=== PATIENT | male | born 1990 | race Caucasian/White ===

== ENCOUNTER 2016-12-18 20:55 | Emergency (ER) | payer OTHER ==
[~2016-12-18] VITALS: Ht 157.5 cm; Wt 60.5 kg
[~2016-12-18 20:55] MED LIST: ALBU1NEB10 INH; ALBUAER19 INH; AMIT50TA3 PO; CLR10 PO; OMEP20CA9 PO
[2016-12-18 20:57] VITALS: TEMP 37.2; Ht 157.5 cm; Wt 60.5 kg
[2016-12-18] MEDS ORDERED: LIDOCAINE HCL 2% VISC SOLN 20 ML UDC PO STA (21:29)
[2016-12-18] MEDS ORDERED: ALUMINUM/MAGNESIUM SUSP 30 ML UDC PO STA (21:29)
[2016-12-18] MEDS ORDERED: RANITIDINE HCL 50 MG/100 ML D5W IV STA (21:29)
[2016-12-18] MEDS ORDERED: ONDANSETRON INJ 2 MG/ML 2 ML VIAL IV STA (21:29)
[2016-12-18] MEDS ORDERED: SODIUM CHLORIDE 0.9% 1000ML 1,000 ML IV STA ×2 (21:29)
[2016-12-18 21:52] VITALS: O2SAT 98
[2016-12-18 22:04] LABS: BASO ABS # 0.08 K/uL (0-0.2); COMPLETE YES; EOS % 5.5 %; HEMATOCRIT 42.6 % (42-52); IG% 0.6 %; LYMPH % 27.5 %; LYMPH ABS # 2.23 K/uL (1.2-3.4); MEAN CELL VOLUME 93.8 fL (80-100); MEAN CORPUSCULAR HGB CONC 35.2 g/dl (32-36); MEAN PLATELET VOLUME 9.9 fL (7.4-10.4); MONO % 11.1 %; NEUT % 54.3 %; PLATELET COUNT 320 K/uL (130-400); RED BLOOD COUNT 4.54 M/uL (4.7-6.1); WHITE BLOOD COUNT 8.11 K/uL (4.8-10.8)
[2016-12-18 22:05] LABS: URINE APPEARANCE CLEAR (CLEAR); URINE BILIRUBIN NEG (NEG); URINE COLOR YELLOW; URINE NITRITE NEG (NEG); URINE PH 6.5 (4.5-7.5); URINE SPECIFIC GRAVITY 1.007 (1.000-1.030); UROBILINOGEN NEG (NEG)
[2016-12-18 22:11] LABS: MANUAL MICROSCOPIC REQUIRED? NO; REVIEW REQ? NO
[2016-12-18 22:21] LABS: CREATININE 0.78 mg/dl (0.60-1.40); POTASSIUM 3.7 mmol/L (3.5-5.1)
[2016-12-18 22:27] LABS: CALCIUM 9.1 mg/dl (8.5-10.1)
[2016-12-18] MEDS ORDERED: MoRPHine SULFATE 4 MG/ML 1 ML CARP\\VIAL IV STA (22:27)
[2016-12-19] MEDS ORDERED: MoRPHine SULFATE 4 MG/ML 1 ML CARP\\VIAL IV STA (00:05)
[2016-12-19 02:09] VITALS: BP 127/73; PULSE 63; O2SAT 98
[2016-12-19] MEDS ORDERED: TRAMADOL HCL 50 MG HOME PACK PO ONE (02:15)
--- NOTE | 2016-12-19 05:15 | EMERGENCY ROOM VISIT NOTE ---
History First contact with patient: 21:25 Chief Complaint: BACK PAIN Stated Complaint: BACK PAIN,ABD PAIN History of Present Illness The patient is a 26 year old male who presents to the Emergency Room with complaints of upper abdominal and back pain for the past day with nausea described as aching, ranging in severity 7 out of 10. Nothing makes it better or worse. Patient states the pain starts in his back and radiates around to his abdomen. He's had back pain before. This feels somewhat different. Patient denies chest pain, dyspnea, fever, chills, diarrhea, urinary symptoms, flank pain. He is tolerating by mouth fluids and food. Patient denies IV drug abuse. Review of Systems See HPI for pertinent positives & negatives. A total of 10 systems reviewed and were otherwise negative. Past Medical/Surgical History Medical Problems: (1) Acute exacerbation of chronic low back pain (2) Lumb/Lumbosac Disc Degen Family History Cancer Diabetes mellitus Heart disease Hypertension Lung disease Social History Smoking Status: Current Every Day Smoker Alcohol Use: occasionally Drug Use: none Marital Status: in relationship Housing Status: lives with family Occupation Status: employed Current/Historical Medications Scheduled Amitriptyline Hcl (Amitriptyline Hcl), 50 MG PO HS Loratadine (Claritin), 10 MG PO DAILY Omeprazole (Prilosec), Unknown Dose PO DAILY Scheduled PRN Albuterol Inhaler (Ventolin Inhaler), 2 PUFFS INH Q4H PRN for SOB/Wheezing Albuterol Sulf (Albuterol Sulfate 0.083% For Inh), 3 ML INH Q4H PRN for SOB/ Wheezing Allergies Coded Allergies: Cefaclor (Unverified Allergy, Mild, 12/18/16) Diclofenac (Unverified Allergy, Unknown, RASH, 12/18/16) Physical Exam Vital Signs Date Time Temp Pulse Resp B/P Pulse Ox O2 Delivery O2 Flow Rate FiO2 12/19/16 02:09 63 20 127/73 98 Room Air 12/19/16 00:56 86 20 115/83 98 Room Air 12/18/16 23:41 85 20 119/73 96 Room Air 12/18/16 21:53 86 20 110/86 98 12/18/16 21:52 98 Room Air 12/18/16 20:57 37.2 91 18 130/82 97 Room Air Physical Exam VITALS: Vitals are noted on the nurse's note and reviewed by myself. Vital signs stable. GENERAL: Pleasant male, in no acute distress, nondiaphoretic, well-developed well-nourished. SKIN: The skin was without rashes, erythema, edema, or bruising. There is no tenting of the skin. Capillary reflex less than 2 seconds. HEAD: Normocephalic atraumatic. EARS: External auditory canals clear, tympanic membranes pearly rivers without erythema or effusion bilaterally. EYES: Pupils equal round and reactive to light and accommodation. Conjunctivae without injection, sclerae without icterus. Extraocular movements intact. NOSE: Patent, turbinates without inflammation or discharge. MOUTH: Mucous membranes moist. Pharynx without erythema or exudate. Uvula midline. Airway patent. Tongue does not deviate. NECK: Supple without nuchal rigidity. No lymphadenopathy. No thyromegaly. Cervical spine is nontender. No JVD. HEART: Regular rate and rhythm without murmurs gallops or rubs. LUNGS: Clear to auscultation bilaterally without wheezes, rales or rhonchi. No dullness to percussion. No retractions or accessory muscle use. ABDOMEN: Positive bowel sounds x 4. Normal tympanic percussion. Soft, tender to palpation epigastric region, no CVA tenderness, without masses or organomegaly. Ghosh sign negative. No guarding or rebound tenderness. MUSCULOSKELETAL: No muscle atrophy, erythema, or edema noted. Midthoracic tenderness on exam without lumbar tenderness. Patient can walk on toes and heels. 5 out of 5 strength throughout. NEURO: Patient was alert and oriented to person place and time. Normal sensation to light and sharp touch. No focal neurological deficits. Medical Decision & Procedures Laboratory Results 12/18/16 21:47 Red Blood Count 4.54, Mean Corpuscular Volume 93.8, Mean Corpuscular Hemoglobin 33.0, Mean Corpuscular Hemoglobin Concent 35.2, Mean Platelet Volume 9.9, Neutrophils (%) (Auto) 54.3, Lymphocytes (%) (Auto) 27.5, Monocytes (%) (Auto) 11.1, Eosinophils (%) (Auto) 5.5, Basophils (%) (Auto) 1.0, Neutrophils # (Auto ) 4.40, Lymphocytes # (Auto) 2.23, Monocytes # (Auto) 0.90, Eosinophils # (Auto ) 0.45, Basophils # (Auto) 0.08 12/18/16 21:47 Test 12/18/16 21:47 White Blood Count 8.11 K/uL (4.8-10.8) Red Blood Count 4.54 M/uL (4.7-6.1) Hemoglobin 15.0 g/dL (14.0-18.0) Hematocrit 42.6 % (42-52) Mean Corpuscular Volume 93.8 fL (80-100) Mean Corpuscular Hemoglobin 33.0 pg (25-34) Mean Corpuscular Hemoglobin Concent 35.2 g/dl (32-36) Platelet Count 320 K/uL (130-400) Mean Platelet Volume 9.9 fL (7.4-10.4) Neutrophils (%) (Auto) 54.3 % Lymphocytes (%) (Auto) 27.5 % Monocytes (%) (Auto) 11.1 % Eosinophils (%) (Auto) 5.5 % Basophils (%) (Auto) 1.0 % Neutrophils # (Auto) 4.40 K/uL (1.4-6.5) Lymphocytes # (Auto) 2.23 K/uL (1.2-3.4) Monocytes # (Auto) 0.90 K/uL (0.11-0.59) Eosinophils # (Auto) 0.45 K/uL (0-0.5) Basophils # (Auto) 0.08 K/uL (0-0.2) RDW Standard Deviation 41.6 fL (36.4-46.3) RDW Coefficient of Variation 12.1 % (11.5-14.5) Immature Granulocyte % (Auto) 0.6 % Immature Granulocyte # (Auto) 0.05 K/uL (0.00-0.02) Urine Color YELLOW Urine Appearance CLEAR (CLEAR) Urine pH 6.5 (4.5-7.5) Urine Specific [place] 1.007 (1.000-1.030) Urine Protein NEG (NEG) Urine Glucose (UA) NEG (NEG) Urine Ketones NEG (NEG) Urine Occult Blood NEG (NEG) Urine Nitrite NEG (NEG) Urine Bilirubin NEG (NEG) Urine Urobilinogen NEG (NEG) Urine Leukocyte Esterase NEG (NEG) Anion Gap 5.0 mmol/L (3-11) Est Creatinine Clear Calc Drug Dose 112.8 ml/min Estimated GFR () 146.4 Estimated GFR (Non- 126.3 BUN/Creatinine Ratio 14.0 (10-20) Calcium Level 9.1 mg/dl (8.5-10.1) Total Bilirubin 0.9 mg/dl (0.2-1) Direct Bilirubin 0.1 mg/dl (0-0.2) Aspartate Amino Transf (AST/SGOT) 27 U/L (15-37) Alanine Aminotransferase (ALT/SGPT) 71 U/L (12-78) Alkaline Phosphatase 81 U/L (45-117) Total Protein 7.8 gm/dl (6.4-8.2) Albumin 4.3 gm/dl (3.4-5.0) Lipase 103 U/L (73-393) Medications Administered Medications (Trade) Dose Ordered Sig/Neri Route Start Time Stop Time Status Last Admin Dose Admin Lidocaine HCl (Viscous Lidocaine 2% Soln) 10 ml NOW STAT PO 12/18/16 21:29 12/18/16 21:30 DC 12/18/16 21:45 10 ML Al Hydroxide/Mg Hydroxide 30 ml 30 ml NOW STAT PO 12/18/16 21:29 12/18/16 21:30 DC 12/18/16 21:46 30 ML Sodium Chloride 1,000 ml @ 999 mls/hr Q1H1M STAT IV 12/18/16 21:29 12/18/16 22:29 DC 12/18/16 21:29 999 MLS/HR Sodium Chloride (Nss 1000ml) 1,000 ml @ 125 mls/hr Q8H STAT IV 12/18/16 21:29 12/19/16 03:29 DC 12/18/16 21:29 125 MLS/HR Ondansetron HCl (Zofran Inj) 4 mg NOW STAT IV 12/18/16 21:29 12/18/16 21:31 DC 12/18/16 21:46 4 MG Ranitidine HCl (zANTac IV) 50 mg NOW STAT IV 12/18/16 21:29 12/18/16 21:31 DC 12/18/16 21:46 50 MG Morphine Sulfate (MoRPHine SULFATE INJ) 4 mg NOW STAT IV 12/18/16 22:27 12/18/16 22:28 DC 12/18/16 22:27 4 MG Morphine Sulfate (MoRPHine SULFATE INJ) 4 mg NOW STAT IV 12/19/16 00:05 12/19/16 00:06 DC 12/19/16 00:05 4 MG Tramadol HCl (Ultram Home Pack) 1 homepack UD ONCE PO 12/19/16 02:15 12/19/16 02:16 DC 12/19/16 02:15 1 HOMEPACK ED Course Prior records/ancillary studies reviewed. Triage Nursing notes reviewed. Additional history obtained from family The patient's history was concerning for back and abdominal pain. Differential diagnosis: Etiologies such as hepatitis, pancreatitis, cholecystitis, cholelithiasis, appendicitis, kidney stone, pyelonephritis, UTI, gastritis, gastroenteritis, mesenteric adenitis, obstruction, constipation, hernia, abdominal abscess, perforation, diverticulitis, IBD, ischemic colitis, abdominal aortic aneurysm, testicular torsion, muscle skeletal, disc herniation, fracture, aortic disease , metastatic disease, cord compression, discitis, infection, renal colic, gastrointestinal, acute exacerbation of chronic back pain, sciatica, cauda equina, as well as others were entertained. Physical findings: As above. No focal neurologic findings noted. ER treatment provided: GI cocktail, morphine, IV fluids On reassessment the patient felt better. Diagnostics interpreted by me: The labs revealed no worrisome leukocytosis or electrolyte abnormality Imaging studies: Ultrasound negative for cholecystitis per radiology CT of the spine was reviewed with no acute findings per radiology This appears to be consistent with thoracic strain. Patient was neurovascularly and neurologically intact. He was well-appearing. He is advised to follow-up with orthopedic spine or family care in a few days or here in the ER sooner for abdominal pain, back pain, inability walk, worsening signs or symptoms or as needed. Patient was afebrile well-appearing. No history of IV drug abuse.. The patient's physical examination and detailed history did not reveal any red flags for back pain such as those listed in the differential diagnosis. Therefore advanced diagnostics and consultations were felt to be unwarranted. Patient ambulated out of the ER without difficulties. By the evaluation outlined above emergent etiologies such as fracture, aortic disease, metastatic disease, infection, renal colic, gastrointestinal, cord compression, cauda equina, as well as others were deemed relatively unlikely. The pt informed about the findings as listed above. All questions were answered and pleased with the treatment. Return instructions were outlined and the patient was discharged in stable condition. Referral: The patient was referred back to orthopedic spine and/or primary care physician for follow-up in 2 to 3 days for a recheck of the current condition. Case reviewed with my attending Medical Decision As above Impression Primary Impression: Mid back pain Additional Impression: Epigastric discomfort Departure Information Referrals No Doctor, Assigned (PCP) Patient Instructions [facility] Problem Qualifiers
--- NOTE | 2016-12-19 06:31 | DIAGNOSTIC IMAGING REPORT ---
ABDOMINAL ULTRASOUND, RIGHT UPPER QUADRANT HISTORY: Epigastric pain.. COMPARISON: CT of the abdomen and pelvis June 11, 2014. FINDINGS: Liver is sonographically normal. There is no biliary ductal dilatation. No gallstones are identified. The pancreatic body is normal. The head and tail are obscured. There is no right hydronephrosis. IMPRESSION: No significant abnormality identified within the right upper quadrant. Electronically signed by: Ankit Chavez M.D. 12/19/2016 6:30 AM Dictated Date/Time: 12/19/2016 6:29 AM
--- NOTE | 2016-12-19 09:05 | DIAGNOSTIC IMAGING REPORT ---
CT THORACIC SPINE WITHOUT CT DOSE: 527.03 mGy.cm CLINICAL HISTORY: Mid back pain radiating to abdomen. TECHNIQUE: Images of the thoracic spine were obtained without IV contrast. Sagittal and coronal reconstructions were viewed. COMPARISON STUDY: Chest radiograph December 22, 2010. FINDINGS: There is mild rightward curvature of the thoracic spine. No acute thoracic spine fracture is identified. There is no suspicious osseous lesion. Multiple Schmorl's nodes are noted. Central canal is suboptimally assessed by CT but appears patent. Paravertebral soft tissues are unremarkable. Visual portions of the lungs are clear. There may be a punctate calculus within the upper pole of the right kidney. IMPRESSION: No acute thoracic spine fracture or subluxation. Electronically signed by: Ankit Chavez M.D. 12/19/2016 9:04 AM Dictated Date/Time: 12/19/2016 9:00 AM
== END 2016-12-19 02:29 | disposition home or self-care (01) ==
LOC: C.EDB 20:56
DX: M54.9 Dorsalgia, unspecified (principal); R10.13 Epigastric pain; F17.210 Nicotine dependence, cigarettes, uncomplicated; Z80.9 Family history of malignant neoplasm, unspecified; Z83.3 Family history of diabetes mellitus; Z82.49 Family history of ischemic heart disease and other diseases of the circulatory system; Z79.899 Other long term (current) drug therapy

== ENCOUNTER 2017-03-29 18:17 | Emergency (ER) | payer OTHER ==
[~2017-03-29] VITALS: Ht 157.5 cm; Wt 62.6 kg
[2017-03-29 18:33] VITALS: TEMP 36.7; Ht 157.5 cm; Wt 62.6 kg
[2017-03-29] MEDS ORDERED: FLUT1INH PO (19:45)
[2017-03-29] MEDS ORDERED: CLC/300 PO (19:45)
[2017-03-29] MEDS ORDERED: DIVA250T4 PO (19:45)
--- NOTE | 2017-03-29 19:49 | EMERGENCY ROOM VISIT NOTE ---
History Report prepared by William: Geovanny Bella Under the Supervision of: Dr. Suleiman Berry M.D. First contact with patient: 19:36 Chief Complaint: ABDOMINAL PAIN Stated Complaint: UPPER ABD PAIN Nursing Triage Summary: Pt reports RUQ ain that began this past week, but "had been bothering me for awhile. I had it checked when I was in nursing home and they said it was an ulcer. I get pain in my chest and it hurts to breathe sometimes. It is worse after I eat." History of Present Illness The patient is a 27 year old male who presents to the Emergency Room with complaints of worsening right upper quadrant abdominal pain beginning a week ago. The patient states that he had similar symptoms around a year ago, but that discomfort went away. He reports that every time he eats, he vomits. The patient notes that his pain radiates to his chest and makes it hard to breath. The patient states that he takes Prilosec and Claritin everyday. He denies a history of hepatitis and stomach ulcers. The patient also denies falling, fevers , consuming alcohol, and any injuries to his abdomen. He reports that he has had his symptoms evaluated before and was told that he did not have anything wrong with him, yet he claims he never had an ultrasound of his gallbladder. The patient notes that his father has a history of stomach ulcers. Source of History: patient Onset: week ago Position: abdomen (RUQ) Timing: worsening Associated Symptoms: + chest pain, + SOB, No fevers Review of Systems See HPI for pertinent positives & negatives. A total of 10 systems reviewed and were otherwise negative. Past Medical & Surgical Medical Problems: (1) Acute exacerbation of chronic low back pain (2) Lumb/Lumbosac Disc Degen Family History Cancer Diabetes mellitus Heart disease Hypertension Lung disease Social History Smoking Status: Current Every Day Smoker Alcohol Use: occasionally Drug Use: none Marital Status: in relationship Housing Status: lives with family Occupation Status: employed Current/Historical Medications Scheduled Clindamycin HCl (Clindamycin HCl), 300 MG PO QID Divalproex Sodium (Depakote Delay Rel), 250 MG PO HS Loratadine (Claritin), 10 MG PO DAILY Omeprazole (Prilosec), Unknown Dose PO DAILY Scheduled PRN Albuterol Inhaler (Ventolin Inhaler), 2 PUFFS INH Q4H PRN for SOB/Wheezing Albuterol Sulf (Albuterol Sulfate 0.083% For Inh), 3 ML INH Q4H PRN for SOB/ Wheezing Fluticasone Furoate-Vilanterol (Breo Ellipta), 1 PUFF PO DAILY PRN for Shortness of Breath Allergies Coded Allergies: Cefaclor (Unverified Allergy, Mild, 03/29/17) Diclofenac (Unverified Allergy, Unknown, RASH, 03/29/17) Physical Exam Vital Signs Date Time Temp Pulse Resp B/P (MAP) Pulse Ox O2 Delivery O2 Flow Rate FiO2 03/29/17 21:10 83 18 129/78 98 Room Air 03/29/17 18:33 36.7 62 18 128/77 96 Room Air Physical Exam GENERAL: Patient is uncomfortable appearing and in mild distress. HEENT: No acute trauma, normocephalic atraumatic, mucous membranes moist, no nasal congestion, no scleral icterus. NECK: No stridor, no adenopathy, no meningismus, trachea is midline. LUNGS: No dyspnea. Clear to auscultation and equal bilaterally. No wheeze, no rhonchi. HEART: Regular rate and rhythm. No murmurs, rubs, gallops appreciated. ABDOMEN: Soft, mild epigastric tenderness upon palpation, bowel sounds positive , no masses appreciated, no peritonitis. BACK: No midline tenderness, no CVA tenderness EXTREMITIES: Normal motion all extremities, no cyanosis, no edema. NEUROLOGIC: Alert and oriented, no acute motor or sensory deficits, no focal weakness, cranial nerves grossly intact. SKIN: No rash, no jaundice, no diaphoresis. Medical Decision & Procedures ER Provider Diagnostic Interpretation: Radiology results and stated below per my review and radiologist interpretation: GALLBLADDER-ABD LIMITED CLINICAL HISTORY: epigastric/RUQ abdominal pain, vomiting with eating pain TECHNIQUE: Ultrasound COMPARISON STUDY: 12/18/2016 FINDINGS: Normal study. Normal gallbladder. Common bile duct 4 mm. Right kidney is negative for hydronephrosis. IMPRESSION: Normal study. No change from the prior exam. The above report was generated using voice recognition software. It may contain grammatical, syntax or spelling errors. Electronically signed by: Say Suazo M.D. 03/29/2017 8:55 PM Dictated Date/Time: 03/29/2017 8:54 PM CHEST ONE VIEW PORTABLE CLINICAL HISTORY: Chest Pain dyspnea COMPARISON STUDY: 12/22/2010 FINDINGS: The bones soft tissues and hemidiaphragms are normal. The cardiomediastinal silhouette is normal. The lungs are clear. The pulmonary vasculature is normal. IMPRESSION: Negative chest. The above report was generated using voice recognition software. It may contain grammatical, syntax or spelling errors. Electronically signed by: Say Suazo M.D. 03/29/2017 8:39 PM Dictated Date/Time: 03/29/2017 8:39 PM Laboratory Results 03/29/17 19:59 Red Blood Count 4.66, Mean Corpuscular Volume 93.1, Mean Corpuscular Hemoglobin 30.9, Mean Corpuscular Hemoglobin Concent 33.2, Mean Platelet Volume 9.9, Neutrophils (%) (Auto) 50.5, Lymphocytes (%) (Auto) 26.3, Monocytes (%) (Auto) 9.5, Eosinophils (%) (Auto) 12.4, Basophils (%) (Auto) 1.0, Neutrophils # (Auto ) 4.61, Lymphocytes # (Auto) 2.40, Monocytes # (Auto) 0.87, Eosinophils # (Auto ) 1.13, Basophils # (Auto) 0.09 03/29/17 19:59 Test 03/29/17 19:59 White Blood Count 9.13 K/uL (4.8-10.8) Red Blood Count 4.66 M/uL (4.7-6.1) Hemoglobin 14.4 g/dL (14.0-18.0) Hematocrit 43.4 % (42-52) Mean Corpuscular Volume 93.1 fL (80-100) Mean Corpuscular Hemoglobin 30.9 pg (25-34) Mean Corpuscular Hemoglobin Concent 33.2 g/dl (32-36) Platelet Count 331 K/uL (130-400) Mean Platelet Volume 9.9 fL (7.4-10.4) Neutrophils (%) (Auto) 50.5 % Lymphocytes (%) (Auto) 26.3 % Monocytes (%) (Auto) 9.5 % Eosinophils (%) (Auto) 12.4 % Basophils (%) (Auto) 1.0 % Neutrophils # (Auto) 4.61 K/uL (1.4-6.5) Lymphocytes # (Auto) 2.40 K/uL (1.2-3.4) Monocytes # (Auto) 0.87 K/uL (0.11-0.59) Eosinophils # (Auto) 1.13 K/uL (0-0.5) Basophils # (Auto) 0.09 K/uL (0-0.2) RDW Standard Deviation 41.0 fL (36.4-46.3) RDW Coefficient of Variation 12.2 % (11.5-14.5) Immature Granulocyte % (Auto) 0.3 % Immature Granulocyte # (Auto) 0.03 K/uL (0.00-0.02) Anion Gap 4.0 mmol/L (3-11) Est Creatinine Clear Calc Drug Dose 124.6 ml/min Estimated GFR () > 150.0 Estimated GFR (Non- 131.2 BUN/Creatinine Ratio 9.9 (10-20) Calcium Level 9.4 mg/dl (8.5-10.1) Total Bilirubin 0.5 mg/dl (0.2-1) Direct Bilirubin 0.1 mg/dl (0-0.2) Aspartate Amino Transf (AST/SGOT) 20 U/L (15-37) Alanine Aminotransferase (ALT/SGPT) 38 U/L (12-78) Alkaline Phosphatase 78 U/L (45-117) Troponin I < 0.015 ng/ml (0-0.045) Total Protein 8.0 gm/dl (6.4-8.2) Albumin 4.3 gm/dl (3.4-5.0) Lipase 106 U/L (73-393) Laboratory results as reviewed by me. Medications Administered Medications (Trade) Dose Ordered Sig/Neri Route Start Time Stop Time Status Last Admin Dose Admin Ibuprofen (Motrin Tab) 600 mg NOW STAT PO 03/29/17 21:00 03/29/17 21:01 DC 03/29/17 21:10 600 MG Ranitidine HCl (zANTac TAB) 150 mg NOW ONCE PO 03/29/17 21:00 03/29/17 21:01 DC 03/29/17 21:10 150 MG ECG Indication: abdominal pain Rate (beats per minute): 80 Findings: no acute ischemic change, no ectopy ED Course 1935: The patient was evaluated in room C04. A complete history and physical exam was performed. 2100: Ordered Ranitidine HCl 150mg PO, Motrin Tab 600mg PO 2146: Reevaluated the patient. Discussed results and discharge instructions: he verbalized understanding and agreement. The patient is ready for discharge. Medical Decision Differential: Cholecystitis, Gallbladder disfunction, Hepatic Disfunction, Gastritis/PUD, Pancreatitis, ACS, Aortic Pathology, amongst other pathologies entertained. 27 yr old male with long history of epigastric pain which worsened this week. He admits history of PUD though is concerned this is different. On Omeprazole daily for it. Admits increased use of NSAIDs due to knee pain and tooth pain s/ p extraction. Labs unremarkable, EKG normal, Trop negative, GB US unchanged and normal. I do not feel that CT imaging indicated. This is half-way issue. I suspect worsening of his gastritis after NSAID use (which he neglected to tell me until post Motrin use). I did give him pepcid here. I have advised BID Prilosec x 1 week and avoiding nsaids. Follow up with PCP stressed. Impression Primary Impression: Epigastric discomfort Scribe Attestation The scribe's documentation has been prepared under my direction and personally reviewed by me in its entirety. I confirm that the note above accurately reflects all work, treatment, procedures, and medical decision making performed by me. Departure Information Dispostion Home / Self-Care Referrals No Doctor, Assigned (PCP) Forms HOME CARE DOCUMENTATION FORM, IMPORTANT VISIT INFORMATION Patient Instructions ED Epigastric Pain Oriana ZAVALA [facility] Additional Instructions Avoid NSAID (ibuprofen) use as much as possible. Increase your Prilosec to twice daily for next week.
[2017-03-29 20:16] LABS: BASO ABS # 0.09 K/uL (0-0.2); COMPLETE YES; EOS % 12.4 %; HEMATOCRIT 43.4 % (42-52); IG% 0.3 %; LYMPH % 26.3 %; MEAN CELL VOLUME 93.1 fL (80-100); MEAN CORPUSCULAR HEMOGLOBIN 30.9 pg (25-34); MEAN CORPUSCULAR HGB CONC 33.2 g/dl (32-36); MEAN PLATELET VOLUME 9.9 fL (7.4-10.4); MONO % 9.5 %; NEUT % 50.5 %; PLATELET COUNT 331 K/uL (130-400); RED BLOOD COUNT 4.66 M/uL (4.7-6.1); WHITE BLOOD COUNT 9.13 K/uL (4.8-10.8)
[2017-03-29 20:31] LABS: ALT/SGPT 38 U/L (12-78); BLOOD UREA NITROGEN 7 mg/dl (7-18); BUN/CREATININE RATIO 9.9 (10-20); CALCIUM 9.4 mg/dl (8.5-10.1); CARBON DIOXIDE 28 mmol/L (21-32); CHLORIDE 106 mmol/L (98-107); GLUCOSE 89 mg/dl (70-99); POTASSIUM 3.8 mmol/L (3.5-5.1); SODIUM 138 mmol/L (136-145)
[2017-03-29 20:36] LABS: ALKALINE PHOSPHATASE 78 U/L (45-117); AST/SGOT 20 U/L (15-37)
--- NOTE | 2017-03-29 20:40 | DIAGNOSTIC IMAGING REPORT ---
CHEST ONE VIEW PORTABLE CLINICAL HISTORY: Chest Pain dyspnea COMPARISON STUDY: 12/22/2010 FINDINGS: The bones soft tissues and hemidiaphragms are normal. The cardiomediastinal silhouette is normal. The lungs are clear. The pulmonary vasculature is normal. IMPRESSION: Negative chest. The above report was generated using voice recognition software. It may contain grammatical, syntax or spelling errors. Electronically signed by: Say Suazo M.D. 03/29/2017 8:39 PM Dictated Date/Time: 03/29/2017 8:39 PM
--- NOTE | 2017-03-29 20:57 | DIAGNOSTIC IMAGING REPORT ---
GALLBLADDER-ABD LIMITED CLINICAL HISTORY: epigastric/RUQ abdominal pain, vomiting with eating pain TECHNIQUE: Ultrasound COMPARISON STUDY: 12/18/2016 FINDINGS: Normal study. Normal gallbladder. Common bile duct 4 mm. Right kidney is negative for hydronephrosis. IMPRESSION: Normal study. No change from the prior exam. The above report was generated using voice recognition software. It may contain grammatical, syntax or spelling errors. Electronically signed by: Say Suazo M.D. 03/29/2017 8:55 PM Dictated Date/Time: 03/29/2017 8:54 PM
[2017-03-29] MEDS ORDERED: RANITIDINE HCL 150 MG TAB PO ONE (21:00)
[2017-03-29] MEDS ORDERED: IBUPROFEN 600 MG TAB PO STA (21:00)
[2017-03-29 21:10] VITALS: BP 129/78; PULSE 83; O2SAT 98
== END 2017-03-29 21:59 | disposition home or self-care (01) ==
LOC: C.EDB 18:17 → C.EDC 21:59
DX: R10.13 Epigastric pain (principal); M51.36 Other intervertebral disc degeneration, lumbar region; Z80.9 Family history of malignant neoplasm, unspecified; Z83.3 Family history of diabetes mellitus; Z82.49 Family history of ischemic heart disease and other diseases of the circulatory system; Z83.6 Family history of other diseases of the respiratory system; F17.210 Nicotine dependence, cigarettes, uncomplicated; Z79.899 Other long term (current) drug therapy

== ENCOUNTER → 2017-05-09 | Outpatient (CLI) | payer OTHER ==
[~2017-05-09] MED LIST changes: -AMIT50TA3 PO; +CLC/300 PO; +DIVA250T4 PO; +FLUT1INH PO
[2017-05-09 11:55] LABS: BASO % 0.4 %; BASO ABS # 0.02 K/uL (0-0.2); COMPLETE YES; EOS % 7.9 %; HEMATOCRIT 41.4 % (42-52); IG% 0.8 %; MEAN CELL VOLUME 91.4 fL (80-100); MEAN CORPUSCULAR HEMOGLOBIN 33.3 pg (25-34); MEAN CORPUSCULAR HGB CONC 36.5 g/dl (32-36); MEAN PLATELET VOLUME 10.6 fL (7.4-10.4); MONO % 11.9 %; PLATELET COUNT 235 K/uL (130-400); RED BLOOD COUNT 4.53 M/uL (4.7-6.1); WHITE BLOOD COUNT 4.81 K/uL (4.8-10.8)
[2017-05-09 12:34] LABS: ALT/SGPT 51 U/L (12-78); AST/SGOT 22 U/L (15-37); BLOOD UREA NITROGEN 12 mg/dl (7-18); CALCIUM 8.8 mg/dl (8.5-10.1); CARBON DIOXIDE 25 mmol/L (21-32); CHLORIDE 107 mmol/L (98-107); CHOLESTEROL 209 mg/dl (0-200); CREATININE 0.58 mg/dl (0.60-1.40); GLUCOSE 75 mg/dl (70-99); SODIUM 140 mmol/L (136-145)
[2017-05-09 12:45] LABS: ALB/GLOB RATIO 1.1 (0.9-2); ALKALINE PHOSPHATASE 80 U/L (45-117); CHOLESTEROL/HDL RATIO 4.5; HDL CHOLESTEROL 46 mg/dl; LDL CHOLESTEROL CALCULATED 140 mg/dl; THYROID STIMULATING HORMONE 0.757 uIu/ml (0.300-4.500); TRIGLYCERIDES 115 mg/dl (0-150); VERY LOW DENSITY LIPOPROT CALC 23 mg/dl
== END | disposition home or self-care (01) ==
LOC: C.LAB 10:22
PROVIDERS: ATTEND Physician Assistant
DX: Z51.81 Encounter for therapeutic drug level monitoring (principal); Z79.899 Other long term (current) drug therapy

== ENCOUNTER 2017-08-01 09:53 | Emergency (ER) | payer OTHER ==
[~2017-08-01] VITALS: Ht 157.5 cm; Wt 63.3 kg
[2017-08-01 10:08] VITALS: Ht 157.5 cm; Wt 63.3 kg
[2017-08-01] MEDS ORDERED: DiphenhydrAMINE HCL 50 MG/ML VIAL IV STA (11:07)
[2017-08-01] MEDS ORDERED: KETOROLAC TROMETHAMINE 30 MG/ML VIAL IV STA (11:07)
[2017-08-01 11:17] LABS: BASO % 0.6 %; BASO ABS # 0.03 K/uL (0-0.2); EOS % 3.3 %; EOS ABS # 0.17 K/uL (0-0.5); HEMATOCRIT 40.9 % (42-52); HEMOGLOBIN 14.6 g/dL (14.0-18.0); IG# 0.03 K/uL (0.00-0.02); LYMPH % 27.8 %; LYMPH ABS # 1.43 K/uL (1.2-3.4); MEAN CELL VOLUME 93.2 fL (80-100); MEAN CORPUSCULAR HEMOGLOBIN 33.3 pg (25-34); MEAN CORPUSCULAR HGB CONC 35.7 g/dl (32-36); MEAN PLATELET VOLUME 9.9 fL (7.4-10.4); MONO % 13.4 %; MONO ABS # 0.69 K/uL (0.11-0.59); NEUT % 54.3 %; PLATELET COUNT 289 K/uL (130-400); RED CELL DISTRIBUTION WIDTH CV 12.7 % (11.5-14.5); RED CELL DISTRIBUTION WIDTH SD 42.8 fL (36.4-46.3); WHITE BLOOD COUNT 5.15 K/uL (4.8-10.8)
[2017-08-01] MEDS ORDERED: MONT1TAB3 PO (11:27)
[2017-08-01] MEDS ORDERED: VNTHFA/IN INH (11:27)
[2017-08-01] MEDS ORDERED: ALBINS/ INH (11:27)
[2017-08-01 11:36] LABS: BLOOD UREA NITROGEN 9 mg/dl (7-18); CALCIUM 8.9 mg/dl (8.5-10.1); CARBON DIOXIDE 26 mmol/L (21-32); GLUCOSE 85 mg/dl (70-99); SODIUM 141 mmol/L (136-145)
--- NOTE | 2017-08-01 12:02 | DIAGNOSTIC IMAGING REPORT ---
CT HEAD WITHOUT CONTRAST (CT) CLINICAL HISTORY: Severe headache COMPARISON STUDY: 05/16/2016 TECHNIQUE: Axial CT of the brain is performed from the vertex to the skull base. IV contrast was not administered for this examination. A dose lowering technique was utilized adhering to the principles of ALARA. CT DOSE: 638.56 mGycm FINDINGS: No intra or extra-axial mass lesions are visualized. There is no CT evidence of acute cortical infarction. There is no evidence of midline shift. There is no acute hemorrhage. No calvarial fractures are visualized. There is no evidence of pathologic ventricular dilatation. There is no evidence of acute sinusitis IMPRESSION: Normal noncontrast head CT. Electronically signed by: Jaime Stephenson M.D. 08/01/2017 12:01 PM Dictated Date/Time: 08/01/2017 12:00 PM
[2017-08-01 12:38] VITALS: BP 122/73; PULSE 75; TEMP 36.8; O2SAT 98
--- NOTE | 2017-08-01 16:21 | EMERGENCY ROOM VISIT NOTE ---
History Report prepared by William: Octavio Escalante Under the Supervision of: Dr. Rupert Castellon D.O. First contact with patient: 10:48 Chief Complaint: HEADACHE Stated Complaint: SHARP PAIN IN RIGHT SIDE OF HEAD History of Present Illness The patient is a 27 year old male who presents to the Emergency Room with complaints of a waxing and waning sharp pain on the right side of his head starting last night. The patient states that this pain is not better or worse with anything including palpation and light. He is additionally complaining of dizziness. The patient denies any recent trauma or falls, and he reports that he has a history of asthma. Pt denies weakness, numbness, change in vision, fevers, chest pain, shortness of breath, nausea, vomiting, diarrhea, pain with urination, and melena. Source of History: patient Onset: last night Position: head Quality: sharp Timing: waxes/wanes Associated Symptoms: No weakness, No numbness Note: Associated symptoms: Dizziness Review of Systems See HPI for pertinent positives & negatives. A total of 10 systems reviewed and were otherwise negative. Past Medical & Surgical Medical Problems: (1) Acute exacerbation of chronic low back pain (2) Lumb/Lumbosac Disc Degen Family History Cancer Diabetes mellitus Heart disease Hypertension Lung disease Social History Smoking Status: Current Every Day Smoker Alcohol Use: occasionally Drug Use: none Marital Status: in relationship Housing Status: lives with family Occupation Status: employed Current/Historical Medications Scheduled Albuterol Hfa (Ventolin Hfa), 2 PUFFS INH Q4H Divalproex Sodium (Depakote Delay Rel), 250 MG PO BID Loratadine (Claritin), 10 MG PO DAILY Montelukast Sodium (Singulair), 10 MG PO HS Omeprazole (Prilosec), 20 MG PO DAILY Scheduled PRN Albuterol Sulf (Proventil 0.083% 2.5MG/3ML), 2.5 MG INH Q4H PRN for SOB/Wheezing Fluticasone Furoate-Vilanterol (Breo Ellipta), 1 PUFF PO DAILY PRN for Shortness of Breath Allergies Coded Allergies: Cefaclor (Unverified Allergy, Mild, 08/01/17) Diclofenac (Unverified Allergy, Unknown, RASH, 08/01/17) Physical Exam Vital Signs Date Time Temp Pulse Resp B/P (MAP) Pulse Ox O2 Delivery O2 Flow Rate FiO2 08/01/17 12:38 36.8 75 19 122/73 98 08/01/17 11:30 73 20 121/71 98 Room Air 08/01/17 10:08 36.8 96 20 121/77 96 Room Air Physical Exam GENERAL: Sitting up in bed, alert, well appearing, well nourished, no distress, non-toxic EYE EXAM: normal conjunctiva. PERRL and EOM's intact. OROPHARYNX: no exudate, no erythema, lips, buccal mucosa, and tongue normal and mucous membranes are moist NECK: supple, no nuchal rigidity, no adenopathy, non-tender LUNGS: Clear to auscultation. Normal chest wall mechanics HEART: no murmurs, S1 normal and S2 normal ABDOMEN: abdomen soft, non-tender, normo-active bowel sounds, no masses, no rebound or guarding. BACK: Back is symmetrical on inspection and there is no deformity, no midline tenderness, no CVA tenderness. SKIN: no rashes and no bruising UPPER EXTREMITIES: upper extremities are grossly normal. LOWER EXTREMITIES: No pitting edema. NEURO EXAM: Normal sensorium, cranial nerves II-XII intact, normal speech, no weakness of arms, no weakness of legs. No drift. Finger to nose intact. Sensation intact. Medical Decision & Procedures ER Provider Diagnostic Interpretation: Radiology results as stated below per my review and the radiologist's interpretation: CT HEAD WITHOUT CONTRAST (CT) CLINICAL HISTORY: Severe headache COMPARISON STUDY: 05/16/2016 TECHNIQUE: Axial CT of the brain is performed from the vertex to the skull base. IV contrast was not administered for this examination. A dose lowering technique was utilized adhering to the principles of ALARA. CT DOSE: 638.56 mGycm FINDINGS: No intra or extra-axial mass lesions are visualized. There is no CT evidence of acute cortical infarction. There is no evidence of midline shift. There is no acute hemorrhage. No calvarial fractures are visualized. There is no evidence of pathologic ventricular dilatation. There is no evidence of acute sinusitis IMPRESSION: Normal noncontrast head CT. Electronically signed by: Jaime Stephenson M.D. 08/01/2017 12:01 PM Dictated Date/Time: 08/01/2017 12:00 PM Laboratory Results 08/01/17 11:05 Red Blood Count 4.39, Mean Corpuscular Volume 93.2, Mean Corpuscular Hemoglobin 33.3, Mean Corpuscular Hemoglobin Concent 35.7, Mean Platelet Volume 9.9, Neutrophils (%) (Auto) 54.3, Lymphocytes (%) (Auto) 27.8, Monocytes (%) (Auto) 13.4, Eosinophils (%) (Auto) 3.3, Basophils (%) (Auto) 0.6, Neutrophils # (Auto ) 2.80, Lymphocytes # (Auto) 1.43, Monocytes # (Auto) 0.69, Eosinophils # (Auto ) 0.17, Basophils # (Auto) 0.03 08/01/17 11:05 Test 08/01/17 11:05 White Blood Count 5.15 K/uL (4.8-10.8) Red Blood Count 4.39 M/uL (4.7-6.1) Hemoglobin 14.6 g/dL (14.0-18.0) Hematocrit 40.9 % (42-52) Mean Corpuscular Volume 93.2 fL (80-100) Mean Corpuscular Hemoglobin 33.3 pg (25-34) Mean Corpuscular Hemoglobin Concent 35.7 g/dl (32-36) Platelet Count 289 K/uL (130-400) Mean Platelet Volume 9.9 fL (7.4-10.4) Neutrophils (%) (Auto) 54.3 % Lymphocytes (%) (Auto) 27.8 % Monocytes (%) (Auto) 13.4 % Eosinophils (%) (Auto) 3.3 % Basophils (%) (Auto) 0.6 % Neutrophils # (Auto) 2.80 K/uL (1.4-6.5) Lymphocytes # (Auto) 1.43 K/uL (1.2-3.4) Monocytes # (Auto) 0.69 K/uL (0.11-0.59) Eosinophils # (Auto) 0.17 K/uL (0-0.5) Basophils # (Auto) 0.03 K/uL (0-0.2) RDW Standard Deviation 42.8 fL (36.4-46.3) RDW Coefficient of Variation 12.7 % (11.5-14.5) Immature Granulocyte % (Auto) 0.6 % Immature Granulocyte # (Auto) 0.03 K/uL (0.00-0.02) Anion Gap 8.0 mmol/L (3-11) Est Creatinine Clear Calc Drug Dose 145.4 ml/min Estimated GFR () > 150.0 Estimated GFR (Non- 139.7 BUN/Creatinine Ratio 15.1 (10-20) Calcium Level 8.9 mg/dl (8.5-10.1) Laboratory results per my review. Medications Administered Medications (Trade) Dose Ordered Sig/Neri Route Start Time Stop Time Status Last Admin Dose Admin Diphenhydramine HCl (Benadryl Inj) 50 mg NOW STAT IV 08/01/17 11:07 08/01/17 11:08 DC 08/01/17 11:29 50 MG Ketorolac Tromethamine (Toradol Inj) 30 mg NOW STAT IV 08/01/17 11:07 08/01/17 11:08 DC 08/01/17 11:29 30 MG ED Course ED COURSE: Vital signs were reviewed and showed normal vitals The patients medical record was reviewed The above diagnostic studies were performed and reviewed. ED treatments and interventions as stated above. 1048: The patient was evaluated in room C4. A complete history and physical examination was performed. 1107: Toradol 30mg IV, and Benadryl 50mg IV 1222: Upon reevaluation, the patient is doing well. He declined an LP, and I discussed the risks and benefits with him. I discussed my findings with the patient and he understands and agrees with the treatment plan. Based on the patients age, coexisting illnesses, exam and lab findings the decision to treat as an outpatient was made. The patient remained stable while under my care. The patient appeared well at the time of discharge. Medical Decision Differential Diagnosis includes but is not limited to headache, tension headache , cluster headache, migraine, subarachnoid hemorrhage, meningitis, mass, central venous thrombus, concussion, trauma and epidural/subdural hemorrhage. Patient is a 27-year-old male who presents to ER for sharp stabbing right-sided head pain. He denies any headache. He simply neurologically intact. CT head was negative. CBC all BMP was unremarkable. On reevaluation patient was feeling slightly better following the above treatments which included IV Toradol and Benadryl. He did say he still had the pain. This is not the worst pain of his life. Did offer LP but he declined as he notes he has had these before and he does not think he has any Infection or bleed. Based on this patient was discharged follow-up with PCP as an outpatient. Discussed with Pt concerning signs and symptoms to watch out for. Pt was instructed to follow up with their PCP and discussed with the patient their option to return to the ED at anytime for persistent or worsening symptoms. The appropriate anticipatory guidance and out-patient management, including indications for return to the emergency department, were explained at length to the patient and understood. [place] Drug Monitoring Program Search Results: patient reviewed within database, see additional documentation Drug Monitoring Findings: The patient had 9 prescriptions filled by 4 different providers Medication Reconcilliation Current Medication List: was personally reviewed by me Blood Pressure Screening Patient's blood pressure: Normal blood pressure Impression Primary Impression: Cephalgia Scribe Attestation The scribe's documentation has been prepared under my direction and personally reviewed by me in its entirety. I confirm that the note above accurately reflects all work, treatment, procedures, and medical decision making performed by me. Departure Information Dispostion Home / Self-Care Referrals El Reyna M.D.(LOUISA) (PCP) Forms HOME CARE DOCUMENTATION FORM, IMPORTANT VISIT INFORMATION Patient Instructions Headache Pain, My [facility] Negron Torres [employer] Additional Instructions Please follow up with your primary care doctor with in the next 24 hours. Any worsening of your symptoms, please return to the ED immediately. This includes any fevers greater than 100.4, worsening pain, chest pain, shortness breath, persistent nausea, vomiting, unable to eat or drink, or any other concerning signs or symptoms from your standpoint. You were given medications during this visit that will inhibit your ability to drive, operate machinery and work. Please do NOT drive, operate machinery, drink alcohol or work for the next 12hrs. Problem Qualifiers Primary Impression: Cephalgia Headache type: unspecified Headache chronicity pattern: acute headache Intractability: not intractable Qualified Codes: R51 - Headache
== END 2017-08-01 12:39 | disposition home or self-care (01) ==
LOC: C.EDB 09:53 → C.EDC 12:39
DX: G44.009 Cluster headache syndrome, unspecified, not intractable (principal); J45.909 Unspecified asthma, uncomplicated; M51.37 Other intervertebral disc degeneration, lumbosacral region; F17.200 Nicotine dependence, unspecified, uncomplicated; Z80.9 Family history of malignant neoplasm, unspecified; Z83.3 Family history of diabetes mellitus; Z82.49 Family history of ischemic heart disease and other diseases of the circulatory system

== ENCOUNTER 2017-09-19 16:16 | Emergency (ER) | payer OTHER ==
[~2017-09-19] VITALS: Ht 157.5 cm; Wt 66.9 kg
[~2017-09-19 16:16] MED LIST changes: +ALBINS/ NEB; -ALBU1NEB10 INH; -ALBUAER19 INH; -CLC/300 PO; +MONT1TAB3 PO; -OMEP20CA9 PO; +OXYC-643 PO; +PRT/20 PO; +VNTHFA/IN INH
[2017-09-19 16:34] VITALS: BP 138/80; PULSE 96; TEMP 36.8; O2SAT 96; Ht 157.5 cm; Wt 66.9 kg
== END 2017-09-19 16:50 | disposition left against medical advice (07) ==
LOC: C.EDB 16:17
DX: R10.9 Unspecified abdominal pain (principal); Z53.21 Procedure and treatment not carried out due to patient leaving prior to being seen by health care provider

== ENCOUNTER 2018-03-12 17:22 | Emergency (ER) | payer OTHER ==
[~2018-03-12] VITALS: Ht 157.5 cm; Wt 61.5 kg
[~2018-03-12 17:22] MED LIST changes: -DIVA250T4 PO; +DIVA250T93 PO
[2018-03-12 17:24] VITALS: TEMP 37; Ht 157.5 cm; Wt 61.5 kg
[2018-03-12] MEDS ORDERED: LIDOCAINE 1% BUFFERED INJ 20 ML VIAL INFIL STA (17:46)
[2018-03-12] MEDS ORDERED: DIPHTHERIA/TETANUS/PERTUSSIS 0.5 ML SYR/VIAL IM. ONE (18:00)
--- NOTE | 2018-03-12 18:15 | DIAGNOSTIC IMAGING REPORT ---
R HAND MIN 3 VIEWS ROUTINE CLINICAL HISTORY: Laceration, 1st metacarpal pain. COMPARISON: Right hand radiographs December 22, 2010. FINDINGS: There is subtle cortical irregularity of the lateral head of the right first metacarpal. This favors a fracture with overlying laceration. Several adjacent tiny radiodensities are noted. No additional fractures are identified on this exam. Carpal bones are intact. IMPRESSION: Subtle cortical irregularity of the lateral head of the right first metacarpal with overlying laceration. This suggests a fracture. Tiny adjacent radiodensities could reflect small bone fragments or radiopaque foreign bodies. Electronically signed by: Ankit Chavez M.D. 03/12/2018 6:14 PM Dictated Date/Time: 03/12/2018 6:11 PM
--- NOTE | 2018-03-12 19:08 | EMERGENCY ROOM VISIT NOTE ---
ED Visit Note First contact with patient: 17:36 CHIEF COMPLAINT: Hand laceration HISTORY OF PRESENT ILLNESS: This [id number] 28-year-old male patient presents to the emergency department, ambulatory, approximately 30 minutes after cutting the right hand under the metal while changing oil in a car. The patient does report pain in the first metacarpal radiating toward the wrist. The bleeding has not stopped. Denies weakness or numbness of the hand or fingers. The patient rates the pain as sharp and 8/10. The patient denies any other injuries. The patient's Tetanus shot is not up to date. REVIEW OF SYSTEMS: A 6 system review of systems was completed with positives and pertinent negatives listed in the HPI. ALLERGIES: Cephalosporins, diclofenac MEDICATIONS: Albuterol, Claritin, Singulair PMH: Asthma SOCIAL HISTORY: The patient lives locally with family. He denies drug, alcohol use. He admits to regular tobacco use. PHYSICAL EXAM: Vital Signs: Reviewed Nurse's notes, vital signs stable. GENERAL : This is a 28-year-old white male, in no acute distress, well-developed, well- nourished. SKIN: There is a 1.5 cm long laceration on the dorsal aspect of the right hand, overlying the first metacarpal bone, just distal to the MCP joint. The edges gape apart with traction. There is oil and metallic foreign bodies in the wound. There is minimal active bleeding. No deep structures such as tendons, bones, or significant blood vessels are seen in the base of the wound. Normal strength and movement of the fingers and wrist. Capillary refill less than 2 seconds. Normal sensation to light and sharp touch. RADIOLOGY: R HAND MIN 3 VIEWS ROUTINE CLINICAL HISTORY: Laceration, 1st metacarpal pain. COMPARISON: Right hand radiographs December 22, 2010. FINDINGS: There is subtle cortical irregularity of the lateral head of the right first metacarpal. This favors a fracture with overlying laceration. Several adjacent tiny radiodensities are noted. No additional fractures are identified on this exam. Carpal bones are intact. IMPRESSION: Subtle cortical irregularity of the lateral head of the right first metacarpal with overlying laceration. This suggests a fracture. Tiny adjacent radiodensities could reflect small bone fragments or radiopaque foreign bodies. Electronically signed by: Ankit Chavez M.D. 03/12/2018 6:14 PM Dictated Date/Time: 03/12/2018 6:11 PM EMERGENCY DEPARTMENT COURSE: I examined the patient. Verbal consent was obtained to perform the procedure. Using sterile technique the wound was cleansed with Betadine. 1 cc of 1% buffered lidocaine was used to initially anesthetize the laceration on the hand due to the patient's complaints of pain. X-rays performed reviewed by myself and radiologist as above. The area was sterilely draped. Another 1 ml of 1% buffered lidocaine was used to re- anesthetize the laceration on the hand. Once the patient was anesthetized, the wound was copiously irrigated under pressure with 1500mL sterile saline and debrided with forceps. The wound was explored and was as described above. The laceration was repaired using 7 simple interrupted 5-0 nylon sutures with the wound edges being well approximated. The patient tolerated the procedure well. Hemostasis was achieved. I did consult at this time with Dr. Murguia, orthopedic surgeon, who did review the films. There is question of whether or not this is a true open fracture or if the abnormality on x-ray is related to foreign bodies, as I did debride several metallic foreign bodies from the wound. He did recommend starting the patient on Augmentin, but we did not feel that the patient requires any splinting at this time. He took the phone number and advised me that the patient would receive a phone call from the office to schedule follow-up. The area was cleaned with sterile saline and dressed with Xeroform and bulky bandage. The patient was given his first dose of Augmentin here in the ED with a dose for tomorrow morning. The patient was given Tdap immunization. The patient was discharged home in good condition. I attest that I have personally reviewed the patient's current medication list. Patient was found to have normal blood pressure on screening and does not require follow-up. Differential diagnosis includes laceration, contusion, fracture, sprain/strain, tendon or ligament injury, neurovascular compromise, foreign body, assault, and others DIAGNOSIS: Right hand laceration with foreign body The chart was completed utilizing [employer] voice recognition software. Grammatical errors, random word insertions, pronoun errors, and incomplete sentences are an occasional consequence of this system due to software limitations, ambient noise, and hardware issues. Any formal questions or concerns about the content, text, or information contained within the body of this dictation should be directly addressed to the provider for clarification. Problem List Medical Problems: (1) Acute exacerbation of chronic low back pain Status: Chronic (2) Lumb/Lumbosac Disc Degen Status: Chronic Current/Historical Medications Scheduled Amoxicillin & Pot Clavulanate (Augmentin 875-125 mg), 1 TAB PO BID Loratadine (Claritin), 10 MG PO DAILY Montelukast Sodium (Singulair), 10 MG PO HS Scheduled PRN Albuterol Hfa (Ventolin Hfa), 2 PUFFS INH Q4H PRN for SOB/Wheezing Albuterol Sulf (Proventil 0.083% 2.5MG/3ML), 2.5 MG NEB Q4H PRN for SOB/Wheezing Fluticasone Furoate-Vilanterol (Breo Ellipta), 1 PUFF PO DAILY PRN for Shortness of Breath Pantoprazole (Protonix), 20 MG PO DAILY PRN for GI Upset Allergies Coded Allergies: Cefaclor (Unverified Allergy, Mild, 03/12/18) Diclofenac (Unverified Allergy, Unknown, RASH, 03/12/18) Vital Signs Date Time Temp Pulse Resp B/P (MAP) Pulse Ox O2 Delivery O2 Flow Rate FiO2 03/12/18 19:32 78 18 136/88 98 03/12/18 17:24 37.0 92 20 137/97 97 Room Air Medications Administered Medications (Trade) Dose Ordered Sig/Neri Route Start Time Stop Time Status Last Admin Dose Admin Diphtheria/ Pertussis/Tetanus Vacc (Adacel Inj) 0.5 ml ONCE ONCE IM. 03/12/18 18:00 03/12/18 18:01 DC 03/12/18 17:56 0.5 ML Amoxicillin/ Clavulanate Potassium (Augmentin 875MG Home Pack) 1 homepack UD STAT PO 03/12/18 19:12 03/12/18 19:13 DC 03/12/18 19:26 1 HOMEPACK Departure Information Impression Primary Impression: Laceration of right hand Dispostion Home / Self-Care Condition GOOD Prescriptions Amoxicillin & Pot Clavulanate (Augmentin 875-125 mg) 1 Tab Tab 1 TAB PO BID for 10 Days, #20 TAB Prov: Leonor Stoll, PAMatt 03/12/18 Referrals No Doctor, Assigned (PCP) Rodriguez Murguia MD Patient Instructions ED Fx Hand Open, ED Laceration Hand, My [facility] Additional Instructions You have received 7 sutures on your right hand. These sutures are NOT dissolvable and WILL need to be removed by a health care provider in 12-14 days. You can return to the Emergency Department or contact your Primary Care Provider to have the sutures removed. As discussed, there was concern for possible open fracture, I suspect this may have been from foreign body noted at the base of the wound. You will need to follow-up with orthopedics and take all antibiotics as prescribed to avoid infection. Amoxicillin Clavulanate (Augmentin) 875mg: Take one pill twice daily for 10 days for your infection. All antibiotics can cause diarrhea. If this occurs and you feel worse or it does not resolve in 1-2 days follow up with your doctor or return to the Emergency Department as this could be signs of serious underlying problems. Any medication can cause an allergic reaction, stop the pills immediately and return to the ER for rash, hives, breathing difficulties, or swelling. Keep the bandage applied here in the emergency department in place until you are seen and evaluated by orthopedics. After orthopedics remove the initial bandage, follow the following instructions for wound care. Proper wound care is essential for adequate wound healing and infection prevention. You can shower and clean the wound with soap and water. Do not scour over the wound, pat dry with a towel. Do not submerse the wound ( i.e. bathe or dish wash) until the sutures have been removed. You can use an antibiotic ointment with a dressing over the wound for the next 3-4 days. After this time you may leave the wound dry and open to the air. If crust develops over the wound you can use a Q-tip to apply a 1:1 peroxide:water solution to clean the wound. Look for signs of infection of the wound including: increased pain, swelling, foul discharge, streaking, or increased temperature. If any of these are noticed you should return to the Emergency Department for further assessment and treatment. As with any laceration you may have received nerve damage to the surrounding tissues. This damage may or may not be permanent. For pain control, you can use the following [id number] medicines (if >12 yo): Ibuprofen(Motrin, Advil) may be used for fever or pain. Use 600mg every six hours as needed. Take with food. Avoid using more than 2400mg in a 24 hour period. Do not use 2400mg per day for more than three consecutive days without physician direction. Prolonged inappropriate use can lead to stomach upset or ulcers. (AND/OR) Acetaminophen(Tylenol) may be used for fever or pain. Use 1000mg every six hours as needed. Avoid using more than 3000mg in a 24 hour period. You should receive a phone call from orthopedics tomorrow regarding follow-up. If you do not, contact their office or the Emergency Department for assistance with scheduling this follow-up. Return to the emergency department if your symptoms worsen despite treatment course outlined above. Problem Qualifiers Primary Impression: Laceration of right hand Encounter type: initial encounter Foreign body presence: with foreign body Qualified Codes: S61.421A - Laceration with foreign body of right hand, initial encounter
[2018-03-12] MEDS ORDERED: AMOXICILLIN/CLAVULANATE TAB 875 MG TAB PO STA (19:09)
[2018-03-12] MEDS ORDERED: AMOXICIL/CLAVU 875MG HOME PACK PO STA (19:12)
[2018-03-12] MEDS ORDERED: AMOX875T PO (19:13)
[2018-03-12 19:32] VITALS: BP 136/88; PULSE 78; O2SAT 98
== END 2018-03-12 19:34 | disposition home or self-care (01) ==
LOC: C.EDB 17:23 → C.EDD 19:34
DX: S61.421A Laceration with foreign body of right hand, initial encounter (principal); W26.8XXA Contact with other sharp object(s), not elsewhere classified, initial encounter; Y93.89 Activity, other specified; M51.36 Other intervertebral disc degeneration, lumbar region; J45.909 Unspecified asthma, uncomplicated; Z79.899 Other long term (current) drug therapy; Z72.0 Tobacco use; Z88.1 Allergy status to other antibiotic agents; Z88.8 Allergy status to other drugs, medicaments and biological substances; Z23 Encounter for immunization

== ENCOUNTER 2023-05-31 09:44 | Inpatient (IN) ==
--- NOTE | 2023-05-31 09:55 | ED Triage Note ---
Date of Service May 31, 2023 History of Present Illness This patient was briefly evaluated while in triage. An abbreviated physical exam was performed. This patient is a 33-year-old Male who presents to the ED for evaluation of "I need help." Pt. having suicidal thoughts. Denies homicidal ideation. Symptoms ongoing for >1 year. Does have suicide plan. Physical Exam VITALS: Vitals are noted on the nurse's note and reviewed by myself. GENERAL: This is a 33 year old male, in no acute distress, nondiaphoretic, well- developed well-nourished. SKIN: No obvious rashes, edema, erythema HEAD: Normocephalic atraumatic. EYES: Conjunctivae without injection, sclerae without icterus. NECK: No JVD. LUNGS: No retractions or accessory muscle use. MUSCULOSKELETAL: Normal gait. NEURO: Patient was alert and oriented to person place and time. No focal ne urological deficits. Initial orders for labs and / or imaging were placed and patient was placed in the waiting area until a bed is available. Please see further documentation for the full ED course.
[2023-05-31] MEDS ORDERED: buPROPion HCl 100 MG TABLET PO ONE (10:38)
--- NOTE | 2023-05-31 10:42 | Emergency Department Note ---
Impression & Plan Depression with suicidal ideation, Acute anxiety, Acute hyperactive alcohol withdrawal delirium ED Provider Note NAME: ROBERT PITTMAN AGE: 33 SEX: M : 1990 ARRIVES VIA: Walk-In INFORMANT: Patient, ED PROVIDER(S): Orion Patiño DO CHIEF COMPLAINT: Suicidal ideation HPI: The patient is a 33-year-old male who presented to the emergency department for an evaluation of suicidal ideation. The patient has been having problems with thoughts of suicide over the course the last few months. His father 2 years ago and he states he never really got over this. The patient states he wants to shoot himself with a gun and . He does not have a therapist but he does take Wellbutrin prescribed by his Suboxone physician. He denies having any chest pain or difficulty breathing. He does not feel safe. He was admitted to the [facility] over a decade ago for similar symptoms. ROS: See above HPI for pertinent positives & negatives. A total of 10 systems reviewed and were otherwise negative. PAST MEDICAL HISTORY: See Below PAST SURGICAL HISTORY: See Below FAMILY HISTORY: See Below SOCIAL HISTORY: See Below HOME MEDICATIONS: See Below ALLERGIES: See Below VITALS: See Below PHYSICAL EXAMINATION: GENERAL: The patient is awake and alert. He seems somewhat anxious. EYES: The conjunctivae are clear. The pupils are round and reactive. EARS, NOSE, MOUTH AND THROAT: The nose is without any evidence of any deformity. NECK: The neck is nontender and supple. RESPIRATORY: Normal respiratory effort is noted there is no evidence of wheezing rhonchi or rales CARDIOVASCULAR: Regular rate and rhythm noted there no murmurs rubs or gallops normal S1 normal S2. GASTROINTESTINAL: The abdomen is soft. Abdomen is nontender. MUSCULOSKELETAL/EXTREMITIES: There is no evidence of gross deformity full range of motion is noted in the hips and shoulders. SKIN: There is no obvious evidence of any rash. There are no petechiae, pallor or cyanosis noted. NEUROLOGIC: Patient is awake alert and oriented x3 PSYCH: The patient makes poor eye contact mostly evaluation. His affect is very flat. The patient is currently admitting to suicidal ideation with a plan to shoot himself. He seems very guarded. MEDICAL DECISION MAKING: The patient is a 33-year-old male who presented to the emergency department for mental health evaluation. The patient has multiple stressors. He was having depression symptoms as well as thoughts of hurting himself. The patient was medically cleared in the emergency department. He was evaluated by the mental health patient case coordinator. At this time he does appear to be a good candidate for inpatient management and he is agreeable to this plan. Bed search is currently underway. While the patient had a bed search underway he started having signs of alcohol withdrawal. On further questioning he did admit to significant amount of alcohol use every evening. He last drank last evening. He has never had alcohol withdrawal before. He was treated with multiple doses of Ativan prior to his symptoms starting to worsen. At this point I do feel the patient would make a better candidate for inpatient management for alcohol withdrawal treatment and then evaluation as an inpatient by mental health. Triage Nursing notes reviewed. Prior medical records reviewed Vital Signs: reviewed and remarkable for no significant abnormalities Differential diagnosis: Mood disorder, infection, hypoglycemia, electrolyte abnormalities, cardiac sources, intracerebral event, toxicologic, trauma, neurologic, as well as other pathologies. ER treatment provided: See below Diagnostics interpreted by me: ECG: none Cardiac Monitoring: An order was placed for continuous cardiac monitoring. The monitor shows a rate of 104 bpm with sinus tachycardia. Laboratory studies: As stated above and show below. Imaging studies: See below. Consultation(s): Discussed this case with the emergency department off patient case coordinator. I discussed this case with Nida who is on-call for the [facility]. Past Med/Surg History Medical History At high risk for elopement Left against medical advice Surgical History No pertinent past surgical history Social History Smoking Status: Current every day smoker Tobacco Type: Cigarettes Preferred Language: Lao Feels Safe at Home: Yes Gender Identity: Male Allergies Allergies Allergy/AdvReac Type Severity Reaction Status Date / Time cefaclor Allergy Mild Rash Verified 05/31/23 13:37 capsaicin Allergy Unknown Rash Verified 05/31/23 13:37 diclofenac Allergy Unknown Rash Verified 05/31/23 13:37 Diclopak Allergy Unknown RASH Verified 03/12/18 19:46 Home Meds Home Medications Medication Instructions Recorded Confirmed albuterol sulfate 90 mcg/actuation 2 puff inhalation Q4H PRN 01/21/19 05/31/23 aerosol inhaler (Ventolin HFA) Shortness Of Breath Or Wheezing buprenorphine 8 mg-naloxone 2 mg 1 tab sublingual BID 04/20/20 05/31/23 sublingual tablet bupropion HCl 100 mg tablet,12 hr 100 mg PO QAM 05/31/23 05/31/23 sustained-release Results & Data (ED) Vital Signs Vital Signs - 24 hr 05/31/23 09:44 05/31/23 12:15 Temperature 36.6 C Temperature Source Temporal Artery Scan Pulse Rate 124 H Pulse Rate [Finger] 104 H Respiratory Rate 16 18 Respiratory Effort / Characteristics Non-Labored Spontaneous Respiratory Depth Normal Respiratory Pattern Regular Blood Pressure 135/91 Blood Pressure [Right Arm] 140/89 Blood Pressure Mean 105 Blood Pressure Mean [Right Arm] 106 Blood Pressure Position [Right Arm] Semi-fowlers Pulse Oximetry 99 98 Oxygen Delivery Method Room Air Sepsis Recent Fever Within 48 Hours No Sepsis New/Unexplained Change in Mental Status N/A Sepsis Action Taken by Nursing No Action Required Home Medications Current Medication List: was personally reviewed by me Laboratory Data Attestation: I reviewed the patient's lab results. 05/31/23 10:57 05/31/23 10:57 Lab Results 05/31/23 05/31/23 Range/Units 10:49 10:57 WBC 6.41 (4.8-10.8) K/ul RBC 4.66 L (4.70-6.10) M/uL Hgb 15.2 (14.0-18.0) g/dl Hct 44.2 (42.0-52.0) % MCV 94.8 (80.0-100.0) fL MCH 32.6 (25.0-34.0) pg MCHC 34.4 (32.0-36.0) g/dL RDW Std Deviation 41.1 (36.4-46.3) fL RDW Coeff of [place] 11.8 (11.5-14.5) % Plt Count 349 (130-400) K/uL MPV 9.2 L (9.4-12.4) fL Immature Gran % (Auto) 0.3 % Neut % (Auto) 68.9 % Lymph % (Auto) 17.9 % [place] % (Auto) 8.1 % Eos % (Auto) 3.7 % Baso % (Auto) 1.1 % Neut # (Auto) 4.41 (1.40-6.50) K/uL Lymph # (Auto) 1.15 L (1.20-3.40) K/uL [place] # (Auto) 0.52 (0.11-0.59) K/uL Eos # (Auto) 0.24 (0.00-0.50) K/uL Baso # (Auto) 0.07 (0.00-0.20) K/uL Immature Gran # (Auto) 0.02 (0.01-0.20) K/uL Sodium 136 (136-145) mmol/L Potassium 4.2 (3.5-5.1) mmol/L Chloride 102 (98-107) mmol/L Carbon Dioxide 30 (21-32) mmol/L Anion Gap 4 (3-11) BUN 8 (6-23) mg/dl Creatinine 0.77 (0.6-1.4) mg/dl Est Cr Clr Drug Dosing 106.4 ml/min Est GFR ( Amer) 140.1 ml/min Est GFR (Non-Af Amer) 120.9 ml/min BUN/Creatinine Ratio 10.4 (10-20) Glucose 101 H (70-99(Fasting)) mg/dl Calcium 9.9 (8.6-10.3) mg/dl Total Bilirubin 0.8 (0.2-1.0) mg/dl AST 24 (13-39) U/L ALT 26 (7-52) U/L Alkaline Phosphatase 94 (34-104) U/L Total Protein 8.2 (6.0-8.3) gm/dl Albumin 5.0 (3.4-5.0) gm/dl Globulin 3.2 (2.5-4.0) gm/dl Albumin/Globulin Ratio 1.6 (0.9-2) TSH 1.192 (0.300-4.500) uIu/ml Urine Color Yellow Urine Appearance Clear (Clear) Urine pH 7.5 (4.5-7.5) Ur Specific [place] 1.018 (1.000-1.030) Urine Protein Negative (Negative) Urine Glucose (UA) Negative (Negative) Urine Ketones Negative (Negative) Urine Blood Negative (Negative) Urine Nitrite Negative (Negative) Urine Bilirubin Negative (Negative) Urine Urobilinogen Negative (Negative) Ur Leukocyte Esterase Negative (Negative) Salicylates < 3.0 L (3.0-30) mg/dl Urine Opiates Screen Neg (Neg) Ur Methadone, Qual Neg (Neg) Acetaminophen < 3 L (10-30) ug/ml Urine Barbiturates Neg (Neg) Ur Phencyclidine (PCP) Neg (Neg) U Amphetamin/Meth Scrn Pos H (Neg) MDMA (Ecstasy) Screen Pos H (Neg) U Benzodiazepines Scrn Neg (Neg) Ur Cocaine Metabolite Neg (Neg) U Marijuana (THC) Screen Pos H (Neg) Ethyl Alcohol mg/dL < 10.0 (<10.0) mg/dl Administered Medications Nicotine (Nicotine 14 Mg/24 Hr Patch) 14 mg TD QAM IESHA Stop: 06/30/23 12:29 Last Admin: 05/31/23 12:24 Dose: 14 mg Documented By: LEENA Discontinued Medications Bupropion HCl (Bupropion Hcl 100 Mg Tablet) 100 mg PO ONE ONE Stop: 05/31/23 10:39 Last Admin: 05/31/23 10:51 Dose: 100 mg Documented By: LENEA Lorazepam (Lorazepam 1 Mg Tab) 1 mg PO NOW STA Stop: 05/31/23 11:18 Last Admin: 05/31/23 11:31 Dose: 1 mg Documented By: LEENA Lorazepam (Lorazepam 1 Mg Tab) 1 mg PO NOW STA Stop: 05/31/23 16:47 Last Admin: 05/31/23 16:53 Dose: 1 mg Documented By: CECI Discharge Plan Visit Data Chief Complaint: Mental Health Evaluation Stated Complaint: [facility] ED Provider: Orion Patiño Discharge Problem: Depression with suicidal ideation, Acute anxiety, Acute hyperactive alcohol withdrawal delirium Patient Disposition: Being Evaluated by Hospitalist Forms Stand Alone Forms: [facility], Suicide Prevention Resources Prescriptions Prescriptions: No Action albuterol sulfate [Ventolin HFA] 90 mcg/actuation Hfa Aerosol Inhaler 2 puff INHALATION Q4H PRN (Reason: Shortness Of Breath Or Wheezing) buprenorphine-naloxone 8-2 mg tablet, sublingual 1 tab SUBLINGUAL BID bupropion HCl 100 mg tablet sustained-release 12 hr 100 mg PO QAM Referrals Referrals: Mariann Vizcarra MD [Primary Care Provider] -
[2023-05-31 11:16] LABS: Basophils # (auto) 0.07 K/uL (0.00-0.20); Basophils % (auto) 1.1 %; Eosinophils # (auto) 0.24 K/uL (0.00-0.50); Eosinophils % (auto) 3.7 %; Hematocrit (blood only) 44.2 % (42.0-52.0); Hemoglobin 15.2 g/dl (14.0-18.0); Immature Granulocytes # (auto) 0.02 K/uL (0.01-0.20); Immature Granulocytes % (auto) 0.3 %; Lymphocytes # (auto) 1.15 K/uL (1.20-3.40); Lymphocytes % (auto) 17.9 %; Mean Corpuscular Hemoglobin 32.6 pg (25.0-34.0); Mean Corpuscular Hgb Conc 34.4 g/dL (32.0-36.0); Mean Corpuscular Volume 94.8 fL (80.0-100.0); Mean Platelet Volume 9.2 fL (9.4-12.4); Monocytes # (auto) 0.52 K/uL (0.11-0.59); Monocytes % (auto) 8.1 %; Neutrophils # (auto) 4.41 K/uL (1.40-6.50); Neutrophils % (auto) 68.9 %; Platelet Count 349 K/uL (130-400); RDW Coefficient of Variation 11.8 % (11.5-14.5); RDW Standard Deviation 41.1 fL (36.4-46.3); Red Blood Count 4.66 M/uL (4.70-6.10); White Blood Count 6.41 K/ul (4.8-10.8)
[2023-05-31] MEDS ORDERED: LORazepam 1 MG TAB PO STA ×2 (11:17→16:46)
[2023-05-31 11:23] LABS: Appearance Urine Clear (Clear); Bilirubin Urine Negative (Negative); Blood Urine Negative (Negative); Color Urine Yellow; Glucose Urine UA Negative (Negative); Ketones Urine Negative (Negative); Leukocyte Esterase Urine Negative (Negative); Nitrite Urine Negative (Negative); Protein Urine Negative (Negative); Specific Gravity Urine 1.018 (1.000-1.030); Urobilinogen Urine Negative (Negative); pH Urine 7.5 (4.5-7.5)
[2023-05-31 11:33] LABS: Acetaminophen < 3 ug/ml (10-30); Salicylate < 3.0 mg/dl (3.0-30)
[2023-05-31 11:36] LABS: Albumin Globulin Ratio 1.6 (0.9-2); BUN Creatinine Ratio 10.4 (10-20); Bilirubin,Total 0.8 mg/dl (0.2-1.0); Calcium 9.9 mg/dl (8.6-10.3); Creatinine Clr Calc Pharmacy 106.4 ml/min; Est GFR (African American) 140.1 ml/min; Est GFR (Non-African American) 120.9 ml/min; Globulin 3.2 gm/dl (2.5-4.0); Potassium 4.2 mmol/L (3.5-5.1); Total Protein 8.2 gm/dl (6.0-8.3)
[2023-05-31 11:44] LABS: Amphetamines+Metham, Urine Pos (Neg); Barbiturates, Urine Neg (Neg); Benzodiazepine, Urine Neg (Neg); Cocaine, Urine Neg (Neg); MDMA (Ecstacy), Urine Pos (Neg); Methadone, Urine Neg (Neg); Opiate, Urine Neg (Neg); Phencyclidine, Urine Neg (Neg)
[2023-05-31 11:50] LABS: Thyroid Stimulating Hormone 1.192 uIu/ml (0.300-4.500)
[2023-05-31] MEDS ORDERED: NICOTINE 14 MG/24 HR PATCH TD SCH ×2 (12:30→18:30)
[2023-05-31] MEDS ORDERED: ACETAMINOPHEN 500 MG TAB PO STA (17:21)
[2023-05-31] MEDS ORDERED: MULTI-VITAMIN INFUSION 10 ML, THIAMINE HCL 100 MG, FOLIC ACID 1 MG in SODIUM CHLORIDE 0... IV ONE ×2 (17:35→20:17)
[2023-05-31] MEDS ORDERED: LORazepam 2 MG/1 ML VIAL IV PRN ×4 (17:35→21:28)
[2023-05-31] MEDS ORDERED: BUPRENORPHINE/NALOXONE 8/2 MG TAB SL ONE (17:40)
[2023-05-31] MEDS ORDERED: NICOTINE POLACRILEX 2 MG GUM MT PRN (18:20)
[2023-05-31] MEDS ORDERED: LORazepam 0.5 MG TAB PO PRN (18:24)
--- NOTE | 2023-05-31 18:38 | History & Physical Report ---
Date of Service May 31, 2023 Assessment & Plan (1) Depression with suicidal ideation: Plan Depression with Suicidal ideation: Patient came in with complaint of suicidal ideation with plan of "shooting in his brains out". No HI. Suicidal precaution. One-to-one observation. Psychiatry consult. c/w home Wellbutrin. Pt reports he has started to feel down since his father's in late 2020. Drug dependence: Patient has been snorting speed daily since last 2 years. Last time he used was today morning. Patient slightly tachycardic, blood pressure normal. Continue telemetry monitoring. Patient denies chest pain. CM consult. Alcohol abuse/Impending alc withdrawal: Patient has been drinking 4-15 beers daily, high risks of withdrawal, AWSS protocol. folic acid, thiamine History of opiate dependence on Suboxone: Continue Suboxone Tobacco abuse: Nicotine patch DVT prophylaxis: Lovenox Full code History of Present Illness Chief Complaint: Suicidal ideation Primary Care Provider: Mariann Vizcarra MD 33-year-old male with PMH of opioid dependence on Suboxone, ongoing tobacco abuse, ongoing alcohol abuse, ongoing marijuana and speed use presented to the ED with complaint of suicidal ideation. Patient had admission for suicidal ideation about 10 years ago as well. This time he reports he has been contemplating about "shooting his brains out and kill himself for some time". Upon further questioning, he reports he does not have a gun at his home, upon further asking how he would execute his plan he stated "might have to first steal money to buy gun". He claims that he has BB gun at home. He denies any homicidal ideation. He reports feeling shaky and palpitation, also reports he h as been using meth daily since last 2 years. Last time he used methamphetamine was today morning. He also reports drinking 4-15 beers daily for many years now, last drink last evening. He denies febrile illness/flulike symptoms/acute changes in his bowel or bladder habit. Reports poor appetite because he would rather drink instead. At this time, he would want to recover and go to rehab. Smoking1 packs a day, alcohol4-15 beers a day, drugsmarijuana, speed (snorts). Full code Medications discussed with the patient at bedside Plan of care discussed with the patient at bedside, he voiced understanding and was agreeable to plan of care. Pt wants rehab, he wants nicotine patch. Allergies Allergy/AdvReac Type Severity Reaction Status Date / Time cefaclor Allergy Mild Rash Verified 05/31/23 13:37 capsaicin Allergy Unknown Rash Verified 05/31/23 13:37 diclofenac Allergy Unknown Rash Verified 05/31/23 13:37 Diclopak Allergy Unknown RASH Verified 03/12/18 19:46 Home Medications Medication Instructions Recorded Confirmed Type buprenorphine 8 mg-naloxone 2 mg 1 tab sublingual BID 04/20/20 05/31/23 History sublingual tablet bupropion HCl 100 mg tablet,12 hr 100 mg PO QAM 05/31/23 05/31/23 History sustained-release Past Med/Surg History Medical History At high risk for elopement Left against medical advice Surgical History No pertinent past surgical history Social History Smoking Status: Current every day smoker Tobacco Type: Cigarettes Preferred Language: Serbian Feels Safe at Home: Yes Gender Identity: Male Review of Systems Review of Systems: Negative otherwise mentioned in HPI. Physical Exam Physical Exam: GENERAL: Alert and oriented x3. NAD, on RA. Appears older than stated age. Lean and thin. HEENT: No pallor, no icterus. Pupils equal, round and reactive to light. Oral mucosa moist. NECK: No JVD, no neck masses. HEART: S1 and S2 heard. Regular rate and rhythm. No murmur, no gallop. RESPIRATORY SYSTEM: Normal AP diameter. No accessory muscle use. No wheezing, no crackles. ABDOMEN: Soft, bowel sounds present, nontender, no distention. CENTRAL NERVOUS SYSTEM: No facial droop. Speech is clear. Obeys simple commands. Moves extremities. EXTREMITIES: No edema, no erythema seen. Results & Data Results & Data Vital Signs (Past 12 Hours) Vital Signs Temp Pulse Pulse Resp BP BP Pulse Ox 05/31/23 12:15 104 H 18 140/89 98 05/31/23 09:44 36.6 C 124 H 16 135/91 99 O2 Del Method 05/31/23 12:15 Room Air 05/31/23 09:44 Code Status & VTE Plan VTE Prophylaxis Plan VTE Prophylaxis will be ordered: Yes
[2023-05-31] MEDS ORDERED: ACETAMINOPHEN 325 MG TAB PO PRN (20:17)
[2023-05-31] MEDS ORDERED: GABAPENTIN 1200MG ALCOHOL WITHDRAWAL LOAD PO STA (21:28)
[2023-05-31] MEDS ORDERED: Ativan IV Alcohol Withdrawal--Active Protocol IV PRN (21:28)
[2023-05-31] MEDS ORDERED: GABAPENTIN 600 MG TAB PO ONE (21:28)
[2023-05-31] MEDS ORDERED: cloNIDine HCL 0.1 MG TAB PO ONE (21:30)
[2023-05-31] MEDS ORDERED: SODIUM CHLORIDE 0.9% 1,000 ML IV ONE (22:14)
[2023-05-31 22:20] LABS: Magnesium 2.1 mg/dl (1.7-2.4)
[2023-05-31] MEDS: NICOTINE 21 MG/24 HR TDSY TD SCH (22:45)
--- NOTE | 2023-06-01 00:05 | Communication Note ---
Date of Service: June 01, 2023 Patient had to be given 3 mg IV Ativan as per SUDEEP S protocol. Change level of care to PCU from med telemetry.
[2023-06-01] MEDS: GABAPENTIN 600 MG TAB PO SCH ×3 (04:39→18:12)
[2023-06-01 05:58] LABS: Hemoglobin 13.4 g/dl (14.0-18.0); Mean Corpuscular Hemoglobin 32.4 pg (25.0-34.0); Mean Corpuscular Hgb Conc 35.3 g/dL (32.0-36.0); Mean Corpuscular Volume 91.8 fL (80.0-100.0); Platelet Count 264 K/uL (130-400); RDW Coefficient of Variation 11.6 % (11.5-14.5); RDW Standard Deviation 39.4 fL (36.4-46.3); Red Blood Count 4.14 M/uL (4.70-6.10); White Blood Count 6.33 K/ul (4.8-10.8)
[2023-06-01 06:38] LABS: Calcium 8.5 mg/dl (8.6-10.3); Magnesium 2.1 mg/dl (1.7-2.4); Potassium 3.5 mmol/L (3.5-5.1)
[2023-06-01 06:45] LABS: Albumin Globulin Ratio 1.7 (0.9-2); BUN Creatinine Ratio 10.4 (10-20); Creatinine Clr Calc Pharmacy 122.2 ml/min; Est GFR (African American) 148.4 ml/min; Globulin 2.3 gm/dl (2.5-4.0); Total Protein 6.3 gm/dl (6.0-8.3)
[2023-06-01] MEDS: MULTIVITAMIN TAB PO SCH (09:14)
[2023-06-01] MEDS: buPROPion SR 100 MG TABCR PO SCH (09:14)
[2023-06-01] MEDS: BUPRENORPHINE/NALOXONE 8/2 MG TAB SL SCH (09:14)
[2023-06-01] MEDS: FOLIC ACID 1 MG TAB PO SCH (09:14)
[2023-06-01] MEDS: THIAMINE HCL 100 MG TAB PO SCH (09:14)
--- NOTE | 2023-06-01 14:00 | Hospitalist Progress Note ---
Date of Service June 01, 2023 Assessment & Plan (1) Depression with suicidal ideation: Plan Depression with Suicidal ideation --Head CTA: No acute intracranial abnormality. Unremarkable CTA of the head. --Tox Screen: + Amphetamines, marijuana --Suicidal precaution --One-to-one observation Psychiatry consulted Continue Wellbutrin Drug dependence: Patient has been snorting speed daily since last 2 years. Counseled to quit drug use Alcohol abuse Patient has been drinking 4-15 beers daily Monitor for alcohol withdrawal Continue folic acid, thiamine Ativan per protocol H/O Opiate dependence on Suboxone: Continue Suboxone Tobacco abuse: Nicotine patch DVT Px: Lovenox SQ Code Status Full code Admission and Anticipated Discharge Date Admission Date: May 31, 2023 Subjective Patient is seen and examined at bedside States feeling tired today Currently denies any suicidal thoughts Denies any chest pain, dyspnea, dizziness, nausea, abd pain Review of Systems Review of Systems: All systems reviewed & are unremarkable except as noted in Subjective Physical Exam Physical Exam: Physical Exam: Vitals signs as noted above General Appearance:Thin, no apparent distress Head: normocephalic, Atraumatic Eyes: normal inspection, EOMI Neck: supple, Trachea midline Respiratory/Chest: Normal breath sounds, CTA, No accessory muscle use Cardiovascular: S1, S2, No murmur Abdomen/GI:Soft, Non tender, Bowel sounds present Extremities/Musculoskeletal:normal inspection, no edema Neurologic/Psych:AAOX3, grossly no focal neurological deficits Skin: normal color, warm Results & Data Results & Data Vital Signs (Past 12 Hours) Vital Signs Temp Pulse Resp BP Pulse Ox Pulse Ox O2 Del Method 06/01/23 09:35 96 06/01/23 08:35 36.5 C 89 16 116/84 97 Room Air 06/01/23 04:39 96 H 16 128/87 99 Room Air 06/01/23 02:30 92 H 18 132/82 97 Room Air 06/01/23 02:00 91 H 18 128/81 97 Room Air O2 Del Method 06/01/23 09:35 Room Air 06/01/23 08:35 06/01/23 04:39 06/01/23 02:30 06/01/23 02:00 Laboratory Results Short CBC 06/01/23 Range/Units 05:39 WBC 6.33 (4.8-10.8) K/ul Hgb 13.4 L (14.0-18.0) g/dl Hct 38.0 L (42.0-52.0) % Plt Count 264 (130-400) K/uL BMP 06/01/23 05:39 Sodium 138 Potassium 3.5 Chloride 107 Carbon Dioxide 27 BUN 7 Creatinine 0.67 Glucose 87 Calcium 8.5 L Liver Function 06/01/23 Range/Units 05:39 Total Bilirubin 1.0 (0.2-1.0) mg/dl AST 17 (13-39) U/L ALT 18 (7-52) U/L Alkaline Phosphatase 67 (34-104) U/L Albumin 4.0 (3.4-5.0) gm/dl
[2023-06-01] MEDS ORDERED: LORazepam 2 MG in SYRINGE 1 ML IV PRN (15:00)
[2023-06-01] MEDS ORDERED: LORazepam 1 MG in SYRINGE 0.5 ML IV PRN (15:00)
[2023-06-01] MEDS ORDERED: BENZTROPINE MESYLATE 1 MG/ML 2 ML AMP IM PRN (15:35)
[2023-06-01] MEDS ORDERED: HALOPERIDOL LACTATE 5 MG/ML 1 ML VIAL IM PRN (15:35)
--- NOTE | 2023-06-01 15:44 | Psychiatric Consultation ---
Date of Consultation June 01, 2023 Impression / Recommendations Impression 33 yo male with a history of depression, opiod dependence on suboxone, and recent heavy use of meth and alcohol presented with SI, intermittent agitation, and unpredictable behavior in the ED. Although he states he would agree to dual dx treatment, will only do so if can leave his room in the ED pod immediately which is not possible and he escalates and can't engage in meaningful discussion around his safety or care plan. 302 examining portion completed. (1) Depression with suicidal ideation: (2) Polysubstance abuse: Plan continue 1 on 1 while medically hospitalized for management of withdrawal. will offer additional PO Ativan and Zyprexa prn for agitation, Haldol 5 mg IM if needed as Zyprexa IM should not be coadministered with Ativan IV for the AWSS protocol. he does not appear actively manic or I would hold Wellbutrin, low dose and denies hx of withdrawal seizure so probably minimal impact to seizure threshold. CPT Code Overall, I spent a total of 78 minutes with this case, including review of chart, direct evaluation of the patient, counseling the patient, ordering medication, coordination with nursing,coordination of care with hospitalist service, coordination of care with outpatient provider, risk assessment in completion of 302, and documentation. Psych History Identifying Data 33 yo male from [place] boarding in ED pending telemetry bed. Consult is by hospitalist service for SI, substance abuse, and agitation. Chief Complaint "I need out of this room NOW" yelling History of Present Illness Patient presented to the ED seeking voluntary inpatient psychiatric hospitalization for SI with a plan to shoot self. Admitted to daily use of "speed" meaning amphetamines and meth as well as anywhere from 4-15 beers/day. A bed search was initiated but patient became less cooperative, spouse reportedly brought contraband to ED (meth was found in a wallet) and his BP/P escalated so admitted for medical management of withdrawal. Patient has been scoring on the AWSS and having some benefit from prn Ativan as VS improved. He has been intermittently irritable and threatening to leave over limits on his personal items and confinement to a single room in the ED. A 302 warrant was obtained given his statements about self harm or trying to engage with the police. He has no history of bipolar dx and denies psychotic symptoms so unclear how much of current presentation is mood disorder vs. recent substance abuse. He denies subjective EToh withdrawal at the time of this assessment and was fully oriented, talking on his phone, etc. He has a history of 2 prior voluntary admissions to [facility] in 2010 for depression wtih SI. He did not elablorate on attempts or family history. Appears that medications are per Olivia, unclear how long been on Wellbutrin in [facility]. Was not yet cooperative with [facility]. On suboxone for hx of opiate dependence. Past Psychiatric History Current Psychiatric Diagnosis: Depression/Anxiety History of Previous Suicide Attempt: No Allergies Allergy/AdvReac Type Severity Reaction Status Date / Time cefaclor Allergy Mild Rash Verified 05/31/23 13:37 capsaicin Allergy Unknown Rash Verified 05/31/23 13:37 Home Medications Medication Instructions Recorded Confirmed Type buprenorphine 8 mg-naloxone 2 mg 1 tab sublingual BID 04/20/20 05/31/23 History sublingual tablet bupropion HCl 100 mg tablet,12 hr 100 mg PO QAM 05/31/23 05/31/23 History sustained-release Patient History Medical History At high risk for elopement Left against medical advice Surgical History No pertinent past surgical history Social History Smoking Status: Current every day smoker Tobacco Type: Cigarettes Preferred Language: Spanish Communication Ability: Effective Feels Safe at Home: Yes Gender Identity: Male Assistive Devices: None Physical Exam Psychiatric: Orientation: alert Apperance: appropriately groomed Eye Contact: + fair eye contact Motor Behavior: + tremor (more restless) Speech: + loud speech Affect: + irritable affect Mood: + depressed mood and + irritable mood Thought Process: + concrete thought process Thought Content: + preoccupation; no delusions Suicidal Thoughts: + reports suicidal thoughts (intermittent, unable to engage in meaningful conversation) Homicidal Thoughts: denies homicidal thoughts Hallucinations: no auditory hallucinations and no visual hallucinations Cognition: language grossly intact; + attention not intact Insight: + poor insight Judgment: + poor judgement Vital Signs (Past 24 Hours): Last Vital Signs Temp 36.5 C 06/01/23 08:35 Pulse 89 06/01/23 08:35 Resp 16 06/01/23 08:35 BP 116/84 06/01/23 08:35 Pulse Ox 96 06/01/23 09:35 O2 Del Method Room Air 06/01/23 09:35 Review of Systems Unobtainable due to mental health condition Results & Data (PSY) Laboratory Results Labs 05/31/23 05/31/23 06/01/23 10:49 10:57 05:39 WBC 6.41 6.33 RBC 4.66 L 4.14 L Hgb 15.2 13.4 L Hct 44.2 38.0 L MCV 94.8 91.8 MCH 32.6 32.4 MCHC 34.4 35.3 RDW Std Deviation 41.1 39.4 RDW Coeff of Mckinley 11.8 11.6 Plt Count 349 264 MPV 9.2 L 9.0 L Immature Gran % (Auto) 0.3 Neut % (Auto) 68.9 Lymph % (Auto) 17.9 Bryan % (Auto) 8.1 Eos % (Auto) 3.7 Baso % (Auto) 1.1 Neut # (Auto) 4.41 Lymph # (Auto) 1.15 L Bryan # (Auto) 0.52 Eos # (Auto) 0.24 Baso # (Auto) 0.07 Immature Gran # (Auto) 0.02 Sodium 136 138 Potassium 4.2 3.5 Chloride 102 107 Carbon Dioxide 30 27 Anion Gap 4 4 BUN 8 7 Creatinine 0.77 0.67 Est Cr Clr Drug Dosing 106.4 122.2 Est GFR ( Amer) 140.1 148.4 Est GFR (Non-Af Amer) 120.9 128.0 BUN/Creatinine Ratio 10.4 10.4 Glucose 101 H 87 Calcium 9.9 8.5 L Magnesium 2.1 2.1 Total Bilirubin 0.8 1.0 AST 24 17 ALT 26 18 Alkaline Phosphatase 94 67 Total Protein 8.2 6.3 D Albumin 5.0 4.0 Globulin 3.2 2.3 L Albumin/Globulin Ratio 1.6 1.7 TSH 1.192 Urine Color Yellow Urine Appearance Clear Urine pH 7.5 Ur Specific Wagoner 1.018 Urine Protein Negative Urine Glucose (UA) Negative Urine Ketones Negative Urine Blood Negative Urine Nitrite Negative Urine Bilirubin Negative Urine Urobilinogen Negative Ur Leukocyte Esterase Negative Salicylates < 3.0 L Urine Opiates Screen Neg Ur Methadone, Qual Neg Acetaminophen < 3 L Urine Barbiturates Neg Ur Phencyclidine (PCP) Neg U Amphetamin/Meth Scrn Pos H MDMA (Ecstasy) Screen Pos H U Benzodiazepines Scrn Neg Ur Cocaine Metabolite Neg U Marijuana (THC) Screen Pos H Ethyl Alcohol mg/dL < 10.0 Medications Administered Buprenorphine/Naloxone (Buprenorphine/Naloxone 8/2 Mg Tab) 1 tab SL BID [facility] Stop: 07/01/23 08:59 Last Admin: 06/01/23 09:14 Dose: 1 tab Documented By: JASON Bupropion HCl (Bupropion Sr 100 Mg Tabcr) [facility] [place] Stop: 07/01/23 08:59 Last Admin: 06/01/23 09:14 Dose: 100 mg Documented By: JASON Folic Acid (Folic Acid 1 Mg Tab) 1 mg PO QAM [facility] Stop: 07/01/23 08:59 Last Admin: 06/01/23 09:14 Dose: 1 mg Documented By: JASON Sodium Chloride (Nss) 1,000 mls @ 50 mls/hr IV .Q20H ONE Stop: 06/01/23 18:13 Last Admin: 05/31/23 23:30 Dose: 50 mls/hr Documented By: LUPILLO Miscellaneous (Remove Nicoderm Patch) 1 each N/A DAILY@2058 [facility] Stop: 06/30/23 23:44 Last Admin: 06/01/23 01:17 Dose: Not Given Documented By: LUPILLO Multivitamins (Multivitamin Tab) 1 tab PO QAM [facility] Stop: 07/01/23 08:59 Last Admin: 06/01/23 09:14 Dose: 1 tab Documented By: JASON Nicotine (Nicotine 21 Mg/24 Hr Tdsy) 21 mg TD HS [facility] Stop: 06/30/23 22:04 Last Admin: 05/31/23 22:45 Dose: 21 mg Documented By: LINSEY Nicotine Polacrilex (Nicotine Polacrilex 2 Mg Gum) 1 piece MT PRN PRN PRN Reason: Agitation Stop: 06/30/23 18:19 Last Admin: 05/31/23 19:55 Dose: 1 piece Documented By: LINSEY Thiamine HCl (Thiamine Hcl 100 Mg Tab) 100 mg PO QAM [facility] Stop: 07/01/23 08:59 Last Admin: 06/01/23 09:14 Dose: 100 mg Documented By: JASON Coding Level of Care Code 48848 U Intl Hosp Care Lvl 2 Diagnoses Depression with suicidal ideation F32.A; R45.851 Polysubstance abuse F19.10
[2023-06-01] MEDS: LORazepam 1 MG TAB PO PRN (16:48)
[2023-06-01] MEDS: OLANZapine 5 MG TABLET PO PRN (17:13)
[2023-06-01] MEDS: IBUPROFEN 200 MG TAB PO PRN (17:15)
[2023-06-01] MEDS: ONDANSETRON INJ 2 MG/ML 2 ML VIAL IV PRN (18:11)
[2023-06-02] MEDS: NICOTINE 21 MG/24 HR TDSY TD SCH ×2 (05:50→16:06)
[2023-06-02] MEDS: GABAPENTIN 600 MG TAB PO SCH ×3 (05:55→21:28)
[2023-06-02] MEDS: BUPRENORPHINE/NALOXONE 8/2 MG TAB SL SCH ×3 (05:55→20:14)
[2023-06-02] MEDS: LORazepam 1 MG TAB PO PRN ×4 (06:32→21:30)
[2023-06-02 07:41] LABS: Hematocrit (blood only) 40.9 % (42.0-52.0); Hemoglobin 14.2 g/dl (14.0-18.0); Mean Corpuscular Hemoglobin 32.3 pg (25.0-34.0); Mean Corpuscular Hgb Conc 34.7 g/dL (32.0-36.0); Mean Platelet Volume 9.2 fL (9.4-12.4); Platelet Count 295 K/uL (130-400); RDW Coefficient of Variation 11.7 % (11.5-14.5); RDW Standard Deviation 39.8 fL (36.4-46.3); White Blood Count 9.42 K/ul (4.8-10.8)
[2023-06-02 08:01] LABS: BUN Creatinine Ratio 12.9 (10-20); Calcium 9.5 mg/dl (8.6-10.3); Est GFR (African American) 145.7 ml/min; Est GFR (Non-African American) 125.8 ml/min; Potassium 3.9 mmol/L (3.5-5.1)
[2023-06-02] MEDS: THIAMINE HCL 100 MG TAB PO SCH (08:24)
[2023-06-02] MEDS: FOLIC ACID 1 MG TAB PO SCH (08:24)
[2023-06-02] MEDS: buPROPion SR 100 MG TABCR PO SCH (08:24)
[2023-06-02] MEDS: MULTIVITAMIN TAB PO SCH (08:25)
[2023-06-02] MEDS: OLANZapine 5 MG TABLET PO PRN (13:15)
--- NOTE | 2023-06-02 15:10 | Hospitalist Progress Note ---
Date of Service June 02, 2023 Assessment & Plan (1) Depression with suicidal ideation: Plan Depression with Suicidal ideation --Head CTA: No acute intracranial abnormality. Unremarkable CTA of the head. --Tox Screen: + Amphetamines, marijuana --Suicidal precaution --One-to-one observation Psychiatry consulted Continue Wellbutrin Ativan as needed for anxiety Zyprexa as needed for agitation Psychiatry following [address] Drug dependence: Patient has been snorting speed daily since last 2 years. Counseled to quit drug use Alcohol abuse Patient has been drinking 4-15 beers daily Monitor for alcohol withdrawal Continue folic acid, thiamine Ativan per protocol Continue gabapentin protocol Currently no signs of alcohol withdrawal H/O Opiate dependence on Suboxone: Continue Suboxone Tobacco abuse: Nicotine patch DVT Px: Lovenox SQ Code Status Full code Admission and Anticipated Discharge Date Admission Date: May 31, 2023 Subjective Patient is seen and examined at bedside States having headache today Was upset as he is still in ED--room with no windows Denies any chest pain, dyspnea, dizziness, nausea, abd pain Refuses to wear monitor Review of Systems Review of Systems: All systems reviewed & are unremarkable except as noted in Subjective Physical Exam Physical Exam: Physical Exam: Vitals signs as noted above General Appearance:Thin, no apparent distress Head: normocephalic, Atraumatic Eyes: normal inspection, EOMI Neck: supple, Trachea midline Respiratory/Chest: Normal breath sounds, CTA, No accessory muscle use Cardiovascular: S1, S2, No murmur Abdomen/GI:Soft, Non tender, Bowel sounds present Extremities/Musculoskeletal:normal inspection, no edema Neurologic/Psych:AAOX3, grossly no focal neurological deficits Skin: normal color, warm Results & Data Results & Data Vital Signs (Past 12 Hours) Vital Signs Temp Pulse Resp BP Pulse Ox Pulse Ox O2 Del Method 06/02/23 10:56 36.7 C 98 H 16 126/88 100 Room Air 06/02/23 09:00 94 H 16 115/73 99 Room Air 06/02/23 08:44 98 06/02/23 08:00 86 14 123/73 98 Room Air 06/02/23 06:15 100 O2 Del Method 06/02/23 10:56 06/02/23 09:00 06/02/23 08:44 Room Air 06/02/23 08:00 06/02/23 06:15 Room Air Laboratory Results Short CBC 06/02/23 Range/Units 07:21 WBC 9.42 (4.8-10.8) K/ul Hgb 14.2 (14.0-18.0) g/dl Hct 40.9 L (42.0-52.0) % Plt Count 295 (130-400) K/uL BMP 06/02/23 07:21 Sodium 139 Potassium 3.9 Chloride 104 Carbon Dioxide 32 BUN 9 Creatinine 0.70 Glucose 73 Calcium 9.5
--- NOTE | 2023-06-02 16:11 | Psychiatric Progress Note ---
Date of Service June 02, 2023 Impression / Recommendations Impression 33 yo male with a history of depression, opiod dependence on suboxone, and recent heavy use of meth and alcohol presented with SI, intermittent agitation, and unpredictable behavior in the ED. Although his behaviors remaind provocative, he has not required IM medication and he was easier to redirect than yesterday. Overall, I spent a total of 38 minutes with this case, including review of chart, direct evaluation of the patient, coordination with nursing, and documentation. (1) Depression with suicidal ideation: (2) Polysubstance abuse: Plan continue 1 on 1 while medically hospitalized for management of withdrawal as active 302 continue Ativan and Zyprexa prns and home Wellbutrin anticipate dual dx bed search when medically cleared. Protective Factors Assessment Employed: Yes ([employer]) Interval History Identifying Information 33 yo male from [place] boarding in ED pending telemetry bed. Initial consult completed on 06/01/23 for SI, substance abuse, and agitation. Completed 302 expires 06/05 late pm. Chief Complaint "I'm still pissed to be here." Review of Systems Notes uncooperative Subjective Subjective Patient was seen & assessed and interval progress reviewed. He was seen earlier around 1 hour after his Ativan. He remains irritable with ED staff and resistant to care solely out of protest for his ongoing boarding in the behavioral health pod. He had yelled and thrown ice on the floor. Accepted Zyprexa 5 mg after brief discussion with me. Remains focussed on dual dx treatment but otherwise doesn't want to engage in discussion. Irritable but not suicidal in ED. Physical Exam Psychiatric Orientation: alert Apperance: appropriately groomed Eye Contact: + fair eye contact Motor Behavior: no abnormal motor movements Speech: normal rate/rhythm/volume of speech Affect: + irritable affect Mood: + irritable mood Thought Process: + concrete thought process Thought Content: no delusions Suicidal Thoughts: denies suicidal thoughts Homicidal Thoughts: denies homicidal thoughts Hallucinations: no auditory hallucinations and no visual hallucinations Cognition: language grossly intact Insight: + poor insight Judgment: + poor judgement Vital Signs (Past 24 Hours) Last Vital Signs Temp 36.7 C 06/02/23 10:56 Pulse 98 H 06/02/23 10:56 Resp 16 06/02/23 10:56 BP 126/88 06/02/23 10:56 Pulse Ox 100 06/02/23 10:56 O2 Del Method Room Air 06/02/23 10:56 Results & Data ([facility]) Laboratory Results Laboratory Results - last 24 hr 06/02/23 07:21 WBC 9.42 RBC 4.40 L Hgb 14.2 Hct 40.9 L MCV 93.0 MCH 32.3 MCHC 34.7 RDW Std Deviation 39.8 RDW Coeff of Mckinley 11.7 Plt Count 295 MPV 9.2 L Sodium 139 Potassium 3.9 Chloride 104 Carbon Dioxide 32 Anion Gap 3 BUN 9 Creatinine 0.70 Est Cr Clr Drug Dosing 117.0 Est GFR ( Amer) 145.7 Est GFR (Non-Af Amer) 125.8 BUN/Creatinine Ratio 12.9 Glucose 73 Calcium 9.5 Magnesium 2.0 Current Inpatient Medications Current Inpatient Medications: Current Inpatient Medications Acetaminophen (Acetaminophen 325 Mg Tab) 650 mg PO Q4H PRN PRN Reason: Moderate Pain (Scale 4, 5, 6) Stop: 06/30/23 20:16 Benztropine Mesylate (Benztropine Mesylate 1 Mg/Ml 2 Ml Amp) 1 mg IM Q6 PRN PRN Reason: EPS--coadmin with Haldol Stop: 07/01/23 15:34 Buprenorphine/Naloxone (Buprenorphine/Naloxone 8/2 Mg Tab) 1 tab SL BID [facility] Stop: 07/01/23 08:59 Last Admin: 06/02/23 08:24 Dose: 1 tab Bupropion HCl (Bupropion Sr 100 Mg Tabcr) 100 mg PO QAM [facility] Stop: 07/01/23 08:59 Last Admin: 06/02/23 08:24 Dose: 100 mg Folic Acid (Folic Acid 1 Mg Tab) 1 mg PO QAM [facility] Stop: 07/01/23 08:59 Last Admin: 06/02/23 08:24 Dose: 1 mg Gabapentin (Gabapentin 600 Mg Tab) 600 mg PO Q24H [facility] Stop: 06/04/23 10:01 Gabapentin (Gabapentin 600 Mg Tab) 600 mg PO Q12H [facility] Stop: 06/03/23 10:01 Haloperidol Lactate (Haloperidol Lactate 5 Mg/Ml 1 Ml Vial) 5 mg IM Q6 PRN PRN Reason: Agitation Stop: 07/01/23 15:34 Lorazepam 1 mg/ Syringe 1 mls @ 2 mls/min IV UD PRN; Protocol PRN Reason: ETOH Withdrawal AWSS Score 6,7 Stop: 06/30/23 21:27 Lorazepam 2 mg/ Syringe 2 mls @ 2 mls/min IV UD PRN; Protocol PRN Reason: ETOH Withdrawal AWSS score 8,9 Stop: 06/30/23 21:27 Ibuprofen (Ibuprofen 200 Mg Tab) 200 mg PO Q6H PRN PRN Reason: pain not relieved by tylenol Stop: 06/30/23 22:51 Last Admin: 06/01/23 17:15 Dose: 200 mg Lorazepam (Lorazepam 1 Mg Tab) 1 mg PO Q4 PRN PRN Reason: Anxiety/Agitation Stop: 07/01/23 15:34 Last Admin: 06/02/23 10:26 Dose: 1 mg Miscellaneous (Remove Nicoderm Patch) 1 each N/A DAILY@2058 [facility] Stop: 06/30/23 23:44 Last Admin: 06/02/23 05:55 Dose: 1 each Multivitamins (Multivitamin Tab) 1 tab PO QAM [facility] Stop: 07/01/23 08:59 Last Admin: 06/02/23 08:25 Dose: 1 tab Nicotine (Nicotine 21 Mg/24 Hr Tdsy) 21 mg TD HS [facility] Stop: 06/30/23 22:04 Last Admin: 06/02/23 16:06 Dose: 21 mg Nicotine Polacrilex (Nicotine Polacrilex 2 Mg Gum) 1 piece MT PRN PRN PRN Reason: Agitation Stop: 06/30/23 18:19 Last Admin: 05/31/23 19:55 Dose: 1 piece Olanzapine (Olanzapine 5 Mg Tablet) 5 mg PO Q6 PRN PRN Reason: Agitation Stop: 07/01/23 17:59 Last Admin: 06/02/23 13:15 Dose: 5 mg Ondansetron HCl (Ondansetron Inj 2 Mg/Ml 2 Ml Vial) 4 mg IV Q4H PRN PRN Reason: Nausea And Vomiting Stop: 06/30/23 20:16 Last Admin: 06/01/23 18:11 Dose: 4 mg Thiamine HCl (Thiamine Hcl 100 Mg Tab) 100 mg PO QAM [facility] Stop: 07/01/23 08:59 Last Admin: 06/02/23 08:24 Dose: 100 mg
[2023-06-03 05:07] LABS: Hematocrit (blood only) 43.8 % (42.0-52.0); Hemoglobin 14.9 g/dl (14.0-18.0); Mean Corpuscular Hemoglobin 32.8 pg (25.0-34.0); Mean Corpuscular Volume 96.5 fL (80.0-100.0); Mean Platelet Volume 9.3 fL (9.4-12.4); Platelet Count 312 K/uL (130-400); RDW Coefficient of Variation 11.9 % (11.5-14.5); RDW Standard Deviation 42.3 fL (36.4-46.3); Red Blood Count 4.54 M/uL (4.70-6.10); White Blood Count 6.21 K/ul (4.8-10.8)
[2023-06-03 05:20] LABS: BUN Creatinine Ratio 12.9 (10-20); Calcium 9.5 mg/dl (8.6-10.3); Creatinine Clr Calc Pharmacy 96.4 ml/min; Est GFR (African American) 134.6 ml/min; Est GFR (Non-African American) 116.1 ml/min; Potassium 4.6 mmol/L (3.5-5.1)
[2023-06-03] MEDS: MULTIVITAMIN TAB PO SCH (07:32)
[2023-06-03] MEDS: FOLIC ACID 1 MG TAB PO SCH (07:33)
[2023-06-03] MEDS: THIAMINE HCL 100 MG TAB PO SCH (07:33)
[2023-06-03] MEDS: buPROPion SR 100 MG TABCR PO SCH (07:33)
[2023-06-03] MEDS: BUPRENORPHINE/NALOXONE 8/2 MG TAB SL SCH ×2 (07:37→21:08)
--- NOTE | 2023-06-03 09:42 | Hospitalist Progress Note ---
Date of Service June 03, 2023 Assessment & Plan (1) Depression with suicidal ideation: Plan Depression with Suicidal ideation --Head CTA: No acute intracranial abnormality. Unremarkable CTA of the head. --Tox Screen: + Amphetamines, marijuana --Suicidal precaution --One-to-one observation Psychiatry consulted Continue Wellbutrin Ativan as needed for anxiety Zyprexa as needed for agitation Psychiatry following [address] Currently pt is cooperative w/ interview and w/ phys. exam Discussed w/ psychiatry - currently no medical issues and no signs of etoh withdrawal - pt is medically clear for further psychiatric treatment. Drug dependence: Patient has been snorting speed daily since last 2 years. Counseled to quit drug use psychiatry following, as above Alcohol abuse Patient has been drinking 4-15 beers daily Monitor for alcohol withdrawal Continue folic acid, thiamine Ativan per protocol Continue gabapentin protocol Currently no signs of alcohol withdrawal H/O Opiate dependence on Suboxone: Continue Suboxone Tobacco abuse: Nicotine patch DVT Px: Lovenox SQ Code Status Full code Admission and Anticipated Discharge Date Admission Date: May 31, 2023 Subjective Patient is seen and examined at bedside Laying in bed in NAD, cooperative Per RN at the bedside - no signs of alcohol withdrawal Pt denies any tremore, chest pain, or shortness of breath upset as he is still in ED--room with no windows Denies any dizziness, lightheadedness, has good appetite, no abd. pain Refuses to wear monitor Discussed w/ psychiatry - currently no medical issues and no signs of etoh withdrawal - pt is medically clear for further psychiatric treatment. Review of Systems Review of Systems: All systems reviewed & are unremarkable except as noted in Subjective Physical Exam Physical Exam: General Appearance:Thin young M, in no apparent distress Head: normocephalic, Atraumatic Eyes: normal inspection, EOMI Neck: supple, Trachea midline Respiratory/Chest: Normal breath sounds, CTA, No accessory muscle use Cardiovascular: S1, S2, No murmur Abdomen/GI:Soft, Non tender, Bowel sounds present Extremities/Musculoskeletal:normal inspection, no edema , moves extremities Neurologic/Psych:AAOX3, answers appropriately, and cooperative w/ interview and physical exam, moves extremities, speech fluent, no facial asymmetry Skin: normal color, warm Results & Data Results & Data Vital Signs (Past 12 Hours) Vital Signs Pulse Resp BP Pulse Ox Pulse Ox O2 Del Method O2 Del Method 06/03/23 07:40 106 H 18 103/85 98 Room Air 06/03/23 05:01 88 14 119/81 100 Room Air 06/03/23 05:00 100 Room Air 06/03/23 04:52 88 13 129/77 98 Room Air Laboratory Results 06/03/23 Range/Units 04:49 WBC 6.21 (4.8-10.8) K/ul RBC 4.54 L (4.70-6.10) M/uL Hgb 14.9 (14.0-18.0) g/dl Hct 43.8 (42.0-52.0) % MCV 96.5 (80.0-100.0) fL MCH 32.8 (25.0-34.0) pg MCHC 34.0 (32.0-36.0) g/dL RDW Std Deviation 42.3 (36.4-46.3) fL RDW Coeff of Mckinley 11.9 (11.5-14.5) % Plt Count 312 (130-400) K/uL MPV 9.3 L (9.4-12.4) fL Sodium 139 (136-145) mmol/L Potassium 4.6 (3.5-5.1) mmol/L Chloride 103 (98-107) mmol/L Carbon Dioxide 34 H (21-32) mmol/L Anion Gap 2 L (3-11) BUN 11 (6-23) mg/dl Creatinine 0.85 (0.6-1.4) mg/dl Est Cr Clr Drug Dosing 96.4 ml/min Est GFR ( Amer) 134.6 ml/min Est GFR (Non-Af Amer) 116.1 ml/min BUN/Creatinine Ratio 12.9 (10-20) Glucose 87 (70-99(Fasting)) mg/dl Calcium 9.5 (8.6-10.3) mg/dl Medications Administered Current Inpatient Medications Acetaminophen (Acetaminophen 325 Mg Tab) 650 mg PO Q4H PRN PRN Reason: Moderate Pain (Scale 4, 5, 6) Stop: 06/30/23 20:16 Benztropine Mesylate (Benztropine Mesylate 1 Mg/Ml 2 Ml Amp) 1 mg IM Q6 PRN PRN Reason: EPS--coadmin with Haldol Stop: 07/01/23 15:34 Buprenorphine/Naloxone (Buprenorphine/Naloxone 8/2 Mg Tab) 1 tab SL BID [facility] Stop: 07/01/23 08:59 Last Admin: 06/03/23 07:37 Dose: 1 tab Bupropion HCl (Bupropion Sr 100 Mg Tabcr) 100 mg PO QAM [facility] Stop: 07/01/23 08:59 Last Admin: 06/03/23 07:33 Dose: 100 mg Folic Acid (Folic Acid 1 Mg Tab) 1 mg PO QAM [facility] Stop: 07/01/23 08:59 Last Admin: 06/03/23 07:33 Dose: 1 mg Gabapentin (Gabapentin 600 Mg Tab) 600 mg PO Q24H [facility] Stop: 06/04/23 10:01 Gabapentin (Gabapentin 600 Mg Tab) 600 mg PO Q12H [facility] Stop: 06/03/23 10:01 Last Admin: 06/02/23 21:28 Dose: 600 mg Haloperidol Lactate (Haloperidol Lactate 5 Mg/Ml 1 Ml Vial) 5 mg IM Q6 PRN PRN Reason: Agitation Stop: 07/01/23 15:34 Lorazepam 1 mg/ Syringe 1 mls @ 2 mls/min IV UD PRN; Protocol PRN Reason: ETOH Withdrawal AWSS Score 6,7 Stop: 06/30/23 21:27 Lorazepam 2 mg/ Syringe 2 mls @ 2 mls/min IV UD PRN; Protocol PRN Reason: ETOH Withdrawal AWSS score 8,9 Stop: 06/30/23 21:27 Ibuprofen (Ibuprofen 200 Mg Tab) 200 mg PO Q6H PRN PRN Reason: pain not relieved by tylenol Stop: 06/30/23 22:51 Last Admin: 06/01/23 17:15 Dose: 200 mg Lorazepam (Lorazepam 1 Mg Tab) 1 mg PO Q4 PRN PRN Reason: Anxiety/Agitation Stop: 07/01/23 15:34 Last Admin: 06/02/23 21:30 Dose: 1 mg Miscellaneous (Remove Nicoderm Patch) 1 each N/A DAILY@2058 [facility] Stop: 06/30/23 23:44 Last Admin: 06/02/23 05:55 Dose: 1 each Multivitamins (Multivitamin Tab) 1 tab PO QAM [facility] Stop: 07/01/23 08:59 Last Admin: 06/03/23 07:32 Dose: 1 tab Nicotine (Nicotine 21 Mg/24 Hr Tdsy) 21 mg TD HS [facility] Stop: 06/30/23 22:04 Last Admin: 06/02/23 16:06 Dose: 21 mg Nicotine Polacrilex (Nicotine Polacrilex 2 Mg Gum) 1 piece MT PRN PRN PRN Reason: Agitation Stop: 06/30/23 18:19 Last Admin: 05/31/23 19:55 Dose: 1 piece Olanzapine (Olanzapine 5 Mg Tablet) 5 mg PO Q6 PRN PRN Reason: Agitation Stop: 07/01/23 17:59 Last Admin: 06/02/23 13:15 Dose: 5 mg Ondansetron HCl (Ondansetron Inj 2 Mg/Ml 2 Ml Vial) 4 mg IV Q4H PRN PRN Reason: Nausea And Vomiting Stop: 06/30/23 20:16 Last Admin: 06/01/23 18:11 Dose: 4 mg Thiamine HCl (Thiamine Hcl 100 Mg Tab) [facility] [place] Stop: 07/01/23 08:59 Last Admin: 06/03/23 07:33 Dose: 100 mg
[2023-06-03] MEDS: GABAPENTIN 600 MG TAB PO SCH (10:08)
[2023-06-03] MEDS: LORazepam 1 MG TAB PO PRN ×3 (11:49→23:07)
[2023-06-03] MEDS: NICOTINE 21 MG/24 HR TDSY TD SCH (14:36)
--- NOTE | 2023-06-03 15:04 | Communication Note ---
Date of Service: June 03, 2023 interim progress reviewed. Patient is medically cleared and is agreeable to dual dx bed search.
[2023-06-03] MEDS: IBUPROFEN 200 MG TAB PO PRN (17:09)
[2023-06-03] MEDS: ONDANSETRON INJ 2 MG/ML 2 ML VIAL IV PRN (19:15)
[2023-06-04] MEDS ORDERED: LOPERAMIDE HCL 2 MG CAP PO STA (02:56)
[2023-06-04] MEDS: LORazepam 1 MG TAB PO PRN ×2 (03:44→10:20)
[2023-06-04 08:00] LABS: BUN Creatinine Ratio 14.5 (10-20); Calcium 9.5 mg/dl (8.6-10.3); Creatinine Clr Calc Pharmacy 118.7 ml/min; Est GFR (African American) 146.6 ml/min; Est GFR (Non-African American) 126.5 ml/min; Magnesium 1.8 mg/dl (1.7-2.4); Phosphorus 3.9 mg/dl (2.5-4.9); Potassium 4.3 mmol/L (3.5-5.1)
[2023-06-04] MEDS: buPROPion SR 100 MG TABCR PO SCH (08:02)
[2023-06-04] MEDS: THIAMINE HCL 100 MG TAB PO SCH (08:02)
[2023-06-04] MEDS: FOLIC ACID 1 MG TAB PO SCH (08:02)
[2023-06-04] MEDS: MULTIVITAMIN TAB PO SCH (08:02)
[2023-06-04] MEDS: BUPRENORPHINE/NALOXONE 8/2 MG TAB SL SCH (08:02)
[2023-06-04] MEDS ORDERED: GABAPENTIN 600 MG TAB PO SCH (10:00)
--- NOTE | 2023-06-04 10:23 | Discharge Summary ---
Date of Service June 04, 2023 Admission HPI Per Admitting Provider 33-year-old male with PMH of opioid dependence on Suboxone, ongoing tobacco abuse, ongoing alcohol abuse, ongoing marijuana and speed use presented to the ED with complaint of suicidal ideation. Patient had admission for suicidal ideation about 10 years ago as well. This time he reports he has been contemplating about "shooting his brains out and kill himself for some time". Upon further questioning, he reports he does not have a gun at his home, upon further asking how he would execute his plan he stated "might have to first steal money to buy gun". He claims that he has BB gun at home. He denies any h omicidal ideation. He reports feeling shaky and palpitation, also reports he has been using meth daily since last 2 years. Last time he used methamphetamine was today morning. He also reports drinking 4-15 beers daily for many years now, last drink last evening. He denies febrile illness/flulike symptoms/acute changes in his bowel or bladder habit. Reports poor appetite because he would rather drink instead. At this time, he would want to recover and go to rehab. Smoking1 packs a day, alcohol4-15 beers a day, drugsmarijuana, speed (snorts). Full code Medications discussed with the patient at bedside Plan of care discussed with the patient at bedside, he voiced understanding and was agreeable to plan of care. Pt wants rehab, he wants nicotine patch. Admission Exam Per Admitting Provider GENERAL: Alert and oriented x3. NAD, on RA. Appears older than stated age. Lean and thin. HEENT: No pallor, no icterus. Pupils equal, round and reactive to light. Oral mucosa moist. NECK: No JVD, no neck masses. HEART: S1 and S2 heard. Regular rate and rhythm. No murmur, no gallop. RESPIRATORY SYSTEM: Normal AP diameter. No accessory muscle use. No wheezing, no crackles. ABDOMEN: Soft, bowel sounds present, nontender, no distention. CENTRAL NERVOUS SYSTEM: No facial droop. Speech is clear. Obeys simple commands. Moves extremities. EXTREMITIES: No edema, no erythema seen. Principal Diagnosis Suicidal ideation Alcohol use Methamphetamine use Opioid dependence on suboxone Discharge Exam General Appearance:Thin young M, in no apparent distress Head: normocephalic, Atraumatic Eyes: normal inspection, EOMI Neck: supple, Trachea midline Respiratory/Chest: Normal breath sounds, CTA, No accessory muscle use Cardiovascular: S1, S2, No murmur Abdomen/GI:Soft, Non tender, Bowel sounds present Extremities/Musculoskeletal:normal inspection, no edema , moves extremities Neurologic/Psych:AAOX3, answers appropriately, and cooperative w/ interview and physical exam, moves extremities, speech fluent, no facial asymmetry Skin: normal color, warm Discharge Data Allergies Allergy/AdvReac Type Severity Reaction Status Date / Time cefaclor Allergy Mild Rash Verified 05/31/23 13:37 capsaicin Allergy Unknown Rash Verified 05/31/23 13:37 Consultations 05/31/23 17:40 ED Decision to Admit Stat 05/31/23 20:17 Consult Psychiatry Routine Hospital Course (1) Depression with suicidal ideation: Plan Depression with Suicidal ideation --Head CTA: No acute intracranial abnormality. Unremarkable CTA of the head. --Tox Screen: + Amphetamines, marijuana --Suicidal precaution --One-to-one observation Psychiatry consulted Continue Wellbutrin Ativan as needed for anxiety Zyprexa as needed for agitation Psychiatry following [address] Currently pt is cooperative w/ interview and w/ phys. exam Discussed w/ psychiatry - currently no medical issues and no signs of etoh withdrawal - pt is medically clear for further psychiatric treatment. Plan to discharge to [facility]. Drug dependence: Patient has been snorting speed daily since last 2 years. Counseled to quit drug use psychiatry following, as above, plan to discharge to [facility] Alcohol abuse Patient has been drinking 4-15 beers daily Monitor for alcohol withdrawal Continue folic acid, thiamine Ativan per protocol Continue gabapentin protocol Currently no signs of alcohol withdrawal H/O Opiate dependence on Suboxone: Continue Suboxone Tobacco abuse: Nicotine patch Total Time Total Time Spent Total Time Spent (In Minutes): 40 Discharge Plan Discharge Items Patient Disposition: Transfer Behavioral Health Fac Reason For Visit: ALCOHOL WITHDRAWAL, SUICIDAL IDEATION Discharge Diagnosis: Suicidal ideation Alcohol use Methamphetamine use Opiod dependence on suboxone Activity: Per Instructions section Non-emergency contact: Primary Care Provider and Specialist Call non-emergency contact if: you have any medication questions and your symptoms worsen Follow-up/Referrals: Mariann Vizcarra MD [Primary Care Provider] - (Date & Time 06/09/2023 11:00 AM Provider Mariann Vizcarra MD Department Family Practice [facility] ) Diet: Regular Diet Comment: steve aries Linda Attending Provider Instructions: Patient presented with suicidal ideation, has history of opioid use on suboxone, alcohol and methamphetamine use. He is interested in treatment / rehab. He was seen by psychiatry service while inpatient. Plan to discharge to [facility]. Also, follow up with your primary care doctor. Pending Studies at Discharge: No Stand-Alone Forms: [facility] Skilled Items DNR: No Lines: None Urinary Catheter: No Medications and DC Order Prescriptions: New thiamine HCl (vitamin B1) 100 mg Tablet 100 mg PO QAM Qty: 30 0RF multivitamin with folic acid [Daily-Tiera (with folic acid)] 400 mcg Tablet 1 tab PO QAM Qty: 30 0RF folic acid 1 mg Tablet 1 mg PO QAM Qty: 30 0RF nicotine [Nicoderm CQ] 21 mg/24 hr Patch 24 Hour 21 mg transdermal HS Qty: 7 0RF Continued buprenorphine-naloxone 8-2 mg tablet, sublingual 1 tab SUBLINGUAL BID bupropion HCl 100 mg tablet sustained-release 12 hr 100 mg PO QAM Discharge Orders: Discharge Order (Routine); Ordered 06/04/23 Ordered By: Vipin Dotson Admission Data Admit Date/Time: 05/31/23 17:51 Attending Provider: Vipin Dotson Admit Provider: Bren Mills Primary Care Provider: Mariann Vizcarra Other Providers: Alessandro Faulkner; Bren Mills; Ronda Almaguer
--- OUTSIDE RECORDS SUMMARY | 2023-06-04 20:16 | External Medical Summary | Summary of Care ---
Author Name Unknown Organization [facility] Address [address] [facility] [place] [address] Phone [phone] Care Team Providers Care Clinic Mgr Name Role Phone Mariann Vizcarra MD Primary Care Provider Reason for Visit * Reason Onset Date Comments Medication Refill 01/03/2023 Encounter Details Date Type Department Care Team Description 01/03/2023 Refill [facility] [address] [place] [address] Mariann Vizcarra MD [address] [place] [address] Moderate persistent asthma without complication* Allergies Active Allergy Reactions Severity Noted Date Comments Cefaclor Hives 03/29/2016 Cephalosporins 01/06/2001 Diclofenac Itching 12/24/2016 documented as of this encounter (statuses as of 01/06/2023) Medications Medication Sig Dispensed Refills Start Date End Date Status buprenorphine-nalox one 8-2 mg per tab (SUBOXONE) 8-[address] tablet [address] under the tongue daily. 0 Active albuterol-ipratropi um (DUONEB) 2.5-0.5 MG/3ML nebulizer solutionIndications :Moderate persistent asthma with exacerbation USE 1 AMPULE IN NEBULIZER 4 TIMES DAILY 360 mL 2 08/29/2019 Active Excedrin Migraine 250-250-65 MG Oral Tablet (Aspirin-Acetaminop hen-Caffeine) Take 1 Tab by mouth every 6 hours as needed. 0 Active Montelukast Sodium 10 MG Oral Tablet (Singulair) Take 10 mg by mouth at bedtime. 0 Active Omeprazole 40 MG Oral Capsule Delayed Release (PriLOSEC)Indicatio ns:Chronic gastritis without bleeding, unspecified gastritis type Take 1 Capsule by mouth daily. 1 hour before the first meal of the day 90 Capsule 3 08/10/2021 Active Fluticasone Propionate 50 MCG/ACT Nasal SuspensionIndicatio ns:Non-seasonal allergic rhinitis due to pollen Administer into each nostril 2 Sprays in the morning. 1 Each 10/19/2021 Active Pseudoephedrine HCl 30 MG Oral Tablet (Sudafed)Indication s:Non-seasonal allergic rhinitis due to pollen Take by mouth 1 Tablet every 6 hours as needed for Congestion. 30 Tablet 5 10/19/2021 Active Cetirizine HCl 10 MG Oral Tablet (ZyrTEC Allergy)Indications :Non-seasonal allergic rhinitis due to pollen Take by mouth 1 Tablet in the morning. 30 Tablet 11 10/19/2021 Active hydrOXYzine HCl 50 MG Oral TabletIndications:I nsomnia, unspecified type Take by mouth 1 Tablet as needed before bedtime for Other (sleep). 90 Tablet 1 11/30/2021 Active Ciprofloxacin HCl 0.3 % Ophthalmic Solution (Ciloxan)Indication s:Acute bacterial conjunctivitis of right eye 1 drop every 2 hours while awake 1st 2 days then every 6 hours for 5 days. To the R eye 10 mL 0 11/30/2021 Active Albuterol Sulfate HFA 108 (90 Base) MCG/ACT Inhalation Aerosol SolutionIndications :Moderate persistent asthma with acute exacerbation Inhale by mouth 2 Puffs in the morning AND 2 Puffs at noon AND 2 Puffs in the evening AND 2 Puffs before bedtime. 18 g 0 02/05/2022 Active Ibuprofen 600 MG Oral Tablet (Motrin) TAKE 1 TABLET BY MOUTH EVERY 8 HOURS NEEDED WITH FOOD FOR PAIN 90 Tablet 0 09/15/2022 Active Albuterol Sulfate (2.5 MG/3ML) 0.083% Inhalation Nebulization Solution (Proventil)Indicati ons:Moderate persistent asthma without complication Inhale 1 Vial via nebulizer every 6 hours as needed for Wheezing. 360 mL 1 01/03/2023 Active Albuterol Sulfate (2.5 MG/3ML) 0.083% Inhalation Nebulization Solution (Proventil)Indicati ons:Moderate persistent asthma without complication Inhale via nebulizer 1 Vial every 6 hours as needed for Wheezing. 360 mL 11 02/10/2022 3 Discontinue d(Refill) documented as of this encounter (statuses as of 01/06/2023) Active Problems Problem Noted Date Lumbar degenerative disc disease 021 Overview: MRI from 2011 showed mild disease Gastroesophageal reflux disease without esophagitis 11/19/2020 Opioid abuse, in remission 11/19/2020 Overview: On suboxone Moderate persistent asthma without compl ication 01/15/2010 Overview: Per Asthma Taxonomy ICD-10 update of inactive term documented as of this encounter (statuses as of 01/06/2023) Resolved Problems Problem Noted Date Resolved Date Left lumbar radiculopathy 02/20/20212020 Low back pain 12/24/2016 07/28/2018 Overview: Avoid narcotics Chronic pain of left knee 10/04/20162020 Routine child health exam 01/22/20032016 Asthma, allergic 01/22/2003 01/15/2010 documented as of this encounter (statuses as of 01/06/2023) Immunizations Name Administration Dates Next Due Seasonal Influenza, Quadriva lent, No Preserve, 6 Mons & Above, IM 05/30/2018 Seasonal Influenza, Recombinant, RIV4, No Preser ve 05/10/2020 TDAP (age 10 and older)(Boostrix) 01/23/2013 documented as of this encounter Social History Tobacco Use Types Packs/Day Years Used Date Smoking Tobacco: Every Day Cigarettes 0.3 10 Smokeless Tobacco: Current Chew Comments:Only Occasionally Alcohol Use Standard Drinks/Week Comments No 0 (1 standard drink = 0.6 oz pur e alcohol) Food Insecurity Answer Date Recorded Within the past 12 months, y ou worried that your food would run out before you got money to buy more. Never true 12/01/2020 Within the past 12 months, t he food you bought just didn't last and you didn't have money to get more. Never true 07/02/2019 Sex Assigned at Date Recorded Not on file Job Start Date Occupation Industry Not on file Not on file Not on file documented as of this encounter Miscellaneous Notes * Telephone Encounter - GEO Ramsey - 01/04/2023 3:05 PM EDT Received message from [facility] regarding patient needing appointment. Placed call to patient to advise. Left message on voicemail to call back and schedule appointment. Thank you, Merissa Russ [facility] Pharmacist Manager II [facility] ([facility]) (formerly Telepharmacy) 01/04/2023,3:05 PM * Telephone Encounter - GEO Coronado - 01/04/2023 9:43 AM EDT Pt calling to check on status of neb machine. Caller can be reached at [phone]. Thanks, Martita Hoffmann Upsetting Machine Operator [facility] ([facility]) 01/04/2023,9:43 AM * Telephone Encounter - BEBE Sifuentes - 01/03/2023 5:49 PM EDT Patient also requesting nebulizer be sent to [facility]. * Telephone Encounter - Lakshmi Fox [facility] - 01/03/2023 4:35 PM EDTSigned Prescriptions: Disp Refills Albuterol Sulfate (2.5 MG/3ML) 0.083% Inha*360 mL 1 Sig: Inhale 1 Vial via nebulizer every 6 hours as needed for Wheezing. Authorizing Provider: MARIANN VIZCARRA Ordering User: LAKSHMI FOX * Telephone Encounter - Lakshmi Fox [facility] - 01/03/2023 4:34 PM EDT Please contact patient so that an appointment can be scheduled with his PRIMARY CARE provider. Refill authorized to hold patient over in the mean time. Last Visit: 10/19/2021 (in office), 06/22/2021 (telemedicine) Next Visit: Visit date not found Lakshmi Dumont Clinical Pharmacist [facility] ([facility]) (Formerly Telepharmacy) [phone] 01/03/2023, 4:34 PM * Telephone Encounter - GEO Bhatia Tech - 01/03/2023 4:25 PM EDT Pt requesting HIGH PRIORITY due to abigail treatments work well for pt Did you pend patient's preferred pharmacy and medication before forwarding?yes Pharmacy: [id number] [address] [facility] Pending Prescriptions: Disp Refills Albuterol Sulfate (2.5 MG/3ML) 0.083% Inh*360 mL 11 Sig: Inhale 1 Vial via nebulizer every 6 hours as needed for Wheezing. Last Visit: 10/19/2021 (in office), 06/22/2021 (telemedicine) Next Visit: Visit date not found If no future appointments scheduled, and last appointment is greater than a year ago, please schedule patient for a follow-up appointment Last date the medication was ordered: 02/10/2022 Is this request for a controlled substance?No Urine Drug Screen:No results found for this or any previous visit. Patient Phone Numbers Labs: Lab Results Component Value Date/Time CREAT 0.7 08/20/2021 03:33 PM CREAT 0.91 09/16/2017 12:00 AM CREAT 0.5 (L) 11/01/2003 01:42 PM POTASSIUM 4.1 08/20/2021 03:33 PM POTASSIUM 3.7 09/16/2017 12:00 AM POTASSIUM 4.6 11/01/2003 01:42 PM TSH 1.02 05/03/2016 12:00 AM LDLCALC 140 05/09/2017 12:00 AM ALT 51 (H) 05/19/2021 07:31 AM ALT 51 05/09/2017 12:00 AM ALT 35 11/01/2003 01:42 PM HGBA1C 4.6 05/19/2021 07:31 AM documented in this encounter Plan of Treatment Health Maintenance Due Date Last Done Comments DISCUSS TOBACCO CESSATION (REFER TO SMARTSET #3291) 1992 COVID-19 Vaccine (#1) 1992 Pneumococcal Vaccine: Pediatrics (0 to 5 Years) and At-Risk Patients (6 to 64 Years) (1 - PCV) 1998 HIV Screening 2007 Hepatitis C Screening 2010 *SPIROMETRY ONCE FOR ASTHMA-ADULT 10/06/2016 Depression Screening, Annual for Pts 12 and Over 12/01/2021 12/01/2020 DTaP,Tdap,and Td Vaccines (7 - Td or Tdap) 01/23/2023 01/23/2013, 08/23/2003, 10/15/1996, Additional history exists Influenza Vaccine (FLU shot) (Season Ended) 2023 05/10/2020, 05/30/2018, 04/29/2004 Hepatitis B Completed 1992, 03/26, 1992 GARDASIL-HPV IMMUNIZATION SERIES Aged Out No longer eligible based on patient's age to complete this topic MENINGOCOCCAL (MENACTRA/MENVEO) Aged Out No longer eligible based on patient's age to complete this topic documented as of this encounter Medical Devices Not on filedocumented as of this encounter Visit Diagnoses Diagnosis Moderate persistent asthma without complication- Primary Unspecified asthma documented in this encounter Care Teams Clinic Mgr Relationship Specialty Start Date End Date Mariann Vizcarra MD [address] [place] [address] PCP - General Internal Medicine 06/22/21 documented as of this encounter
--- OUTSIDE RECORDS SUMMARY | 2023-06-04 20:16 | External Medical Summary | Summary of Care ---
Author Name Unknown Organization [facility] Address [address] [facility] [place] [address] Phone [phone] Care Team Providers Care Pack Master Name Role Phone Mariann Vizcarra MD Primary Care Provider Reason for Visit * Reason Onset Date Comments Med Request 01/03/2023 Encounter Details Date Type Department Care Team Description 01/03/2023 Telephone Family Practice [facility] [address] [place] [address] Mariann Vizcarra MD [address] [place] [address] Med Request Allergies Active Allergy Reactions Severity Noted Date [...] 2 Sprays in the morning. 1 Each 11 10/19/2021 Active Pseudoephedrine HCl 30 MG Oral [...] degenerative disc disease 021 Overview: MRI from 2012 showed mild disease Gastroesophageal reflux disease without [...] 01/06/2023) Immunizations Name Administration Dates Next Due DTP Vaccine 10/15/1996, 4,1992,1992,1992 Haemophilus B (HIB) 02/02/1994, 3,1992,1991 Hepatitis B Vaccine 1992,1992,1991 MMR - Measles/Mumps/Rubella Vaccine 10/15/1997,0 02/02/1994 OPV - Polio Virus Vaccine (Oral) 997,02/02/1994,1992,1991 Seasonal Influenza, Quadriva lent, No Preserve, 6 Mons & Above, IM 05/30/2018 Seasonal Influenza, Recombin ant, RIV4, No Preserve 05/10/2020 Seasonal Influenza, Split, I IV3, With Preserve, Inj 04/29/2004 TB Sherri Test 10/15/1996,03/22/1995,04/07/1993 TD - Tetanus/Diptheria (ADULT) 08/23/2003 TDAP (age 10 and older)(Boostrix) 01/23/2013 Varicella Vaccine (Chicken Pox) 03/22/1995 documented as of this encounter Social History [...] encounter Miscellaneous Notes * Telephone Encounter - Mariann Vizcarra MD - 01/06/2023 10:34 AM EDT Yes, okay to fax nebulizer order * Telephone Encounter - BEBE Sifuentes - 01/06/2023 9:45 AM EDT Ok to fax nebulizer order? * Telephone Encounter - Malu Bright CPhT - 01/06/2023 8:36 AM EDT Pt calling in to check status of nebulizer machine. Pt said the solution was sent to the pharmacy, but he needs the actual nebulizer machine sent to [facility]. Pot would like a call when done: [phone] Please advise. Thank you, Malu Bright [facility] ([facility]) (formerly Telepharmacy) Tooling Inspector 01/06/2023, 8:37 AM * Telephone Encounter - BEBE Sifuentes - 01/03/2023 5:48 PM EDT Please see refill encounter. * Telephone Encounter - GEO Bhatia - 01/03/2023 4:17 PM EDT Pt requesting HIGH PRIORITY due to nebulizer treatments work much better for him Pt called and stated that he went to urgent care today and got prednisone and a rescue inhaler. Pt is requesting a nebulizer to be called into [facility] at [phone]. documented in this encounter Plan of Treatment Health Maintenance Due Date Last Done Comments DISCUSS TOBACCO CESSATION (REFER TO SMARTSET #9209) 1992 COVID-19 Vaccine (#1) 1992 Pneumococcal Vaccine: [...] Not on filedocumented as of this encounter Care Teams Pack Master Relationship Specialty Start Date End Date Mariann Vizcarra MD [address] [place] [id number] PCP - General Internal Medicine 06/22/21 documented as of this encounter
--- OUTSIDE RECORDS SUMMARY | 2023-06-04 20:16 | External Medical Summary | Summary of Care ---
Author Name Unknown Organization [facility] Address [address] [facility] [place] [address] Phone [phone] Care Team Providers Care Well Service Floor Worker Name Role Phone Mariann Vizcarra MD Primary Care Provider Reason for Visit * Reason Onset Date Comments Med Request 01/03/2023 Encounter Details Date Type Department Care Team Description 01/03/2023 Telephone Family Practice [facility] [address] [place] [address] Mariann Vizcarra MD [address] [place] [address] Med Request Allergies Active Allergy Reactions Severity Noted Date Comments Cefaclor Hives 03/29/2016 Cephalosporins 01/06/2001 Diclofenac Itching 12/24/2016 documented as of this encounter (statuses as of 01/03/2023) Medications Medication Sig Dispensed Refills Start Date [...] as of this encounter (statuses as of 01/03/2023) Active Problems Problem Noted Date Lumbar degenerative disc disease 021 Overview: MRI from 2012 showed mild disease Gastroesophageal reflux disease without esophagitis 11/19/2020 Opioid abuse, in remission 11/19/2020 Overview: On suboxone Moderate persistent asthma without compl ication 01/15/2010 Overview: Per Asthma Taxonomy ICD-10 update of inactive term documented as of this encounter (statuses as of 01/03/2023) Resolved Problems Problem Noted Date Resolved Date Left lumbar radiculopathy 02/20/20212020 Low back pain 12/24/2016 07/28/2018 Overview: Avoid narcotics Chronic pain of left knee 10/04/20162020 Routine child health exam 01/22/20032016 Asthma, allergic 01/22/2003 01/15/2010 documented as of this encounter (statuses as of 01/03/2023) Immunizations Name Administration Dates Next Due DTP [...] encounter Miscellaneous Notes * Telephone Encounter - BEBE Sifuentes ASSIST - 01/03/2023 5:48 PM EDT Please see refill encounter. * Telephone Encounter - GEO Bhatia Tech - 01/03/2023 4:17 PM EDT Pt requesting HIGH PRIORITY due to nebulizer treatments work much better for him Pt called and stated that he went to urgent care today and got prednisone and a rescue inhaler. Pt is requesting a nebulizer to be called into [facility] home care at [phone]. documented in this encounter Plan of Treatment [...] filedocumented as of this encounter Care Teams Well Service Floor Worker Relationship Specialty Start Date End Date Mariann Vizcarra MD [address] [facility] [place] [address] PCP - General Internal Medicine 06/22/21 documented as of this encounter
--- OUTSIDE RECORDS SUMMARY | 2023-06-04 20:16 | External Medical Summary | Summary of Care ---
Author Name Unknown Organization [facility] Address [address] [facility] [place] [address] Phone [phone] Care Team Providers Care Agency Service Representative Name Role Phone Mariann Vizcarra MD Primary Care Provider Reason for Visit * Reason Onset Date Comments Med Request 01/03/2023 Encounter Details Date Type Department Care Team Description 01/03/2023 Telephone Family Practice [facility] [address] [place] [address] Mariann Vizcarra MD [address] [place] [address] Med Request Allergies Active Allergy Reactions Severity [...] encounter Miscellaneous Notes * Telephone Encounter - BEEB Sifuentes - 01/06/2023 12:37 PM EDT Faxed to [employer]. Pt informed. * Telephone Encounter - Mariann Vizcarra MD [...] needs the actual nebulizer machine sent to [facility]. Pot would like a call when done: [phone] Please advise. Thank you, Malu Bright [facility] ([facility] (formerly Telepharm[facility]) New Vehicle Sales Consultant 01/06/2023, 8:37 AM * Telephone Encounter - BEBE Sifuentes ASSIST [...] requesting a nebulizer to be called into [facility] care at [phone]. documented in this encounter Plan of Treatment Health Maintenance Due Date Last Done Comments DISCUSS TOBACCO CESSATION (REFER TO SMARTSET #3292) 1992 COVID-19 Vaccine (#1) 1992 Pneumococcal Vaccine: [...] filedocumented as of this encounter Care Teams Agency Service Representative Relationship Specialty Start Date End Date Mariann Vizcarra MD [address] [facility] [place] [address] PCP - General Internal Medicine 06/22/21 documented as of this encounter
--- OUTSIDE RECORDS SUMMARY | 2023-06-04 20:16 | External Medical Summary | Summary of Care ---
Author Name Unknown Organization [facility] Address [address] [facility] [place] [address] Phone [phone] Care Team Providers Care Program Planner Name Role Phone Mariann Vizcarra MD Primary Care Provider Reason for Visit * Reason Onset Date Comments Med Request 01/03/2023 Encounter Details Date Type Department Care Team Description 01/03/[address] [facility] [address] [place] [id number] Mariann Vizcarra MD [address] [place] [id number] Med Request Allergies Active Allergy Reactions Severity [...] Notes * Telephone Encounter - BEBE Sifuentes - 01/06/2023 9:45 AM EDT Ok to fax nebulizer order? * Telephone Encounter - Malu Bright CPhT - 01/06/2023 8:36 AM EDT Pt calling in to check status of nebulizer machine. Pt said the solution was sent to the pharmacy, but he needs the actual nebulizer machine sent to [facility]. Pot would like a call when done: [phone] Please advise. Thank you, Malu Bright [facility] ([facility]) Quality Coordinator 01/06/2023, 8:37 AM * Telephone Encounter - BEBE Sifuentes - 01/03/2023 5:48 PM EDT Please see refill encounter. * Telephone Encounter - Pebbles Gaytan president [place] - 01/03/2023 4:17 PM EDT Pt requesting HIGH PRIORITY due to nebulizer treatments work much better for him Pt called and stated that he went to urgent care today and got prednisone and a rescue inhaler. Pt is requesting a nebulizer to be called into [facility] home care at [phone]. documented in this encounter Plan of Treatment Health Maintenance Due Date Last Done Comments DISCUSS TOBACCO CESSATION (REFER TO SMARTSET #329) 1990 COVID-19 Vaccine (#1) 1990 Pneumococcal Vaccine: [...] filedocumented as of this encounter Care Teams Program Planner Relationship Specialty Start Date End Date Mariann Vizcarra MD [address] [place] [id number] PCP - General Internal Medicine 06/22/21 documented as of this encounter
--- OUTSIDE RECORDS SUMMARY | 2023-06-04 20:16 | External Medical Summary | Summary of Care ---
Author Name Unknown Organization [facility] Address [address] [facility] [place] [address] Phone [phone] Care Team Providers Care Director Of District Office Name Role Phone Mariann Vizcarra MD Primary Care Provider Reason for Visit * Reason Onset Date Comments Med Request 01/03/2023 Encounter Details Date Type Department Care Team Description 01/03/2023 Telephone Family Practice [facility] [address] [place] [id number] Mariann Vizcarra MD [address] [place] [address] Med Request Allergies Active Allergy Reactions Severity [...] 01/03/2023) Immunizations Name Administration Dates Next Due Seasonal [...] Miscellaneous Notes * Telephone Encounter - GEO Bhatia Tech - 01/03/2023 4:17 PM EDT Pt requesting HIGH PRIORITY due to nebulizer treatments work much better for him Pt called and stated that he went to urgent care today and got prednisone and a rescue inhaler. Pt is requesting a nebulizer to be called into [facility] home care at [phone]. documented in this encounter Plan of Treatment Health Maintenance Due Date Last Done Comments DISCUSS TOBACCO CESSATION (REFER TO SMARTSET #3299) 1992 COVID-19 Vaccine (#1) 1992 Pneumococcal Vaccine: [...] filedocumented as of this encounter Care Teams Director Of District Office Relationship Specialty Start Date End Date Mariann Vizcarra MD [address] [place] [address] PCP - General Internal Medicine 06/22/21 documented as of this encounter
--- OUTSIDE RECORDS SUMMARY | 2023-06-04 20:16 | External Medical Summary | Summary of Care ---
Author Name Unknown Organization [facility] Address [address] [facility] [place] [address] Phone [phone] Care Team Providers Care Databases Software Consultant Name Role Phone Mariann Vizcarra MD Primary Care Provider Reason for Visit * Reason Onset Date Comments Med Request 01/03/2023 Encounter Details Date Type Department Care Team Description 01/03/2023 Telephone Family Practice [facility] [address] [place] [address] Mariann Vizcarra MD [address] [place] [address] Med Request Allergies Active Allergy Reactions Severity [...] encounter Miscellaneous Notes * Telephone Encounter - Malu Bright CPhT - 01/06/2023 8:36 AM EDT Pt calling in to check status of nebulizer machine. Pt said the solution was sent to the pharmacy, but he needs the actual nebulizer machine sent to [facility]. Pot would like a call when done: [phone] Please advise. Thank you, Malu Bright [facility] ([facility]) Jig Borer 01/06/2023, 8:37 AM * Telephone Encounter - [...] requesting a nebulizer to be called into [facility] at [phone]. documented in this encounter Plan of Treatment Health Maintenance Due Date Last Done Comments DISCUSS TOBACCO CESSATION (REFER TO SMARTSET #3574) 1992 COVID-19 Vaccine (#1) 1992 Pneumococcal Vaccine: [...] filedocumented as of this encounter Care Teams Databases Software Consultant Relationship Specialty Start Date End Date Mariann Vizcarra MD [address] [place] [address] PCP - General Internal Medicine 06/22/21 documented as of this encounter
[2023-06-06 10:22] LABS: Amphetamine Urine, Confirm 6708 ng/mL (<250); MDA negative; MDEA negative; MDMA (Ecstasy) Urine, Confirm negative; Marijuana Quant, GCMS Urine 121 ng/mL (<5); Methamphetamine, Ur Confirm >15000 ng/mL (<250)
== END 2023-06-04 11:55 | DRG 897 ==
LOC: ED 09:44 → SUATTDRO 17:51 → EDINP 17:51 → 3N 06-03 20:15

== ENCOUNTER 2023-12-06 14:09 | Inpatient (IN) ==
--- NOTE | 2023-12-06 14:39 | Emergency Department Note ---
Impression & Plan Pericarditis, Polysubstance abuse, Leukocytosis ED Provider Note NAME: ROBERT PITTMAN AGE: 33 SEX: M : 1990 ARRIVES VIA: Ambulance INFORMANT: Patient ED PROVIDER(S): Rupert Castellon DO CHIEF COMPLAINT: chest pain HPI: Patient is a 33-year-old male who presents to the ER for chest pain. He notes this has been present for past several weeks to months. Pain notes it sharp and on the left side. It improves when he sits up and leans forward. It is worse when he leans back. Denies any headache or change in vision. No fevers. No belly pain, nausea, vomiting or diarrhea. No dysuria, urgency or frequency. No other exacerbating or remitting factors. He took his colchicine intermittently but notes that he is now taking it. ADDITIONAL HISTORY OBTAINED: Per HPI Chronic Medical/Social Conditions Affecting Care: Per HPI PAST MEDICAL HISTORY:See Below PAST SURGICAL HISTORY:See Below FAMILY HISTORY:See Below SOCIAL HISTORY:See Below HOME MEDICATIONS:See Below ALLERGIES:See Below VITALS:See Below PHYSICAL EXAMINATION: GENERAL: Sitting up in bed, alert, well appearing, well nourished, no distress, non-toxic EYE EXAM: normal conjunctiva. PERRL and EOM's grossly intact. OROPHARYNX: no exudate, no erythema, lips, buccal mucosa, and tongue normal and mucous membranes are moist NECK: supple, no nuchal rigidity, no adenopathy, non-tender LUNGS: Clear to auscultation. Normal chest wall mechanics HEART: Tachycardic, S1 normal and S2 normal ABDOMEN: abdomen soft, non-tender, normo-active bowel sounds, no masses, no rebound or guarding. BACK: Back is symmetrical on inspection and there is no deformity, no midline tenderness, no CVA tenderness. SKIN: no rashes and no bruising UPPER EXTREMITIES: upper extremities are grossly normal. LOWER EXTREMITIES: No pitting edema. NEURO EXAM: Normal sensorium, cranial nerves II-XII grossly intact, normal speech, no gross weakness of arms, no gross weakness of legs. MEDICAL DECISION MAKING: Patient is a 33-year-old male who presents ER for the above-stated complaint. IV was established blood work was obtained. I spoke with EMS as they took medical command call on this patient. He was complaining of chest pain. I gave them order for 15 mg of Toradol IV x 1. Upon presentation he is found to be tachycardic with a heart rate in the 130s. He was given 2 L of IV fluids. Labs show leukocytosis of 19,000. No significant anemia. ESR and sed were elevated. BMP with a hyponatremia at 130. LFTs and bilirubin and troponin were negative. Lipase was normal. EKG does suggest inferior lateral wall GA although based on the patient's age and previous presentations is consistent with pericarditis. I did discuss with Dr. Trejo who evaluate the patient at bedside and performed an echo which showed pericardial effusion. Previous CTA was reviewed. Cardiology recommended admission and discussed case with the hospitalist for further evaluation management treatment. Consults/Care Managements Discussions: Per [facility] Triage Nursing notes reviewed. Limited review of prior medical records performed Vital Signs: reviewed and remarkable for tachy Differential diagnosis: Cardiac ischemia, aortic dissection, pulmonary embolism, pneumothorax, pneumonia, pericarditis, myocarditis, esophageal rupture, GERD, cholecystitis, pancreatitis, musculoskeletal, as well as other pathologies. ER treatment provided: See below Diagnostics interpreted by me include EKG and cardiac monitoring as listed below: -Cardiac Monitoring: An order was placed for continuous cardiac monitoring. The monitor shows a rate of sinus tachycardia rate of 133 with a sinus rhythm -ECG:Normal axis No PVCs ST elevations in the inferior leads, high lateral as well as lateral leads -Laboratory studies:Interpreted by me as stated above in MDM and shown below. Imaging studies: Xrays: As interpreted by me: Portable AP upright 1 view of the chest shows no focal infiltrate CTs show: none Procedures:none Critical Care: None Past Med/Surg History Problem List (Updated 12/06/23 @ 18:38 by Rupert Castellon DO) Leukocytosis (Acute) Pericarditis (Acute) Polysubstance abuse (Acute) Depression with suicidal ideation (Acute) Medical History Polysubstance abuse on Suboxone Surgical History No pertinent past surgical history Social History Smoking Status: Current every day smoker Tobacco Type: Cigarettes Hx Alcohol Use: Yes Alcohol type: beer Hx Substance Use: Yes Last Used Substance Other:: last month Preferred Language: Prydeinig Communication Ability: Effective Global Director Air And Climate Change Required: No Beliefs That Will Affect Care: None Current Living Situation: Spouse Feels Safe at Home: Yes Safety Concerns: Feels Safe At This Time Gender Identity: Male Assistive Devices: None Allergies Allergies Allergy/AdvReac Type Severity Reaction Status Date / Time capsaicin Allergy Intermediate Rash Verified 12/06/23 15:13 cefaclor Allergy Intermediate Rash Verified 12/06/23 15:13 Home Meds Home Medications Medication Instructions Recorded Confirmed buprenorphine 8 mg-naloxone 2 mg 1 tab sublingual BID 10/23/23 12/06/23 sublingual tablet Results & Data (ED) Vital Signs Vital Signs - 24 hr 12/06/23 14:16 12/06/23 14:18 12/06/23 14:30 Temperature 36.7 C Temperature Source Skin Pulse Rate 132 H 134 H 130 H Pulse Rate from SpO2 Sensor 132 H 130 H Respiratory Rate 30 H 22 28 H Blood Pressure 140/102 H Blood Pressure Mean 114 Pulse Oximetry 99 98 97 Oxygen Delivery Method Room Air Sepsis Recent Fever Within 48 Hours No Sepsis New/Unexplained Change in Mental Status No Sepsis Action Taken by Nursing Physician Notified 12/06/23 14:30 12/06/23 14:47 12/06/23 15:00 Temperature Temperature Source Pulse Rate 134 H Pulse Rate from SpO2 Sensor Respiratory Rate Blood Pressure 142/110 H 138/91 Blood Pressure Mean 111 95 Pulse Oximetry Oxygen Delivery Method Sepsis Recent Fever Within 48 Hours Sepsis New/Unexplained Change in Mental Status Sepsis Action Taken by Nursing 12/06/23 15:00 12/06/23 15:11 Temperature Temperature Source Pulse Rate 127 H Pulse Rate from SpO2 Sensor 127 H Respiratory Rate 30 H Blood Pressure Blood Pressure Mean Pulse Oximetry 98 98 Oxygen Delivery Method Sepsis Recent Fever Within 48 Hours Sepsis New/Unexplained Change in Mental Status Sepsis Action Taken by Nursing Laboratory Data 12/06/23 14:26 12/06/23 14:26 Lab Results 12/06/23 Range/Units 14:26 WBC 19.10 H (4.8-10.8) K/ul RBC 4.29 L (4.70-6.10) M/uL Hgb 13.7 L (14.0-18.0) g/dl Hct 39.1 L (42.0-52.0) % MCV 91.1 (80.0-100.0) fL MCH 31.9 (25.0-34.0) pg MCHC 35.0 (32.0-36.0) g/dL RDW Std Deviation 40.2 (36.4-46.3) fL RDW Coeff of Mckinley 12.0 (11.5-14.5) % Plt Count 368 (130-400) K/uL MPV 9.2 L (9.4-12.4) fL Immature Gran % (Auto) 0.6 % Neut % (Auto) 83.4 % Lymph % (Auto) 5.3 % Garvin % (Auto) 10.4 % Eos % (Auto) 0.1 % Baso % (Auto) 0.2 % Neut # (Auto) 15.91 H (1.40-6.50) K/uL Lymph # (Auto) 1.02 L (1.20-3.40) K/uL Garvin # (Auto) 1.99 H (0.11-0.59) K/uL Eos # (Auto) 0.02 (0.00-0.50) K/uL Baso # (Auto) 0.04 (0.00-0.20) K/uL Immature Gran # (Auto) 0.12 (0.01-0.20) K/uL ESR 87 H (0-15) mm/hr Sodium 130 L (136-145) mmol/L Potassium 4.5 (3.5-5.1) mmol/L Chloride 95 L (98-107) mmol/L Carbon Dioxide 26 (21-32) mmol/L Anion Gap 9 (3-11) BUN 6 (6-23) mg/dl Creatinine 0.53 L (0.6-1.4) mg/dl Est Cr Clr Drug Dosing 156.0 ml/min Est GFR ( Amer) > 150.0 ml/min Est GFR (Non-Af Amer) 141.0 ml/min BUN/Creatinine Ratio 11.3 (10-20) Glucose 158 H (70-99(Fasting)) mg/dl Calcium 9.6 (8.6-10.3) mg/dl Total Bilirubin 1.1 H (0.2-1.0) mg/dl AST 21 (13-39) U/L ALT 23 (7-52) U/L Alkaline Phosphatase 104 (34-104) U/L Troponin I High Sens 2.6 (0-20) pg/ml C-Reactive Protein 24.81 H (0-0.5) mg/dl Total Protein 7.8 (6.0-8.3) gm/dl Albumin 4.2 (3.4-5.0) gm/dl Globulin 3.6 (2.5-4.0) gm/dl Albumin/Globulin Ratio 1.2 (0.9-2) Lipase < 3 L (11-82) U/L Anaplasma Smear See Comment Babesia Smear See Comment Lyme Disease Screen Negative (Negative) Administered Medications Discontinued Medications Sodium Chloride (Nss) 1,000 mls @ 999 mls/hr IV .Q1H1M IESHA Stop: 12/06/23 16:45 Last Infusion: 12/06/23 17:43 Dose: Infused Documented By: Admin: 12/06/23 15:55 Dose: 999 mls/hr Documented By: Infusion: 12/06/23 15:52 Dose: Infused Documented By: Admin: 12/06/23 14:51 Dose: 999 mls/hr Documented By: ASAEL Ibuprofen (Ibuprofen 800 Mg Tab) 800 mg PO ONE STA Stop: 12/06/23 15:48 Last Admin: 12/06/23 15:55 Dose: 800 mg Documented By: Methylprednisolone (Methylprednisolone 125 Mg/2 Ml Vial) 120 mg IV ONCE STA Stop: 12/06/23 15:43 Last Admin: 12/06/23 15:55 Dose: 120 mg Documented By: Pantoprazole Sodium (Pantoprazole 40 Mg Tab) 40 mg PO NOW STA Stop: 12/06/23 15:40 Last Admin: 12/06/23 15:54 Dose: 40 mg Documented By: MR Imaging Data Radiologist's Impression: Chest X-Ray 12/06/23 14:12 XR chest 1V portable HISTORY: 33 years-old Male Chest pain, nonspecific COMPARISON: 12/04/2023 TECHNIQUE: AP view of the chest FINDINGS: Cardiac silhouette is upper limits of normal in size. There is no pneumothorax, pleural effusion, airspace consolidation or pulmonary edema. Mild pulmonary emphysema. Bones appear grossly intact. IMPRESSION: No acute process. ACT 112: Negative or not required by law. The above report was generated using voice recognition software. It may contain grammatical, syntax or spelling errors. Electronically signed by: Pilo De Jesus M.D. 12/06/2023 2:56 PM Discharge Plan Visit Data Chief Complaint: Chest Pain ED Provider: Rupert Castellon Discharge Problem: Pericarditis, Polysubstance abuse, Leukocytosis Discharge Instructions Interventions: ED Discharge Assessment Last Done: 12/06/23 17:43 Discharge Problem: Pericarditis Qualifiers: Pericarditis type: unspecified type Chronicity: unspecified Qualified Code(s): I31.9 - Disease of pericardium, unspecified Leukocytosis Qualifiers: Leukocytosis type: unspecified Qualified Code(s): D72.829 - Elevated white blood cell count, unspecified
[2023-12-06] MEDS: SODIUM CHLORIDE 0.9% 1,000 ML IV SCH (14:51)
[2023-12-06 14:53] LABS: Basophils # (auto) 0.04 K/uL (0.00-0.20); Basophils % (auto) 0.2 %; Eosinophils # (auto) 0.02 K/uL (0.00-0.50); Eosinophils % (auto) 0.1 %; Hematocrit (blood only) 39.1 % (42.0-52.0); Hemoglobin 13.7 g/dl (14.0-18.0); Immature Granulocytes # (auto) 0.12 K/uL (0.01-0.20); Immature Granulocytes % (auto) 0.6 %; Lymphocytes # (auto) 1.02 K/uL (1.20-3.40); Lymphocytes % (auto) 5.3 %; Mean Corpuscular Hemoglobin 31.9 pg (25.0-34.0); Mean Corpuscular Volume 91.1 fL (80.0-100.0); Mean Platelet Volume 9.2 fL (9.4-12.4); Monocytes # (auto) 1.99 K/uL (0.11-0.59); Monocytes % (auto) 10.4 %; Neutrophils # (auto) 15.91 K/uL (1.40-6.50); Neutrophils % (auto) 83.4 %; Platelet Count 368 K/uL (130-400); RDW Standard Deviation 40.2 fL (36.4-46.3); Red Blood Count 4.29 M/uL (4.70-6.10)
--- NOTE | 2023-12-06 14:57 | XRay Report ---
XR chest 1V portable HISTORY: 33 years-old Male Chest pain, nonspecific COMPARISON: 12/04/2023 TECHNIQUE: AP view of the chest FINDINGS: Cardiac silhouette is upper limits of normal in size. There is no pneumothorax, pleural effusion, air space consolidation or pulmonary edema. Mild pulmonary emphysema. Bones appear grossly intact. IMPRESSION: No acute process. ACT 112: Negative or not required by law. The above report was generated using voice recognition software. It may contain grammatical, syntax o r spelling errors. Electronically signed by: Pilo De Jesus M.D. 12/06/2023 2:56 PM
--- NOTE | 2023-12-06 15:05 | Cardiology Consultation ---
Date of Consultation December 06, 2023 Assessment & Plan (1) Pericarditis: (2) Chest pain: (3) Abnormal EKG: Plan IMPRESSION 33 year old male with recurrent constant chest pain EKG concerning for diffuse ST segment elevation, ? pericarditis. Prior bedside echo last ED visit showed a trace pericardial effusion, repeat full echo pending. HS troponin negative. Tick borne illness panel pending PLAN: Pericarditis: -Findings concerning for pericarditis. -Echo completed at bedside, results pending; assess for pericardial effusion. Start Colchicine 0.6 mg twice daily x3 months plus Ibuprofen 800 mg TID x1 week. GI prophylaxis with pantoprazole. Pain control- patient was treated with Toradol last visit with improvement in symptoms- for now will give x1 dose of IV Solu-Medrol Of note, patient carries a history of opioid abuse on Suboxone as an outpatient. Case discussed with Dr. Parmar. Further recommendations pending assessment. I spent a total of 40 minutes on the date of service in preparation, delivery, and documentation of the care provided to the patient excluding any time spent in the performance of separately billed services. AMY Guallpa Department of Cardiology, [facility] This chart was completed in part utilizing Speech Voice Recognition Software. Grammatical errors, random word insertions, pronoun errors, and incomplete sentences are an occasional consequence of this system due to software limitations, ambient noise, and hardware issues. Any formal questions or concerns about the content, text, or information contained within the body of this dictation should be directly addressed to the provider for clarification. Supervising Physician Co-Signing Physician Notes Attending attestation: Case reviewed with the advanced practitioner. I have personally performed a history and physical examination on the patient. I have reviewed the advanced practitioner's documentation on the date of service referenced in note, and I agree with, and take responsibility for the plan of care. Subjective: Patient notes that he had been seen in the emergency department end of September for chest discomfort symptoms suggestive of pericarditis. He believes he took colchicine for about a week and stopped it on his own and did not follow-up as an outpatient. He was doing well up until 2 days ago when he had recurrent symptoms. He was seen in the emergency department. EKG at that time revealed sinus tachycardia 118 bpm with very subtle J-point elevation in the inferior and lateral leads. Actually looked improved compared to the previous tracing on 10/23/[address] segment elevation consistent with pericarditis at that time. CT angiogram was negative for pulmonary embolism on 12/04/2023. Images reviewed independently with no findings of pericardial effusion at that time. Patient notes worsening symptoms. With sensation of shortness of breath and severe chest pressure especially if he tries to lie flat. Patient feels improved sitting completely upright. Sinus tachycardia in the 120s to 130s noted. Blood pressure stable, most recent measurement 152/100. Pulse oximetry 97% on room air. Exam: General: Thin, no acute distress Pulmonary: Clear to auscultation bilaterally Cardiovascular: Tachycardic, no murmurs, no edema, no rub Data: EKG performed 12/06/2023 reveals sinus tachycardia in the 120s with diffuse ST segment elevation, most notable in the inferior lateral leads consistent with pericarditis versus myocardial injury Echocardiogram performed at the bedside 12/06/2023 and interpreted independently: Sinus tachycardia with rate ranging from 100 2230 bpm present during echocardiogram study which was done in the bedside in the emergency department, room B3, with patient sitting upright at a 90 degree angle due to complants of chest pain when lying supine. No regional wall motion abnormalities noted. Left ventricular systolic function is normal. Left Ventricular Ejection Fraction = 60-65%. The right ventricle is normal in size and function. There is mild tricuspid regurgitation. There is a moderate-sized circumferential pericardial effusion with no significant amount of fluid collection adjacent to the anterolateral wall is visualized in the apical four-chamber view. Although there is no evidence of definite tamponade, the inferior vena cava is mildly dilated, 1.8 cm, without significant inspiratory collapse consistent with elevated right atrial pressure, and is thus likely indicative of elevated pericardial pressure and therefore ongong close clinical and echocardiographic surveillance is recommended. Laboratory studies: WBC count 19.1 up from 17.52 days ago Erythrocyte segmentation rate elevated at 87 mL/h, C-reactive protein 24.81 mg/dL, no ESR or CRP levels had previously been obtained Impression/ Plan: Acute pericarditis Moderate-sized circumferential pericardial effusion without definite tamponade, however the findings of the mild inferior vena cava dilatation with lack of inspiratory collapse suggests elevated pericardial pressure -Ongoing clinical and echocardiographic surveillance recommended and therefore admission to the telemetry unit recommended -Proceed with anti-inflammatory therapy including ibuprofen, IV Solu-Medrol x 1 dose. Patient has received the Solu-Medrol and states he has slight subjective improvement in symptoms at present. -PPI for GI prophylaxis given plan for high-dose nonsteroidal anti-inflammatory therapy. I spent a total of 25 minutes coordinating, documenting, and providing care for this patient excluding time spent in the performance of separately billed services or time spent by another provider. Lyndon Parmar, DO History of Present Illness Reason for Consultation: Chest pain ? Pericarditis Requesting Physician: Sana hatch History of Present Illness 33-year-old male who presents to [facility] emergency department due to constant chest pain. Initially evaluated on 10/23/2023 due to constant chest pain described as a central pressure in his chest. Non radiating. Took Ibuprofen without relief in symptoms. Patient's blood work shows a white count of 14 with normal H&H and platelet count. Kidney function was unremarkable with normal electrolytes. Troponin is undetectable. EKG show some diffuse elevation and possible CT depression-in light of the patient's white count chest pain patient there was concerns for pericarditis. Patient was prescribed a 3 month course of colchicine with plans to follow up as an outpatient with a repeat echo, patient failed to do so. Represented to the [facility] ED on 12/04/2023 due to recurrent chest pain. Notes previous noncompliance with the Colchicine and did not finish course. Bedside limited echo/US showed trace pericardial fluid. CT of the chest without effusion or PE. Patient refused IV fluids and left AMA. States that he was inpatient. This admission: Patient now presents with constant chest pain described as a dull heavy pressure in the center of his chest. Having difficulty taking in deep breaths. Notes that he tried to walk around [facility] today to get groceries and was unable to do so. Has not slept for 2 to 3 days due to the pain. Pain and shortness of breath worse when lying down--feels as though he is suffocating if he lies flat. Needs to sit up in a recliner and stay still to be comfortable. He becomes tearful during the exam and states that "he cannot live like this". Agreeable to admission this stay. He is an every day smoker, 1/2 pack/day. Continues to drink alcohol, 6 pack/day--notes that this is a reduction from a 15 beers/day in the last year. Smokes marijuana--last use was yesterday. No other drug use per the patient. He is . 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 EKG showing diffuse ST segment elevation WBC elevated at 19 HS trop negative CRP pending Tick borne illness panel pending Past medical history: H/o alcohol and polysubstance abuse On Chronic suboxone Continues to drink 6 pk/day Tobacco use, 1/2 ppd Anxiety/depression Allergies Allergy/AdvReac Type Severity Reaction Status Date / Time capsaicin Allergy Intermediate Rash Verified 12/06/23 15:13 cefaclor Allergy Intermediate Rash Verified 12/06/23 15:13 Home Medications Medication Instructions Recorded Confirmed Type buprenorphine 8 mg-naloxone 2 mg 1 tab sublingual BID 10/23/23 12/06/23 History sublingual tablet Patient History Medical History Polysubstance abuse on Suboxone Surgical History No pertinent past surgical history Social History Smoking Status: Current every day smoker Tobacco Type: Cigarettes Hx Alcohol Use: Yes Alcohol type: beer Hx Substance Use: Yes Last Used Substance: Unknown Preferred Language: Moldovan Communication Ability: Effective Guest Associate Required: No Beliefs That Will Affect Care: None Current Living Situation: Spouse Feels Safe at Home: Yes Gender Identity: Male Assistive Devices: None Review of Systems Review of Systems: All systems reviewed & are unremarkable except as noted in HPI & below Physical Exam Constitutional: + ill appearing Neck: normal visual inspection and trachea midline Respiratory: normal respiratory effort; no respiratory distress and no cough Auscultation: + diminished lung sounds Cardiovascular: Rate/Rhythm: regular rhythm and + tachycardic Heart Sounds: normal S1 and normal S2 Vessels: no JVD Extremities: no edema Gastrointestinal (Abdomen): normal bowel sounds, soft, nontender, no hepatosplenomegaly Skin: no rashes, warm and dry Neurologic: PERRL, EOMI, accommodation nl, no face palsy, no dysarthria Psychiatric: A+Ox3, euthymic affect Results & Data Vital Signs (Past 12 Hours) Vital Signs Temp Pulse Resp BP Pulse Ox O2 Del Method 12/06/23 14:47 134 H 12/06/23 14:18 36.7 C 134 H 22 140/102 H 98 Room Air (1) Pericarditis Chronicity: acute Pericarditis type: unspecified type Qualified Code(s): I30.9 - Acute pericarditis, unspecified (2) Chest pain Chest pain type: unspecified Qualified Code(s): R07.9 - Chest pain, unspecified
[2023-12-06 15:42] LABS: Anion Gap 9 (3-11); BUN Creatinine Ratio 11.3 (10-20); Blood Urea Nitrogen 6 mg/dl (6-23); Calcium 9.6 mg/dl (8.6-10.3); Carbon Dioxide 26 mmol/L (21-32); Chloride 95 mmol/L (98-107); Est GFR (African American) > 150.0 ml/min; Glucose 158 mg/dl (70-99(Fasting)); Potassium 4.5 mmol/L (3.5-5.1); Sodium 130 mmol/L (136-145)
[2023-12-06 15:47] LABS: Troponin I High Sensitivity 2.6 pg/ml (0-20)
[2023-12-06 15:53] LABS: Alanine Aminotransferase 23 U/L (7-52); Albumin Globulin Ratio 1.2 (0.9-2); Albumin Level 4.2 gm/dl (3.4-5.0); Alkaline Phosphatase 104 U/L (34-104); Aspartate Aminotransferase 21 U/L (13-39); Bilirubin,Total 1.1 mg/dl (0.2-1.0); Globulin 3.6 gm/dl (2.5-4.0); Lipase < 3 U/L (11-82); Total Protein 7.8 gm/dl (6.0-8.3)
[2023-12-06] MEDS: PANTOprazole 40 MG TAB PO STA (15:54)
[2023-12-06] MEDS: methylPREDNISolone 125 MG/2 ML VIAL IV STA (15:55)
[2023-12-06] MEDS: IBUPROFEN 800 MG TAB PO STA (15:55)
[2023-12-06 15:56] LABS: C Reactive Protein 24.81 mg/dl (0-0.5)
--- NOTE | 2023-12-06 16:03 | History & Physical Report ---
Date of Service December 06, 2023 Assessment & Plan (1) Pericarditis: Plan: Admit to telemetry Patient presenting from home with reports of severe chest pain. Seen in ED on 10/22 and diagnosed with pericarditis. Patient discharged with a prescription for colchicine and recommendations for outpatient echocardiogram. Patient was lost to follow-up. In the ED, EKG shows diffuse ST elevations consistent with consistent with pericarditis. Patient is tachycardic with stable BP. WBC 19 K, CRP 24 Etiology of pericarditis is unclear at this time, no recent illnesses or sick contacts Tickborne panel ordered by cardiology Formal echocardiogram pending Per cardiology-colchicine 0.6 mg twice daily, ibuprofen 800 mg 3 times daily, pantoprazole for GI prophylaxis. Patient also received IV Solu-Medrol 125 mg x 1 (2) Polysubstance abuse: Plan: History of methamphetamine use (snorting and smoking - last used about one month ago) and opiate pain pills On Suboxone DVT PROPHYLAXIS SCDs Patient seen in collaboration with Dr. Velazquez. I spent a total of 75 minutes coordinating, documenting, and providing care for this patient excluding time spent in the performance of separately billed services. This included personally reviewing all current laboratories and imaging studies, medication reconciliation, outpatient chart review, and discussion with specialists. History of Present Illness Chief Complaint: Chest pain Primary Care Provider: Mariann Vizcarra MD 33-year-old male with PMH polysubstance abuse on Suboxone and other problems listed below who presents to the ED for evaluation of chest pain. History is obtained from the patient, review of outpatient PCP records, and review of recent ED records. Patient was seen in the ED on 10/22 and diagnosed with pericarditis. Patient was discharged on colchicine. Reports that he was pain- free by the following day therefore did not take any colchicine. Patient reports that about 6 days ago, his chest pain returned. Reports it has been progressively getting worse. Was seen in the ED on 12/03 however eloped from that ED visit. Patient reports he started taking colchicine 3 days ago at home from a prior prescription. He reports chest pain is worse with lying flat. He denies shortness of breath and palpitations. Denies any recent illnesses, fevers, chills. No known tick bites. Denies recent travel or sick contacts. No abdominal pain, nausea, vomiting, diarrhea. Denies urinary symptoms. Patient called EMS today for severe chest pain and was brought to the ED for further evaluation.In the ED, EKG shows diffuse ST elevations consistent with pericarditis. Patient is tachycardic with stable BP. Labs show WBC 19 K, Hgb 13.7, Na+ 138, CRP 24. Echocardiogram was obtained in the ED, formal report is pending. Cardiology has evaluated the patient in the ED as well. Allergies Allergy/AdvReac Type Severity Reaction Status Date / Time capsaicin Allergy Intermediate Rash Verified 12/06/23 15:13 cefaclor Allergy Intermediate Rash Verified 12/06/23 15:13 Home Medications Medication Instructions Recorded Confirmed Type buprenorphine 8 mg-naloxone 2 mg 1 tab sublingual BID 10/23/23 12/06/23 History sublingual tablet Past Med/Surg History Problem List Pericarditis Polysubstance abuse Depression with suicidal ideation (Acute) Medical History Polysubstance abuse on Suboxone Surgical History No pertinent past surgical history Social History Smoking Status: Current every day smoker Tobacco Type: Cigarettes Hx Alcohol Use: Yes Alcohol type: beer Hx Substance Use: Yes Last Used Substance: Unknown Preferred Language: Mozambican Communication Ability: Effective Director Of Annual Giving Required: No Beliefs That Will Affect Care: None Current Living Situation: Spouse Feels Safe at Home: Yes Gender Identity: Male Assistive Devices: None Physical Exam Constitutional: WD/WN, vitals as above + thin; no acute distress Eyes: PERRL, conjunctivae normal, anicteric sclerae ENMT: external ear and nose normal, oropharynx normal Respiratory: normal respiratory effort, lungs clear to auscultation Cardiovascular: Rate/Rhythm: regular rhythm and + tachycardic Vessels: normal peripheral pulses Extremities: no edema Gastrointestinal (Abdomen): normal bowel sounds, soft, nontender, no hepatosplenomegaly Musculoskeletal: no cyanosis or clubbing, extremities motor strength 5/5 Skin: no rashes, warm and dry Neurologic: PERRL, EOMI, accommodation nl, no face palsy, no dysarthria Psychiatric: A+Ox3, euthymic affect Results & Data Results & Data Vital Signs (Past 12 Hours) Vital Signs Temp Pulse Resp BP Pulse Ox O2 Del Method 12/06/23 15:30 152/100 H 12/06/23 15:30 122 H 24 97 12/06/23 15:11 98 12/06/23 15:00 127 H 30 H 98 12/06/23 15:00 138/91 12/06/23 14:47 134 H 12/06/23 14:30 142/110 H 12/06/23 14:30 130 H 28 H 97 12/06/23 14:18 36.7 C 134 H 22 140/102 H 98 Room Air 12/06/23 14:16 132 H 30 H 99 Laboratory Results Short CBC 12/06/23 Range/Units 14:26 WBC 19.10 H (4.8-10.8) K/ul Hgb 13.7 L (14.0-18.0) g/dl Hct 39.1 L (42.0-52.0) % Plt Count 368 (130-400) K/uL BMP 12/06/23 14:26 Sodium 130 L Potassium 4.5 Chloride 95 L Carbon Dioxide 26 BUN 6 Creatinine 0.53 L Glucose 158 H Calcium 9.6 Liver Function 12/06/23 Range/Units 14:26 Total Bilirubin 1.1 H (0.2-1.0) mg/dl AST 21 (13-39) U/L ALT 23 (7-52) U/L Alkaline Phosphatase 104 (34-104) U/L Albumin 4.2 (3.4-5.0) gm/dl Diagnostic Findings Chest X-Ray 12/06/23 14:12 XR chest 1V portable HISTORY: 33 years-old Male Chest pain, nonspecific COMPARISON: 12/04/2023 TECHNIQUE: AP view of the chest FINDINGS: Cardiac silhouette is upper limits of normal in size. There is no pneumothorax, pleural effusion, airspace consolidation or pulmonary edema. Mild pulmonary emphysema. Bones appear grossly intact. IMPRESSION: No acute process. ACT 112: Negative or not required by law. The above report was generated using voice recognition software. It may contain grammatical, syntax or spelling errors. Electronically signed by: Pilo De Jesus M.D. 12/06/2023 2:56 PM Code Status & VTE Plan VTE Prophylaxis Plan VTE Prophylaxis will be ordered: Yes Supervising Physician Co-Signing Physician Notes I have seen and discussed the case with the collaborating advanced practitioner. I agree with the above H&P. I have reviewed and confirmed the patients medical history, the findings on physical examination, and the patients diagnosis and treatment plan with RINA and agree with the information documented. In short, Mr. Cabrera is a 33 year old gentleman with history of polysubstance use who is admitted for management of acute pericarditis. He states he has presented to the ED multiple times for similar symptoms, but historically did not take colchicine as prescribed, and also absconded due to being "impatient." Patient with improvement from IV ketorlac. Cards consulted. GENERAL APPEARANCE: AxOx4, generally well-appearing M/F, no acute distress. HEENT: NC, AT. MMM. EOMI, clear conjunctiva, oropharynx clear. NECK: Supple without lymphadenopathy. No stiffness or restricted ROM. HEART: Normal rate and regular rhythm, normal S1/S1, no m/r/g LUNGS: CTAB, moving air well. No crackles or wheezes are heard. ABDOMEN: Soft, nontender, nondistended with good bowel sounds heard. BACK: No CVAT, no obvious deformity. EXTREMITIES: Without cyanosis, clubbing or edema. NEUROLOGICAL: Grossly nonfocal. Alert and oriented, moving all 4 extremities. CN not formally tested but appear grossly intact. Observed to ambulate with normal gait. Skin: Warm and dry without any rash. #Acute pericarditis denies recent viral prodrome, last covid vaccine 2019 Findings concerning for pericarditis. ECHO: stable ef 60-65%, moderate circumferential effusion Start Colchicine 0.6 mg twice daily x3 months plus Ibuprofen 800 mg TID x1 week. GI prophylaxis with pantoprazole. s/p IV solumedrol lyme serology ordered rest of plan as above I spent a total of 25 minutes coordinating, documenting, and providing care for this patient excluding time spent in the performance of separately billed services. All of the aforementioned completed outside of collaborating with the assigned advanced practitioner for a full treatment plan. I have reviewed the advanced practitioner's documentation, and I agree with, and take responsibility for the plan of care
--- NOTE | 2023-12-06 17:47 | Electrocardiogram Report ---
Test Reason : Blood Pressure : / mmHG Vent. Rate : 133 BPM Atrial Rate : 133 BPM P-R Int : 128 ms QRS Dur : 078 ms QT Int : 298 ms P-R-T Axes : 059 022 035 degrees QTc Int : 443 ms Sinus tachycardia Possible Acute pericarditis Abnormal ECG When compared with ECG of 04-DEC-2023 15:40, ST more elevated in Lateral leads Confirmed by Carlos Simeon ([id number]) on 12/06/2023 5:47:11 PM Referred By: Confirmed By:Henri Simeon
[2023-12-06] MEDS: ACETAMINOPHEN 325 MG TAB PO PRN (20:02)
[2023-12-06] MEDS: BUPRENORPHINE/NALOXONE 8/2 MG TAB SL SCH (20:03)
[2023-12-06] MEDS: COLCHICINE 0.6 MG TAB PO SCH (20:03)
[2023-12-06] MEDS: MELATONIN 3 MG TAB PO PRN (23:11)
[2023-12-07 06:45] LABS: Hematocrit (blood only) 34.8 % (42.0-52.0); Mean Corpuscular Hemoglobin 31.7 pg (25.0-34.0); Mean Corpuscular Hgb Conc 34.5 g/dL (32.0-36.0); Mean Corpuscular Volume 91.8 fL (80.0-100.0); Mean Platelet Volume 9.5 fL (9.4-12.4); Platelet Count 337 K/uL (130-400); RDW Standard Deviation 40.6 fL (36.4-46.3); Red Blood Count 3.79 M/uL (4.70-6.10); White Blood Count 19.43 K/ul (4.8-10.8)
[2023-12-07 07:12] LABS: Anion Gap 7 (3-11); BUN Creatinine Ratio 18.9 (10-20); Blood Urea Nitrogen 10 mg/dl (6-23); Calcium 9.5 mg/dl (8.6-10.3); Carbon Dioxide 27 mmol/L (21-32); Chloride 102 mmol/L (98-107); Creatinine Clr Calc Pharmacy 152.5 ml/min; Est GFR (African American) > 150.0 ml/min; Glucose 161 mg/dl (70-99(Fasting)); Potassium 4.7 mmol/L (3.5-5.1); Sodium 136 mmol/L (136-145)
--- NOTE | 2023-12-07 07:19 | Cardiology Progress Note ---
Date of Service December 07, 2023 Assessment & Plan (1) Acute pericarditis: Plan IMPRESSION 33 year old male with acute pericarditis EKG concerning for diffuse ST segment elevation specifically in the inferior lateral leads Moderate-sized pericardial effusion without evidence of definite hemodynamic compromise. HS troponin negative. Tick borne illness panel pending PLAN: Acute Pericarditis: Significant improvement in pain/discomfort as well as breathing overnight. Continue colchicine 0.6 mg twice daily; will plan to reduce to daily at discharge. Will continue this medication x3 months at discharge Continue Ibuprofen 800 mg TID x1 week. GI prophylaxis with pantoprazole. Pain control- patient was treated with Toradol last visit with improvement in symptoms- was given x1 dose of IV Solu-Medrol 12/06/2023 Of note, patient carries a history of opioid abuse on Suboxone as an outpatient. Repeat echo tomorrow to reassess pericardial effusion Recommend smoking cessation. Chronic alcohol abuse: Drinks at minimum of 6 pack/day Recommend monitoring for alcohol withdrawal-will defer to primary care team Case discussed with Dr. Parmar. Further recommendations pending assessment. I spent a total of 30 minutes on the date of service in preparation, delivery, and documentation of the care provided to the patient excluding any time spent in the performance of separately billed services. AMY Guallpa Department of Cardiology, [facility] This chart was completed in part utilizing Speech Voice Recognition Software. Grammatical errors, random word insertions, pronoun errors, and incomplete sentences are an occasional consequence of this system due to software limitations, ambient noise, and hardware issues. Any formal questions or co ncerns about the content, text, or information contained within the body of this dictation should be directly addressed to the provider for clarification. Admission and Anticipated Discharge Date Admission Date: December 06, 2023 Supervising Physician Co-Signing Physician Notes Attending attestation: Case reviewed with the advanced practitioner. I have personally performed a history and physical examination on the patient. I have reviewed the advanced practitioner's documentation on the date of service referenced in note, and I agree with, and take responsibility for the plan of care. Subjective: Patient feeling subjectively improved. Sinus tachycardia with rate of 117 present at the time of my assessment. Patient and his spouse states that he has a chronically elevated heart rate of just above 100 bpm for at least the last 6 months that preceded his recent acute symptoms. Exam: Cardiovascular tachycardic, no murmurs, no rubs, no edema Data: Troponin negative x 2 EKG performed today 12/07/2023 reveals sinus tachycardia with ongoing diffuse ST segment elevation consistent with pericarditis Impression/ Plan: Acute pericarditis Moderate pericardial effusion -Continue colchicine, ibuprofen 800 mg 3 times daily for now, with plans to taper over time,. Continue Protonix for GI prophylaxis. -remain in hospital on telemetry. Repeat limited echo on 12/08/23. -May need alcohol withdrawal prophylaxis, states he drinks about a sixpack a day of beer at home. I spent a total of 20 minutes coordinating, documenting, and providing care for this patient excluding time spent in the performance of separately billed services or time spent by another provider. Lyndon Parmar, DO Subjective 33-year-old male who re-presented to [facility] emergency department yesterday 12/07/2023 due to constant severe chest pain. EKG with diffuse ST segment elevation specifically in inferior and lateral leads. Findings concerning for pericarditis. CTA of the chest was negative for PE 12/04/2023 and there were no evidence of pericardial effusion on imaging at that time. Echocardiogram performed yesterday 12/06/2023 showed a moderate-sized circumferential pericardial effusion without definite tamponade, however the findings of the mild inferior vena cava dilatation with lack of inspiratory collapse suggests elevated pericardial pressure. LVEF was normal at 60 to 65% without wall motion abnormalities or significant valvular disease. Intervention: -Given x 1 dose of IV Solu-Medrol -Started on ibuprofen 800 mg 3 times daily with meals plus colchicine 0.6 mg twice daily with meals -GI prophylaxis with pantoprazole 12/07/2023: Upon entrance into the room patient up and ambulating in the hallway, feels "wonderful" compared to yesterday. at bedside. Notes that he walked down to the cafe this morning. Has slight chest pressure, but improved substantially compared to yesterday. Denies shortness of breath or palpitations. No lightheadedness. No orthopnea or PND. No lower extremity edema. EKG: Sinus tach with ST elevation in inferior lateral leads, 113 bpm--unchanged from yesterday 12/05 Telemetry: ST 100-120s (Admits tachycardic rates in the 100-110s at home since using meth aprox. 6 months ago) Review of Systems Review of Systems: All systems reviewed & are unremarkable except as noted in HPI & below Physical Exam Constitutional: well developed; no acute distress Eyes: PERRL, conjunctivae normal, anicteric sclerae Neck: normal visual inspection and trachea midline Respiratory: normal respiratory effort; no respiratory distress and no cough Auscultation: lungs clear to auscultation bilaterally Cardiovascular: Rate/Rhythm: regular rhythm and + tachycardic Heart Sounds: normal S1 and normal S2; no murmur Vessels: no JVD Extremities: no edema Gastrointestinal (Abdomen): normal bowel sounds, soft, nontender, no hepatosplenomegaly Musculoskeletal: no cyanosis or clubbing, extremities motor strength 5/5 Skin: no rashes, warm and dry Neurologic: PERRL, EOMI, accommodation nl, no face palsy, no dysarthria Psychiatric: A+Ox3, euthymic affect Results & Data Vital Signs (Past 12 Hours) Vital Signs Temp Pulse Pulse Resp BP Pulse Ox O2 Del Method 12/07/23 02:33 36.7 C 126 H 18 144/79 H 94 Room Air 12/06/23 22:35 36.8 C 120 H 20 143/77 H 97 Room Air 12/06/23 21:58 117 H Laboratory Results Cardiac Enzymes 12/06/23 Range/Units 14:26 AST 21 (13-39) U/L Troponin I High Sens 2.6 (0-20) pg/ml CBC 12/06/23 12/07/23 Range/Units 14:26 06:10 WBC 19.10 H 19.43 H (4.8-10.8) K/ul RBC 4.29 L 3.79 L (4.70-6.10) M/uL Hgb 13.7 L 12.0 L (14.0-18.0) g/dl Hct 39.1 L 34.8 L (42.0-52.0) % Plt Count 368 337 (130-400) K/uL Neut # (Auto) 15.91 H (1.40-6.50) K/uL Lymph # (Auto) 1.02 L (1.20-3.40) K/uL [place] # (Auto) 1.99 H (0.11-0.59) K/uL Eos # (Auto) 0.02 (0.00-0.50) K/uL Baso # (Auto) 0.04 (0.00-0.20) K/uL Comprehensive Metabolic Panel 12/06/23 12/07/23 Range/Units 14:26 06:10 Sodium 130 L 136 (136-145) mmol/L Potassium 4.5 4.7 (3.5-5.1) mmol/L Chloride 95 L 102 (98-107) mmol/L Carbon Dioxide 26 27 (21-32) mmol/L BUN 6 10 (6-23) mg/dl Creatinine 0.53 L 0.53 L (0.6-1.4) mg/dl Glucose 158 H 161 H (70-99(Fasting)) mg/dl Calcium 9.6 9.5 (8.6-10.3) mg/dl AST 21 (13-39) U/L ALT 23 (7-52) U/L Alkaline Phosphatase 104 (34-104) U/L Total Protein 7.8 (6.0-8.3) gm/dl Albumin 4.2 (3.4-5.0) gm/dl Intake and Output 12/06/23 12/07/23 12/07/23 22:59 06:59 14:59 Intake Total 2600 / 3100 500 / 3100 Balance 2600 / 3100 500 / 3100 Intake: IV 1999 / 1999 Sodium Chloride 0.9% 1,000 ml @ 1999 / 1999 999 mls/hr IV .Q1H1M [facility] Rx#: [id number] Oral 600 / 1100 500 / 1100 Other: Weight 55 kg 53.4 kg Weight Measurement Method Built in [facility]scale Standing Scale (1) Acute pericarditis Pericarditis type: unspecified type Qualified Code(s): I30.9 - Acute pericarditis, unspecified
[2023-12-07] MEDS: IBUPROFEN 800 MG TAB PO SCH (08:07)
[2023-12-07] MEDS: PANTOprazole 40 MG TAB PO SCH (11:54)
--- NOTE | 2023-12-07 11:55 | Electrocardiogram Report ---
Test Reason : Blood Pressure : / mmHG Vent. Rate : 113 BPM Atrial Rate : 113 BPM P-R Int : 132 ms QRS Dur : 088 ms QT Int : 344 ms P-R-T Axes : 054 023 023 degrees QTc Int : [address] elevation, consider early repolarization, pericarditis, or injury Abnormal ECG When compared with ECG of 06-DEC-2023 14:16, No significant change was found Confirmed by Carlos Simeon ([id number]) on 12/07/2023 11:55:33 AM Referred By: REFERRED SELF Confirmed By:Henri Simeon
[2023-12-07] MEDS ORDERED: LORazepam 1 MG TAB PO PRN (15:13)
--- NOTE | 2023-12-07 15:14 | Hospitalist Progress Note ---
Date of Service December 07, 2023 Assessment & Plan (1) Acute pericarditis: Plan 33-year-old with PMH of polysubstance abuse on Suboxone was admitted 12/05 for management of acute pericarditis/pericardial effusion. He stated that he has been to the ED multiple times for similar symptoms, but historically did not take colchicine as prescribed, and also absconded due to being "impatient". He is being managed for the following: Acute Pericarditis: Patient presented from home with reports of severe chest pain. Seen in ED on 10/22 and diagnosed with pericarditis. Patient discharged with a prescription for colchicine and recommendations for outpatient echocardiogram. Patient was lost to follow-up. In the ED, EKG shows diffuse ST elevations consistent with consistent with pericarditis. WBC 19K , CRP 24. Admitting ECHO w/ mod size pericardial effusion, no evidence of tamponade. Tick serology is either neg or pending at this time Cardio on board, on colchicine and ibuprofen. Pt advised to abstain from alcohol and tobacco smoking Pt advised to maintain twice a day dose of protonix. he voiced understanding. Pt's was also at bedside. Polysubstance abuse: History of methamphetamine use (snorting and smoking - last used about one month ago) and opiate pain pills On Suboxone Chronic alcohol abuse: drink atleast 3 beers every evening per patient. folic acid, thiamine and awss protocol while in here. DVT PROPHYLAXIS: SCDs Admission and Anticipated Discharge Date Admission Date: December 06, 2023 Subjective Patient was seen and examined at bedside. Patient was sitting up in bed, eating his lunch, on room air, NAD. Patient reports significantly better chest pain today. Patient denies febrile illness or cough. Patient reports eating okay. Denies diarrhea. Physical Exam Physical Exam: GENERAL: Alert and oriented x3. NAD, on RA. thin. HEENT: No pallor, no icterus. Pupils equal, round and reactive to light. Oral mucosa moist. NECK: No JVD, no neck masses. HEART: S1 and S2 heard. Regular rate and rhythm. tachycardia. No murmur, no gallop. RESPIRATORY SYSTEM: Normal AP diameter. No accessory muscle use. No wheezing, no crackles. ABDOMEN: Soft, bowel sounds present, nontender, no distention. CENTRAL NERVOUS SYSTEM: No facial droop. Speech is clear. Obeys simple commands. Moves extremities. EXTREMITIES: No edema, no erythema seen. Results & Data Results & Data Vital Signs (Past 12 Hours) Vital Signs Temp Pulse Pulse Resp BP Pulse Ox O2 Del Method 12/07/23 11:14 36.7 C 108 H 16 131/89 95 Room Air 12/07/23 10:55 113 H 12/07/23 10:23 Room Air 12/07/23 07:39 36.3 C L 110 H 16 130/78 99 Room Air (1) Acute pericarditis Pericarditis type: unspecified type Qualified Code(s): I30.9 - Acute pericarditis, unspecified
[2023-12-07] MEDS: THIAMINE HCL 100 MG TAB PO SCH (16:16)
[2023-12-07] MEDS: FOLIC ACID 1 MG TAB PO SCH (16:16)
[2023-12-07] MEDS: hydrOXYzine HCl 10 MG TAB PO PRN (21:45)
--- NOTE | 2023-12-08 07:08 | Cardiology Progress Note ---
Date of Service December 08, 2023 Assessment & Plan (1) Acute pericarditis: Plan IMPRESSION 33 year old male with acute pericarditis EKG concerning for diffuse ST segment elevation specifically in the inferior lateral leads Moderate-sized pericardial effusion without evidence of definite hemodynamic compromise. HS troponin negative. Lyme negative. PLAN: Acute Pericarditis: Significant improvement in pain/discomfort as well as breathing overnight. HR improved. Improvement in pericardial effusion on limited echo this am. Continue colchicine 0.6 mg twice daily; will plan to reduce to daily at discharge. Will continue this medication x3 months at discharge Continue Ibuprofen 800 mg TID x1 week. Will plan on decreasing to 600 mg x1 week at discharge with reduction in 200 mg weekly there after. GI prophylaxis with pantoprazole. Pain control- patient was treated with Toradol last visit with improvement in symptoms- was given x1 dose of IV Solu-Medrol 12/06/2023 Of note, patient carries a history of opioid abuse on Suboxone as an outpatient. Recommend smoking cessation. Chronic alcohol abuse: Drinks at minimum of 6 pack/day Recommend monitoring for alcohol withdrawal-will defer to primary care team Case discussed with Dr. Parmar. 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 I spent a total of 30 minutes on the date of service in preparation, delivery, and documentation of the care provided to the patient excluding any time spent in the performance of separately billed services. AMY Guallpa Department of Cardiology, [facility] This chart was completed in part utilizing Speech Voice Recognition Software. Grammatical errors, random word insertions, pronoun errors, and incomplete sentences are an occasional consequence of this system due to software limit ations, ambient noise, and hardware issues. Any formal questions or concerns about the content, text, or information contained within the body of this dictation should be directly addressed to the provider for clarification. Admission and Anticipated Discharge Date Admission Date: December 06, 2023 Supervising Physician Co-Signing Physician Notes Attending attestation: Case reviewed with the advanced practitioner. I have personally performed a history and physical examination on the patient. I have reviewed the advanced practitioner's documentation on the date of service referenced in note, and I agree with, and take responsibility for the plan of care. Patient feels much improved. Echocardiogram performed today reveals significant improvement in the amount of pericardial fluid, a small residual circumferential pericardial effusion is noted without tamponade physiology. Normal biventricular systolic function noted. Patient's sinus tachycardia has improved, sinus rhythm in the 80s noted at rest on telemetry. Patient has been walking in the hallway, and has taken a few short trips outside. EKG reveals ongoing diffuse ST segment elevation consistent with pericarditis. Plan: If continues to feel well on 12/09/2023, will plan on discharge tomorrow on the following medications. 1. Colchicine 0.6 mg by mouth one tablet daily for 3 month course. This has been shown to help reduce the recurrence of pericarditis. Once a day the the a ppropriate dose for his weight / BMI 2. Ibuprofen 600 mg TID x 7 days, then 400 mg TID x 7 days, then 200 mg TID for 7 days then discontinue. 3. GI prophylaxis , perhaps with PPI, will differ agent to hospitalist team Already has outpatient cardiology follow up on 12/12/23 , will determine timing of next echo at that visit. I spent a total of 20 minutes coordinating, documenting, and providing care for this patient excluding time spent in the performance of separately billed services or time spent by another provider. Lyndon Parmar, DO Subjective 33-year-old male who re-presented to [facility] emergency department 12/07/2023 due to constant severe chest pain. EKG with diffuse ST segment elevation specifically in inferior and lateral lead s. Findings concerning for pericarditis. CTA of the chest was negative for PE 12/04/2023 and there were no evidence of pericardial effusion on imaging at that time. Echocardiogram performed yesterday 12/06/2023 showed a moderate-sized circumferential pericardial effusion without definite tamponade, however the findings of the mild inferior vena cava dilatation with lack of inspiratory collapse suggests elevated pericardial pressure. LVEF was normal at 60 to 65% without wall motion abnormalities or significant valvular disease. Intervention: -Given x 1 dose of IV Solu-Medrol -Started on ibuprofen 800 mg 3 times daily with meals plus colchicine 0.6 mg twice daily with meals -GI prophylaxis with pantoprazole 12/07/2023: Improvement in pain, able to ambulate and complete ADLs without difficulty. EKG: Sinus tach with ST elevation in inferior lateral leads, 113 bpm--unchanged from yesterday 12/05 Telemetry: ST 100-120s (Admits tachycardic rates in the 100-110s at home since using meth aprox. 6 months ago) 12/08/2023: EKG: Sinus rhythm with ST elevation in inferior lateral leads, 88 bpm, unchanged from 12/05 and 12/06. However rates are improved. Telemetry: SR 80-90s Labs: Renal function stable. Sodium level improved, 136. Potassium 4.7. Lyme screen negative. Echo: LVEF remains stable. Decrease in pericardial fluid. IVC no longer dilated with appropriate inspiratory collapse now noted. Upon entrance into the room patient resting in bed. No acute concerns. No longer having chest pain or shortness of breath. Denies shortness of breath or palpitations. No lightheadedness. No orthopnea or PND. No lower extremity edema. Eager for discharge. Reluctant to stay another day but agreeable. Review of Systems Review of Systems: All systems reviewed & are unremarkable except as noted in HPI & below Physical Exam Constitutional: WD/WN, vitals as above no acute distress Eyes: PERRL, conjunctivae normal, anicteric sclerae Neck: normal visual inspection and trachea midline Respiratory: normal respiratory effort; no respiratory distress and no cough Auscultation: lungs clear to auscultation bilaterally Cardiovascular: Rate/Rhythm: regular rate and regular rhythm Heart Sounds: normal S1 and normal S2; no murmur Vessels: no JVD Extremities: no edema Gastrointestinal (Abdomen): normal bowel sounds, soft, nontender, no hepatosplenomegaly Musculoskeletal: no cyanosis or clubbing, extremities motor strength 5/5 Skin: no rashes, warm and dry Neurologic: PERRL, EOMI, accommodation nl, no face palsy, no dysarthria Psychiatric: A+Ox3, euthymic affect Results & Data Vital Signs (Past 12 Hours) Vital Signs Temp Pulse Pulse Resp BP Pulse Ox O2 Del Method 12/08/23 02:38 36.6 C 110 H 18 111/68 96 Room Air 12/07/23 23:39 93 H 12/07/23 22:25 36.5 C 110 H 18 113/67 97 Room Air 12/07/23 19:16 36.9 C 100 H 18 119/73 97 Room Air Laboratory Results CBC 12/08/23 Range/Units 06:11 WBC 12.45 H (4.8-10.8) K/ul RBC 3.57 L (4.70-6.10) M/uL Hgb 11.2 L (14.0-18.0) g/dl Hct 33.7 L (42.0-52.0) % Plt Count 386 (130-400) K/uL Comprehensive Metabolic Panel 12/08/23 Range/Units 06:11 Sodium 141 (136-145) mmol/L Potassium 3.4 L D (3.5-5.1) mmol/L Chloride 105 (98-107) mmol/L Carbon Dioxide 30 (21-32) mmol/L BUN 12 (6-23) mg/dl Creatinine 0.57 L (0.6-1.4) mg/dl Glucose 104 H (70-99(Fasting)) mg/dl Calcium 9.0 (8.6-10.3) mg/dl Intake and Output 12/07/23 12/08/23 12/08/23 22:59 06:59 14:59 Intake Total 700 / 1690 Balance / 0 Intake: Oral / 0 Other: Other Intake Source sips # Unmeasured Voids 2 1 Weight 54.2 kg Weight Measurement Method Built in [facility] (1) Acute pericarditis Pericarditis type: unspecified type Qualified Code(s): I30.9 - Acute pericarditis, unspecified
[2023-12-08 07:35] LABS: Hematocrit (blood only) 33.7 % (42.0-52.0); Hemoglobin 11.2 g/dl (14.0-18.0); Mean Corpuscular Hemoglobin 31.4 pg (25.0-34.0); Mean Corpuscular Hgb Conc 33.2 g/dL (32.0-36.0); Mean Corpuscular Volume 94.4 fL (80.0-100.0); Mean Platelet Volume 9.4 fL (9.4-12.4); Platelet Count 386 K/uL (130-400); RDW Coefficient of Variation 11.9 % (11.5-14.5); Red Blood Count 3.57 M/uL (4.70-6.10); White Blood Count 12.45 K/ul (4.8-10.8)
[2023-12-08 08:07] LABS: Anion Gap 6 (3-11); BUN Creatinine Ratio 21.1 (10-20); Blood Urea Nitrogen 12 mg/dl (6-23); Carbon Dioxide 30 mmol/L (21-32); Chloride 105 mmol/L (98-107); Est GFR (African American) > 150.0 ml/min; Est GFR (Non-African American) 136.8 ml/min; Glucose 104 mg/dl (70-99(Fasting)); Magnesium 1.8 mg/dl (1.7-2.4); Phosphorus 3.3 mg/dl (2.5-4.9); Potassium 3.4 mmol/L (3.5-5.1); Sodium 141 mmol/L (136-145)
--- NOTE | 2023-12-08 08:08 | Electrocardiogram Report ---
Test Reason : Blood Pressure : / mmHG Vent. Rate : 088 BPM Atrial Rate : 088 BPM P-R Int : 124 ms QRS Dur : 094 ms QT Int : 368 ms P-R-T Axes : 062 035 033 degrees QTc Int : 445 ms Normal sinus rhythm ST elevation, consider early repolarization vs pericarditis Borderline ECG When compared with ECG of 07-DEC-2023 06:17, No significant change was found Confirmed by Carlos Simeon ([id number]) on 12/08/2023 8:07:30 AM Referred By: REFERRED SELF Confirmed By:Henri Simeon
[2023-12-08] MEDS: POTASSIUM CHLORIDE CRTAB 20 MEQ TABCR PO STA (08:43)
[2023-12-08] MEDS: MAGNESIUM SULFATE / D5W 1 GM/100 ML BAG IV ONE (08:45)
[2023-12-08] MEDS: MAGNESIUM OXIDE 400 MG TAB PO SCH (10:01)
--- NOTE | 2023-12-08 16:29 | Hospitalist Progress Note ---
Date of Service December 08, 2023 Assessment & Plan (1) Acute pericarditis: Plan 33-year-old with PMH of polysubstance abuse on Suboxone was admitted 12/05 for management of acute pericarditis/pericardial effusion. He stated that he has been to the ED multiple times for similar symptoms, but historically did not take colchicine as prescribed, and also absconded due to being "impatient". He is being managed for the following: Acute Pericarditis: Patient presented from home with reports of severe chest pain. Seen in ED on 10/22 and diagnosed with pericarditis. Patient discharged with a prescription for colchicine and recommendations for outpatient echocardiogram. Patient was lost to follow-up. In the ED, EKG shows diffuse ST elevations consistent with consistent with pericarditis. WBC 19K , CRP 24. Admitting ECHO w/ mod size pericardial effusion, no evidence of tamponade. Repeat echo 12/07 w/ decreased pericardial effusion. Tick serology is either neg or pending at this time Cardio on board, on colchicine and ibuprofen. Pt advised to abstain from alcohol and tobacco smoking Pt advised to maintain twice a day dose of protonix. he voiced understanding. Pt's was also at bedside. Polysubstance abuse: History of methamphetamine use (snorting and smoking - last used about one month ago) and opiate pain pills On Suboxone Chronic alcohol abuse: drink atleast 3 beers every evening per patient. folic acid, thiamine and awss protocol while in here. DVT PROPHYLAXIS: SCDs Admission and Anticipated Discharge Date Admission Date: December 06, 2023 Subjective Patient was seen and examined at bedside. Patient was sitting up in bed, eating his lunch, on room air, NAD. Patient reports no chest pain today. Patient denies febrile illness or cough. Patient reports eating okay. Denies diarrhea. reports feeling better. Physical Exam Physical Exam: GENERAL: Alert and oriented x3. NAD, on RA. thin. HEENT: No pallor, no icterus. Pupils equal, round and reactive to light. Oral mucosa moist. NECK: No JVD, no neck masses. HEART: S1 and S2 heard. Regular rate and rhythm. tachycardia. No murmur, no gallop. RESPIRATORY SYSTEM: Normal AP diameter. No accessory muscle use. No wheezing, no crackles. ABDOMEN: Soft, bowel sounds present, nontender, no distention. CENTRAL NERVOUS SYSTEM: No facial droop. Speech is clear. Obeys simple commands. Moves extremities. EXTREMITIES: No edema, no erythema seen. Results & Data Results & Data Vital Signs (Past 12 Hours) Vital Signs Temp Pulse Pulse Resp BP Pulse Ox O2 Del Method 12/08/23 15:16 100 H 12/08/23 15:02 36.6 C 88 18 122/73 98 Room Air 12/08/23 11:18 37.1 C 65 18 120/73 97 Room Air 12/08/23 07:39 97 H 12/08/23 07:34 36.5 C 83 18 116/74 98 Room Air (1) Acute pericarditis Pericarditis type: unspecified type Qualified Code(s): I30.9 - Acute pericarditis, unspecified
[2023-12-09 06:34] LABS: Hematocrit (blood only) 38.4 % (42.0-52.0); Hemoglobin 12.9 g/dl (14.0-18.0); Mean Corpuscular Hemoglobin 31.4 pg (25.0-34.0); Mean Corpuscular Hgb Conc 33.6 g/dL (32.0-36.0); Mean Corpuscular Volume 93.4 fL (80.0-100.0); Platelet Count 446 K/uL (130-400); RDW Coefficient of Variation 11.9 % (11.5-14.5); RDW Standard Deviation 41.1 fL (36.4-46.3); Red Blood Count 4.11 M/uL (4.70-6.10); White Blood Count 6.68 K/ul (4.8-10.8)
[2023-12-09 06:46] LABS: Anion Gap 6 (3-11); BUN Creatinine Ratio 24.2 (10-20); Blood Urea Nitrogen 15 mg/dl (6-23); Calcium 9.1 mg/dl (8.6-10.3); Carbon Dioxide 30 mmol/L (21-32); Chloride 101 mmol/L (98-107); Creatinine Clr Calc Pharmacy 132.6 ml/min; Est GFR (African American) > 150.0 ml/min; Est GFR (Non-African American) 132.2 ml/min; Glucose 92 mg/dl (70-99(Fasting)); Magnesium 1.9 mg/dl (1.7-2.4); Phosphorus 4.4 mg/dl (2.5-4.9); Potassium 4.2 mmol/L (3.5-5.1); Sodium 137 mmol/L (136-145)
--- NOTE | 2023-12-09 10:41 | Electrocardiogram Report ---
Test Reason : Blood Pressure : / mmHG Vent. Rate : 075 BPM Atrial Rate : 075 BPM P-R Int : 124 ms QRS Dur : 080 ms QT Int : 374 ms P-R-T Axes : 037 050 039 degrees QTc Int : 417 ms Normal sinus rhythm Normal ECG When compared with ECG of 08-DEC-2023 06:09, No significant change was found Confirmed by Carlos Simeon ([id number]) on 12/09/2023 10:40:43 AM Referred By: REFERRED SELF Confirmed By:Henri Simeon
[2023-12-09] MEDS: PSYLLIUM or GUAR GUM FIBER 4GM PACKET PO SCH (12:27)
--- NOTE | 2023-12-09 13:31 | Discharge Summary ---
Date of Service December 09, 2023 Admission HPI Per Admitting Provider 33-year-old male with PMH polysubstance abuse on Suboxone and other problems listed below who presents to the ED for evaluation of chest pain. History is obtained from the patient, review of outpatient PCP records, and review of recent ED records. Patient was seen in the ED on 10/22 and diagnosed with pericarditis. Patient was discharged on colchicine. Reports that he was pain- free by the following day therefore did not take any colchicine. Patient reports that about 6 days ago, his chest pain returned. Reports it has been progressively getting worse. Was seen in the ED on 12/03 however eloped from that ED visit. Patient reports he started taking colchicine 3 days ago at home from a prior prescription. He reports chest pain is worse with lying flat. He denies shortness of breath and palpitations. Denies any recent illnesses, fevers, chills. No known tick bites. Denies recent travel or sick contacts. No abdominal pain, nausea, vomiting, diarrhea. Denies urinary symptoms. Patient called EMS today for severe chest pain and was brought to the ED for further evaluation.In the ED, EKG shows diffuse ST elevations consistent with pericarditis. Patient is tachycardic with stable BP. Labs show WBC 19 K, Hgb 13.7, Na+ 138, CRP 24. Echocardiogram was obtained in the ED, formal report is pending. Cardiology has evaluated the patient in the ED as well. Admission Exam Per Admitting Provider Constitutional: WD/WN, vitals as above + thin; no acute distress Eyes: PERRL, conjunctivae normal, anicteric sclerae ENMT: external ear and nose normal, oropharynx normal Respiratory: normal respiratory effort, lungs clear to auscultation Cardiovascular: Rate/Rhythm: regular rhythm and + tachycardic Vessels: normal peripheral pulses Extremities: no edema Gastrointestinal (Abdomen): normal bowel sounds, soft, nontender, no hepatosplenomegaly Musculoskeletal: no cyanosis or clubbing, extremities motor strength 5/5 Skin: no rashes, warm and dry Neurologic: PERRL, EOMI, accommodation nl, no face palsy, no dysarthria Psychiatric: A+Ox3, euthymic affect Principal Diagnosis Acute pericarditis Discharge Exam GENERAL: Alert and oriented x3. NAD, on RA. thin. HEENT: No pallor, no icterus. Pupils equal, round and reactive to light. Oral mucosa moist. NECK: No JVD, no neck masses. HEART: S1 and S2 heard. Regular rate and rhythm. tachycardia. No murmur, no gallop. RESPIRATORY SYSTEM: Normal AP diameter. No accessory muscle use. No wheezing, no crackles. ABDOMEN: Soft, bowel sounds present, nontender, no distention. CENTRAL NERVOUS SYSTEM: No facial droop. Speech is clear. Obeys simple commands. Moves extremities. EXTREMITIES: No edema, no erythema seen. Discharge Data Allergies Allergy/AdvReac Type Severity Reaction Status Date / Time capsaicin Allergy Intermediate Rash Verified 12/06/23 15:13 cefaclor Allergy Intermediate Rash Verified 12/06/23 15:13 Consultations 12/06/23 15:05 Consult Cardiology Stat ED Decision to Admit Stat Hospital Course (1) Acute pericarditis: Plan 33-year-old with PMH of polysubstance abuse on Suboxone was admitted 12/05 for management of acute pericarditis/pericardial effusion. He stated that he has been to the ED multiple times for similar symptoms, but historically did not take colchicine as prescribed, and also absconded due to being "impatient". He was managed for the following: Acute Pericarditis: Patient presented from home with reports of severe chest pain. Seen in ED on 10/22 and diagnosed with pericarditis. Patient discharged with a prescription for colchicine and recommendations for outpatient echocardiogram. Patient was lost to follow-up. In the ED, EKG shows diffuse ST elevations consistent with consistent with pericarditis. WBC 19K , CRP 24. Admitting ECHO w/ mod size pericardial effusion, no evidence of tamponade. Repeat echo 12/07 w/ decreased pericardial effusion. Tick borne serology is either neg or pending at this time, patient advised to follow-up on final results with his PCP visit within a week time upon discharge. Cardio on board, on colchicine and ibuprofen. Colchicine daily and ibuprofen taper dose on discharge. Patient had loose stools in the morning, tolerated lunch well, no further loose stools. Also colchicine will be made once daily, expect loose stool to improve. Patient is aware about loose stool being side effect for colchicine, patient advised to take OTC Imodium prn. If uncontrolled diarrhea/increasing weakness or fever, patient has been advised to report to the emergency Immediately. He voiced understanding. Pt advised to abstain from alcohol and tobacco smoking Pt advised to maintain twice a day dose of protonix while on ibuprofen. he voiced understanding. Since no more loose stool, he feels better and would like to go home today. Polysubstance abuse: History of methamphetamine use (snorting and smoking - last used about one month ago) and opiate pain pills On Suboxone Chronic alcohol abuse: drink atleast 3 beers every evening per patient. folic acid, thiamine and awss protocol while in here. DVT PROPHYLAXIS: SCDs patient is being discharged to home with following instruction at the point of discharge: Follow-up with your primary care physician within a week time and likely you will need labs CBC/CMP/magnesium/phosphorus. You were diagnosed with inflammation of membrane around the heart called pericarditis. Cardiology evaluated you. Take following medications [maintain compliance]: 1. Colchicine 0.6 mg by mouth one tablet daily for 3 month course. You will be prescribed one month course, you will need further evaluation and refill from your PCP or Cardiology office. 2. Ibuprofen 600 mg TID x 7 days, then 400 mg TID x 7 days, then 200 mg TID for 7 days then discontinue. Take Ibuprofen w/ food. 3. GI prophylaxis , with pantoprazole 40 mg twice a day for duration of ibuprofen. 4. Strongly advise against smoking and drinking as it might exacerbate possibility of acid peptic disease or GI bleeding in this situation. Follow-up with cardiology in 1 to 2 weeks time, you will need further evaluation with echo. Recommend abstain from alcohol and smoking. You can use [id number] Imodium for loose stool as per brick setter's direction. Your Tickborne serology labs are still pending, follow-up with the final results with your PCP office in a week time when you make a visit. Take your medications as prescribed. Please make sure that you are able to get your medications today by calling your pharmacy before you leave the hospital so that your treatment continuity is not broken. Home Health Attestation I certify that this patient is under my care and that I, or a physicians ophthalmic assistant working with me, had a face to-face encounter that meets the home health [id number] encounter requirements with this patient. The encounter with the patient was in whole, or in part, for the following medical condition, which is the primary reason for home health care (list medical condition): I certify that, based on my findings, the following services are medically necessary home health services: My clinical findings support the need for the above services because: Further, I certify that my clinical findings support that this patient is homebound (i.e. absences from home require considerable and taxing effort and are for medical reasons or scientology services or infrequently or of short duration when for other reasons) because: Certification for Home Health Services: Based on the above findings, I certify that this patient is confined to the home and needs intermittent assisted care, physical therapy and/or speech therapy or continues to need occupational therapy. The patient is under my care, and I have initiated the establishment of the plan of care. This patient will be followed by a physician who will periodically review the plan of care. Total Time Total Time Spent Total Time Spent (In Minutes): 45 Discharge Plan Discharge Items Patient Disposition: Home - Self-Care Reason For Visit: PERICARDITIS, PERICARDIAL EFFUSION Discharge Diagnosis: Acute pericarditis Pericardial effusion History of polysubstance abuse Chronic alcohol abuse Activity: Resume your previous activity Non-emergency contact: Primary Care Provider Call non-emergency contact if: you have any medication questions, your symptoms worsen and your temperature is above 101.5 Follow-up/Referrals: Mariann Vizcarra MD [Primary Care Provider] - (Date & Time 12/16/2023 11:00 AM Provider Mariann Vizcarra MD Department Family Practice [facility] ) Christina Herring CRNP [Nurse Practitioner] - (Date & Time 12/12/2023 11:30 AM Provider Christina Herring CRNP Department Cardiology, [facility] ) Diet: Heart Healthy Addtl Attending Provider Instructions: Follow-up with your primary care physician within a week time and likely you will need labs CBC/CMP/magnesium/phosphorus. You were diagnosed with inflammation of membrane around the heart called pericarditis. Cardiology evaluated you. Take following medications [maintain compliance]: 1. Colchicine 0.6 mg by mouth one tablet daily for 3 month course. You will be prescribed one month course, you will need further evaluation and refill from your PCP or Cardiology office. 2. Ibuprofen 600 mg TID x 7 days, then 400 mg TID x 7 days, then 200 mg TID for 7 days then discontinue. Take Ibuprofen w/ food. 3. GI prophylaxis , with pantoprazole 40 mg twice a day for duration of ibuprofen. 4. Strongly advise against smoking and drinking as it might exacerbate possibility of acid peptic disease or GI bleeding in this situation. Follow-up with cardiology in 1 to 2 weeks time, you will need further evaluation with echo. Recommend abstain from alcohol and smoking. You can use [id number] Imodium for loose stool as per brick setter's direction. Your [facility] serology labs are still pending, follow-up with the final results with your PCP office in a week time when you make a visit. Take your medications as prescribed. Please make sure that you are able to get your medications today by calling your pharmacy before you leave the hospital so that your treatment continuity is not broken. Pending Studies at Discharge: Yes Stand-Alone Forms: My [facility] [place] [employer], Smoking Cessation Medications and DC Order Prescriptions: New ibuprofen 600 mg tablet 600 mg PO Q8H 7 Days Qty: 21 0RF Rx Instructions: take with meals. First week therapy of three week course. ibuprofen 400 mg tablet 400 mg PO Q8H 7 Days Qty: 21 0RF Rx Instructions: take with meals. Second week therapy of three week course. ibuprofen 200 mg tablet 200 mg PO Q8H 7 Days Qty: 21 0RF Rx Instructions: take with meals. Third week therapy of three week course. pantoprazole 40 mg Tablet,Delayed Release (Dr/Ec) 40 mg PO BID 21 Days Qty: 42 0RF colchicine [Colcrys] 0.6 mg Tablet 0.6 mg PO DAILY Qty: 30 0RF folic acid 1 mg Tablet 1 mg PO QAM Qty: 30 0RF thiamine HCl (vitamin B1) 100 mg Tablet 100 mg PO QAM Qty: 30 0RF Continued buprenorphine-naloxone 8-2 mg tablet, sublingual 1 tab SUBLINGUAL BID Discharge Orders: Discharge Order (Routine); Ordered 12/09/23 Ordered By: Bren Mills Admission Data Admit Date/Time: 12/06/23 15:27 Attending Provider: Bren Mills Admit Provider: Rosa Velazquez Primary Care Provider: Mariann Vizcarra Other Providers: Orion Plasencia; Rosa Velazquez
[2023-12-10 14:38] LABS: Babesia microti DNA Not Detected (Not Detected)
[2023-12-10 15:08] LABS: Ehrlichia chaff DNA Bld Negative (Negative)
== END 2023-12-09 15:55 | disposition home or self-care (01) | DRG 315 ==
LOC: ED 14:09 → SUATTDRO 15:27 → 2S 15:27

== ENCOUNTER 2024-01-07 09:44 | Inpatient (IN) ==
[2024-01-07] MEDS: SODIUM CHLORIDE 0.9% 500 ML IV STA (10:09)
--- NOTE | 2024-01-07 10:09 | Emergency Department Note ---
Impression & Plan Acute pericarditis, Polysubstance abuse, Leukocytosis ED Provider Note CHIEF COMPLAINT: Chest pain HISTORY OF PRESENTING ILLNESS: This is a 33-year-old male who presents to the emergency department by private vehicle with his sister with complaint of chest pain that started yesterday. Patient states the pain came on gradually and has been getting progressively worse, is midsternal and does not radiate feels worse with lying flat and taking a deep breath, feels better with sitting up and resting, and he currently rates the pain 8/10. The patient reports a history of pericarditis and pericardial effusion, was recently admitted to this hospital 12/03-12/07 for these. He states his symptoms today feel similar to the last time he presented with the pericarditis. He reports that he had follow-up with cardiology on 12/11 and has been doing well until yesterday. He was discharged home on colchicine, which he states he took for a week or 2 and then stopped on his own and is not currently taking this. He does report an upcoming appointment with cardiology in 2 days, but was concerned about waiting too long because his pain was so severe. He does have a history of polysubstance abuse (on Suboxone which he reports he is taking), including methadone (currently denies use) and alcohol use. He states his last drink was sometime yesterday and he drinks several beers a day. He denies any history of severe withdrawal symptoms, seizures, or hospitalization related to his alcohol use in the past. He also reports smoking cigarettes, denies other recreational drugs. He has some associated feelings of shortness of breath with the chest pain, worse when he lies flat. He denies fevers, chills, nausea, vomiting, abdominal pain, back pain, leg pain or swelling, or unusual rash. REVIEW OF SYSTEMS: A complete 10 point review of systems was reviewed with the patient with pertinent positives and negatives as per history of present illness. All else were negative. PAST MEDICAL HISTORY: Depression, polysubstance abuse (on Suboxone), history of pericarditis SOCIAL HISTORY: Lives at home with family, current everyday smoker, daily alcohol use ALLERGIES: Reviewed in chart and with the patient PHYSICAL EXAM: CONSTITUTIONAL: Pleasant and cooperative. No acute distress. Well appearing and well nourished. HEENT: Normocephalic, atraumatic. Pharynx normal. NECK: Supple, full active range of motion without discomfort. No JVD. RESPIRATORY: Clear to auscultation bilaterally with no wheezing, crackles, rhonchi or stridor. Nonlabored breathing, no tachypnea. Equal expansion bilaterally. CARDIOVASCULAR: Tachycardic rate, regular rhythm with no murmurs, rubs or gallops. Normal peripheral perfusion, 2+ distal pulses in all 4 extremities with brisk cap refill. No edema. GASTROINTESTINAL: Soft, nontender, nondistended. No palpable masses or HSM. Bowel sounds present in all quadrants. No CVA tenderness bilaterally. MUSCULOSKELETAL: Full range of motion of all joints without discomfort. No calf swelling or tenderness bilaterally. Negative Homans' sign. INTEGUMENTARY: No rash or other significant dermatologic conditions noted. NEUROLOGIC: Alert and oriented X 4 with normal affect. Normal strength and sensation in all 4 extremities. Normal speech. Normal gait observed. ED COURSE AND MEDICAL DECISION MAKING: CC: Patient presenting with complaint of chest pain DIFFERENTIAL DIAGNOSIS: Includes, but not limited to acute coronary syndrome, pericarditis, myocarditis, endocarditis, pulmonary embolism, pneumonia, pneumothorax, esophageal rupture, GERD, pancreatitis, musculoskeletal, among others. INTERPRETATION OF LABS: Leukocytosis, no anemia, normal platelets, mild hyponatremia with mild hyperglycemia, no other significant electrolyte abnormalities, normal renal function, mildly elevated T. bili (consistent with previous labs), otherwise normal liver enzymes and lipase. Troponin negative. Mildly elevated CRP with normal ESR. Coagulation factors within normal limits. Lactate normal. Procalcitonin is not significantly elevated. Medical alcohol is <10. Lyme disease screen negative. EKG: Indication was chest pain and tachycardia. Shows sinus tachycardia with a rate of 116 bpm, nonspecific[] by my interpretation. MEDICATION RECONCILIATION: I attest that I have personally reviewed the patient's current medication list. INITIAL VITAL SIGNS REVIEW: I reviewed the patient's initial vital signs and interpret them as follows: T: Afebrile; BP: Normotensive; HR: Mildly tachycardic; RR: Within normal limit; Pulse Ox: Within normal limits on room air. MDM SUMMARY: Patient was evaluated in room A12-B at bedside, history and physical exam performed. Patient is alert and oriented, in no acute distress, resting calmly in the stretcher. He is afebrile, noted to be mildly tachycardic on EKG and the monitor, normotensive. No abnormal heart sounds, specifically no murmurs or rub heard, lungs are clear. No extremity edema or tenderness. Orders were placed for labs, IV fluid bolus 500 mL normal saline, IV Toradol 15 mg, EKG and chest x-ray. EKG reviewed at bedside noting sinus tachycardia with no acute ischemic changes. Cardiac monitoring: An order was placed for continuous cardiac monitoring. The monitor shows a rate of 112 bpm with sinus tachycardia rhythm. A bedside ultrasound was performed by myself under supervision of Dr. Martinez, notable for a small pericardial effusion by my interpretation. Patient is persistently tachycardic in the 120s, and given his history of alcohol use, IV banana bag and 1 mg IV Ativan were ordered. He denies any concern for withdrawal symptoms at this time. Labs and imaging reviewed, notable for leukocytosis, troponin negative. Patient reassessed, reports his chest pain is improving, he remains persistently tachycardic after IV fluids and Ativan. Given his history of recent pericarditis along with polysubstance abuse and questionable IVDA, with persistent tachycardia and leukocytosis, there is concern for endocarditis. Additional orders placed for blood cultures, lactate and procalcitonin, lyme testing, and antibiotic coverage with vancomycin and cefepime per ED pharmacist recommendations. CTA of chest also ordered to rule out PE. CTA of the chest is negative for PE, does demonstrate small pericardial effusion which appears stable. Also mention of possible right hydronephrosis partially visualized, radiologist recommended ultrasound for correlation. Renal US ordered. I spoke on the phone with Dr. Hay, Cardiology, who agreed with admission, and recommended a repeat echo and restart his colchicine. [facility], she agrees to evaluate the patient for admission. Patient reassessed throughout ED stay, he reports his chest pain is doing better, but he is feeling anxious and is hesitant to be admitted. I had a lengthy discussion with the patient regarding his care, including risks of going home without inpatient treatment, and he agreed to stay for admission. He is becoming more tachycardic again and does seem to have some mild alcohol withdrawal symptoms, additional IV ativan ordered and withdrawal protocol orders placed. The patient was stable at the time of admission. Patient discussed with Dr. Martinez, ED attending, who also evaluated the patient and agrees with my assessment, plan, and disposition. The chart was completed utilizing [employer] Speech voice recognition software. Grammatical errors, random word insertions, pronoun errors, and incomplete sentences are an occasional consequence of this system due to software limitations, ambient noise, and hardware issues. Any formal questions or concerns about the content, text, or information contained within the body of this dictation should be directly addressed to the nurse practitioner for clarification. Past Med/Surg History Problem List (Updated 01/07/24 @ 16:19 by AMY De Jesus) Polysubstance abuse (Acute) Acute pericarditis (Acute) Leukocytosis (Acute) Pericarditis (Acute) Polysubstance abuse (Acute) Depression with suicidal ideation (Acute) Medical History Polysubstance abuse on Suboxone Surgical History No pertinent past surgical history Social History Smoking Status: Current every day smoker Tobacco Type: Cigarettes Hx Alcohol Use: Yes Alcohol type: beer Hx Substance Use: Yes Last Used Substance Other:: last month Preferred Language: Faroese Communication Ability: Effective Computer Systems Integrator Required: No Beliefs That Will Affect Care: None Current Living Situation: Spouse Feels Safe at Home: Yes Gender Identity: Male Assistive Devices: None Allergies Allergies Allergy/AdvReac Type Severity Reaction Status Date / Time capsaicin Allergy Intermediate Rash Verified 01/07/24 10:58 cefaclor Allergy Intermediate Rash Verified 01/07/24 10:58 Home Meds Home Medications Medication Instructions Recorded Confirmed buprenorphine 8 mg-naloxone 2 mg 1 tab sublingual BID 10/23/23 01/07/24 sublingual tablet colchicine 0.6 mg tablet 0.6 mg PO DAILY 01/07/24 01/07/24 ibuprofen 200 mg tablet 400 mg PO BID 01/07/24 01/07/24 Results & Data (ED) Vital Signs Vital Signs - 24 hr 01/07/24 09:47 01/07/24 10:02 01/07/24 10:04 Temperature 36.4 C L 36.5 C Temperature Source Temporal Artery Scan Oral Pulse Rate 122 H Pulse Rate [Apical] 117 H Pulse Rhythm [Apical] Respiratory Rate 16 18 Respiratory Effort / Characteristics Non-Labored Non-Labored Spontaneous Respiratory Depth Normal Shallow Respiratory Pattern Regular Blood Pressure 136/82 Blood Pressure [Left Arm] 149/90 H Blood Pressure Mean 100 Blood Pressure Mean [Left Arm] 109 Blood Pressure Position [Left Arm] Pulse Oximetry 99 98 Oxygen Delivery Method Room Air Room Air Room Air Oxygen Flow Rate 98 Sepsis Recent Fever Within 48 Hours No Sepsis New/Unexplained Change in Mental Status No Sepsis Action Taken by Nursing No Action Required 01/07/24 10:08 01/07/24 10:28 01/07/24 10:50 Temperature Temperature Source Pulse Rate 113 H 120 H Pulse Rate [Apical] 106 H Pulse Rhythm [Apical] Regular Respiratory Rate 20 17 Respiratory Effort / Characteristics Non-Labored Spontaneous Labored Respiratory Depth Normal Respiratory Pattern Blood Pressure Blood Pressure [Left Arm] 138/94 Blood Pressure Mean Blood Pressure Mean [Left Arm] 108 Blood Pressure Position [Left Arm] Semi-fowlers Pulse Oximetry 98 98 Oxygen Delivery Method Room Air Room Air Oxygen Flow Rate Sepsis Recent Fever Within 48 Hours Sepsis New/Unexplained Change in Mental Status Sepsis Action Taken by Nursing 01/07/24 12:29 01/07/24 14:00 01/07/24 14:24 Temperature 36.6 C Temperature Source Oral Pulse Rate 115 H Pulse Rate [Apical] 107 H 113 H Pulse Rhythm [Apical] Respiratory Rate 24 14 Respiratory Effort / Characteristics Non-Labored Spontaneous Non-Labored Spontaneous Respiratory Depth Shallow Normal Respiratory Pattern Regular Tachypnea Regular Blood Pressure Blood Pressure [Left Arm] 109/70 121/73 Blood Pressure Mean Blood Pressure Mean [Left Arm] 83 89 Blood Pressure Position [Left Arm] Pulse Oximetry 98 97 Oxygen Delivery Method Room Air Room Air Oxygen Flow Rate Sepsis Recent Fever Within 48 Hours Sepsis New/Unexplained Change in Mental Status Sepsis Action Taken by Nursing 01/07/24 15:00 Temperature Temperature Source Pulse Rate Pulse Rate [Apical] 117 H Pulse Rhythm [Apical] Respiratory Rate 16 Respiratory Effort / Characteristics Non-Labored Respiratory Depth Normal Respiratory Pattern Blood Pressure Blood Pressure [Left Arm] 114/84 Blood Pressure Mean Blood Pressure Mean [Left Arm] 94 Blood Pressure Position [Left Arm] Pulse Oximetry 96 Oxygen Delivery Method Room Air Oxygen Flow Rate Sepsis Recent Fever Within 48 Hours Sepsis New/Unexplained Change in Mental Status Sepsis Action Taken by Nursing Laboratory Data 01/07/24 10:04 01/07/24 10:04 Lab Results 01/07/24 01/07/24 01/07/24 Range/Units 10:04 10:04 10:30 WBC 15.87 H (4.8-10.8) K/ul RBC 4.52 L (4.70-6.10) M/uL Hgb 14.1 (14.0-18.0) g/dl Hct 40.7 L (42.0-52.0) % MCV 90.0 (80.0-100.0) fL MCH 31.2 (25.0-34.0) pg MCHC 34.6 (32.0-36.0) g/dL RDW Std Deviation 39.9 (36.4-46.3) fL RDW Coeff of Mckinley 12.1 (11.5-14.5) % Plt Count 259 (130-400) K/uL MPV 9.1 L (9.4-12.4) fL Immature Gran % (Auto) 0.4 % Neut % (Auto) 76.2 % Lymph % (Auto) 7.1 % Kay % (Auto) 11.8 % Eos % (Auto) 4.0 % Baso % (Auto) 0.5 % Neut # (Auto) 12.08 H (1.40-6.50) K/uL Lymph # (Auto) 1.12 L (1.20-3.40) K/uL Kay # (Auto) 1.88 H (0.11-0.59) K/uL Eos # (Auto) 0.64 H (0.00-0.50) K/uL Baso # (Auto) 0.08 (0.00-0.20) K/uL Immature Gran # (Auto) 0.07 (0.01-0.20) K/uL ESR 15 (0-15) mm/hr PT 10.3 (9.0-12.0) Seconds INR 0.9 (0.9-1.1) APTT 27 (21-31) Seconds PTT Ratio 1.0 Sodium 133 L (136-145) mmol/L Potassium 3.9 (3.5-5.1) mmol/L Chloride 99 (98-107) mmol/L Carbon Dioxide 27 (21-32) mmol/L Anion Gap 7 (3-11) BUN 7 (6-23) mg/dl Creatinine 0.58 L (0.6-1.4) mg/dl Est Cr Clr Drug Dosing 139.4 ml/min Est GFR ( Amer) > 150.0 ml/min Est GFR (Non-Af Amer) 135.9 ml/min BUN/Creatinine Ratio 12.1 (10-20) Glucose 140 H (70-99(Fasting)) mg/dl Lactate (0.4-2.0) mmol/L Calcium 9.4 (8.6-10.3) mg/dl Phosphorus 3.6 (2.5-4.9) mg/dl Magnesium 1.8 (1.7-2.4) mg/dl Total Bilirubin 1.3 H (0.2-1.0) mg/dl AST 17 (13-39) U/L ALT 19 (7-52) U/L Alkaline Phosphatase 88 (34-104) U/L Troponin I High Sens 4.9 (0-20) pg/ml C-Reactive Protein 5.06 H (0-0.5) mg/dl Total Protein 7.4 (6.0-8.3) gm/dl Albumin 4.4 (3.4-5.0) gm/dl Globulin 3.0 (2.5-4.0) gm/dl Albumin/Globulin Ratio 1.5 (0.9-2) Lipase 5 L (11-82) U/L Procalcitonin < 0.02 (0-0.5) ng/ml Ethyl Alcohol mg/dL < 10.0 (<10.0) mg/dl Lyme Disease Screen Negative Cancelled (Negative) 01/07/24 Range/Units 14:05 WBC (4.8-10.8) K/ul RBC (4.70-6.10) M/uL Hgb (14.0-18.0) g/dl Hct (42.0-52.0) % MCV (80.0-100.0) fL MCH (25.0-34.0) pg MCHC (32.0-36.0) g/dL RDW Std Deviation (36.4-46.3) fL RDW Coeff of Mckinley (11.5-14.5) % Plt Count (130-400) K/uL MPV (9.4-12.4) fL Immature Gran % (Auto) % Neut % (Auto) % Lymph % (Auto) % Kay % (Auto) % Eos % (Auto) % Baso % (Auto) % Neut # (Auto) (1.40-6.50) K/uL Lymph # (Auto) (1.20-3.40) K/uL Kay # (Auto) (0.11-0.59) K/uL Eos # (Auto) (0.00-0.50) K/uL Baso # (Auto) (0.00-0.20) K/uL Immature Gran # (Auto) (0.01-0.20) K/uL ESR (0-15) mm/hr PT (9.0-12.0) Seconds INR (0.9-1.1) APTT (21-31) Seconds PTT Ratio Sodium (136-145) mmol/L Potassium (3.5-5.1) mmol/L Chloride (98-107) mmol/L Carbon Dioxide (21-32) mmol/L Anion Gap (3-11) BUN (6-23) mg/dl Creatinine (0.6-1.4) mg/dl Est Cr Clr Drug Dosing ml/min Est GFR ( Amer) ml/min Est GFR (Non-Af Amer) ml/min BUN/Creatinine Ratio (10-20) Glucose (70-99(Fasting)) mg/dl Lactate 0.9 (0.4-2.0) mmol/L Calcium (8.6-10.3) mg/dl Phosphorus (2.5-4.9) mg/dl Magnesium (1.7-2.4) mg/dl Total Bilirubin (0.2-1.0) mg/dl AST (13-39) U/L ALT (7-52) U/L Alkaline Phosphatase (34-104) U/L Troponin I High Sens (0-20) pg/ml C-Reactive Protein (0-0.5) mg/dl Total Protein (6.0-8.3) gm/dl Albumin (3.4-5.0) gm/dl Globulin (2.5-4.0) gm/dl Albumin/Globulin Ratio (0.9-2) Lipase (11-82) U/L Procalcitonin (0-0.5) ng/ml Ethyl Alcohol mg/dL (<10.0) mg/dl Lyme Disease Screen (Negative) Administered Medications Discontinued Medications Sodium Chloride (Nss) 500 mls @ 999 mls/hr IV .Q31M STA Stop: 01/07/24 10:31 Last Infusion: 01/07/24 10:50 Dose: Infused Documented By: Admin: 01/07/24 10:09 Dose: 999 mls/hr Documented By: RODNEY Multivitamins 10 ml/ Thiamine HCl 100 mg/ Folic Acid 1 mg/Sodium Chloride 1,011.2 mls @ 500 mls/hr IV .Q2H2M ONE Stop: 01/07/24 12:32 Last Infusion: 01/07/24 13:13 Dose: Infused Documented By: Admin: 01/07/24 10:58 Dose: 500 mls/hr Documented By: RODENY Vancomycin HCl 1,250 mg/ (Sodium Chloride) 525 mls @ 200 mls/hr IV NOW ONE Stop: 01/07/24 14:48 Last Admin: 01/07/24 14:07 Dose: 200 mls/hr Documented By: RODNEY Cefepime HCl (Maxipime) 2,000 mg in 20 mls @ 5 mls/min IV NOW STA; Protocol Stop: 01/07/24 12:14 Last Admin: 01/07/24 12:53 Dose: 5 mls/min Documented By: RODNEY Acetaminophen (Ofirmev) 1,000 mg in 100 mls @ 400 mls/hr IV NOW STA Stop: 01/07/24 13:08 Last Infusion: 01/07/24 13:34 Dose: Infused Documented By: Admin: 01/07/24 13:02 Dose: 400 mls/hr Documented By: RODNEY Ioversol (Optiray 320 125ml) 120 ml IV ONCE ONE Stop: 01/07/24 12:16 Last Admin: 01/07/24 12:15 Dose: 120 ml Documented By: LANDON Ketorolac Tromethamine (Ketorolac Tromethamine 15 Mg/Ml Vial) 15 mg IV NOW STA Stop: 01/07/24 10:02 Last Admin: 01/07/24 10:14 Dose: 15 mg Documented By: SOPHIE Lorazepam (Lorazepam 1 Mg/1 Ml Syr Ed Inj Use) 1 mg IV ONE STA Stop: 01/07/24 10:32 Last Admin: 01/07/24 10:52 Dose: 1 mg Documented By: RODNEY Lorazepam (Lorazepam 1 Mg/1 Ml Syr Ed Inj Use) 1 mg IV ONE STA Stop: 01/07/24 14:47 Last Admin: 01/07/24 14:55 Dose: 1 mg Documented By: SKB Imaging Data Radiologist's Impression: Chest X-Ray 01/07/24 10:01 XR chest 1V portable HISTORY: 33 years-old Male Chest pain, nonspecific COMPARISON: 12/06/2023 TECHNIQUE: AP view of the chest FINDINGS: Cardiac mediastinal and hilar silhouettes are within normal limits. No pneumothorax, pleural effusion or airspace consolidation. Bones appear grossly intact. IMPRESSION: No acute process. ACT 112: Negative or not required by law. The above report was generated using voice recognition software. It may contain grammatical, syntax or spelling errors. Electronically signed by: Pilo De Jesus M.D. 01/07/2024 10:21 AM Chest CTA 01/07/24 12:08 CT angio chest PE protocol CT DOSE: 429.5 mGy.cm HISTORY: 33 years-old Male with CP, SOB. Acute chest pain with shortness of breath TECHNIQUE: Multiple CTA images of the chest were obtained after the intravenous administration of Optiray. Coronal and sagittal MIPS were obtained from the axial data set and were submitted for review. All measurements were obtained according to NASCET criteria. A dose lowering technique was utilized adhering to the principles of ALARA. COMPARISON: Chest radiograph of same day, CT chest 12/04/2023 FINDINGS: CTA: Heart is normal in size. Small pericardial effusion is unchanged. No thoracic aortic aneurysm. Unremarkable pulmonary artery. CT CHEST: No thyroid nodule. Borderline enlarged mediastinal, hilar and axillary chain lymph nodes measuring up to 10 mm redemonstrated. Trace pleural effusions. No pneumothorax, pleural effusion or pulmonary edema. Mild emphysema with bronchial wall thickening 4 mm calculus of the superior pole right kidney. There is mild pelviectasis of the superior pole right kidney. Unremarkable soft tissues. Mild gynecomastia. No acute fracture. IMPRESSION: 1. No pulmonary emboli. 2. Stable small pericardial effusion with trace pleural effusions. 3. Mild pulmonary emphysema. 4. Unchanged mild nonspecific borderline-enlarged axillary chain, mediastinal and hilar lymphadenopathy. 5. Partially imaged pelviectasis of the superior pole right kidney with right nephrolithiasis. Correlation with renal ultrasound recommended. ACT 112: Negative or not required by law. The above report was generated using voice recognition software. It may contain grammatical, syntax or spelling errors. Electronically signed by: Pilo De Jesus M.D. 01/07/2024 12:50 PM Discharge Plan Visit Data Chief Complaint: Chest Pain Stated Complaint: CHEST PAINS ED Provider: Arlene Martinez ED Midlevel Provider: Flory Albarran Discharge Problem: Acute pericarditis, Polysubstance abuse, Leukocytosis Patient Disposition: Admitted As Inpatient Condition: Good Forms Stand Alone Forms: [employer] [facility] [employer] Prescriptions Prescriptions: No Action buprenorphine-naloxone 8-2 mg tablet, sublingual 1 tab SUBLINGUAL BID colchicine 0.6 mg tablet 0.6 mg PO DAILY ibuprofen 200 mg Tablet 400 mg PO BID Referrals Referrals: Mariann Vizcarra MD [Primary Care Provider] -
[2024-01-07] MEDS: KETOROLAC TROMETHAMINE 15 MG/ML VIAL IV STA (10:14)
--- NOTE | 2024-01-07 10:23 | XRay Report ---
XR chest 1V portable HISTORY: 33 years-old Male Chest pain, nonspecific COMPARISON: 12/06/2023 TECHNIQUE: AP view of the chest FINDINGS: Cardiac mediastinal and hilar silhouettes are within normal limits. No pneumothorax, pleural effusion or airspace consolidation. Bones appear grossly intact. IMPRESSION: No acute process. ACT 112: Negative or not required by law. The above report was generated using voice recognition software. It may contain grammatical, syntax o r spelling errors. Electronically signed by: Pilo De Jesus M.D. 01/07/2024 10:21 AM
[2024-01-07 10:29] LABS: Basophils # (auto) 0.08 K/uL (0.00-0.20); Basophils % (auto) 0.5 %; Eosinophils # (auto) 0.64 K/uL (0.00-0.50); Hematocrit (blood only) 40.7 % (42.0-52.0); Hemoglobin 14.1 g/dl (14.0-18.0); Immature Granulocytes # (auto) 0.07 K/uL (0.01-0.20); Immature Granulocytes % (auto) 0.4 %; Lymphocytes # (auto) 1.12 K/uL (1.20-3.40); Lymphocytes % (auto) 7.1 %; Mean Corpuscular Hemoglobin 31.2 pg (25.0-34.0); Mean Corpuscular Hgb Conc 34.6 g/dL (32.0-36.0); Mean Platelet Volume 9.1 fL (9.4-12.4); Monocytes # (auto) 1.88 K/uL (0.11-0.59); Monocytes % (auto) 11.8 %; Neutrophils # (auto) 12.08 K/uL (1.40-6.50); Neutrophils % (auto) 76.2 %; Platelet Count 259 K/uL (130-400); RDW Coefficient of Variation 12.1 % (11.5-14.5); RDW Standard Deviation 39.9 fL (36.4-46.3); Red Blood Count 4.52 M/uL (4.70-6.10); White Blood Count 15.87 K/ul (4.8-10.8)
[2024-01-07 10:36] LABS: Alanine Aminotransferase 19 U/L (7-52); Albumin Globulin Ratio 1.5 (0.9-2); Albumin Level 4.4 gm/dl (3.4-5.0); Alkaline Phosphatase 88 U/L (34-104); Anion Gap 7 (3-11); Aspartate Aminotransferase 17 U/L (13-39); BUN Creatinine Ratio 12.1 (10-20); Bilirubin,Total 1.3 mg/dl (0.2-1.0); Blood Urea Nitrogen 7 mg/dl (6-23); C Reactive Protein 5.06 mg/dl (0-0.5); Calcium 9.4 mg/dl (8.6-10.3); Carbon Dioxide 27 mmol/L (21-32); Chloride 99 mmol/L (98-107); Creatinine Clr Calc Pharmacy 139.4 ml/min; Est GFR (African American) > 150.0 ml/min; Est GFR (Non-African American) 135.9 ml/min; Glucose 140 mg/dl (70-99(Fasting)); Lipase 5 U/L (11-82); Potassium 3.9 mmol/L (3.5-5.1); Sodium 133 mmol/L (136-145); Total Protein 7.4 gm/dl (6.0-8.3)
[2024-01-07 10:41] LABS: Troponin I High Sensitivity 4.9 pg/ml (0-20)
[2024-01-07] MEDS: LORazepam 1 MG/1 ML SYR ED Inj Use IV STA ×2 (10:52→14:55)
[2024-01-07 10:56] LABS: INR 0.9 (0.9-1.1); Partial Thromboplastin Time 27 Seconds (21-31); Prothrombin Time 10.3 Seconds (9.0-12.0)
[2024-01-07] MEDS: MULTI-VITAMIN INFUSION 10 ML, THIAMINE HCL 100 MG, FOLIC ACID 1 MG in SODIUM CHLORIDE 0... IV ONE (10:58)
[2024-01-07] MEDS ORDERED: VANCOMYCIN CONSULT ACTIVE PRN (12:11)
[2024-01-07] MEDS: OPTIRAY 320 125ml IV ONE (12:15)
[2024-01-07] MEDS: CEFEPIME 2,000 MG/20 ML VIAL IV STA (12:53)
--- NOTE | 2024-01-07 12:53 | CT Scan Report ---
CT angio chest PE protocol CT DOSE: 429.5 mGy.cm HISTORY: 33 years-old Male with CP, SOB. Acute chest pain with shortness of breath TECHNIQUE: Multiple CTA images of the chest were obtained after the intravenous administration of Opt iray. Coronal and sagittal MIPS were obtained from the axial data set and were submitted for review. All measurements were obtained according to NASCET criteria. A dose lowering technique was utilized adhering to the principles of ALARA. COMPARISON: Chest radiograph of same day, CT chest 12/04/2023 FINDINGS: CTA: Heart is normal in size. Small pericardial effusion is unchanged. No thoracic aortic aneurysm. Unrema rkable pulmonary artery. CT CHEST: No thyroid nodule. Borderline enlarged mediastinal, hilar and axillary chain lymph nodes measuring up to 10 mm redemonstrated. Trace pleural effusions. No pneumothorax, pleural effusion or pulmonary lluvia ma. Mild emphysema with bronchial wall thickening 4 mm calculus of the superior pole right kidney. There is mild pelviectasis of the superior pole righ t kidney. Unremarkable soft tissues. Mild gynecomastia. No acute fracture. IMPRESSION: 1. No pulmonary emboli. 2. Stable small pericardial effusion with trace pleural effusions. 3. Mild pulmonary emphysema. 4. Unchanged mild nonspecific borderline-enlarged axillary chain, mediastinal and hilar lymphadenopat hy. 5. Partially imaged pelviectasis of the superior pole right kidney with right nephrolithiasis. Correl ation with renal ultrasound recommended. ACT 112: Negative or not required by law. The above report was generated using voice recognition software. It may contain grammatical, syntax o r spelling errors. Electronically signed by: Pilo De Jesus M.D. 01/07/2024 12:50 PM
[2024-01-07] MEDS: ACETAMINOPHEN 1,000 MG/100 ML VIAL IV STA (13:02)
[2024-01-07 13:18] LABS: Magnesium 1.8 mg/dl (1.7-2.4); Phosphorus 3.6 mg/dl (2.5-4.9)
[2024-01-07 13:26] LABS: Procalcitonin < 0.02 ng/ml (0-0.5)
[2024-01-07 13:51] LABS: Lyme Screen Rflx Confirmation Negative (Negative)
[2024-01-07] MEDS: VANCOMYCIN HCL 1,250 MG in SODIUM CHLORIDE 0.9% 500 ML IV ONE (14:07)
[2024-01-07] MEDS ORDERED: LORazepam 3 MG in SYRINGE 1.5 ML IV PRN (14:47)
[2024-01-07] MEDS ORDERED: Ativan IV Alcohol Withdrawal--Active Protocol IV PRN (14:47)
[2024-01-07] MEDS ORDERED: LORazepam 1 MG in SYRINGE 0.5 ML IV PRN (14:47)
--- NOTE | 2024-01-07 15:33 | History & Physical Report ---
Date of Service January 07, 2024 Assessment & Plan (1) Acute pericarditis: Plan: This is a 33 y/o male with history of polysubstance abuse, on Suboxone, depression, and multiple recent admissions for pericarditis who presented to the ED today with recurrent chest pain. It is somewhat unclear if pt has been taking the medications as prescribed as he reported to ED provider that he was not but told me that he has been taking both the ibuprofen and colchicine. He has recurrent pain similar to prior pericarditis and leukocytosis, persistent effusion on the bedside ECHO in the ED. - Admit to PCU - Repeat echocardiogram - Continue colchicine, ibuprofen at doses pt reports taking - Consult cardiology for additional recommendations - Continue broad spectrum antibiotics with vancomycin and cefepime until infection ruled out - blood cultures pending - AM labs - CBC, BMP, Mg, CRP (2) Polysubstance abuse: Plan: On Suboxone, which he reports taking as prescribed. He does not recall the date of his last use of meth but states that he is no longer using this. Continue Suboxone as taking outpatient. Daily EtOH use with last drink being last night. Will start Gabapentin protocol with prn Ativan. Thiamine and folic acid daily. Plan Pt seen and reviewed with collaborating physician, Dr. Mills. Plan of care discussed and as outlined above. Code status: full code DVT Prophylaxis: subQ heparin Dispo: PCU Constantine Francis PA-C History of Present Illness Chief Complaint: Recurrent chest pain Primary Care Provider: Mariann Vizcarra MD This is a 33 y/o male with history of polysubstance abuse, on Suboxone, depression, and multiple recent admissions for pericarditis who presented to the ED today with recurrent chest pain. He reports that since discharge from the hospital he was doing okay until yesterday when he had the abrupt onset of recurrent sharp chest pain similar to prior. The pain waxes and wanes but has overall gotten more severe since starting yesterday. He reports that he has been taking the colchicine and ibuprofen but not the pantoprazole as he did not think that he needed it (no GI distress). He has been taking his Suboxone as well but no other medications. He reports that the pain is not reproducible. He has associated "shallow breathing" as deep breathing makes the pain worse but no overt SOB. He denies fevers, chills, sweats, syncope. Not eating much but reports that this is in part due to food insecurity rather than a decrease in appetite. No issues with bowels or bladder. He is drinking six beers a day - last drink was last evening. Smokes cigarettes and marijuana but denies use of other recreational substances. Allergies Allergy/AdvReac Type Severity Reaction Status Date / Time capsaicin Allergy Intermediate Rash Verified 01/07/24 10:58 cefaclor Allergy Intermediate Rash Verified 01/07/24 10:58 Home Medications Medication Instructions Recorded Confirmed Type buprenorphine 8 mg-naloxone 2 mg 1 tab sublingual BID 10/23/23 01/07/24 History sublingual tablet colchicine 0.6 mg tablet 0.6 mg PO DAILY 01/07/24 01/07/24 History ibuprofen 200 mg tablet 400 mg PO BID 01/07/24 01/07/24 History Past Med/Surg History Problem List (Updated 01/07/24 @ 16:19 by AMY De Jesus) Polysubstance abuse (Acute) Acute pericarditis (Acute) Leukocytosis (Acute) Pericarditis (Acute) Polysubstance abuse (Acute) Depression with suicidal ideation (Acute) Medical History Polysubstance abuse on Suboxone Surgical History No pertinent past surgical history Social History Smoking Status: Current every day smoker Tobacco Type: Cigarettes Hx Alcohol Use: Yes Alcohol type: beer Hx Substance Use: Yes Last Used Substance Other:: last month Preferred Language: Portuguese Communication Ability: Effective 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[employer] Music Required: No Beliefs That Will Affect Care: None Current Living Situation: Spouse Feels Safe at Home: Yes Gender Identity: Male Assistive Devices: None Review of Systems Review of Systems: All systems reviewed & are unremarkable except as noted in HPI & below Constitutional: + fatigue; no fever and no chills Eyes: no diplopia Respiratory: + pain on inspiration; no cough and no d yspnea Cardiovascular: + chest pain; no palpitations and no syn cope Gastrointestinal: no abdominal pain, no nausea and no vomiting Integumentary: no rash Neurologic: no localized weakness and no confusion Psychiatric: + depression Physical Exam Physical Exam: General: awake, flat affect, quiet speech HEENT: no scleral icterus, moist oral mucosa Neck: supple, trachea midline Heart: tachycardic but regular Lungs: CTA bilaterally, no W/R/R Abdomen: soft, non-distended, +BS Extremities: distal pulses intact and equal, no pedal edema Skin: warm, dry, no jaundice Neurologic: moving all extremities, no focal deficits, Ox3, no confusion or dysarthria Results & Data Results & Data Vital Signs (Past 12 Hours) Vital Signs Temp Pulse Pulse Resp BP BP Pulse Ox 01/07/24 15:00 117 H 16 114/84 96 01/07/24 14:24 115 H 01/07/24 14:00 113 H 14 121/73 97 01/07/24 12:29 36.6 C 107 H 24 109/70 98 01/07/24 10:50 106 H 17 138/94 98 01/07/24 10:28 120 H 01/07/24 10:08 113 H 20 98 01/07/24 10:04 36.5 C 117 H 18 149/90 H 98 01/07/24 10:02 01/07/24 09:47 36.4 C L 122 H 16 136/82 99 O2 Del Method O2 Flow Rate 01/07/24 15:00 Room Air 01/07/24 14:24 01/07/24 14:00 Room Air 01/07/24 12:29 Room Air 01/07/24 10:50 Room Air 01/07/24 10:28 01/07/24 10:08 Room Air 01/07/24 10:04 Room Air 01/07/24 10:02 Room Air 98 01/07/24 09:47 Room Air Laboratory Results Lab Results 01/07/24 01/07/24 01/07/24 Range/Units 10:04 10:04 10:30 WBC 15.87 H (4.8-10.8) K/ul RBC 4.52 L (4.70-6.10) M/uL Hgb 14.1 (14.0-18.0) g/dl Hct 40.7 L (42.0-52.0) % MCV 90.0 (80.0-100.0) fL MCH 31.2 (25.0-34.0) pg MCHC 34.6 (32.0-36.0) g/dL RDW Std Deviation 39.9 (36.4-46.3) fL RDW Coeff of Mckinley 12.1 (11.5-14.5) % Plt Count 259 (130-400) K/uL MPV 9.1 L (9.4-12.4) fL Immature Gran % (Auto) 0.4 % Neut % (Auto) 76.2 % Lymph % (Auto) 7.1 % Clayton % (Auto) 11.8 % Eos % (Auto) 4.0 % Baso % (Auto) 0.5 % Neut # (Auto) 12.08 H (1.40-6.50) K/uL Lymph # (Auto) 1.12 L (1.20-3.40) K/uL Clayton # (Auto) 1.88 H (0.11-0.59) K/uL Eos # (Auto) 0.64 H (0.00-0.50) K/uL Baso # (Auto) 0.08 (0.00-0.20) K/uL Immature Gran # (Auto) 0.07 (0.01-0.20) K/uL ESR 15 (0-15) mm/hr PT 10.3 (9.0-12.0) Seconds INR 0.9 (0.9-1.1) APTT 27 (21-31) Seconds PTT Ratio 1.0 Sodium 133 L (136-145) mmol/L Potassium 3.9 (3.5-5.1) mmol/L Chloride 99 (98-107) mmol/L Carbon Dioxide 27 (21-32) mmol/L Anion Gap 7 (3-11) BUN 7 (6-23) mg/dl Creatinine 0.58 L (0.6-1.4) mg/dl Est Cr Clr Drug Dosing 139.4 ml/min Est GFR ( Amer) > 150.0 ml/min Est GFR (Non-Af Amer) 135.9 ml/min BUN/Creatinine Ratio 12.1 (10-20) Glucose 140 H (70-99(Fasting)) mg/dl Lactate (0.4-2.0) mmol/L Calcium 9.4 (8.6-10.3) mg/dl Phosphorus 3.6 (2.5-4.9) mg/dl Magnesium 1.8 (1.7-2.4) mg/dl Total Bilirubin 1.3 H (0.2-1.0) mg/dl AST 17 (13-39) U/L ALT 19 (7-52) U/L Alkaline Phosphatase 88 (34-104) U/L Troponin I High Sens 4.9 (0-20) pg/ml C-Reactive Protein 5.06 H (0-0.5) mg/dl Total Protein 7.4 (6.0-8.3) gm/dl Albumin 4.4 (3.4-5.0) gm/dl Globulin 3.0 (2.5-4.0) gm/dl Albumin/Globulin Ratio 1.5 (0.9-2) Lipase 5 L (11-82) U/L Procalcitonin < 0.02 (0-0.5) ng/ml Ethyl Alcohol mg/dL < 10.0 (<10.0) mg/dl Lyme Disease Screen Negative Cancelled (Negative) 01/07/24 Range/Units 14:05 WBC (4.8-10.8) K/ul RBC (4.70-6.10) M/uL Hgb (14.0-18.0) g/dl Hct (42.0-52.0) % MCV (80.0-100.0) fL MCH (25.0-34.0) pg MCHC (32.0-36.0) g/dL RDW Std Deviation (36.4-46.3) fL RDW Coeff of Mckinley (11.5-14.5) % Plt Count (130-400) K/uL MPV (9.4-12.4) fL Immature Gran % (Auto) % Neut % (Auto) % Lymph % (Auto) % Clayton % (Auto) % Eos % (Auto) % Baso % (Auto) % Neut # (Auto) (1.40-6.50) K/uL Lymph # (Auto) (1.20-3.40) K/uL Clayton # (Auto) (0.11-0.59) K/uL Eos # (Auto) (0.00-0.50) K/uL Baso # (Auto) (0.00-0.20) K/uL Immature Gran # (Auto) (0.01-0.20) K/uL ESR (0-15) mm/hr PT (9.0-12.0) Seconds INR (0.9-1.1) APTT (21-31) Seconds PTT Ratio Sodium (136-145) mmol/L Potassium (3.5-5.1) mmol/L Chloride (98-107) mmol/L Carbon Dioxide (21-32) mmol/L Anion Gap (3-11) BUN (6-23) mg/dl Creatinine (0.6-1.4) mg/dl Est Cr Clr Drug Dosing ml/min Est GFR ( Amer) ml/min Est GFR (Non-Af Amer) ml/min BUN/Creatinine Ratio (10-20) Glucose (70-99(Fasting)) mg/dl Lactate 0.9 (0.4-2.0) mmol/L Calcium (8.6-10.3) mg/dl Phosphorus (2.5-4.9) mg/dl Magnesium (1.7-2.4) mg/dl Total Bilirubin (0.2-1.0) mg/dl AST (13-39) U/L ALT (7-52) U/L Alkaline Phosphatase (34-104) U/L Troponin I High Sens (0-20) pg/ml C-Reactive Protein (0-0.5) mg/dl Total Protein (6.0-8.3) gm/dl Albumin (3.4-5.0) gm/dl Globulin (2.5-4.0) gm/dl Albumin/Globulin Ratio (0.9-2) Lipase (11-82) U/L Procalcitonin (0-0.5) ng/ml Ethyl Alcohol mg/dL (<10.0) mg/dl Lyme Disease Screen (Negative) Diagnostic Findings Chest X-Ray 01/07/24 10:01 XR chest 1V portable HISTORY: 33 years-old Male Chest pain, nonspecific COMPARISON: 12/06/2023 TECHNIQUE: AP view of the chest FINDINGS: Cardiac mediastinal and hilar silhouettes are within normal limits. No pneumothorax, pleural effusion or airspace consolidation. Bones appear grossly intact. IMPRESSION: No acute process. ACT 112: Negative or not required by law. The above report was generated using voice recognition software. It may contain grammatical, syntax or spelling errors. Electronically signed by: Pilo De Jesus M.D. 01/07/2024 10:21 AM Chest CTA 01/07/24 12:08 CT angio chest PE protocol CT DOSE: 429.5 mGy.cm HISTORY: 33 years-old Male with CP, SOB. Acute chest pain with shortness of breath TECHNIQUE: Multiple CTA images of the chest were obtained after the intravenous administration of Optiray. Coronal and sagittal MIPS were obtained from the axial data set and were submitted for review. All measurements were obtained according to NASCET criteria. A dose lowering technique was utilized adhering to the principles of ALARA. COMPARISON: Chest radiograph of same day, CT chest 12/04/2023 FINDINGS: CTA: Heart is normal in size. Small pericardial effusion is unchanged. No thoracic aortic aneurysm. Unremarkable pulmonary artery. CT CHEST: No thyroid nodule. Borderline enlarged mediastinal, hilar and axillary chain lymph nodes measuring up to 10 mm redemonstrated. Trace pleural effusions. No pneumothorax, pleural effusion or pulmonary edema. Mild emphysema with bronchial wall thickening 4 mm calculus of the superior pole right kidney. There is mild pelviectasis of the superior pole right kidney. Unremarkable soft tissues. Mild gynecomastia. No acute fracture. IMPRESSION: 1. No pulmonary emboli. 2. Stable small pericardial effusion with trace pleural effusions. 3. Mild pulmonary emphysema. 4. Unchanged mild nonspecific borderline-enlarged axillary chain, mediastinal and hilar lymphadenopathy. 5. Partially imaged pelviectasis of the superior pole right kidney with right nephrolithiasis. Correlation with renal ultrasound recommended. ACT 112: Negative or not required by law. The above report was generated using voice recognition software. It may contain grammatical, syntax or spelling errors. Electronically signed by: Pilo De Jesus M.D. 01/07/2024 12:50 PM Medications Administered Discontinued Medications Sodium Chloride (Nss) 500 mls @ 999 mls/hr IV .Q31M STA Stop: 01/07/24 10:31 Last Infusion: 01/07/24 10:50 Dose: Infused Documented By: Admin: 01/07/24 10:09 Dose: 999 mls/hr Documented By: RODNEY Multivitamins 10 ml/ Thiamine HCl 100 mg/ Folic Acid 1 mg/Sodium Chloride 1,011.2 mls @ 500 mls/hr IV .Q2H2M ONE Stop: 01/07/24 12:32 Last Infusion: 01/07/24 13:13 Dose: Infused Documented By: Admin: 01/07/24 10:58 Dose: 500 mls/hr Documented By: RODNEY Vancomycin HCl 1,250 mg/ (Sodium Chloride) 525 mls @ 200 mls/hr IV NOW ONE Stop: 01/07/24 14:48 Last Admin: 01/07/24 14:07 Dose: 200 mls/hr Documented By: RODNEY Cefepime HCl (Maxipime) 2,000 mg in 20 mls @ 5 mls/min IV NOW STA; Protocol Stop: 01/07/24 12:14 Last Admin: 01/07/24 12:53 Dose: 5 mls/min Documented By: RODNEY Acetaminophen (Ofirmev) 1,000 mg in 100 mls @ 400 mls/hr IV NOW STA Stop: 01/07/24 13:08 Last Infusion: 01/07/24 13:34 Dose: Infused Documented By: Admin: 01/07/24 13:02 Dose: 400 mls/hr Documented By: RODNEY Ioversol (Optiray 320 125ml) 120 ml IV ONCE ONE Stop: 01/07/24 12:16 Last Admin: 01/07/24 12:15 Dose: 120 ml Documented By: LANDON Ketorolac Tromethamine (Ketorolac Tromethamine 15 Mg/Ml Vial) 15 mg IV NOW STA Stop: 01/07/24 10:02 Last Admin: 01/07/24 10:14 Dose: 15 mg Documented By: SOPHIE Lorazepam (Lorazepam 1 Mg/1 Ml Syr Ed Inj Use) 1 mg IV ONE STA Stop: 01/07/24 10:32 Last Admin: 01/07/24 10:52 Dose: 1 mg Documented By: RODNEY Lorazepam (Lorazepam 1 Mg/1 Ml Syr Ed Inj Use) 1 mg IV ONE STA Stop: 01/07/24 14:47 Last Admin: 01/07/24 14:55 Dose: 1 mg Documented By: SOPHIE Supervising Physician Co-Signing Physician Notes 33-year-old with PMH of polysubstance abuse on Suboxone who was recently admitted 12/05 for management of acute pericarditis/pericardial effusion presented to the ED w/ chest pain since yesterday likened to his prior pericarditis chest pain. He denies other ROS including fever/sore throat/cough/palpitations/abdominal pain/acute changes in his bowel or bladder or appetite habits. He states that he has stopped taking meth, last dose was 2 to 3 months ago. He reports drinking about 6 beers a day. Patient states that he has been taking 2 tablets of ibuprofen twice a day and colchicine daily, also spoke with patient's who stated that she has been reminding the patient to take his medications daily and she believes that he must be taking his medications. She also states that the patient drinks 2 beers a day. CRP seems to be better controlled at 5.06, procalcitonin negative, troponin 4.9. Resume pericarditis medications with 400 mg ibuprofen twice a day, colchicine 0.6 Mg daily. Panto 40 mg bid. Trend troponin, echo and blood culture to rule out infection, telemetry monitoring, cardiology consult. Vancomycin and cefepime until infection ruled out. Toxicology screen. AWSS protocol, thiamine, gabapentin, folic acid, prn ativan per protocol. On examination: GENERAL: Alert and oriented x3. NAD, on RA. thin. HEENT: No pallor, no icterus. Pupils equal, round and reactive to light. Oral mucosa moist. NECK: No JVD, no neck masses. HEART: S1 and S2 heard. Regular rate and rhythm. tachycardia. No murmur, no gallop. RESPIRATORY SYSTEM: Normal AP diameter. No accessory muscle use. No wheezing, no crackles. ABDOMEN: Soft, bowel sounds present, nontender, no distention. CENTRAL NERVOUS SYSTEM: No facial droop. Speech is clear. Obeys simple commands. Moves extremities. EXTREMITIES: No edema, no erythema seen. I have seen and examined the patient and have discussed the case with the provider above. I agree with the assessment and plan as stated. (1) Acute pericarditis Pericarditis type: unspecified type Qualified Code(s): I30.9 - Acute pericarditis, unspecified
--- NOTE | 2024-01-07 16:23 | Emergency Department Note ---
ED Visit Note I have personally seen and evaluated the patient with the AMY. I agree with the diagnosis and management decisions and have been personally involved in the case. Patient was treated with IV Ativan and a banana bag for likely contributing alcohol withdrawal. Given the patient's history and tachycardia, I do have concerns over endocarditis with his white count. He has remained afebrile. Blood cultures have been obtained antibiotics initiated including cefepime and vancomycin after consultation with clinical pharmacist. Hospitalist service was contacted for admission and further management. Please see AMY Angulo's notes for further details of the history, physical and visit. .
--- NOTE | 2024-01-07 16:50 | Ultrasound Report ---
RENAL ULTRASOUND HISTORY: Possible hydronephrosis of the right kidney. Acute chest pain and shortness of breath eval right hydro/stone COMPARISON: CTA chest 01/07/2024 FINDINGS: Right kidney: 11.0 cm. No hydronephrosis. 1 cm cyst in the interpolar kidney. No hydronephrosis. Norm al corticomedullary differentiation and cortical thickness. Left kidney: 11.0 cm. Nonobstructing calculi in the superior pole left kidney measuring up to 4 mm. N o hydronephrosis. Normal corticomedullary differentiation and cortical thickness. Bladder: No bladder wall thickening. The bilateral ureteral jets were identified. IMPRESSION: 1. No hydronephrosis identified by ultrasound. 2. Left nephrolithiasis. ACT 112: Negative or not required by law. Electronically signed by: Pilo De Jesus M.D. 01/07/2024 4:49 PM
--- OUTSIDE RECORDS SUMMARY | 2024-01-07 16:58 | External Medical Summary | Summary of Care ---
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 Name Role Phone Mariann Vizcarra MD Primary Care Provider Reason for Visit * Reason Onset Date Comments Advice 12/13/2023 Encounter Details Date Type Department Care Team (Late st Contact Info) Description 12/13/2023 Telephone [facility] [address] [facility] [place] [address] Christina Herring CRNP [address] [facility] [place] [address] Advice Allergies Active Allergy Reactions Criticality Noted Date Comments Cefaclor Hives 03/29/2016 Cephalosporins 01/06/2001 Diclofenac Itching 12/24/2016 documented as of this encounter (statuses as of 12/13/2023) Medications Medication Sig Dispensed Refills Start Date End Date Status buprenorphine-nalox one 8-2 mg per tab (SUBOXONE) 8-[address] tablet Place under the tongue daily. Active albuterol-ipratropi um (DUONEB) 2.5-0.5 MG/3ML nebulizer solutionIndications :Moderate persistent asthma with exacerbation USE 1 AMPULE IN NEBULIZER 4 TIMES DAILY 360 mL 2 08/29/2019 Active Excedrin Migraine 250-250-65 MG Oral Tablet (Aspirin-Acetaminop hen-Caffeine) Take 1 Tablet by mouth every 6 hours as needed. Active Fluticasone Propionate 50 MCG/ACT Nasal SuspensionIndicatio ns:Non-seasonal allergic rhinitis due to pollen Administer into each nostril 2 Sprays in the morning. 1 Each 10/19/2021 Active Cetirizine HCl 10 MG Oral Tablet (ZyrTEC Allergy)Indications :Non-seasonal allergic rhinitis due to pollen Take by mouth 1 Tablet in the morning. 30 Tablet 11 10/19/2021 Active hydrOXYzine HCl 50 MG Oral TabletIndications:I nsomnia, unspecified type Take by mouth 1 Tablet as needed before bedtime for Other (sleep). 90 Tablet 1 11/30/2021 Active Albuterol Sulfate HFA 108 (90 Base) MCG/ACT Inhalation Aerosol SolutionIndications :Moderate persistent asthma with acute exacerbation Inhale by mouth 2 Puffs in the morning AND 2 Puffs at noon AND 2 Puffs in the evening AND 2 Puffs before bedtime. 18 g 02/05/2022 Active Albuterol Sulfate (2.5 MG/3ML) 0.083% Inhalation Nebulization Solution (Proventil)Indicati ons:Moderate persistent asthma without complication Inhale 1 Vial via nebulizer every 6 hours as needed for Wheezing. 360 mL 1 01/03/2023 Active Omeprazole 40 MG Oral Capsule Delayed Release (PriLOSEC)Indicatio ns:Chronic gastritis without bleeding, unspecified gastritis type,Acute pericarditis, unspecified type Take 1 Capsule by mouth in the morning. 1 hour before the first meal of the day. 90 Capsule 12/08/2023 Active Ibuprofen 200 MG Oral Tablet (Motrin)Indications :Chronic gastritis without bleeding, unspecified gastritis type,Acute pericarditis, unspecified type Take 3 Tablets by mouth 3 times a day for 7 days, THEN 2 Tablets 3 times a day for 7 days, THEN 1 Tablet 3 times a day for 7 days. 126 Tablet 12/09/2023 12/30/2023 Active Pantoprazole Sodium 40 MG Oral Tablet Delayed Release (Protonix) 12/09/2023 Active Colchicine 0.6 MG Oral TabletIndications:A cute pericarditis, unspecified type Take 1 Tablet by mouth in the morning. With food.. 90 Tablet 12/12/2023 Active documented as of this encounter (statuses as of 12/13/2023) Active Problems Problem Noted Date Diagnosed Date Pericarditis 12/08/2023 Lumbar degenerative disc disease 12/01/2020 Overview: MRI from 2012 showed mild disease Gastroesophageal reflux disease without esophagi tis 11/19/2020 Opioid abuse, in remission 11/19/2020 Overview: On suboxone Moderate persistent asthma without complication 01/15/2010 Overview: Per Asthma Taxonomy ICD-10 update of inactive term documented as of this encounter (statuses as of 12/13/2023) Resolved Problems Problem Noted Date Diagnosed Date Resolved Date Left lumbar radiculopathy 02/20/2021 Low back pain 12/24/2016 07/28/2018 Overview: Avoid narcotics Chronic pain of left knee 10/04/2016 Routine child health exam 01/22/2003 Asthma, allergic 01/22/2003 01/15/2010 documented as of this encounter (statuses as of 12/13/2023) Immunizations Name Administration Dates Next Due DTP Vaccine 10/15/1996, 4,1992,1992,1992 Haemophilius B (HIB), unspecified 1993,1992,1992,1991 Hepatitis B Vaccine 1992,1992,1991 MMR - Measles/Mumps/Rubella Vaccine 10/15/1997,0 02/02/1994 OPV - Polio Virus Vaccine (Oral) 997,02/02/1994,1992,1991 Seasonal Influenza, PF, 6 M & above, IM , (FluLaval or Fluzone) 05/30/2018 Seasonal Influenza, Recombin ant, RIV4, PF, (Flublock) 05/10/2020 Seasonal Influenza, Split, I IV3, With [...] drink = 0.6 oz pur e alcohol) PHQ-2 Answer Date Recorded PHQ Adult Total Score 0 12/01/2020 Hunger Vital Sign Answer Date Recorded Within the past 12 months, y ou worried that your food would run out before you got the money to buy more. Never true 12/02/19 21 Ran Out of Food in the Last Year Not on file 12/01/2020 Sex and Gender Information Value Date Recorded Sex Assigned at Not on file Gender Identity Not on file Sexual Orientation Not on file Job Start Date Occupation Industry Not on file Not on file Not on file documented as of this encounter Miscellaneous Notes * Telephone Encounter - Trevor Malcolm RN - 12/13/2023 1:13 PM EDT Called and spoke to the patient and reviewed the message with him from Christina Yee in regards to his question about fluid around his heart. He stated he understood. * Telephone Encounter - Christina Herring CRNP - 12/13/2023 12:25 PM EDT As discussed at OV yesterday- No cause at this time was identified. We are recommending a repeat echo, this has been scheduled. Pending results can consider cardiac MRI for further assessment. AMY Clemente * Telephone Encounter - Honey Daniels OSA - 12/13/2023 10:00 AM EDT Person calling: pt Relationship to patient: pt Number to return call: [phone] Reason for call: pt is calling asking if they ever found out a cause for the fluid around his hearthe is asking if someone can call him regarding this Pharmacy: na Provider Name:Sabra Herring Thank you FATMATA Morton documented in this encounter Plan of Treatment Upcoming Encounters Date Type Department Care Team (Late st Contact Info) Description 01/09/2024 9:15 AM EDT Cardiac Studies [facility] [address] [place] [address] 03/13/2024 8:00 AM EDT Office Visit Card[facility], [facility] [address] [place] [address] Christina Herring CRNP [address] [place] [address] Health Maintenance Due Date Last Done Comments DISCUSS TOBACCO CESSATION (REFER TO SMARTSET #[id number]) 1992 Pneumococcal Vaccine: Pediatrics (0 to 5 Years) and At-Risk Patients (6 to 64 Years) (1 of 2 - PCV) 1998 HIV Screening 2007 Hepatitis C Screening 2010 *SPIROMETRY ONCE FOR ASTHMA-ADULT 10/06/2016 Depression Screening 12/01/2021 12/01/2020 DTaP,Tdap,and Td Vaccines (7 - Td or Tdap) 01/23/2023 01/23/2013, 08/23/2003, 10/15/1996, Additional history exists COVID-19 Vaccine ( - season) 2023 Influenza Vaccine (FLU shot) (Season Ended) 2024 05/10/2020, 05/30/2018, 04/29/2004 Hepatitis B Completed 1992, 03/26, 1992 GARDASIL-HPV IMMUNIZATION SERIES Aged Out No longer eligible based on patient's age to complete this topic MENINGOCOCCAL (MENACTRA/MENVEO) Aged Out No longer eligible based on patient's age to complete this topic documented as of this encounter Medical Devices Not on filedocumented as of this encounter Care Teams 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
--- OUTSIDE RECORDS SUMMARY | 2024-01-07 16:58 | External Medical Summary | Summary of Care ---
Author Name Unknown Organization [facility] Address [address] [place] [address] Phone [phone] Care Team Providers Care Infant Babysitter Name Role Phone Mariann Vizcarra MD Primary Care Provider Encounter Details Date Type Department Care Team (Late st Contact Info) Description 01/03/2024 Population Health External Data Unspecified Department Allergies Active Allergy Reactions Criticality Noted Date Comments Cefaclor Hives 03/29/2016 Cephalosporins 01/06/2001 Diclofenac Itching 12/24/2016 documented as of this encounter (statuses as of 01/03/2024) Medications Medication Sig Dispensed Refills Start Date End Date Status buprenorphine-naloxo ne 8-2 mg per tab (SUBOXONE) 8-[address] tablet Place under the tongue daily. Active albuterol-ipratropiu m (DUONEB) 2.5-0.5 MG/3ML nebulizer solutionIndications: Moderate persistent asthma with exacerbation USE 1 AMPULE IN NEBULIZER 4 TIMES DAILY 360 mL 2 08/29/2019 Active Excedrin Migraine 250-250-65 MG Oral Tablet (Aspirin-Acetaminoph en-Caffeine) Take 1 Tablet by mouth every 6 hours as needed. Active Fluticasone Propionate 50 MCG/ACT Nasal SuspensionIndication s:Non-seasonal allergic rhinitis due to pollen Administer into each nostril 2 Sprays in the morning. 1 Each 11 10/19/2021 Active Cetirizine HCl 10 MG Oral Tablet (ZyrTEC Allergy)Indications: Non-seasonal allergic rhinitis due to pollen Take by mouth 1 Tablet in the morning. 30 Tablet 11 10/19/2021 Active hydrOXYzine HCl 50 MG Oral TabletIndications:In somnia, unspecified type Take by mouth 1 Tablet as needed before bedtime for Other (sleep). 90 Tablet 1 11/30/2021 Active Albuterol Sulfate HFA 108 (90 Base) MCG/ACT Inhalation Aerosol SolutionIndications: Moderate persistent asthma with acute exacerbation Inhale by mouth 2 Puffs in the morning AND 2 Puffs at noon AND 2 Puffs in the evening AND 2 Puffs before bedtime. 18 g 02/05/2022 Active Albuterol Sulfate (2.5 MG/3ML) 0.083% Inhalation Nebulization Solution (Proventil)Indicatio ns:Moderate persistent asthma without complication Inhale 1 Vial via nebulizer every 6 hours as needed for Wheezing. 360 mL 1 01/03/2023 Active Omeprazole 40 MG Oral Capsule Delayed Release (PriLOSEC)Indication s:Chronic gastritis without bleeding, unspecified gastritis type,Acute pericarditis, unspecified type Take 1 Capsule by mouth in the morning. 1 hour before the first meal of the day. 90 Capsule 12/08/2023 Active Pantoprazole Sodium 40 MG Oral Tablet Delayed Release (Protonix) 12/09/2023 Active Colchicine 0.6 MG Oral TabletIndications:Ac false pass pericarditis, unspecified type Take 1 Tablet by mouth in the morning. With food.. 90 Tablet 12/12/2023 Active documented as of this encounter (statuses as of 01/03/2024) Active Problems Problem Noted Date Diagnosed Date Pericarditis 12/08/2023 Lumbar degenerative disc disease 12/01/2020 Overview: MRI from 2011 showed mild disease Gastroesophageal reflux disease without esophagi tis 11/19/2020 Opioid abuse, in remission 11/19/2020 Overview: On suboxone Moderate persistent asthma without complication 01/15/2010 Overview: Per Asthma Taxonomy ICD-10 update of inactive term documented as of this encounter (statuses as of 01/03/2024) Resolved Problems Problem Noted Date Diagnosed Date Resolved Date Left lumbar radiculopathy 02/20/2021 Low back pain 12/24/2016 07/28/2018 Overview: Avoid narcotics Chronic pain of left knee 10/04/2016 Routine child health exam 01/22/2003 Asthma, allergic 01/22/2003 01/15/2010 documented as of this encounter (statuses as of 01/03/2024) Immunizations Name Administration Dates Next Due Seasonal Influenza, PF, 6 M & above, IM , (FluLaval or Fluzone) 05/30/2018 Seasonal Influenza, Recombinant, RIV4, PF, (Flub lock) 05/10/2020 TDAP (age 10 and older)(Boostrix) 01/23/2013 [...] on file documented as of this encounter Plan of Treatment Upcoming Encounters Date Type Department Care Team (Late st Contact Info) Description 01/09/2024 9:30 AM EDT Cardiac Studies Cardiac Studies, [facility] [address] [place] [address] 03/13/2024 8:00 AM EDT Office Visit Cardiology, [facility] [address] [place] [address] Christina Herring CRNP [address] [place] [address] Health Maintenance Due Date Last Done Comments DISCUSS TOBACCO CESSATION (REFER TO SMARTSET #[id number]) 1992 Pneumococcal Vaccine: Pediatrics (0 to 5 [...] filedocumented as of this encounter Care Teams Infant Babysitter Relationship Specialty Start Date End Date Mariann Vizcarra MD [address] [place] [address] PCP - General Internal Medicine 06/22/21 documented as of this encounter
--- OUTSIDE RECORDS SUMMARY | 2024-01-07 16:58 | External Medical Summary | Summary of Care ---
Author Name Unknown Organization [facility] Address [address] [place] [facility] [address] Phone [phone] Care Team Providers Care Dryer Operator Name Role Phone Mariann Vizcarra MD Primary Care Provider Reason for Visit * Reason Onset Date Comments Advice 12/13/2023 Encounter Details Date Type Department Care Team (Late st Contact Info) Description 12/13/2023 Telephone Cardiology, [facility] [address] [facility] [place] [address] Christina Herring CRNP [address] [facility] [place] [address] Advice Allergies Active Allergy Reactions Criticality Noted [...] encounter Miscellaneous Notes * Telephone Encounter - Christina Herring CRNP [...] to patient: pt Number to return call: [phone] Reason for call: pt is calling asking [...] 9:15 AM EDT Cardiac Studies Cardiac Studies, [facility] [address] [place] [address] 03/13/2024 8:00 AM EDT Office Visit Cardiology, [facility] [address] [place] [address] Christina Herring CRNP [address] [place] [address] Health Maintenance Due Date Last Done Comments DISCUSS TOBACCO CESSATION (REFER TO SMARTSET #[id number]) 1992 Pneumococcal Vaccine: Pediatrics (0 to 5 [...] filedocumented as of this encounter Care Teams Dryer Operator Relationship Specialty Start Date End Date Marinan Vizcarra MD [address] [place] [address] PCP - General Internal Medicine 06/22/21 documented as of this encounter
--- OUTSIDE RECORDS SUMMARY | 2024-01-07 16:58 | External Medical Summary | Summary of Care ---
Author Name Unknown Organization [facility] Address [address] [facility] [place] [address] Phone [phone] Care Team Providers Care Shop Tailor Name Role Phone Mariann Vizcarra MD Primary Care Provider Encounter Details Date Type Department Care Team (Late st Contact Info) Description 12/14/2023 Orders Only PATIENT PORTAL DO NOT DELETE THIS DEPT USED BY [place] [id number] Allergies Active Allergy Reactions Criticality Noted Date Comments Cefaclor Hives 03/29/2016 Cephalosporins 01/06/2001 Diclofenac Itching 12/24/2016 documented as of this encounter (statuses as of 12/14/2023) Medications Medication Sig Dispensed Refills Start Date [...] as of this encounter (statuses as of 12/14/2023) Active Problems Problem Noted Date Diagnosed Date Pericarditis 12/08/2023 Lumbar degenerative disc disease 12/01/2020 Overview: MRI from 2012 showed mild disease Gastroesophageal reflux disease without esophagi tis 11/19/2020 Opioid abuse, in remission 11/19/2020 Overview: On suboxone Moderate persistent asthma without complication 01/15/2010 Overview: Per Asthma Taxonomy ICD-10 update of inactive term documented as of this encounter (statuses as of 12/14/2023) Resolved Problems Problem Noted Date Diagnosed Date Resolved Date Left lumbar radiculopathy 02/20/2021 Low back pain 12/24/2016 07/28/2018 Overview: Avoid narcotics Chronic pain of left knee 10/04/2016 Routine child health exam 01/22/2003 Asthma, allergic 01/22/2003 01/15/2010 documented as of this encounter (statuses as of 12/14/2023) Immunizations Name Administration Dates Next Due Seasonal [...] 9:15 AM EDT Cardiac Studies Cardiac Studies, [address] [place] [address] 03/13/2024 8:00 AM EDT Office Visit Cardiology, [facility] [address] [place] [address] Christina Herring CRNP [address] [place] [address] Health Maintenance Due Date Last Done Comments DISCUSS TOBACCO CESSATION (REFER TO SMARTSET #[id number]) 1992 Pneumococcal Vaccine: Pediatrics (0 to 5 [...] filedocumented as of this encounter Care Teams Shop Tailor Relationship Specialty Start Date End Date Mariann Vizcarra MD [address] [place] [address] PCP - General Internal Medicine 06/22/21 documented as of this encounter
--- OUTSIDE RECORDS SUMMARY | 2024-01-07 16:58 | External Medical Summary | Summary of Care ---
Author Name Unknown Organization [facility] Address [address] [place] [facility] [place] [address] Phone [phone] Care Team Providers Care Dedicated Owner Operator Name Role Phone Mariann Vizcarra MD Primary Care Provider Reason for Visit * Reason Onset Date Comments Advice 12/13/2023 Encounter Details Date Type Department Care Team (Late st Contact Info) Description 12/13/2023 Telephone Cardiology, [facility] [address] [facility] [place] [address] Christina Herring CRNP [address] [place] [address] Advice Allergies Active Allergy Reactions Criticality Noted [...] 12/13/2023) Immunizations Name Administration Dates Next Due Seasonal [...] encounter Miscellaneous Notes * Telephone Encounter - Honey Daniels OSA - 12/13/2023 10:00 AM EDT Person calling: pt Relationship to patient: pt Number to return call: [phone] Reason for call: pt is calling asking [...] 9:15 AM EDT Cardiac Studies Cardiac Studies, [facility] [address] [place] [address] 03/13/2024 8:00 AM EDT Office Visit Cardiology, [facility] [address] [place] [address] Christina Herring CRNP [address] [place] [address] Health Maintenance Due Date Last Done Comments DISCUSS TOBACCO CESSATION (REFER TO SMARTSET #[id number]) 1992 Pneumococcal Vaccine: Pediatrics (0 to 5 [...] filedocumented as of this encounter Care Teams Dedicated Owner Operator Relationship Specialty Start Date End Date Mariann Vizcarra MD [address] [facility] [place] [address] PCP - General Internal Medicine 06/22/21 documented as of this encounter
--- OUTSIDE RECORDS SUMMARY | 2024-01-07 16:58 | External Medical Summary | Summary of Care ---
Author Name Unknown Organization [facility] Address [address] [place] [address] Phone [phone] Care Team Providers Care Furniture Rental Consultant Name Role Phone Mariann Vizcarra MD Primary Care Provider Encounter Details Date Type Department Care Team (Late st Contact Info) Description 12/06/2023 Result Scan Unspecified Department Christina Herring CRNP [address] [place] [address] <No scans attached> Allergies Active Allergy Reactions Criticality Noted Date Comments Cefaclor Hives 03/29/2016 Cephalosporins 01/06/2001 Diclofenac Itching 12/24/2016 documented as of this encounter (statuses as of 12/15/2023) Medications Medication Sig Dispensed Refills Start Date [...] 1 Tablet in the morning. 30 Tablet 10/19/2021 Active hydrOXYzine HCl 50 MG Oral [...] for Wheezing. 360 mL 1 01/03/2023 Active documented as of this encounter (statuses as of 12/15/2023) Active Problems Problem Noted Date Diagnosed Date Pericarditis 12/08/2023 Lumbar degenerative disc disease 12/01/2020 Overview: MRI from 2011 showed mild disease Gastroesophageal reflux disease without esophagi tis 11/19/2020 Opioid abuse, in remission 11/19/2020 Overview: On suboxone Moderate persistent asthma without complication 01/15/2010 Overview: Per Asthma Taxonomy ICD-10 update of inactive term documented as of this encounter (statuses as of 12/15/2023) Resolved Problems Problem Noted Date Diagnosed Date Resolved Date Left lumbar radiculopathy 02/20/2021 Low back pain 12/24/2016 07/28/2018 Overview: Avoid narcotics Chronic pain of left knee 10/04/2016 Routine child health exam 01/22/2003 Asthma, allergic 01/22/2003 01/15/2010 documented as of this encounter (statuses as of 12/15/2023) Immunizations Name Administration Dates Next Due Seasonal [...] 9:15 AM EDT Cardiac Studies [facility] [address] 03/13/2024 8:00 AM EDT Office Visit Cardiology, [facility] [address] [facility] [place] [address] Christina Herring CRNP [address] [facility] [place] [address] Health Maintenance Due Date Last Done Comments DISCUSS TOBACCO CESSATION (REFER TO SMARTSET #[id number]) 1992 Pneumococcal Vaccine: Pediatrics (0 to 5 Years) and At-Risk Patients (6 to 64 Years) (1 of 2 - PCV) 1998 HIV Screening 2007 Hepatitis C Screening 2010 *SPIROMETRY ONCE FOR ASTHMA-ADULT 10/06/2016 Depression Screening 12/01/2021 12/01/2020 DTaP,Tdap,and Td Vaccines (7 - Td or Tdap) 01/23/2023 01/23/2013, 08/23/2003, 10/15/1996, Additional history exists COVID-19 Vaccine (2022- season) 2023 Influenza Vaccine (FLU shot) (Season Ended) 2024 05/10/2020, 05/30/2018, 04/29/2004 Hepatitis B Completed 1992, 03/26, 1992 GARDASIL-HPV IMMUNIZATION SERIES Aged Out No longer eligible based on patient's age to complete this topic MENINGOCOCCAL (MENACTRA/MENVEO) Aged Out No longer eligible based on patient's age to complete this topic documented as of this encounter Medical Devices Not on filedocumented as of this encounter Procedures Procedure Name Priority Date/Time Associated Diagnosis Comments OUTSIDE LAB RESULTS 12/06/2023 documented in this encounter Results * OUTSIDE LAB RESULTS (12/06/2023) 12/06/2023 [facility] documented in this encounter Care Teams Furniture Rental Consultant Relationship Specialty Start Date End Date Mariann Vizcarra MD [address] [place] [address] PCP - General Internal Medicine 06/22/21 documented as of this encounter
--- OUTSIDE RECORDS SUMMARY | 2024-01-07 16:58 | External Medical Summary | Summary of Care ---
Author Name Unknown Organization [facility] Address [address] [place] [place] [address] Phone [phone] Care Team Providers Care Oil Pumper Name Role Phone Mariann Vizcarra MD Primary Care Provider Reason for Visit * Reason Onset Date Comments Advice 12/13/2023 Encounter Details Date Type Department Care Team (Late st Contact Info) Description 12/13/2023 Telephone Cardiology, [facility] [address] [facility] [place] [address] Christina Herring CRNP [address] [facility] [place] [address] Advice Allergies Active Allergy Reactions Criticality Noted [...] Herring CRNP - 12/13/2023 12:25 PM EDT No cause at this time was identified. We are recommending a repeat echo, this has been scheduled. Pending results can consider cardiac MRI for further assessment. AMY Clemente * Telephone Encounter - Honey Daniels OSA - 12/13/2023 10:00 AM EDT Person calling: pt Relationship to patient: pt Number to return call: [phone] Reason for call: pt is calling asking [...] 9:15 AM EDT Cardiac Studies Cardiac Studies, [address] [place] [address] 03/13/2024 8:00 AM EDT Office Visit Cardiology, [facility] [address] [place] [address] Christina Herring CRNP [address] [place] [address] Health Maintenance Due Date Last Done Comments DISCUSS TOBACCO CESSATION (REFER TO SMARTSET #[id number]) 1992 Pneumococcal Vaccine: Pediatrics (0 to 5 [...] filedocumented as of this encounter Care Teams Oil Pumper Relationship Specialty Start Date End Date Mariann Vizcarra MD [address] [place] [address] PCP - General Internal Medicine 06/22/21 documented as of this encounter
--- OUTSIDE RECORDS SUMMARY | 2024-01-07 16:58 | External Medical Summary | Summary of Care ---
Author Name Unknown Organization [facility] Address [address] [place] [address] Phone [phone] Care Team Providers Care Rental Salesperson Name Role Phone Mariann Vizcarra MD Primary Care Provider Encounter Details Date Type Department Care Team (Late st Contact Info) Description 12/15/2023 Population Health External Data Unspecified Department Allergies [...] 9:15 AM EDT Cardiac Studies Cardiac Studies, [facility] [address] [facility] [place] [address] 03/13/2024 8:00 AM EDT Office Visit Cardiology, [facility] 132 [facility] [place] [address] Christina Herring CRNP [address] [place] [address] Health Maintenance Due Date Last Done Comments DISCUSS TOBACCO CESSATION (REFER TO SMARTSET #8218) 1992 Pneumococcal Vaccine: Pediatrics (0 to 5 [...] filedocumented as of this encounter Care Teams Rental Salesperson Relationship Specialty Start Date End Date Mariann Vizcarra MD [address] [place] [address] PCP - General Internal Medicine 06/22/21 documented as of this encounter
--- OUTSIDE RECORDS SUMMARY | 2024-01-07 16:59 | External Medical Summary | Summary of Care ---
Author Name Unknown Organization [facility] Address [address] [facility] [place] [address] Phone [phone] Care Team Providers Care Ed Manager Name Role Phone Mariann Vizcarra MD Primary Care Provider Reason for Referral * Precert (Within 10 days (routine)) - Authorized Specialty Diagnoses / Procedures Referred By Contac t Referred To Contact Cardiac Studies Diagnoses Chronic gastritis without bleeding, unspecified gastritis type Acute pericarditis, unspecified type Procedures ECHO, TTE, LIMITED Shawn Hairston CRNP [address] [address] [place] [address] Referral ID Status Reason Start Date Expiration Date V isits Requested Visits Authorized [id number] Authorized Precert 01/08/2024 999 999 Reason for Visit * Reason Onset Date Comments Hospital Follow-Up 12/08/2023 Encounter Details Date Type Department Care Team (Late st Contact Info) Description 12/08/2023 Telephone Cardiology, [facility] [address] [place] [address] Shawn Hairston CRNP [address] [place] [address] Hospital Follow-Up Allergies Active Allergy Reactions Criticality Noted Date Comments Cefaclor Hives 03/29/2016 Cephalosporins 01/06/2001 Diclofenac Itching 12/24/2016 documented as of this encounter (statuses as of 12/08/2023) Medications Medication Sig Dispensed Refills Start Date End Date Status buprenorphine-nalo xone 8-2 mg per tab (SUBOXONE) 8-[address] tablet [address] under the tongue daily. 0 Active albuterol-ipratrop ium (DUONEB) 2.5-0.5 MG/3ML nebulizer solutionIndication s:Moderate persistent asthma with exacerbation USE 1 AMPULE IN NEBULIZER 4 TIMES DAILY 360 mL 2 0 Active Excedrin Migraine 250-250-65 MG Oral Tablet (Aspirin-Acetamino phen-Caffeine) Take 1 Tab by mouth every 6 hours as needed. 0 Active Montelukast Sodium 10 MG Oral Tablet (Singulair) Take 10 mg by mouth at bedtime. 0 Active Fluticasone Propionate 50 MCG/ACT Nasal SuspensionIndicati ons:Non-seasonal allergic rhinitis due to pollen Administer into each nostril 2 Sprays in the morning. 1 Each 2 Active Pseudoephedrine HCl 30 MG Oral Tablet (Sudafed)Indicatio ns:Non-seasonal allergic rhinitis due to pollen Take by mouth 1 Tablet every 6 hours as needed for Congestion. 30 Tablet 5 2 Active Cetirizine HCl 10 MG Oral Tablet (ZyrTEC Allergy)Indication s:Non-seasonal allergic rhinitis due to pollen Take by mouth 1 Tablet in the morning. 30 Tablet 11 2 Active hydrOXYzine HCl 50 MG Oral TabletIndications: Insomnia, unspecified type Take by mouth 1 Tablet as needed before bedtime for Other (sleep). 90 Tablet 1 2 Active Ciprofloxacin HCl 0.3 % Ophthalmic Solution (Ciloxan)Indicatio ns:Acute bacterial conjunctivitis of right eye 1 drop every 2 hours while awake 1st 2 days then every 6 hours for 5 days. To the R eye 10 mL 0 2 Active Albuterol Sulfate HFA 108 (90 Base) MCG/ACT Inhalation Aerosol SolutionIndication s:Moderate persistent asthma with acute exacerbation Inhale by mouth 2 Puffs in the morning AND 2 Puffs at noon AND 2 Puffs in the evening AND 2 Puffs before bedtime. 18 g 0 2 Active Albuterol Sulfate (2.5 MG/3ML) 0.083% Inhalation Nebulization Solution (Proventil)Indicat ions:Moderate persistent asthma without complication Inhale 1 Vial via nebulizer every 6 hours as needed for Wheezing. 360 mL 1 3 Active Ibuprofen 200 MG Oral Tablet (Motrin)Indication s:Chronic gastritis without bleeding, unspecified gastritis type,Acute pericarditis, unspecified type Take 3 Tablets by mouth daily for 7 days, THEN 2 Tablets daily for 7 days, THEN 1 Tablet daily for 7 days. Do not start before December 09, 2023. 42 Tablet 0 4 12/30/19 24 Active Colchicine 0.6 MG Oral TabletIndications: Chronic gastritis without bleeding, unspecified gastritis type,Acute pericarditis, unspecified type With food. 90 Tablet 0 4 Active Omeprazole 40 MG Oral Capsule Delayed Release (PriLOSEC)Indicati ons:Chronic gastritis without bleeding, unspecified gastritis type,Acute pericarditis, unspecified type Take 1 Capsule by mouth in the morning. 1 hour before the first meal of the day. 90 Capsule 0 4 Active Omeprazole 40 MG Oral Capsule Delayed Release (PriLOSEC)Indicati ons:Chronic gastritis without bleeding, unspecified gastritis type Take 1 Capsule by mouth daily. 1 hour before the first meal of the day 90 Capsule 3 2 12/08/19 24 Discontinued(Re fill) Ibuprofen 600 MG Oral Tablet (Motrin) TAKE 1 TABLET BY MOUTH EVERY 8 HOURS NEEDED WITH FOOD FOR PAIN 90 Tablet 0 3 12/08/19 24 Discontinued documented as of this encounter (statuses as of 12/08/2023) Active Problems Problem Noted Date Diagnosed Date Pericarditis 12/08/2023 Lumbar degenerative disc disease 12/01/2020 Overview: MRI from 2011 showed mild disease Gastroesophageal reflux disease without esophagi tis 11/19/2020 Opioid abuse, in remission 11/19/2020 Overview: On suboxone Moderate persistent asthma without complication 01/15/2010 Overview: Per Asthma Taxonomy ICD-10 update of inactive term documented as of this encounter (statuses as of 12/08/2023) Resolved Problems Problem Noted Date Diagnosed Date Resolved Date Left lumbar radiculopathy 02/20/2021 Low back pain 12/24/2016 07/28/2018 Overview: Avoid narcotics Chronic pain of left knee 10/04/2016 Routine child health exam 01/22/2003 Asthma, allergic 01/22/2003 01/15/2010 documented as of this encounter (statuses as of 12/08/2023) Immunizations Name Administration Dates Next Due DTP [...] encounter Miscellaneous Notes * Telephone Encounter - Doimtila Figueroa OSA - 12/08/2023 1:08 PM EDT Person calling: Ricardo Relationship to patient: [facility] Number to return call: [phone] Reason for call: [facility]: [facility] Provider Name:Shawn Hairston Pharmacy needs instructions for # of tablets and time of day to day medication. Please advise. Thanks * Addendum Note - Shawn Hairston CRNP - 12/08/2023 12:39 PM EDTAddended by: SHAWN HAIRSTON on: 12/08/2023 12:39 PM Modules accepted: Orders * Telephone Encounter - Shawn Hairston CRNP - 12/08/2023 11:22 AM EDT Patient admitted to [facility] on 12/05/2053. Anticipate Discharge within the next 24 to 48 hours. Keep appt with the undersigned on 12/12/2023. -AMY Clemente Cards progress note 12/08/2023: 33-year-old male who re-presented to [facility] emergency department 12/07/2023 due to constant severe chest pain. EKG with diffuse ST segment elevation specifically in inferior and lateral leads. Findings concerning for pericarditis. CTA of the chest was negative for PE 12/04/2023 and there were no evidence of pericardial effusion on imaging at that time. Echocardiogram performed 12/06/2023 showed a moderate-sized circumferential pericardial effusion without definite tamponade, however the findings of the mild inferior vena cava dilatation with lack ofinspiratory collapse suggests elevated pericardial pressure. LVEF was normal at 60 to 65% without wall motion abnormalities or significant valvular disease. Intervention: -Given x 1 dose of IV Solu-Medrol -Started on ibuprofen 800 mg 3 times daily with meals plus colchicine 0.6 mg twice daily with meals -GI prophylaxis with pantoprazole 12/07/2023: Improvement in pain, able to ambulate and complete ADLs without difficulty. EKG: Sinus tach with ST elevation in inferior lateral leads, 113 bpm--unchanged from yesterday 12/05 Telemetry: ST 100-120s (Admits tachycardic rates in the 100-110s at home since using meth aprox. 6 months ago) 12/08/2023: EKG: Sinus rhythm with ST elevation in inferior lateral leads, 88 bpm, unchanged from 12/05 and 12/06. However rates are improved. Telemetry: SR 80-90s Labs: Renal function stable. Sodium level improved, 136. Potassium 4.7. Lyme screen negative. Echo: LVEF remains stable. Decrease in pericardial fluid. IVC no longer dilated with appropriate inspiratory collapse now noted. IMPRESSION 33 year old male with acute pericarditis EKG concerning for diffuse ST segment elevation specifically in the inferior lateral leads Moderate-sized pericardial effusion without evidence of definite hemodynamic compromise. HS troponin negative. Lyme negative. PLAN: Acute Pericarditis: Significant improvement in pain/discomfort as well as breathing overnight. HR improved. Improvement in pericardial effusion on limited echo this am. Continue colchicine 0.6 mg twice daily; will plan to reduce to daily at discharge. Will continue this medication x3 months at discharge Continue Ibuprofen 800 mg TID x1 week. Will plan on decreasing to 600 mg x1 week at discharge with reduction in 200 mg weekly there after. GI prophylaxis with pantoprazole. Pain control- patient was treated with Toradol last visit with improvement in symptoms- was given x1 dose of IV Solu-Medrol 12/06/2023 Of note, patient carries a history of opioid abuse on Suboxone as an outpatient. Recommend smoking cessation. documented in this encounter Plan of Treatment Upcoming Encounters Date Type Department Care Team (Late st Contact Info) Description 12/12/2023 11:30 AM EDT Office Visit Cardiology, [facility] [address] [facility] [place] [address] Shawn Hairston CRNP [address] [facility] [place] [address] 12/16/2023 11:00 AM EDT Office Visit Family Practice [facility] 132 [facility] [place] [address] Mariann Vizcarra MD [address] [facility] [place] [address] 02/16/2024 7:15 AM EDT Cardiac Studies Cardiac Studies, [facility] 132 [facility] [place] [address] Scheduled Orders Name Type Priority Associated Diagnoses Orde r Schedule ECHO, TTE, LIMITED Echocardiology Routine Chronic gastritis without bleeding, unspecified gastritis type Acute pericarditis, unspecified type Expected: 01/08/2024, Expires: 01/07/2026 Health Maintenance Due Date Last Done Comments Pneumococcal Vaccine: Pediatrics (0 to 5 Years) [...] as of this encounter Visit Diagnoses Diagnosis Acute pericarditis, unspecified type- Primary Chronic gastritis without bleeding, unspecified gastritis type documented in this encounter Care Teams Ed Manager Relationship Specialty Start Date End Date Mariann Vizcarra MD [address] [address] PCP - General Internal Medicine 06/22/21 documented as of this encounter
--- OUTSIDE RECORDS SUMMARY | 2024-01-07 16:59 | External Medical Summary | Summary of Care ---
Author Name Unknown Organization [facility] Address [address] [place] [facility] [place] [address] Phone [phone] Care Team Providers Care Gang Drill Operator Name Role Phone Mariann Vizcarra MD Primary Care Provider Reason for Referral * Precert (Within 10 days (routine)) - Authorized Specialty Diagnoses / Procedures Referred By Contac t Referred To Contact Cardiac Studies Diagnoses Chronic gastritis without bleeding, unspecified gastritis type Acute pericarditis, unspecified type Procedures ECHO, TTE, LIMITED Shawn Hairston CRNP [address] [place] [address] Referral ID Status Reason Start Date Expiration Date V isits Requested Visits Authorized [id number] Authorized Precert 01/08/2024 999 999 Reason for Visit * Reason Onset Date Comments Hospital Follow-Up 12/08/2023 Encounter Details Date Type Department Care Team (Late st Contact Info) Description 12/08/2023 Telephone Cardiology, [facility] [address] [place] [address] Shawn Hairston CRNP [address] [place] [address] Hospital Follow-Up Allergies Active Allergy Reactions Criticality Noted Date Comments Cefaclor Hives 03/29/2016 Cephalosporins 01/06/2001 Diclofenac Itching 12/24/2016 documented as of this encounter (statuses as of 12/09/2023) Medications Medication Sig Dispensed Refills Start Date [...] for Wheezing. 360 mL 1 3 Active Colchicine 0.6 MG Oral TabletIndications: Chronic gastritis without bleeding, unspecified gastritis type,Acute pericarditis, unspecified type With food. 90 Tablet 0 4 Active Omeprazole 40 MG Oral Capsule Delayed Release (PriLOSEC)Indicati ons:Chronic gastritis without bleeding, unspecified gastritis type,Acute pericarditis, unspecified type Take 1 Capsule by mouth in the morning. 1 hour before the first meal of the day. 90 Capsule 0 4 Active Ibuprofen 200 MG Oral Tablet (Motrin)Indication s:Chronic gastritis without bleeding, unspecified gastritis type,Acute pericarditis, unspecified type Take 3 Tablets by mouth 3 times a day for 7 days, THEN 2 Tablets 3 times a day for 7 days, THEN 1 Tablet 3 times a day for 7 days. 126 Tablet 0 4 12/30/19 24 Active Omeprazole 40 MG Oral Capsule Delayed [...] 90 Tablet 0 3 12/08/19 24 Discontinued Ibuprofen 200 MG Oral Tablet (Motrin)Indication s:Chronic gastritis without bleeding, unspecified gastritis type,Acute pericarditis, unspecified type Take 3 Tablets by mouth daily for 7 days, THEN 2 Tablets daily for 7 days, THEN 1 Tablet daily for 7 days. Do not start before December 09, 2023. 42 Tablet 0 4 12/09/19 24 Discontinued documented as of this encounter (statuses as of 12/09/2023) Active Problems Problem Noted Date Diagnosed Date Pericarditis 12/08/2023 Lumbar degenerative disc disease 12/01/2020 Overview: MRI from 2011 showed mild disease Gastroesophageal reflux disease without esophagi tis 11/19/2020 Opioid abuse, in remission 11/19/2020 Overview: On suboxone Moderate persistent asthma without complication 01/15/2010 Overview: Per Asthma Taxonomy ICD-10 update of inactive term documented as of this encounter (statuses as of 12/09/2023) Resolved Problems Problem Noted Date Diagnosed Date Resolved Date Left lumbar radiculopathy 02/20/2021 Low back pain 12/24/2016 07/28/2018 Overview: Avoid narcotics Chronic pain of left knee 10/04/2016 Routine child health exam 01/22/2003 Asthma, allergic 01/22/2003 01/15/2010 documented as of this encounter (statuses as of 12/09/2023) Immunizations Name Administration Dates Next Due DTP [...] encounter Miscellaneous Notes * Telephone Encounter - Luke Hastings OSA - 12/09/2023 4:09 PM EDT ECHO has been changed to: Tuesday Appt at 9:15 AM (1 hr) * Addendum Note - Shawn Hairston CRNP - 12/09/2023 8:17 AM EDTAddended by: SHAWN HAIRSTON on: 12/09/2023 08:17 AM Modules accepted: Orders * Telephone Encounter - Luke Hastings OSA - 12/08/2023 1:38 PM EDT Pearl Vasquez moved his ECHO to 12/14/23 at 2 pm, within the 4 week timeframe. Please let me know if this works. I did call him, he is aware of the change. Thursday December 14, 2023 Appt at 2:00 PM (1 hr) * Telephone Encounter - Domitila Figueroa OSA - 12/08/2023 1:08 PM EDT Person calling: Ricardo Relationship to patient: [facility] Number to return call: [phone] Reason for call: [facility]: [facility] Provider Name:Shawn Hairston Pharmacy needs instructions for # of tablets and time of day to day medication. Please advise. Thanks * Addendum Note - Shawn Hairston CRNP - 12/08/2023 12:39 PM EDTAddended by: SHAWN HAIRSTON on: 12/08/2023 12:39 PM Modules accepted: Orders * Telephone Encounter - Shawn Hairston CRNP - 12/08/2023 11:22 AM EDT Patient admitted to [facility] on 12/05/2053. Anticipate Discharge within the next 24 to 48 hours. Keep appt with the undersigned on 12/12/2023. -AMY Clemente Cards progress note 12/08/2023: 33-year-old male who re-presented to [facility] emergency department 12/07/2023 due to constant severe [...] Will plan on decreasing to 600 mg TID x1 week at discharge with reduction in [...] 12/12/2023 11:30 AM EDT Office Visit Cardiology, [facility] [address] [address] Shawn Hairston CRNP [address] [address] 12/16/2023 11:00 AM EDT Office Visit Family Practice [facility] [address] [place] [address] Mariann Vizcarra MD [address] [place] [address] 01/09/2024 9:15 AM EDT Cardiac Studies Cardiac Studies, [facility] [address] [place] [address] Scheduled Orders Name Type Priority Associated Diagnoses [...] type documented in this encounter Care Teams Gang Drill Operator Relationship Specialty Start Date End Date Mariann Vizcarra MD [address] [place] [address] PCP - General Internal Medicine 06/22/21 documented as of this encounter
--- OUTSIDE RECORDS SUMMARY | 2024-01-07 16:59 | External Medical Summary | Summary of Care ---
Author Name Unknown Organization [facility] Address [address] [place] [facility] [place] [address] Phone [phone] Care Team Providers Care Php Architect Name Role Phone Mariann Vizcarra MD Primary Care Provider Reason for Referral * Precert (Within 10 days (routine)) - Authorized Specialty Diagnoses / Procedures Referred By Contac t Referred To Contact Cardiac Studies Diagnoses Chronic gastritis without bleeding, unspecified gastritis type Acute pericarditis, unspecified type Procedures ECHO, TTE, LIMITED Shawn Hairston CRNP [address] [place] [address] Referral ID Status Reason Start Date Expiration Date V isits Requested Visits Authorized [id number] Authorized Precert 01/08/2024 999 999 Reason for Visit * Reason Onset Date Comments Hospital Follow-Up 12/08/2023 Encounter Details Date Type Department Care Team (Late st Contact Info) Description 12/08/2023 Telephone Cardiology, [facility] [address] [place] [address] Shawn Hairston CRNP [address] [place] [address] Hospital Follow-Up Allergies Active Allergy Reactions Criticality [...] Active Problems Problem Noted Date Diagnosed Date Lumbar degenerative disc disease 12/01/2020 Overview: MRI [...] as of this encounter Miscellaneous Notes * Addendum Note - Shawn Hairston CRNP - 12/08/2023 12:39 PM EDTAddended by: SHAWN HAIRSTON on: 12/08/2023 12:39 PM Modules accepted: Orders * Telephone Encounter - Shawn Hairston CRNP - 12/08/2023 11:22 AM EDT Patient admitted to [facility] on 12/05/2053. Anticipate Discharge within the next 24 to 48 hours. Keep appt with the undersigned on 12/12/2023. -AMY Clemente Cards progress note 12/08/2023: 33-year-old male who re-presented to [facility] emergency department 12/07/2023 due to constant [...] 12/12/2023 11:30 AM EDT Office Visit Cardiology, [facility] [address] [place] [address] Shawn Hairston CRNP [address] [place] [address] 12/16/2023 11:00 AM EDT Office Visit Family Practice [facility] [address] [address] [address] Mariann Vizcarra MD [address] [place] [address] 02/16/2024 7:15 AM EDT Cardiac Studies Cardiac Studies, [facility] [address] [place] [address] Scheduled Orders Name Type Priority Associated Diagnoses [...] 10/15/1996, Additional history exists COVID-19 Vaccine ( season) 2023 Influenza Vaccine (FLU shot) (Season [...] type documented in this encounter Care Teams Php Architect Relationship Specialty Start Date End Date Mariann Vizcarra MD [address] [place] [address] PCP - General Internal Medicine 06/22/21 documented as of this encounter
--- OUTSIDE RECORDS SUMMARY | 2024-01-07 16:59 | External Medical Summary | Summary of Care ---
Author Name Unknown Organization [facility] Address [address] [place] [address] Phone [phone] Care Team Providers Care Electrical Control Assembler Name Role Phone Mariann Vizcarra MD Primary Care Provider Encounter Details Date Type Department Care Team (Late st Contact Info) Description 12/06/2023 Result Scan Unspecified Department <No scans attached> Allergies Active Allergy Reactions [...] 9:15 AM EDT Cardiac Studies Cardiac Studies, [facility] [address] [facility] [place] [address] 03/13/2024 8:00 AM EDT Office Visit Cardiology, [facility] [address] [facility] [place] [address] Christina Herring CRNP 132 [facility] [place] [address] Health Maintenance Due Date Last Done Comments DISCUSS TOBACCO CESSATION (REFER TO SMARTSET #4616) 1992 Pneumococcal Vaccine: Pediatrics (0 to 5 [...] Procedure Name Priority Date/Time Associated Diagnosis Comments EKG SCANNED RESULT 12/09/2023 EKG SCANNED RESULT 12/08/2023 EKG SCANNED RESULT 12/07/2023 EKG SCANNED RESULT 12/06/2023 documented in this encounter Results * EKG SCANNED RESULT (12/09/2023) 12/09/2023 No Physician Data Unknown EKG * EKG SCANNED RESULT (12/08/2023) 12/08/2023 No Physician Data Unknown EKG * EKG SCANNED RESULT (12/07/2023) 12/07/2023 No Physician Data Unknown EKG * EKG SCANNED RESULT (12/06/2023) 12/06/2023 No Physician Data Unknown EKG documented in this encounter Care Teams Electrical Control Assembler Relationship Specialty Start Date End Date Mariann Vizcarra MD [address] [place] [address] PCP - General Internal Medicine 06/22/21 documented as of this encounter
--- OUTSIDE RECORDS SUMMARY | 2024-01-07 16:59 | External Medical Summary | Summary of Care ---
Author Name Unknown Organization [facility] Address [address] [place] [facility] [place] [address] Phone [phone] Care Team Providers Care Certified Low Vision Therapist Name Role Phone Mariann Vizcarra MD Primary Care Provider Reason for Referral * Precert (Within 10 days (routine)) - Authorized Specialty Diagnoses / Procedures Referred By Contac t Referred To Contact Cardiac Studies Diagnoses Chronic gastritis without bleeding, unspecified gastritis type Acute pericarditis, unspecified type Procedures ECHO, TTE, LIMITED Shawn Hairston CRNP [address] [place] [address] Referral ID Status Reason Start Date Expiration Date V isits Requested Visits Authorized [id number] Authorized Precert 01/08/2024 999 999 Reason for Visit * Reason Onset Date Comments Hospital Follow-Up 12/08/2023 Encounter Details Date Type Department Care Team (Late st Contact Info) Description 12/08/2023 Telephone Cardiology, [facility] [address] [place] [address] Shawn Hairston CRNP [address] [place] [address] Hospital Follow-Up Allergies Active Allergy Reactions Criticality [...] encounter Miscellaneous Notes * Telephone Encounter - Domitila Figueroa OSA - 12/08/2023 1:08 PM EDT Person calling: Ricardo Relationship to patient: [facility] Number to return call: [phone] Reason for call: [facility] Pharmacy: Aleksander Lerma Provider Name:Shawn Hairston Pharmacy needs instructions for # of tablets and time of day to day medication. Please advise. Thanks * Addendum Note - Shawn Hairston CRNP - 12/08/2023 12:39 PM EDTAddended by: SHAWN HAIRSTON on: 12/08/2023 12:39 PM Modules accepted: Orders * Telephone Encounter - Shawn Hairston CRNP - 12/08/2023 11:22 AM EDT Patient admitted to [facility] on 12/05/2053. Anticipate Discharge within the next 24 to 48 hours. Keep appt with the undersigned on 12/12/2023. -AMY Clemente Cards progress note 12/08/2023: 33-year-old male who re-presented to [facility] emergency department 12/07/2023 due to constant [...] 12/12/2023 11:30 AM EDT Office Visit Cardiology, [facility] [place] [address] Shawn [facility]irston CRNP [address] [facility] [place] [address] 12/16/2023 11:00 AM EDT Office Visit Family Practice [facility] [address] [facility] [place] [address] Mariann Vizcarra MD [address] [facility] [place] [address] 02/16/2024 7:15 AM EDT Cardiac Studies Cardiac Studies, [facility] [address] [facility] [place] [address] Scheduled Orders Name Type Priority Associated Diagnoses [...] type documented in this encounter Care Teams Certified Low Vision Therapist Relationship Specialty Start Date End Date Mariann Vizcarra MD [address] [place] [address] PCP - General Internal Medicine 06/22/21 documented as of this encounter
--- OUTSIDE RECORDS SUMMARY | 2024-01-07 16:59 | External Medical Summary | Summary of Care ---
Author Name Unknown Organization [facility] Address [address] [place] [place] [place] [address] Phone [phone] Care Team Providers Care Yard Associate Name Role Phone Mariann Vizcarra MD Primary Care Provider Reason for Visit * Reason Onset Date Comments Advice 12/13/2023 Encounter Details Date Type Department Care Team (Late st Contact Info) Description 12/13/2023 Telephone Cardiology, [facility] [address] [facility] [place] [address] Christina Herring CRNP [address] [place] [address] Advice Allergies Active Allergy Reactions Criticality Noted [...] to patient: pt Number to return call: [phone] Reason for call: pt is calling asking [...] 9:15 AM EDT Cardiac Studies Cardiac Studies, [facility] [address] [place] [address] 03/13/2024 8:00 AM EDT Office Visit Cardiology, [facility] [address] [place] [address] Christina Herring CRNP [address] [place] [address] Health Maintenance Due Date Last Done Comments DISCUSS TOBACCO CESSATION (REFER TO SMARTSET #5165) 1990 Pneumococcal Vaccine: Pediatrics (0 to 5 [...] filedocumented as of this encounter Care Teams Yard Associate Relationship Specialty Start Date End Date Mariann Vizcarra MD [address] [facility] [place] [address] PCP - General Internal Medicine 06/22/21 documented as of this encounter
--- OUTSIDE RECORDS SUMMARY | 2024-01-07 16:59 | External Medical Summary | Summary of Care ---
Author Name Unknown Organization [facility] Address [address] [facility] [place] [address] Phone [phone] Care Team Providers Care District Plant Engineer Name Role Phone Mairann Vizcarra MD Primary Care Provider Reason for Visit * Reason Comments NEW PATIENT Encounter Details Date Type Department Care Team (Late st Contact Info) Description 12/12/2023 11:30 AM EDT Office Visit Cardiology, [facility] [address] [facility] [place] [address] Christina Herring CRNP [address] [place] [address] Acute pericarditis, unspecified type* Allergies Active Allergy Reactions Criticality Noted Date Comments Cefaclor Hives 03/29/2016 Cephalosporins 01/06/2001 Diclofenac Itching 12/24/2016 documented as of this encounter (statuses as of 12/12/2023) Medications Medication Sig Dispensed Refills Start Date End Date Status buprenorphine-nalo xone 8-2 mg per tab (SUBOXONE) 8-[address] under the tongue daily. Active albuterol-ipratrop ium (DUONEB) 2.5-0.5 MG/3ML nebulizer solutionIndication s:Moderate persistent asthma with exacerbation USE 1 AMPULE IN NEBULIZER 4 TIMES DAILY 360 mL 2 0 Active Excedrin Migraine 250-250-65 MG Oral Tablet (Aspirin-Acetamino phen-Caffeine) Take 1 Tablet by mouth every 6 hours as needed. Active Fluticasone Propionate 50 MCG/ACT Nasal SuspensionIndicati ons:Non-seasonal allergic rhinitis due to pollen Administer into each nostril 2 Sprays in the morning. 1 Each 11 2 Active Cetirizine HCl 10 MG Oral Tablet (ZyrTEC Allergy)Indication s:Non-seasonal allergic rhinitis due to pollen Take by mouth 1 Tablet in the morning. 30 Tablet 11 2 Active hydrOXYzine HCl 50 MG Oral TabletIndications: Insomnia, unspecified type Take by mouth 1 Tablet as needed before bedtime for Other (sleep). 90 Tablet 1 2 Active Albuterol Sulfate HFA 108 (90 Base) MCG/ACT Inhalation Aerosol SolutionIndication s:Moderate persistent asthma with acute exacerbation Inhale by mouth 2 Puffs in the morning AND 2 Puffs at noon AND 2 Puffs in the evening AND 2 Puffs before bedtime. 18 g 2 Active Albuterol Sulfate (2.5 MG/3ML) 0.083% Inhalation Nebulization Solution (Proventil)Indicat ions:Moderate persistent asthma without complication Inhale 1 Vial via nebulizer every 6 hours as needed for Wheezing. 360 mL 1 3 Active Omeprazole 40 MG Oral Capsule Delayed Release (PriLOSEC)Indicati ons:Chronic gastritis without bleeding, unspecified gastritis type,Acute pericarditis, unspecified type Take 1 Capsule by mouth in the morning. 1 hour before the first meal of the day. 90 Capsule 4 Active Ibuprofen 200 MG Oral Tablet (Motrin)Indication s:Chronic gastritis without bleeding, unspecified gastritis type,Acute pericarditis, unspecified type Take 3 Tablets by mouth 3 times a day for 7 days, THEN 2 Tablets 3 times a day for 7 days, THEN 1 Tablet 3 times a day for 7 days. 126 Tablet 4 12/30/19 24 Active Pantoprazole Sodium 40 MG Oral Tablet Delayed Release (Protonix) 4 Active Colchicine 0.6 MG Oral TabletIndications: Acute pericarditis, unspecified type Take 1 Tablet by mouth in the morning. With food.. 90 Tablet 4 Active Montelukast Sodium 10 MG Oral Tablet (Singulair) Take 1 Tablet by mouth at bedtime. 12/12/19 24 Discontinued(Pa tient preference/disc ontinuation) Pseudoephedrine HCl 30 MG Oral Tablet (Sudafed)Indicatio ns:Non-seasonal allergic rhinitis due to pollen Take by mouth 1 Tablet every 6 hours as needed for Congestion. 30 Tablet 5 2 12/12/19 24 Discontinued(Pa tient preference/disc ontinuation) Ciprofloxacin HCl 0.3 % Ophthalmic Solution (Ciloxan)Indicatio ns:Acute bacterial conjunctivitis of right eye 1 drop every 2 hours while awake 1st 2 days then every 6 hours for 5 days. To the R eye 10 mL 2 12/12/19 24 Discontinued(Pa tient preference/disc ontinuation) Colchicine 0.6 MG Oral TabletIndications: Chronic gastritis without bleeding, unspecified gastritis type,Acute pericarditis, unspecified type With food. 90 Tablet 4 12/12/19 24 Discontinued documented as of this encounter (statuses as of 12/12/2023) Active Problems Problem Noted Date Diagnosed Date Pericarditis 12/08/2023 Lumbar degenerative disc disease 12/01/2020 Overview: MRI from 2011 showed mild disease Gastroesophageal reflux disease without esophagi tis 11/19/2020 Opioid abuse, in remission 11/19/2020 Overview: On suboxone Moderate persistent asthma without complication 01/15/2010 Overview: Per Asthma Taxonomy ICD-10 update of inactive term documented as of this encounter (statuses as of 12/12/2023) Resolved Problems Problem Noted Date Diagnosed Date Resolved Date Left lumbar radiculopathy 02/20/2021 Low back pain 12/24/2016 07/28/2018 Overview: Avoid narcotics Chronic pain of left knee 10/04/2016 Routine child health exam 01/22/2003 Asthma, allergic 01/22/2003 01/15/2010 documented as of this encounter (statuses as of 12/12/2023) Immunizations Name Administration Dates Next Due DTP [...] on file documented as of this encounter Last Filed Vital Signs Vital Sign Reading Time Taken Comments Blood Pressure 112/84 12/12/2023 11:18 AM EDT Pulse 92 12/12/2023 11:18 AM EDT Temperature - - Respiratory Rate 20 12/12/2023 11:18 AM EDT Oxygen Saturation - - Inhaled Oxygen Concentration - - Weight 51.4 kg (113 lb 4 oz) 12/12/2023 11:18 AM EDT Height - - Body Mass Index 20.71 11/30/2021 2:29 PM EDT documented in this encounter Progress Notes * Christina Herring CRNP - 12/12/2023 11:30 AM EDT Images from the original note were not included. Cardiology Outpatient Visit 12/12/2023 Primary Brancher: NEW PATIENT/ Dr. Parmar inpatient Past medical history: Acute pericarditis, 09/2023 with recurrent pericarditis in the setting of med noncompliance 11/2023 H/o alcohol and polysubstance abuse On Chronic suboxone Continues to drink 6 pk/day Tobacco use, 1/2 ppd Anxiety/depression HPI 33-year-old male presenting to the cardiology office today as a new patient following up after recent hospital admission for acute pericarditis. Accompanied by his . Presented to [facility] ED on 10/23/2023 due to constant chest pain described as a central pressure in hischest. Non radiating. Took Ibuprofen without relief in symptoms. Patient's blood work shows a whitecount of 14 with normal H&H and platelet count. Kidney function was unremarkable with normal electrolytes. Troponin is undetectable. EKG show some diffuse elevation and possible TX depression-in light of the patient's white count chest pain patient there was concerns for pericarditis. Patient was prescribed a 3 month course of colchicine with plans to follow up as an outpatient with a repeat echo. Represented to the [facility] ED on 12/04/2023 due to recurrent chest pain. Notes noncompliance with the Colchicine and did not finish course. Bedside limited echo/US showed trace pericardial fluid. CT of the chest without effusion or PE. Patient refused IV fluids and left AMA. Represented 12/06/2023 due to worsening constant chest pain. EKG with diffuse ST segment elevation specifically in inferior and lateral leads. Findings concerning for acute pericarditis. CTA of the chest was negative [...] wall motion abnormalities or significant valvular disease. Treated with single dose of IV Solu-Medrol, colchicine, and high dose ibuprofen. Repeat Echo 12/08/2023: LVEF remains stable. Decrease in pericardial fluid. IVC no longer dilated with appropriate inspiratory collapse noted. Today the patient presents with his . Notes that he is feeling well from a cardiac standpoint. No further episodes of chest pain. Denies shortness of breath palpitations or lightheadedness. No orthopnea, PND, or increased lower extremity edema. No fever, chills, cough, hematochezia, melena, or hemoptysis. EKG showing normal sinus rhythm, 81 beats per minute with early repolarization. Patient is compliant with all medications, and offers no side effects. Daily tobacco user, smokes half a pack per day Daily alcohol use, 6 pack per day Illicit drug use: +marijuana use. History of methamphetamine use 6 months ago Denies previous myocardial infarction, cardiac catheterization, coronary artery bypass grafting, a history of congestive heart failure, valvular disease or rheumatic fever, or history of arrhythmia. Requesting a return to work letter. Current Outpatient Medications Medication Sig Dispense Refill buprenorphine-naloxone 8-2 mg per tab (SUBOXONE) 8-[address] under the tongue daily. albuterol-ipratropium (DUONEB) 2.5-0.5 MG/3ML nebulizer solution USE 1 AMPULE IN NEBULIZER 4 TIMES DAILY 360 mL 2 Excedrin Migraine 250-250-65 MG Oral Tablet (Hozffty-Hmirshzvchohn-Cmejqndy) Take 1 Tablet by mouthevery 6 hours as needed. Fluticasone Propionate 50 MCG/ACT Nasal Suspension Administer into each nostril 2 Sprays in the morning. 1 Each 11 Cetirizine HCl 10 MG Oral Tablet (ZyrTEC Allergy) Take by mouth 1 Tablet in the morning. 30 Tablet 11 hydrOXYzine HCl 50 MG Oral Tablet Take by mouth 1 Tablet as needed before bedtime for Other (sleep). 90 Tablet 1 Albuterol Sulfate HFA 108 (90 Base) MCG/ACT Inhalation Aerosol Solution Inhale by mouth 2 Puffs in the morning AND 2 Puffs at noon AND 2 Puffs in the evening AND 2 Puffs before bedtime. 18 g 0 Albuterol Sulfate (2.5 MG/3ML) 0.083% Inhalation Nebulization Solution (Proventil) Inhale 1 Vial via nebulizer every 6 hours as needed for Wheezing. 360 mL 1 Omeprazole 40 MG Oral Capsule Delayed Release (PriLOSEC) Take 1 Capsule by mouth in the morning. 1 hour before the first meal of the day. 90 Capsule 0 Ibuprofen 200 MG Oral Tablet (Motrin) Take 3 Tablets by mouth 3 times a day for 7 days, THEN 2 Tablets 3 times a day for 7 days, THEN 1 Tablet 3 times a day for 7 days. 126 Tablet 0 Pantoprazole Sodium 40 MG Oral Tablet Delayed Release (Protonix) Colchicine 0.6 MG Oral Tablet Take 1 Tablet by mouth in the morning. With food.. 90 Tablet 0 No current facility-administered medications for this visit. Past Medical History: Diagnosis Date Anxiety Asthma Bipolar depression (HCC) Depression Gastroesophageal reflux disease without esophagitis 11/19/2020 Lumbar degenerative disc disease 12/01/2020 Moderate persistent asthma without complication 01/15/2010 Per Asthma Taxonomy ICD-10 update of inactive term Past Surgical History: Procedure Laterality Date EGD, FLEXIBLE, DIAGNOSTIC 09/21/2017 + H pylori/ESOPHAGOGASTRODUODENOSCOPY (EGD), FLEXIBLE, TRANSORAL, DIAGNOSTIC performed by Jur[facility] Talbert [facility] at [facility] Social History Tobacco Use Smoking status: Every Day Current packs/day: 0.30 Average packs/day: 0.3 packs/day for 10.0 years (3.0 ttl pk-yrs) Types: Cigarettes Smokeless tobacco: Current Types: Chew Tobacco comments: Only Occasionally Vaping Use Vaping status: Never Used Substance Use Topics Alcohol use: No Drug use: Not Currently Comment: on suboxone Review of patient's allergies indicates: Allergen Reactions Cefaclor Hives Cephalosporins Diclofenac Itching Review of Systems: See HPI for pertinent positives. All others negative, other than those noted in HPI. Physical Exam: BP 112/84 (BP Site: Left Arm, BP Position: Sitting, BP Cuff Size: Regular) | Pulse 92 | Resp 20 | Wt 51.4 kg (113 lb 4 oz) | BMI 20.71 kg/m | BSA 1.5 m General: No acute distress. A+Ox3. HEENT: Normocephalic. Atraumatic. Conjunctiva and sclera clear. NECK: No carotid bruits. No JVD. Carotid upstrokes are brisk. Heart: RRR. S1 and S2 noted without murmur, rubs, gallops. PMI non displaced. Lungs: Clear to auscultation. No wheezes, rhonchi, rales. Abdomen: Normal bowel sounds. Soft. Nontender. No masses or organomegaly. No abdominal bruits. Extremities: No edema. No clubbing or cyanosis. Pulses: radial=2/4, posterior tibial=2/4, dorsalis pedis = 2/4. NEURO: No focal deficits. PSYCH: Normal. Lab data/imaging study review: Echo 12/08/2023 [facility] Acute pericarditis Echo 12/06/2023 [facility] Acute pericarditis Impression/Plan: This is a 33 year old male who is being evaluated in the cardiology office for ongoing care/risk management for the below diagnoses. 1. Acute pericarditis, unspecified type Acute pericarditis, dx 09/2023 with recurrent pericarditis in the setting of med noncompliance 11/2023 Continue colchicine 0.6 mg daily times 90 days Continue high dose ibuprofen taper-- patient to take 600 mg three times daily x7 days, 400 mg threetimes daily x7 days, 200 mg three times daily x7 days then discontinue Repeat echocardiogram in December to reassess pericardial effusion. The patient agrees to the above plan and will call with additional questions or concerns. ER with all emergencies advised. Follow Up: Return in about 3 months (around 03/13/2024). I spent a total of 60 minutes on the date of service in preparation, delivery, and documentation ofthe care provided to Ankit Cabrera excluding any time spent in the performance of separately billed services. AMY Zuniga [facility], Department of Cardiology This chart was completed in part utilizing [employer] Speech Voice Recognition Software. Grammatical errors, random word insertions, prounoun errors, and incomplete sentences are an occasional consequence of this system due to software limitations, ambient noise, and hardware issues. Any formal questions or concerns about the content, text, or information contained within the body of this dictation should be directly addressed to the provider for clarification. documented in this encounter Nursing Notes * Maki Branch CMA - 12/12/2023 11:18 AM EDT Examination Room: 7 Name: Ankit Cabrera Date of : (1990). Reason for Visit: new - hospital follow up Interim Hospitalization(s): [facility] - 12/06/2023 Problems/Concerns: denies Chest Pain/SOB: denies [facility] Discussed: Yes [facility] is a way you can talk to your provider online through e-mail. Would you like to sign up? I can activate it for you? ALREADY ACTIVE Patient was instructed to not get up on the exam table until directed and assisted by their provider; patient is to remain seated in the chair/ wheelchair/ exam table for fall prevention and safety reasons. Patient is aware to have assistance to step down off exam table with personnel. Patient voiced full comprehension of instructions. documented in this encounter Miscellaneous Notes * Addendum Note - Maki Branch CMA - 12/12/2023 11:52 AM EDTAddended by: MAKI BRANCH on: 12/12/2023 11:52 AM Modules accepted: Orders documented in this encounter Plan of Treatment Upcoming Encounters Date Type Department Care Team (Late st Contact Info) Description 12/16/2023 11:00 AM EDT Office Visit Family Practice [facility] [address] [address] Mariann Vizcarra MD [address] [place] [address] 01/09/2024 9:15 AM EDT Cardiac Studies Cardiac Studies, [facility] [address] [address] 03/13/2024 8:00 AM EDT Office Visit Cardiology, [facility] [place] [address] Christina Herring CRNP [address] [place] [address] Scheduled Orders Name Type Priority Associated Diagnoses Orde r Schedule CBC Lab Routine Acute pericarditis, unspecified type Expected: 12/12/2023, Expires: 12/11/2024 COMPREHENSIVE METABOLIC PANEL Lab Routine Acute pericarditis, unspecified type Expected: 12/12/2023, Expires: 12/11/2024 LIPID PANEL WITH DIRECT LDL IF TG IS HIGH Lab Routine Acute pericarditis, unspecified type Expected: 12/12/2023, Expires: 12/11/2024 EKG EKG Routine Acute pericarditis, unspecified type Ordered: 12/12/2023 Health Maintenance Due Date Last Done Comments DISCUSS TOBACCO CESSATION (REFER TO SMARTSET #7573) 1990 Pneumococcal Vaccine: Pediatrics (0 to 5 [...] Diagnoses Diagnosis Acute pericarditis, unspecified type- Primary documented in this encounter Care Teams District Plant Engineer Relationship Specialty Start Date End Date Mariann Vizcarra MD [address] [place] [address] PCP - General Internal Medicine 06/22/21 documented as of this encounter"
--- OUTSIDE RECORDS SUMMARY | 2024-01-07 16:59 | External Medical Summary | Summary of Care ---
Author Name Unknown Organization [facility] Address [address] [place] [facility] [place] [address] Phone [phone] Care Team Providers Care Manager Publishing Name Role Phone Mariann Vizcarra MD Primary Care Provider Reason for Referral * Precert (Within 10 days (routine)) - Authorized Specialty Diagnoses / Procedures Referred By Contac t Referred To Contact Cardiac Studies Diagnoses Chronic gastritis without bleeding, unspecified gastritis type Acute pericarditis, unspecified type Procedures ECHO, TTE, LIMITED Shawn Hairston CRNP [address] [place] [address] Referral ID Status Reason Start Date Expiration Date V isits Requested Visits Authorized [id number] Authorized Precert 01/08/2024 999 999 Reason for Visit * Reason Onset Date Comments Hospital Follow-Up 12/08/2023 Encounter Details Date Type Department Care Team (Late st Contact Info) Description 12/08/2023 Telephone Cardiology, [facility] [address] [place] [address] Shawn Hairston CRNP [address] [place] [address] Hospital Follow-Up Allergies Active Allergy Reactions Criticality [...] patient: [facility] Number to return call: [phone] Reason for call: [facility] Pharmacy: Aleksander Lerma Provider Name:Shawn Hairston Pharmacy needs instructions for # of tablets and time of day to day medication. Please advise. Thanks * Addendum Note - Shawn Hairston CRNP - 12/08/2023 12:39 PM EDTAddended by: SHAWN HAIRSTON on: 12/08/2023 12:39 PM Modules accepted: Orders * Telephone Encounter - Shawn Hairston CRNP - 12/08/2023 11:22 AM EDT Patient admitted to [facility] on 12/05/2053. Anticipate Discharge within the next 24 to 48 hours. Keep appt with the undersigned on 12/12/2023. -AMY Clemente Cards progress note 12/08/2023: 33-year-old male who re-presented to [facility] emergency department 12/07/2023 due to constant severe [...] 12/12/2023 11:30 AM EDT Office Visit Cardiology, [facility] [place] [address] Shawn [facility]on CRNP [facility] [place] [address] 12/16/2023 11:00 AM EDT Office Visit Family Practice [facility] [address] [facility] [place] [address] Mariann Vizcarra MD [facility] [place] [address] 02/16/2024 7:15 AM EDT Cardiac Studies Cardiac Studies, [facility] [address] [facility] [place] [address] Scheduled Orders Name Type Priority Associated Diagnoses [...] type documented in this encounter Care Teams Manager Publishing Relationship Specialty Start Date End Date Mariann Vizcarra MD [address] [address] PCP - General Internal Medicine 06/22/21 documented as of this encounter
--- OUTSIDE RECORDS SUMMARY | 2024-01-07 16:59 | External Medical Summary | Summary of Care ---
Author Name Unknown Organization [facility] Address [address] [place] [address] Phone [phone] Care Team Providers Care Band Maker Name Role Phone Mariann Vizcarra MD Primary Care Provider Encounter Details Date Type Department Care Team (Late st Contact Info) Description 12/06/2023 Result Scan Unspecified Department Lyndon Parmar, DO [address] [place] [address] <No scans attached> Allergies Active Allergy Reactions Criticality Noted Date Comments Cefaclor Hives 03/29/2016 Cephalosporins 01/06/2001 Diclofenac Itching 12/24/2016 documented as of this encounter (statuses as of 12/07/2023) Medications Medication Sig Dispensed Refills Start Date End Date Status buprenorphine-naloxon e 8-2 mg per tab (SUBOXONE) 8-[address] under the tongue daily. 0 Active albuterol-ipratropium (DUONEB) 2.5-0.5 MG/3ML nebulizer solutionIndications:M oderate persistent asthma with exacerbation USE 1 AMPULE IN NEBULIZER 4 TIMES DAILY 360 mL 2 08/29/2019 Active Excedrin Migraine 250-250-65 MG Oral Tablet (Aspirin-Acetaminophe n-Caffeine) Take 1 Tab by mouth every 6 hours as needed. 0 Active Montelukast Sodium 10 MG Oral Tablet (Singulair) Take 10 mg by mouth at bedtime. 0 Active Omeprazole 40 MG Oral Capsule Delayed Release (PriLOSEC)Indications :Chronic gastritis without bleeding, unspecified gastritis type Take 1 Capsule by mouth daily. 1 hour before the first meal of the day 90 Capsule 3 08/10/2021 Active Fluticasone Propionate 50 MCG/ACT Nasal SuspensionIndications :Non-seasonal allergic rhinitis due to pollen Administer into each nostril 2 Sprays in the morning. 1 Each 11 10/19/2021 Active Pseudoephedrine HCl 30 MG Oral Tablet (Sudafed)Indications: Non-seasonal allergic rhinitis due to pollen Take by mouth 1 Tablet every 6 hours as needed for Congestion. 30 Tablet 5 10/19/2021 Active Cetirizine HCl 10 MG Oral Tablet (ZyrTEC Allergy)Indications:N on-seasonal allergic rhinitis due to pollen Take by mouth 1 Tablet in the morning. 30 Tablet 11 10/19/2021 Active hydrOXYzine HCl 50 MG Oral TabletIndications:Ins omnia, unspecified type Take by mouth 1 Tablet as needed before bedtime for Other (sleep). 90 Tablet 1 11/30/2021 Active Ciprofloxacin HCl 0.3 % Ophthalmic Solution (Ciloxan)Indications: Acute bacterial conjunctivitis of right eye 1 drop every 2 hours while awake 1st 2 days then every 6 hours for 5 days. To the R eye 10 mL 0 11/30/2021 Active Albuterol Sulfate HFA 108 (90 Base) MCG/ACT Inhalation Aerosol SolutionIndications:M oderate persistent asthma with acute exacerbation Inhale by [...] Sulfate (2.5 MG/3ML) 0.083% Inhalation Nebulization Solution (Proventil)Indication s:Moderate persistent asthma without complication Inhale 1 Vial via nebulizer every 6 hours as needed for Wheezing. 360 mL 1 01/03/2023 Active documented as of this encounter (statuses as of 12/07/2023) Active Problems Problem Noted Date Diagnosed Date Lumbar degenerative disc disease 12/01/2020 Overview: MRI from 2012 showed mild disease Gastroesophageal reflux disease without esophagi tis 11/19/2020 Opioid abuse, in remission 11/19/2020 Overview: On suboxone Moderate persistent asthma without complication 01/15/2010 Overview: Per Asthma Taxonomy ICD-10 update of inactive term documented as of this encounter (statuses as of 12/07/2023) Resolved Problems Problem Noted Date Diagnosed Date Resolved Date Left lumbar radiculopathy 02/20/2021 Low back pain 12/24/2016 07/28/2018 Overview: Avoid narcotics Chronic pain of left knee 10/04/2016 Routine child health exam 01/22/2003 Asthma, allergic 01/22/2003 01/15/2010 documented as of this encounter (statuses as of 12/07/2023) Immunizations Name Administration Dates Next Due Seasonal [...] 12/12/2023 11:30 AM EDT Office Visit Cardiology, [facility] [address] [address] Christina Herring CRNP [address] [address] 02/16/2024 7:15 AM EDT Cardiac Studies Cardiac Studies, [facility] [place] [address] [address] Health Maintenance Due Date Last Done Comments [...] Results * OUTSIDE LAB RESULTS (12/06/2023) 12/06/2023 Lyndon Parmar DO LABORATORY documented in this encounter Care Teams Band Maker Relationship Specialty Start Date End Date Mariann Vizcarra MD [address] [address] PCP - General Internal Medicine 06/22/21 documented as of this encounter
--- OUTSIDE RECORDS SUMMARY | 2024-01-07 16:59 | External Medical Summary | Summary of Care ---
Author Name Unknown Organization [facility] Address [address] [place] [facility] [place] [place] [address] Phone [phone] Care Team Providers Care Loss Prevention Guard Name Role Phone Mariann Vizcarra MD Primary Care Provider Reason for Visit * Reason Comments NEW PATIENT Encounter Details Date Type Department Care Team (Late st Contact Info) Description 12/12/2023 11:30 AM EDT Office Visit Cardiology, [facility] [address] [facility] [place] [address] Christina Herring CRNP [address] [place] [facility] [place] [address] Acute pericarditis, unspecified type* Allergies Active Allergy [...] not included. Cardiology Outpatient Visit 12/12/2023 Primary Professor Of Theatre: NEW PATIENT/ Dr. Parmar inpatient Past medical [...] pericarditis. Accompanied by his . Presented to [facility] ED on 10/23/2023 due to constant chest pain described as a central pressure in hischest. Non radiating. Took Ibuprofen without relief in symptoms. Patient's blood work shows a whitecount of 14 with normal H&H and platelet count. Kidney function was unremarkable with normal electrolytes. Troponin is undetectable. EKG show some diffuse elevation and possible HI depression-in light of the patient's white count chest pain patient there was concerns for pericarditis. Patient was prescribed a 3 month course of colchicine with plans to follow up as an outpatient with a repeat echo. Represented to the [facility] ED on 12/04/2023 due to recurrent chest [...] 2 Excedrin Migraine 250-250-65 MG Oral Tablet (Ddiuyjk-Vyvmgcyozzoed-Qqkhmjth) Take 1 Tablet by mouthevery 6 hours [...] performed by Jurgen Talbert MD at ENDOSCOPY [facility] Social History Tobacco Use Smoking status: Every [...] Normal. Lab data/imaging study review: Echo 12/08/2023 [facility] Acute pericarditis Echo 12/06/2023 [facility] Acute pericarditis Impression/Plan: This is a 33 [...] performance of separately billed services. AMY Zuniga [facility], Department of Cardiology This chart was completed in part utilizing [employer] Speech Voice Recognition Software. Grammatical errors, random [...] new - hospital follow up Interim Hospitalization(s): [facility] - 12/06/2023 Problems/Concerns: denies Chest Pain/SOB: denies [...] 11:00 AM EDT Office Visit Family Practice [facility] [address] [address] Mariann Vizcarra MD [address] [address] 01/09/2024 9:15 AM EDT Cardiac Studies Cardiac Studies, [facility] [address] [address] 03/13/2024 8:00 AM EDT Office Visit Cardiology, [facility] [place] [address] Christina Herring CRNP [address] [place] [address] Scheduled Orders Name Type Priority Associated Diagnoses [...] Comments DISCUSS TOBACCO CESSATION (REFER TO SMARTSET #[id number]) 1992 Pneumococcal Vaccine: Pediatrics (0 to 5 [...] Primary documented in this encounter Care Teams Loss Prevention Guard Relationship Specialty Start Date End Date Mariann Vizcarra MD [address] [place] [address] PCP - General Internal Medicine 06/22/21 documented as of this encounter"
--- OUTSIDE RECORDS SUMMARY | 2024-01-07 16:59 | External Medical Summary | Summary of Care ---
Author Name Unknown Organization [facility] Address [address] [facility] [place] [address] Phone [phone] Care Team Providers Care Floor Coverings Installer Name Role Phone Mariann Vizcarra MD Primary Care Provider Reason for Visit * Reason Onset Date Comments Hospital Follow-Up 12/08/2023 Encounter Details Date Type Department Care Team (Late st Contact Info) Description 12/08/2023 Telephone Card[facility] [address] [facility] [address] Christina Herring CRNP [address] [facility] [place] [address] Hospital Follow-Up Allergies Active Allergy Reactions Criticality [...] 12/08/2023) Immunizations Name Administration Dates Next Due Seasonal [...] Telephone Encounter - Christina Herring CRNP - 12/08/2023 11:22 AM EDT Patient admitted to [facility] on 12/05/2053. Anticipate Discharge within the next 24 to 48 hours. Keep appt with the undersigned on 12/12/2023. -AMY Clemente Cards progress note 12/08/2023: 33-year-old male who re-presented to [facility] emergency department 12/07/2023 due to constant [...] 12/12/2023 11:30 AM EDT Office Visit Cardiology, [facility] [address] [address] Christina Herring CRNP [address] [address] 12/16/2023 11:00 AM EDT Office Visit Family Practice [facility] [address] [address] Mariann Vizcarra MD [address] [address] 02/16/2024 7:15 AM EDT Cardiac Studies Cardiac Studies, [facility] [address] [address] Health Maintenance Due Date Last Done Comments [...] filedocumented as of this encounter Care Teams Floor Coverings Installer Relationship Specialty Start Date End Date Mariann Vizcarra MD [address] [facility] [place] [address] PCP - General Internal Medicine 06/22/21 documented as of this encounter
--- OUTSIDE RECORDS SUMMARY | 2024-01-07 16:59 | External Medical Summary | Summary of Care ---
Author Name Unknown Organization [facility] Address [address] [facility] [place] [address] Phone [phone] Care Team Providers Care Programming Engineer Name Role Phone Mariann Vizcarra MD Primary Care Provider Reason for Referral * Precert (Within 10 days (routine)) - Authorized Specialty Diagnoses / Procedures Referred By Contac t Referred To Contact Cardiac Studies Diagnoses Chronic gastritis without bleeding, unspecified gastritis type Acute pericarditis, unspecified type Procedures ECHO, TTE, LIMITED Shawn Hairston CRNP [address] [place] [address] Referral ID Status Reason Start Date Expiration Date V isits Requested Visits Authorized [id number] Authorized Precert 01/08/2024 999 999 Reason for Visit * Reason Onset Date Comments Hospital Follow-Up 12/08/2023 Encounter Details Date Type Department Care Team (Late st Contact Info) Description 12/08/2023 Telephone Cardiology, [facility] [address] [place] [address] Shawn Hairston CRNP [address] [place] [address] Hospital Follow-Up Allergies Active Allergy Reactions Criticality [...] EDT Person calling: Ricardo Relationship to patient: [facility] Pharmacy Number to return call: [phone] Reason for call: [facility] Pharm[facility]: [facility]ks[facility] Lerma Provider Name:Shwan Hairston Pharmacy needs instructions for # of tablets and time of day to day medication. Please advise. Thanks * Addendum Note - Shawn Hairston CRNP - 12/08/2023 12:39 PM EDTAddended by: SHAWN HAIRSTON on: 12/08/2023 12:39 PM Modules accepted: Orders * Telephone Encounter - Shawn Hairston CRNP - 12/08/2023 11:22 AM EDT Patient admitted to [facility] on 12/05/2053. Anticipate Discharge within the next 24 to 48 hours. Keep appt with the undersigned on 12/12/2023. -AMY Clemente Cards progress note 12/08/2023: 33-year-old male who re-presented to [facility] emergency department 12/07/2023 due to [...] 12/12/2023 11:30 AM EDT Office Visit Cardiology, [facility] [address] [place] [address] Shawn Hairston CRNP [address] [place] [address] 12/14/2023 2:00 PM EDT Cardiac Studies Cardiac Studies, [facility] [address] [place] [address] 12/16/2023 11:00 AM EDT Office Visit Family Practice [facility] [address] [place] [address] Mariann Vizcarra MD [address] [place] [address] Scheduled Orders Name Type Priority Associated Diagnoses [...] type documented in this encounter Care Teams Programming Engineer Relationship Specialty Start Date End Date Mariann Vizcarra MD [address] [place] [address] PCP - General Internal Medicine 06/22/21 documented as of this encounter
--- OUTSIDE RECORDS SUMMARY | 2024-01-07 16:59 | External Medical Summary | Summary of Care ---
Author Name Unknown Organization [facility] Address [address] [place] [facility] [place] [place] [address] Phone [phone] Care Team Providers Care Claims Investigator Name Role Phone Mariann Vizcarra MD Primary Care Provider Reason for Referral * Precert (Within 10 days (routine)) - Authorized Specialty Diagnoses / Procedures Referred By Contac t Referred To Contact Cardiac Studies Diagnoses Chronic gastritis without bleeding, unspecified gastritis type Acute pericarditis, unspecified type Procedures ECHO, TTE, LIMITED Shawn Hairston CRNP [address] [place] [address] Referral ID Status Reason Start Date Expiration Date V isits Requested Visits Authorized [id number] Authorized Precert 01/08/2024 999 999 Reason for Visit * Reason Onset Date Comments Hospital Follow-Up 12/08/2023 Encounter Details Date Type Department Care Team (Late st Contact Info) Description 12/08/2023 Telephone Cardiology, [facility] [address] [place] [address] Shawn Hairston CRNP [address] [place] [address] Hospital Follow-Up Allergies Active Allergy Reactions Criticality [...] patient: [facility] Pharmacy Number to return call: [phone] Reason for call: [facility] Pharmacy: Aleksander Lerma Provider Name:Shawn Hairston Pharmacy needs instructions for # of tablets and time of day to day medication. Please advise. Thanks * Addendum Note - Shawn Hairston CRNP - 12/08/2023 12:39 PM EDTAddended by: SHAWN HAIRSTON on: 12/08/2023 12:39 PM Modules accepted: Orders * Telephone Encounter - Shawn Hairston CRNP - 12/08/2023 11:22 AM EDT Patient admitted to [facility] on 12/05/2053. Anticipate Discharge within the next 24 to 48 hours. Keep appt with the undersigned on 12/12/2023. -AMY Clemente Cards progress note 12/08/2023: 33-year-old male who re-presented to [facility] emergency department 12/07/2023 due to constant [...] 12/12/2023 11:30 AM EDT Office Visit Cardiology, [facility] [address] [address] Shawn Hairston CRNP [address] [address] 12/14/2023 2:00 PM EDT Cardiac Studies Cardiac Studies, [facility] [address] [address] 12/16/2023 11:00 AM EDT Office Visit Family Practice [facility] [address] [address] Mariann Vizcarra MD [address] [address] Scheduled Orders Name Type Priority Associated Diagnoses [...] type documented in this encounter Care Teams Claims Investigator Relationship Specialty Start Date End Date Mariann Vizcarra MD [address] [place] [address] [place] [address] PCP - General Internal Medicine 06/22/21 documented as of this encounter
--- NOTE | 2024-01-07 17:52 | Electrocardiogram Report ---
Test Reason : Blood Pressure : / mmHG Vent. Rate : 116 BPM Atrial Rate : 116 BPM P-R Int : 136 ms QRS Dur : 088 ms QT Int : 332 ms P-R-T Axes : 062 046 053 degrees QTc Int : 461 ms Poor data quality, interpretation may be adversely affected Sinus tachycardia Nonspecific ST and T wave abnormality Abnormal ECG When compared with ECG of 09-DEC-2023 05:13, Vent. rate has increased BY 41 BPM Nonspecific T wave abnormality now evident in Inferior leads Nonspecific T wave abnormality now evident in Lateral leads Confirmed by Carlos Simeon ([id number]) on 01/07/2024 5:51:33 PM Referred By: REFERRED SELF Confirmed By:Henri Simeon
[2024-01-07] MEDS ORDERED: GABAPENTIN 1200MG ALCOHOL WITHDRAWAL LOAD PO STA (18:33)
--- NOTE | 2024-01-07 19:39 | Pharmacy Report ---
Pharmacy PK ABX Note - Date of Service January 07, 2024 - Assessment and Plan Assessment 33 year old M receiving vancomycin and cefepime for empiric treatment until infection is ruled out (pending blood cultures). Patient has hx of polysubstance abuse and acute pericarditis now w/ leukocytosis (WBC: ~16 K). Procalcitonin < 0.02, lactate 0.9, and afebrile. Pertinent microbiologic data includes:blood cultures x 2 pending. Cardiology consulted. Day # 1 of antimicrobial therapy. Plan Vancomycin * Loading dose: 1250 mg IV x 1 * Maintenance dose: 1250 mg IV every 8 hours * Regimen is predicted to achieve target AUC/ALMA of 400-600 mg/L.hr * Will order random level on 01/08 if therapy is to be extended beyond 48 hours Cefepime * 2 g IV q8h - dosed appropriately for empiric indication based on renal function Pharmacy will continue to follow and will adjust dose/frequency as necessary. Thank you. Pharmacy has transitioned to AUC monitoring for vancomycin. AUC/ALMA is the preferred PK/PD target and is associated with decreased risk of nephrotoxicity compared to traditional trough targets.
[2024-01-07] MEDS: COLCHICINE 0.6 MG TAB PO SCH (19:45)
[2024-01-07] MEDS: THIAMINE HCL 100 MG TAB PO SCH (19:45)
[2024-01-07] MEDS: FOLIC ACID 1 MG TAB PO SCH (19:45)
[2024-01-07] MEDS: GABAPENTIN 600 MG TAB PO ONE (19:46)
[2024-01-07] MEDS: VANCOMYCIN HCL 1,250 MG in SODIUM CHLORIDE 0.9% 250 ML IV SCH (19:47)
[2024-01-07 21:08] LABS: Appearance Urine Clear (Clear); Bilirubin Urine Negative (Negative); Blood Urine Negative (Negative); Color Urine Yellow; Glucose Urine UA Negative (Negative); Ketones Urine Negative (Negative); Leukocyte Esterase Urine Negative (Negative); Nitrite Urine Negative (Negative); Protein Urine Negative (Negative); Specific Gravity Urine 1.037 (1.000-1.030); Urobilinogen Urine Negative (Negative)
[2024-01-07] MEDS: CEFEPIME 2,000 MG in SYRINGE 0 ML IV SCH (21:16)
[2024-01-07] MEDS: PANTOprazole 40 MG TAB PO SCH (21:16)
[2024-01-07] MEDS: BUPRENORPHINE/NALOXONE 8/2 MG TAB SL SCH (21:16)
[2024-01-07] MEDS: IBUPROFEN 200 MG TAB PO SCH (21:16)
[2024-01-07] MEDS: ACETAMINOPHEN 325 MG TAB PO PRN (21:16)
[2024-01-07] MEDS: HEPARIN SOD 5,000 UNIT/0.5 ML VIAL SQ SCH (21:17)
[2024-01-07] MEDS: LORazepam 2 MG in SYRINGE 1 ML IV PRN (21:32)
[2024-01-07] MEDS: GABAPENTIN 600 MG TAB PO SCH (23:40)
[2024-01-08] MEDS: LORazepam 1 MG in SYRINGE 0.5 ML IV STA (00:52)
[2024-01-08 01:57] LABS: Amphetamines+Metham, Urine Pos (Neg); Barbiturates, Urine Neg (Neg); Benzodiazepine, Urine Neg (Neg); Cocaine, Urine Neg (Neg); Fentanyl, Urine Neg (Neg); MDMA (Ecstacy), Urine Neg (Neg); Marijuana, Urine Pos (Neg); Methadone, Urine Neg (Neg); Opiate, Urine Neg (Neg); Phencyclidine, Urine Neg (Neg)
[2024-01-08] MEDS: MAGNESIUM SULFATE / D5W 1 GM/100 ML BAG IV ONE (02:20)
[2024-01-08] MEDS: SODIUM CHLORIDE 0.9% 1,000 ML IV ONE (02:20)
[2024-01-08] MEDS: cloNIDine HCL 0.1 MG TAB PO ONE (03:09)
[2024-01-08 06:35] LABS: Basophils # (auto) 0.07 K/uL (0.00-0.20); Basophils % (auto) 0.5 %; Eosinophils # (auto) 0.72 K/uL (0.00-0.50); Eosinophils % (auto) 4.9 %; Hematocrit (blood only) 36.9 % (42.0-52.0); Hemoglobin 12.6 g/dl (14.0-18.0); Immature Granulocytes # (auto) 0.06 K/uL (0.01-0.20); Immature Granulocytes % (auto) 0.4 %; Lymphocytes # (auto) 1.05 K/uL (1.20-3.40); Lymphocytes % (auto) 7.2 %; Mean Corpuscular Hemoglobin 30.8 pg (25.0-34.0); Mean Corpuscular Hgb Conc 34.1 g/dL (32.0-36.0); Mean Corpuscular Volume 90.2 fL (80.0-100.0); Mean Platelet Volume 9.6 fL (9.4-12.4); Monocytes # (auto) 1.58 K/uL (0.11-0.59); Monocytes % (auto) 10.8 %; Neutrophils # (auto) 11.16 K/uL (1.40-6.50); Neutrophils % (auto) 76.2 %; Platelet Count 227 K/uL (130-400); RDW Coefficient of Variation 11.9 % (11.5-14.5); RDW Standard Deviation 39.4 fL (36.4-46.3); Red Blood Count 4.09 M/uL (4.70-6.10); White Blood Count 14.64 K/ul (4.8-10.8)
[2024-01-08 06:48] LABS: Anion Gap 2 (3-11); BUN Creatinine Ratio 14.6 (10-20); Blood Urea Nitrogen 7 mg/dl (6-23); C Reactive Protein 15.62 mg/dl (0-0.5); Calcium 8.6 mg/dl (8.6-10.3); Carbon Dioxide 27 mmol/L (21-32); Chloride 108 mmol/L (98-107); Creatinine Clr Calc Pharmacy 168.4 ml/min; Est GFR (African American) > 150.0 ml/min; Est GFR (Non-African American) 146.8 ml/min; Glucose 131 mg/dl (70-99(Fasting)); Magnesium 2.2 mg/dl (1.7-2.4); Potassium 4.1 mmol/L (3.5-5.1); Sodium 137 mmol/L (136-145)
--- NOTE | 2024-01-08 08:17 | Cardiology Consultation ---
Date of Consultation January 08, 2024 Assessment & Plan (1) Acute pericarditis: (2) Pericardial effusion: (3) Polysubstance abuse: (4) Sinus tachycardia: Plan Patient admitted with recurrent pericarditis with moderate pericardial effusion. Increased in size since last admission, but no tamponade. Non compliant with outpatient medication regimen. Was to take ibuprofen taper for 1 month and colchicine for 3 months. He tells me he stopped both medications about 6 OR 7 Days after hospital discharge. IV Solumedrol 40 mg x 1 dose now. Start prednisone 40 mg BID tonight. Continue colchicine 0.6 mg daily Continue pantoprazole 40 mg BID Start metoprolol 25 mg daily due to sinus tachycardia. Repeat limited echo tomorrow. Case discussed with Dr. Satnam Kang spent a total of 45 minutes on the date of service in preparation, delivery, and documentation of the care provided to this patient, excluding any time spent in the performance of separately billed services. Ariadna Powell PA-C Department of Cardiology, [facility] This chart was completed in part utilizing Speech Voice Recognition Software. Grammatical errors, random word insertions, pronoun errors, and incomplete sentences are an occasional consequence of this system due to software limitations, ambient noise, and hardware issues. Any formal questions or concerns about the content, text, or information contained within the body of this dictation should be directly addressed to the provider for clarification. Supervising Physician Co-Signing Physician Notes Patient seen and personally examined. Full assessment and plan as well outlined above. Care and management discussed with advanced provider and personally endorsed 33-year-old male with prior endocarditis and pericardial effusion presents with worsening of pain consistent with acute pericarditis. Notable lapse in medical therapy. Echocardiogram today demonstrates moderate-sized pericardial effusion increased from prior study. No evidence of tamponade Plan as above add medication for heart rate control. Given recurrent complaints will treat with IV then oral steroids at risk of allowing recurrent Repeat echocardiogram in a.m. History of Present Illness Reason for Consultation: history of pericarditis Requesting Physician: [facility] Hospitalist Team Attending Physician: Dr. Beltran History of Present Illness Patient is a 33 year old male known to [facility] Cardiology over the last several months due to recurrent pericarditis. history includes: 1. Acute pericarditis, 09/2023 with recurrent pericarditis in the setting of med noncompliance 11/2023 2. H/o alcohol and polysubstance abuse a. On Chronic suboxone b. Continues to drink 6 pk/day 3. Tobacco use, 1/ ppd 4. Anxiety/depression recent admissions summarized below per outpatient notes: Presented to [facility] ED on 10/23/2023 due to constant chest pain described as a central pressure in his chest. Non radiating. Took Ibuprofen without relief in symptoms. Patient's blood work shows a white count of 14 with normal H&H and platelet count. Kidney function was unremarkable with normal electrolytes. Troponin is undetectable. EKG show some diffuse elevation and possible IL depression-in light of the patient's white count chest pain patient there was concerns for pericarditis. Patient was prescribed a 3 month course of colchicine with plans to follow up as an outpatient with a repeat echo. Represented to the [facility] ED on 12/04/2023 due to recurrent chest pain. Notes noncompliance with the Colchicine and did not finish course. Bedside limited echo/US showed trace pericardial fluid. CT of the chest without effusion or PE. Patient refused IV fluids and left AMA. Represented 12/06/2023 due to worsening constant chest pain. EKG with diffuse ST segment elevation specifically in inferior and lateral leads. Findings concerning for acute pericarditis. CTA of the chest was negative for PE 12/04/2023 and there were no evidence of pericardial effusion on imaging at that time. Echocardiogram performed 12/06/2023 showed a moderate-sized circumferential pericardial effusion without definite tamponade, however the findings of the mild inferior vena cava dilatation with lack of inspiratory collapse suggests elevated pericardial pressure. LVEF was normal at 60 to 65% without wall motion abnormalities or significant valvular disease. Treated with single dose of IV Solu-Medrol, colchicine, and high dose ibuprofen. Repeat Echo 12/08/2023: LVEF remains stable. Decrease in pericardial fluid. IVC no longer dilated with appropriate inspiratory collapse noted. Patient was evaluated in clinic on 12/12/2023 with AMY Saenz. At that time he was doing well and reportedly taking his medications. He was to continue colchicine daily for 90 days and continue the high dose ibuprofen taper for 21 more days. Patient reports he stopped his colchicine and Ibuprofen 2 days after seeing cardiology as he was doing well. (on admission he reported he was taking all meds) Starting yesterday patient developed worsening chest pain, similar to prior episodes of pericarditis. Throughout the day, symptoms progressed and he came to the ER for evaluation. CT scan with small pericardial effusion noted EKG demonstrates sinus tach with inferior ST elevation, similar to past tracings. At time of consult, patient resting in bed. Was not very cooperative with exam or obtaining history. Kept his eyes closed. States he feels "miserable". Requesting pain meds. Allergies Allergy/AdvReac Type Severity Reaction Status Date / Time capsaicin Allergy Intermediate Rash Verified 01/07/24 10:58 cefaclor Allergy Intermediate Rash Verified 01/07/24 10:58 Home Medications Medication Instructions Recorded Confirmed Type buprenorphine 8 mg-naloxone 2 mg 1 tab sublingual BID 10/23/23 01/07/24 History sublingual tablet colchicine 0.6 mg tablet 0.6 mg PO DAILY 01/07/24 01/07/24 History ibuprofen 200 mg tablet 400 mg PO BID 01/07/24 01/07/24 History Patient History Medical History Polysubstance abuse on Suboxone Surgical History No pertinent past surgical history Social History Smoking Status: Current every day smoker Tobacco Type: Cigarettes Cigarettes Per Day: 10; Hx Alcohol Use: Yes Alcohol type: beer Hx Substance Use: Yes Last Used Substance: Just Prior to Arrival Last Used Substance Other:: last month Preferred Language: Welsh Communication Ability: Effective Interpretative Dancer Required: No Beliefs That Will Affect Care: None Current Living Situation: Spouse Current Living Situation Comment: lives with Feels Safe at Home: Yes Safety Concerns: Feels Safe At This Time Gender Identity: Male Assistive Devices: None Review of Systems Review of Systems: All systems reviewed & are unremarkable except as noted in HPI & below Physical Exam Constitutional: WD/WN, vitals as above no acute distress Neck: trachea midline, no thyromegaly Respiratory: normal respiratory effort, lungs clear to auscultation Cardiovascular: Rate/Rhythm: regular rhythm and + tachycardic Heart Sounds: no murmur (distant heart sounds. no audible murmur or rub) Vessels: no JVD Extremities: no edema Gastrointestinal (Abdomen): normal bowel sounds, soft, nontender, no hepatosplenomegaly Skin: no rashes, warm and dry Neurologic: PERRL, EOMI, accommodation nl, no face palsy, no dysarthria Results & Data Vital Signs (Past 12 Hours) Vital Signs Temp Pulse Pulse Resp BP Pulse Ox O2 Del Method 01/08/24 07:34 36.6 C 115 H 18 103/63 95 Room Air 01/08/24 02:34 143 H 01/08/24 01:30 36.8 C 125 H 22 137/98 98 Room Air 01/07/24 23:00 115 H 01/07/24 23:00 36.7 C 113 H 15 137/94 98 Room Air 01/07/24 22:00 36.7 C 114 H 15 140/92 98 Room Air 01/07/24 21:00 36.6 C 106 H 13 142/94 H 99 Room Air Laboratory Results Cardiac Enzymes 01/07/24 01/07/24 Range/Units 10:04 19:07 AST 17 (13-39) U/L Troponin I High Sens 4.9 < 2.3 (0-20) pg/ml Coagulation 01/07/24 Range/Units 10:04 PT 10.3 (9.0-12.0) Seconds APTT 27 (21-31) Seconds CBC 01/07/24 01/08/24 Range/Units 10:04 05:49 WBC 15.87 H 14.64 H (4.8-10.8) K/ul RBC 4.52 L 4.09 L (4.70-6.10) M/uL Hgb 14.1 12.6 L (14.0-18.0) g/dl Hct 40.7 L 36.9 L (42.0-52.0) % Plt Count 259 227 (130-400) K/uL Neut # (Auto) 12.08 H 11.16 H (1.40-6.50) K/uL Lymph # (Auto) 1.12 L 1.05 L (1.20-3.40) K/uL Potter # (Auto) 1.88 H 1.58 H (0.11-0.59) K/uL Eos # (Auto) 0.64 H 0.72 H (0.00-0.50) K/uL Baso # (Auto) 0.08 0.07 (0.00-0.20) K/uL Comprehensive Metabolic Panel 01/07/24 01/08/24 Range/Units 10:04 05:49 Sodium 133 L 137 (136-145) mmol/L Potassium 3.9 4.1 (3.5-5.1) mmol/L Chloride 99 108 H (98-107) mmol/L Carbon Dioxide 27 27 (21-32) mmol/L BUN 7 7 (6-23) mg/dl Creatinine 0.58 L 0.48 L (0.6-1.4) mg/dl Glucose 140 H 131 H (70-99(Fasting)) mg/dl Calcium 9.4 8.6 (8.6-10.3) mg/dl AST 17 (13-39) U/L ALT 19 (7-52) U/L Alkaline Phosphatase 88 (34-104) U/L Total Protein 7.4 (6.0-8.3) gm/dl Albumin 4.4 (3.4-5.0) gm/dl Intake and Output 01/07/24 01/08/24 01/08/24 22:59 06:59 14:59 Intake Total 1040 / 3526.2 875 / 3526.2 Output Total 300 / 600 300 / 600 Balance 740 / 2926.2 575 / 2926.2 Intake: IV 800 / 2786.2 375 / 2786.2 Magnesium Sulfate / D5w 1 gm In 100 / 100 100 ml @ 50 mls/hr IV ONE ONE Rx#:[id number] Vancomycin HCl 1,250 mg In 275 / 550 275 / 550 Sodium Chloride 0.9% 250 ml @ 200 mls/hr IV Q8H [facility] Rx#: [id number] Vancomycin HCl 1,250 mg In 525 / 525 Sodium Chloride 0.9% 500 ml @ 200 mls/hr IV NOW ONE Rx#: [id number] Oral 240 / 740 500 / 740 Output: Urine 300 / 600 300 / 600 Other: Weight 53.4 kg 53.4 kg Weight Measurement Method Built in Bedscale Standing Scale Diagnostic Findings Telemetry reviewed: Sinus tach. St elevation in lead II noted Echo report reviewed from this morning: Limited views obtained Moderate circumferential pericardial effusion. Tamponade absent. Normal inferior vena cava size and collapsibility Compared with prior study on 12/07, effusion size has increased. Tamponade remains absent. EKG reviewed from admission: Sinus tachycardia at [address] elevation in inferior and lateral leads Chest CTA report reviewed from admission: 1. No pulmonary emboli. 2. Stable small pericardial effusion with trace pleural effusions. 3. Mild pulmonary emphysema. 4. Unchanged mild nonspecific borderline-enlarged axillary chain, mediastinal and hilar lymphadenopathy. 5. Partially imaged pelviectasis of the superior pole right kidney with right nephrolithiasis. Correlation with renal ultrasound recommended. Blood cultures pending CPR elevated Medications Administered Current Inpatient Medications Acetaminophen (Acetaminophen 325 Mg Tab) 650 mg PO Q4H PRN PRN Reason: Pain or Fever Stop: 02/06/24 18:32 Last Admin: 01/08/24 01:32 Dose: 650 mg Buprenorphine/Naloxone (Buprenorphine/Naloxone 8/2 Mg Tab) 1 tab SL BID IESHA Stop: 02/06/24 20:59 Last Admin: 01/07/24 21:16 Dose: 1 tab Colchicine (Colchicine 0.6 Mg Tab) 0.6 mg PO DAILY IESHA Stop: 02/06/24 18:59 Last Admin: 01/07/24 19:45 Dose: 0.6 mg Folic Acid (Folic Acid 1 Mg Tab) 1 mg PO QAM IESHA Stop: 02/06/24 18:44 Last Admin: 01/07/24 19:45 Dose: 1 mg Gabapentin (Gabapentin 600 Mg Tab) 600 mg PO Q8H [facility] Stop: 01/09/24 06:01 Gabapentin (Gabapentin 600 Mg Tab) 600 mg PO Q12H [facility] Stop: 01/10/24 06:01 Gabapentin (Gabapentin 600 Mg Tab) 600 mg PO Q24H [facility] Stop: 01/11/24 06:01 Heparin Sodium (Porcine) (Heparin Sod 5,000 Unit/0.5 Ml Vial) 5,000 units SQ Q8 IESHA Stop: 02/06/24 21:59 Last Admin: 01/08/24 06:07 Dose: Not Given Lorazepam 1 mg/ Syringe 1 mls @ 2 mls/min IV UD PRN; Protocol PRN Reason: EtOH Withdrawal AWSS Score 6,7 Stop: 02/06/24 14:46 Lorazepam 2 mg/ Syringe 2 mls @ 2 mls/min IV UD PRN; Protocol PRN Reason: EtOH Withdrawal AWSS Score 8,9 Stop: 02/06/24 14:46 Last Admin: 01/08/24 01:55 Dose: 2 mls/min Lorazepam 3 mg/ Syringe 3 mls @ 2 mls/min IV ONCE PRN; Protocol PRN Reason: EtOH Withdrawal AWSS Score 10+ Cefepime HCl 2,000 mg/ Syringe 20 mls @ 5 mls/min IV Q8H [facility]; Protocol Stop: 01/09/24 20:59 Last Admin: 01/08/24 05:49 Dose: 5 mls/min Vancomycin HCl 1,250 mg/ (Sodium Chloride) 275 mls @ 200 mls/hr IV Q8H [facility] Stop: 01/09/24 19:59 Last Infusion: 01/08/24 05:51 Dose: Infused Sodium Chloride (Nss) 1,000 mls @ 80 mls/hr IV .[id number] ONE Stop: 01/08/24 14:30 Last Admin: 01/08/24 02:20 Dose: 80 mls/hr Ibuprofen (Ibuprofen 200 Mg Tab) 400 mg PO BID [facility] Stop: 02/06/24 20:59 Last Admin: 01/07/24 21:16 Dose: 400 mg Miscellaneous Information (Vancomycin Consult Active) 1 each N/A UD PRN PRN Reason: Consult Stop: 02/06/24 12:10 Pantoprazole Sodium (Pantoprazole 40 Mg Tab) 40 mg PO BID [facility] Stop: 02/06/24 20:59 Last Admin: 01/07/24 21:16 Dose: 40 mg Thiamine HCl (Thiamine Hcl 100 Mg Tab) 100 mg PO QAM [facility] Stop: 02/06/24 18:44 Last Admin: 01/07/24 19:45 Dose: 100 mg (1) Acute pericarditis Pericarditis type: idiopathic Qualified Code(s): I30.0 - Acute nonspecific idiopathic pericarditis
[2024-01-08 08:59] LABS: Estimated Average Glucose 100 mg/dl; Hemoglobin A1C 5.1 % (4.5-5.6)
--- NOTE | 2024-01-08 11:03 | Hospitalist Progress Note ---
Date of Service January 08, 2024 Assessment & Plan (1) Acute pericarditis: (2) Sinus tachycardia: (3) Polysubstance abuse: (4) Depression: (5) Patient's noncompliance with other medical treatment and regimen due to unspecified reason: Plan Patient returns to the hospital with ongoing chest pain most likely due to partially treated pericarditis. Echocardiogram shows increasing pericardial effusion, no tamponade. This would be consistent with patient's self-reported noncompliance with medical treatment for pericarditis Communication with Dr. Hay, cardiology, reviewed recommendations. Started on beta-lorna for tachycardia, continue colchicine, adding prednisone to medical treatment for pericarditis. Additional buprenorphine for pain control as needed in addition to his scheduled Subutex Low suspicion for infective pericarditis at this time, continue antibiotics, if cultures remain sterile will discontinue Education to patient that he cannot use amphetamines if on beta-lorna. Cardiology also given patient instructions Continue to monitor for alcohol withdrawal Admission and Anticipated Discharge Date Admission Date: January 07, 2024 Subjective Patient continues to complain of chest pain Physical Exam Physical Exam: Constitutional: Alert, drowsy HEENT: Mucous membranes moist. Lungs: Clear to auscultation, decreased, no wheezes rales or rhonchi CV: S1-S2, tachycardic Abdomen: Soft, nontender, nondistended Extremities: No significant edema Neuro: No focal deficits Psych: Cooperative, flat affect, depressed mood Results & Data Results & Data Vital Signs (Past 12 Hours) Vital Signs Temp Pulse Pulse Resp BP Pulse Ox O2 Del Method 01/08/24 08:26 100/63 01/08/24 07:34 36.6 C 115 H 18 103/63 95 Room Air 01/08/24 02:34 143 H 01/08/24 01:30 36.8 C 125 H 22 137/98 98 Room Air 01/07/24 23:00 115 H 01/07/24 23:00 36.7 C 113 H 15 137/94 98 Room Air Diagnostic Findings Reviewed imaging, laboratory and diagnostic studies. Pertinent findings as below. WBCs 14.6 Echocardiogram report reviewed, moderate pericardial effusion, no tamponade slightly increased from previous. Glucose 131 CRP 15.6 Urine drug testing positive for marijuana and amphetamine (1) Acute pericarditis Pericarditis type: idiopathic Qualified Code(s): I30.0 - Acute nonspecific idiopathic pericarditis
[2024-01-08] MEDS: methylPREDNISolone 40 MG in SYRINGE 0 ML IV ONE (11:05)
[2024-01-08] MEDS: METOPROLOL SUCC 25MG EXT REL TAB PO SCH (11:05)
[2024-01-08] MEDS: GABAPENTIN 600 MG TAB PO SCH (14:55)
--- NOTE | 2024-01-08 19:26 | Communication Note ---
Date of Service: January 08, 2024
[2024-01-08] MEDS: buprenorphine HCL 2 MG SUBL SL PRN (19:32)
[2024-01-08] MEDS: LORazepam 0.5 MG TAB PO STA (20:11)
[2024-01-08] MEDS: predniSONE 20 MG TAB PO SCH (21:50)
[2024-01-09 07:59] LABS: Hematocrit (blood only) 34.8 % (42.0-52.0); Hemoglobin 11.9 g/dl (14.0-18.0); Mean Corpuscular Hemoglobin 31.5 pg (25.0-34.0); Mean Corpuscular Hgb Conc 34.2 g/dL (32.0-36.0); Mean Corpuscular Volume 92.1 fL (80.0-100.0); Mean Platelet Volume 9.8 fL (9.4-12.4); Platelet Count 255 K/uL (130-400); RDW Coefficient of Variation 12.2 % (11.5-14.5); RDW Standard Deviation 41.1 fL (36.4-46.3); Red Blood Count 3.78 M/uL (4.70-6.10); White Blood Count 24.12 K/ul (4.8-10.8)
[2024-01-09 08:01] LABS: Anion Gap 6 (3-11); BUN Creatinine Ratio 18.2 (10-20); Blood Urea Nitrogen 10 mg/dl (6-23); Calcium 9.6 mg/dl (8.6-10.3); Carbon Dioxide 26 mmol/L (21-32); Chloride 106 mmol/L (98-107); Creatinine Clr Calc Pharmacy 150.3 ml/min; Est GFR (African American) > 150.0 ml/min; Est GFR (Non-African American) 138.9 ml/min; Glucose 191 mg/dl (70-99(Fasting)); Potassium 4.1 mmol/L (3.5-5.1); Sodium 138 mmol/L (136-145)
--- NOTE | 2024-01-09 09:12 | Discharge Summary ---
Discharge Summary Date of Service January 09, 2024 Principal Dx & Hospital Course #1 = Principal Diagnosis (1) Acute pericarditis: (2) Sinus tachycardia: (3) Polysubstance abuse: (4) Depression: (5) Patient's noncompliance with other medical treatment and regimen due to unspecified reason: Plan Patient was admitted to the hospital on a monitored unit. There is no significant arrhythmias noted however he was in sinus tachycardia. Cardiology consultation was obtained. Patient had persistent symptoms related to his pericarditis. Exacerbated due to his noncompliance after his previous discharge. He was restarted on the colchicine. He is given IV Solu-Medrol and continued on oral prednisone. Is also started on PPI for GI prophylaxis. He did have a repeat echocardiogram did show slightly increased pericardial effusio n but no evidence of tamponade. This recommended he continue with his oral treatments for his pericarditis. On the morning of discharge patient was quite irritated. He was under the misperception that he was not being treated for his pericarditis. I reviewed his medications with him and showed him that he was given IV steroids, continued on colchicine. He was even given additional Subutex for pain. Patient remained irritable and irate. I explained to him that I would touch base with cardiology and we could potentially coordinate a discharge for him today. However before I could coordinate all this and give him his full discharge instructions he pulled out his IV and signed out AGAINST MEDICAL ADVICE. Prescriptions were sent to his pharmacy based on the medication changes we were recommending. He was started on some metoprolol for his sinus tachycardia. Yesterday cardiology spent some time educating him on being on a beta-lorna and not using amphetamines. He does have a history of amphetamine use and tested positive for amphetamine. I reiterated this information when I visited with him as well. Patient signed out AGAINST MEDICAL ADVICE before this could reiterated again today. Patient is at high risk for returning to the ED due to his symptoms and his noncompliance. Will attempt to coordinate outpatient follow-up with him and for him he will need to see cardiology and have updated and follow-up echocardiogram to monitor his pericardial effusion. Notes For Next Care Provider Follow-up cardiology to follow-up echocardiogram and pericardial effusion Medication Changes From Visit Ibuprofen discontinued prednisone started Toprol-XL started for sinus tachycardia Admission HPI Per Admitting Provider This is a 33 y/o male with history of polysubstance abuse, on Suboxone, depression, and multiple recent admissions for pericarditis who presented to the ED today with recurrent chest pain. He reports that since discharge from the hospital he was doing okay until yesterday when he had the abrupt onset of recurrent sharp chest pain similar to prior. The pain waxes and wanes but has overall gotten more severe since starting yesterday. He reports that he has been taking the colchicine and ibuprofen but not the pantoprazole as he did not think that he needed it (no GI distress). He has been taking his Suboxone as well but no other medications. He reports that the pain is not reproducible. He has associated "shallow breathing" as deep breathing makes the pain worse but no overt SOB. He denies fevers, chills, sweats, syncope. Not eating much but reports that this is in part due to food insecurity rather than a decrease in appetite. No issues with bowels or bladder. He is drinking six beers a day - last drink was last evening. Smokes cigarettes and marijuana but denies use of other recreational substances. Admission Exam Per Admitting Provider See H&P Discharge Exam Constitutional: Alert, agitated and irritable Lungs: Clear to auscultation, decreased, no wheezes rales or rhonchi CV: S1-S2, regular Neuro: No focal deficits Psych: Restless, irritable, verbally abusive Updated Medication List Medication Instructions Recorded Confirmed Type buprenorphine 8 mg-naloxone 2 mg 1 tab sublingual BID 10/23/23 01/07/24 History sublingual tablet colchicine 0.6 mg tablet 0.6 mg PO DAILY 01/07/24 01/07/24 History ibuprofen 200 mg tablet 400 mg PO BID 01/07/24 01/07/24 History metoprolol succinate 25 mg 25 mg PO QAM 30 days #30 tabs 01/09/24 Rx tablet,extended release 24 hr pantoprazole 40 mg tablet,delayed 40 mg PO DAILY 30 days #30 tabs 01/09/24 Rx release prednisone 20 mg tablet 40 mg (2 x 20 mg) PO BID 10 days 01/09/24 Rx #40 tabs Hospital Stay Data Consultations 01/07/24 12:54 Consult Cardiology Stat ED Decision to Admit Stat Diagnostic Imagining Performed 01/07/24 12:08 CT angio chest PE protocol Stat 01/07/24 14:17 US Renal Bladder [US renal/blad retro comp] Stat Reviewed imaging, laboratory and diagnostic studies. Pertinent findings as below. Renal ultrasound negative for obstruction Echocardiogram showed normal ejection fraction, moderate pericardial effusion slightly increased from previous but no tamponade WBCs 24.1, increased to due to steroids Hemoglobin 9.9 Electrolytes within normal range, creatinine 0.55 Calcium 191 increase due to steroids CTA of the chest negative for PE did show pericardial effusion Pending Results Patient Have Any Pending Studies at Discharge: No Discharge Instructions Given to Patient (Per Discharging Provider) Patient left AGAINST MEDICAL ADVICE Total Time Total Time Spent Total Time Spent (In Minutes): 25
--- NOTE | 2024-01-09 17:09 | Electrocardiogram Report ---
Test Reason : Blood Pressure : / mmHG Vent. Rate : 108 BPM Atrial Rate : 108 BPM P-R Int : 124 ms QRS Dur : 078 ms QT Int : 316 ms P-R-T Axes : 045 027 035 degrees QTc Int : [address] elevation, consider early repolarization, pericarditis, or injury When compared with ECG of 07-JAN-2024 09:52, ST more elevated in Lateral leads Nonspecific T wave abnormality no longer evident in Inferior leads Nonspecific T wave abnormality, improved in Lateral leads Confirmed by Orion Mckeon ([id number]) on 01/09/2024 5:08:57 PM Referred By: REFERRED SELF Confirmed By:Orion Mckeon
[2024-01-09] MEDS ORDERED: GABAPENTIN 600 MG TAB PO SCH (18:00)
--- NOTE | 2024-01-10 08:12 | Coding Query ---
CODING QUERY To promote full compliance with coding requirements relating to patient care, provider participation is requested in all cases of merchant patroller uncertainty. Please assist us with the question(s) below: Clinical Indicators: H&P: * history of polysubstance abuse, on Suboxone * Will start Gabapentin protocol with prn Ativan. Thiamine and folic acid daily. * He does not recall the date of his last use of meth but states that he is no longer using this. Discharge Summary: * He does have a history of amphetamine use and tested positive for amphetamine. Coding Question(s): Based on the clinical indicators above, are you able to further clarify the reason for the use of Suboxone as: * Amphetamine dependence, uncomplicated * Opioid dependence, uncomplicated * Other (please specify) * Unable to determine Physician's Response(s): opioid dependence Thank you Chiqui Chanel Principal Diagnosis: "that condition established after study, to be chiefly responsible for occasioning the admission of the patient to the hospital for care." Co-Existing Principal Diagnosis: "when two or more diagnoses equally meet the criteria for principal diagnosis as determined by the circumstances of admission, diagnostic work up, and/or therapy provided, and the Alphabetic Index, Tabular List, or another coding guideline does not provide sequencing direction, any one of the diagnoses may be sequenced first." "When the physician has documented what appears to be a current diagnosis in the body of the record, but has not included the diagnosis in the final diagnostic statement, the physician should be asked whether the diagnosis should be added." (Source Coding [facility] 2 QTR90. p3-4) DARIAN
[2024-01-11] MEDS ORDERED: GABAPENTIN 600 MG TAB PO SCH (06:00)
[2024-01-11 12:06] LABS: Amphetamine Urine, Confirm 3264 ng/mL (<250); Marijuana Quant, GCMS Urine 52 ng/mL (<5); Methamphetamine, Ur Confirm 12139 ng/mL (<250)
== END 2024-01-09 10:26 | disposition left against medical advice (07) | DRG 315 ==
LOC: ED 09:44 → SUATTDRO 15:59 → EDINP 15:59 → 2E 18:33
DX: F32.A Depression, unspecified; Z79.899 Other long term (current) drug therapy; Z88.8 Allergy status to other drugs, medicaments and biological substances; Y90.0 Blood alcohol level of less than 20 mg/100 ml; F11.20 Opioid dependence, uncomplicated; I30.9 Acute pericarditis, unspecified; F17.210 Nicotine dependence, cigarettes, uncomplicated; Z91.128 Patient's intentional underdosing of medication regimen for other reason; Z91.199 Patient's noncompliance with other medical treatment and regimen due to unspecified reason; F10.939 Alcohol use, unspecified with withdrawal, unspecified; R00.0 Tachycardia, unspecified; T50.4X6A Underdosing of drugs affecting uric acid metabolism, initial encounter; R73.9 Hyperglycemia, unspecified; R82.5 Elevated urine levels of drugs, medicaments and biological substances; E87.1 Hypo-osmolality and hyponatremia

== ENCOUNTER 2024-01-27 10:42 | Inpatient (IN) ==
[2024-01-27 11:13] LABS: Basophils # (auto) 0.04 K/uL (0.00-0.20); Basophils % (auto) 0.3 %; Eosinophils # (auto) 0.15 K/uL (0.00-0.50); Hematocrit (blood only) 37.3 % (42.0-52.0); Hemoglobin 12.5 g/dl (14.0-18.0); Immature Granulocytes # (auto) 0.08 K/uL (0.01-0.20); Immature Granulocytes % (auto) 0.5 %; Lymphocytes # (auto) 1.51 K/uL (1.20-3.40); Lymphocytes % (auto) 9.7 %; Mean Corpuscular Hgb Conc 33.5 g/dL (32.0-36.0); Mean Corpuscular Volume 92.6 fL (80.0-100.0); Mean Platelet Volume 9.7 fL (9.4-12.4); Monocytes # (auto) 1.88 K/uL (0.11-0.59); Monocytes % (auto) 12.1 %; Neutrophils # (auto) 11.92 K/uL (1.40-6.50); Neutrophils % (auto) 76.4 %; Platelet Count 377 K/uL (130-400); RDW Coefficient of Variation 12.2 % (11.5-14.5); RDW Standard Deviation 41.5 fL (36.4-46.3); Red Blood Count 4.03 M/uL (4.70-6.10); White Blood Count 15.58 K/ul (4.8-10.8)
--- NOTE | 2024-01-27 11:21 | Emergency Department Note ---
Impression & Plan Pericarditis, Effusion, pericardium ED Provider Note NAME: ROBERT PITTMAN AGE: 33 SEX: M : 1990 ARRIVES VIA: Ambulance INFORMANT: Patient, ED PROVIDER(S): Orion Patiño DO CHIEF COMPLAINT: Chest pain HPI: The patient is a 33-year-old male who presented to the emergency department by ambulance for an evaluation of chest pain. The patient has a history of pericarditis. He was diagnosed in the spring. He has had a couple episodes since that time. He is currently on colchicine. The patient started having symptoms a couple days ago. It is worsened with movement as well as lying flat. He denies having any fever or chills. He denies having any nausea or vomiting. ROS: See above HPI for pertinent positives & negatives. A total of 10 systems reviewed and were otherwise negative. PAST MEDICAL HISTORY: See Below PAST SURGICAL HISTORY: See Below FAMILY HISTORY: See Below SOCIAL HISTORY: See Below HOME MEDICATIONS: See Below ALLERGIES: See Below VITALS: See Below PHYSICAL EXAMINATION: GENERAL: Patient is awake alert in no acute distress patient is resting comfortably and showing no signs of anxiety EYES: The conjunctivae are clear. The pupils are round and reactive. EARS, NOSE, MOUTH AND THROAT: The nose is without any evidence of any deformity. NECK: The neck is nontender and supple. RESPIRATORY: Normal respiratory effort is noted there is no evidence of wheezing rhonchi or rales CARDIOVASCULAR: Tachycardic rate was noted to auscultation. There is no definite murmur. GASTROINTESTINAL: The abdomen is soft. Abdomen is nontender. MUSCULOSKELETAL/EXTREMITIES: There is no evidence of gross deformity full range of motion is noted in the hips and shoulders. SKIN: There is no obvious evidence of any rash. There are no petechiae, pallor or cyanosis noted. NEUROLOGIC: Patient is awake alert and oriented x3 strength is symmetric patellar reflexes are 2+ bilaterally MEDICAL DECISION MAKING: The patient is a 33-year-old male who presented to the emergency department for an evaluation of chest discomfort. Diagnosed with pericarditis recently. The patient was started on colchicine. He was post to be taking ibuprofen as well. The patient was treated with pain medication in the emergency department. He was reevaluated multiple times. I discussed the patient's laboratory and radiographic studies with him. Chest x-ray did appear to be consistent with an enlargement of the heart which could be related to a worsening pericardial effusion. For this reason echocardiogram was obtained. I discussed the patient's condition with the on-call [facility] hospitalist. They have agreed to evaluate the patient in the emergency department for further management and disposition. I discussed the patient's condition with the on-call [facility] inspector electromechanical after echocardiogram. Triage Nursing notes reviewed. Prior medical records reviewed Vital Signs: reviewed and remarkable for tachycardia. Differential diagnosis: Cardiac ischemia, aortic dissection, pulmonary embolism, pneumothorax, pneumonia, pericarditis, myocarditis, esophageal rupture, GERD, cholecystitis, pancreatitis, musculoskeletal, as well as other pathologies. ER treatment provided: See below Diagnostics interpreted by me: ECG: EKG was obtained in the emergency department. My interpretation is sinus tachycardia at 116 bpm. Nonspecific UT depression was noted with nonspecific ST segment abnormalities. This was compared to a tracing from January 09, 2024. There was a decrease in the ST segment elevation it was noted on a previous EKG that was diagnosed as pericarditis. Cardiac Monitoring: An order was placed for continuous cardiac monitoring. The monitor shows a rate of 122 bpm with sinus tachycardia. Laboratory studies: As stated above and show below. Imaging studies: See below. Radiographic imaging was reviewed by myself Consultation(s): I discussed this case with Dr. Begum who is on-call for the [facility] hospitalist group. I discussed this case with Dr. Beltran who read the echocardiogram. Past Med/Surg History Problem List Effusion, pericardium (Acute) Pericarditis (Acute) Patient's noncompliance with other medical treatment and regimen due to unspecified reason Depression Sinus tachycardia Pericardial effusion Polysubstance abuse (Acute) Acute pericarditis (Acute) Leukocytosis (Acute) Pericarditis (Acute) Polysubstance abuse (Acute) Depression with suicidal ideation (Acute) Medical History Polysubstance abuse on Suboxone Surgical History No pertinent past surgical history Social History Smoking Status: Current every day smoker Tobacco Type: Cigarettes Cigarettes Per Day: 10; Second Hand Exposure: No; Do You Dip or Chew Tobacco: No; Tobacco Cessation Education Requested by Patient: No Hx Alcohol Use: Yes Alcohol type: beer Hx Substance Use: Yes Last Used Substance: Just Prior to Arrival Last Used Substance Other:: last month Preferred Language: Kinyarwanda Communication Ability: Effective Camera Control Operator Required: No Beliefs That Will Affect Care: None Current Living Situation: Spouse Current Living Situation Comment: lives with Other Information That Helps Us Care for You: No Feels Safe at Home: Yes Safety Concerns: Feels Safe At This Time Gender Identity: Male Assistive Devices: None Allergies Allergies Allergy/AdvReac Type Severity Reaction Status Date / Time capsaicin Allergy Intermediate Rash Verified 01/07/24 10:58 cefaclor Allergy Intermediate Rash Verified 01/07/24 10:58 Home Meds Home Medications Medication Instructions Recorded Confirmed buprenorphine 8 mg-naloxone 2 mg 1 tab sublingual BID 10/23/23 01/27/24 sublingual tablet colchicine 0.6 mg tablet 0.6 mg PO DAILY 01/07/24 01/27/24 bupropion HCl 200 mg tablet,12 hr 200 mg PO DAILY 01/27/24 01/27/24 sustained-release folic acid 1 mg tablet 1 mg PO DAILY 01/27/24 01/27/24 ibuprofen 400 mg tablet 400 mg PO UD PRN Pain 01/27/24 01/27/24 omeprazole 40 mg capsule,delayed 40 mg PO UD 01/27/24 01/27/24 release Previous Rx's Medication Instructions Recorded metoprolol succinate 25 mg 25 mg PO QAM 30 days #30 tabs 01/09/24 tablet,extended release 24 hr pantoprazole 40 mg tablet,delayed 40 mg PO DAILY 30 days #30 tabs 01/09/24 release Results & Data (ED) Vital Signs Vital Signs - 24 hr 01/27/24 10:47 01/27/24 10:56 01/27/24 10:57 Temperature 36.9 C Temperature Source Oral Pulse Rate 115 H Pulse Rate [Apical] 117 H Pulse Rhythm Regular Pulse Strength Normal Pulse Strength [Apical] Respiratory Rate 19 19 Respiratory Effort / Characteristics Non-Labored Spontaneous Non-Labored Spontaneous Respiratory Depth Normal Normal Respiratory Pattern Regular Regular Blood Pressure 121/85 Blood Pressure [Right Arm] 125/90 Blood Pressure Mean 97 Blood Pressure Mean [Right Arm] 101 Pulse Oximetry 99 99 99 Oxygen Delivery Method Room Air Room Air Room Air Sepsis Recent Fever Within 48 Hours No Sepsis New/Unexplained Change in Mental Status No Sepsis Action Taken by Nursing No Action Required 01/27/24 12:10 01/27/24 12:11 01/27/24 13:43 Temperature Temperature Source Pulse Rate 123 H Pulse Rate [Apical] 117 H 116 H Pulse Rhythm Pulse Strength Pulse Strength [Apical] Normal Normal Respiratory Rate 19 19 Respiratory Effort / Characteristics Non-Labored Spontaneous Non-Labored Spontaneous Respiratory Depth Normal Normal Respiratory Pattern Blood Pressure Blood Pressure [Right Arm] 121/94 115/81 Blood Pressure Mean Blood Pressure Mean [Right Arm] 103 92 Pulse Oximetry 99 98 Oxygen Delivery Method Room Air Room Air Sepsis Recent Fever Within 48 Hours Sepsis New/Unexplained Change in Mental Status Sepsis Action Taken by [facility] Medications Current Medication List: was personally reviewed by me Laboratory Data Attestation: I reviewed the patient's lab results. 01/27/24 10:51 01/27/24 10:51 Lab Results 01/27/24 Range/Units 10:51 WBC 15.58 H (4.8-10.8) K/ul RBC 4.03 L (4.70-6.10) M/uL Hgb 12.5 L (14.0-18.0) g/dl Hct 37.3 L (42.0-52.0) % MCV 92.6 (80.0-100.0) fL MCH 31.0 (25.0-34.0) pg MCHC 33.5 (32.0-36.0) g/dL RDW Std Deviation 41.5 (36.4-46.3) fL RDW Coeff of Mckinley 12.2 (11.5-14.5) % Plt Count 377 (130-400) K/uL MPV 9.7 (9.4-12.4) fL Immature Gran % (Auto) 0.5 % Neut % (Auto) 76.4 % Lymph % (Auto) 9.7 % Levy % (Auto) 12.1 % Eos % (Auto) 1.0 % Baso % (Auto) 0.3 % Neut # (Auto) 11.92 H (1.40-6.50) K/uL Lymph # (Auto) 1.51 (1.20-3.40) K/uL Levy # (Auto) 1.88 H (0.11-0.59) K/uL Eos # (Auto) 0.15 (0.00-0.50) K/uL Baso # (Auto) 0.04 (0.00-0.20) K/uL Immature Gran # (Auto) 0.08 (0.01-0.20) K/uL ESR 46 H (0-15) mm/hr Sodium 135 L (136-145) mmol/L Potassium 4.1 (3.5-5.1) mmol/L Chloride 102 (98-107) mmol/L Carbon Dioxide 26 (21-32) mmol/L Anion Gap 7 (3-11) BUN 6 (6-23) mg/dl Creatinine 0.55 L (0.6-1.4) mg/dl Est Cr Clr Drug Dosing 150.3 ml/min Est GFR ( Amer) > 150.0 ml/min Est GFR (Non-Af Amer) 138.9 ml/min BUN/Creatinine Ratio 10.9 (10-20) Glucose 111 H (70-99(Fasting)) mg/dl Calcium 8.4 L (8.6-10.3) mg/dl Total Bilirubin 1.1 H (0.2-1.0) mg/dl AST 15 (13-39) U/L ALT 11 (7-52) U/L Alkaline Phosphatase 82 (34-104) U/L Troponin I High Sens < 2.3 (0-20) pg/ml C-Reactive Protein 17.51 H (0-0.5) mg/dl Total Protein 7.0 (6.0-8.3) gm/dl Albumin 3.8 (3.4-5.0) gm/dl Globulin 3.2 (2.5-4.0) gm/dl Albumin/Globulin Ratio 1.2 (0.9-2) Lipase < 3 L (11-82) U/L Administered Medications Discontinued Medications Colchicine (Colchicine 0.6 Mg Tab) 0.6 mg PO NOW ONE Stop: 01/27/24 11:18 Last Admin: 01/27/24 11:28 Dose: 0.6 mg Documented By: ABNER Fentanyl Citrate (Fentanyl Citrate Pf 100 Mcg/2 Ml Vial) Confirm Administered Dose 100 mcg .ROUTE .STK-MED ONE Stop: 01/27/24 16:17 Last Increment: 01/27/24 17:09 Dose: 50 mcg Documented By: VERONICA Sodium Chloride (Nss) 500 mls @ 999 mls/hr IV .Q31M ONE Stop: 01/27/24 11:47 Last Infusion: 01/27/24 12:09 Dose: Infused Documented By: Admin: 01/27/24 11:26 Dose: 999 mls/hr Documented By: ABNER Sodium Chloride (Nss) 1,000 mls @ 999 mls/hr IV .Q1H1M ONE Stop: 01/27/24 14:33 Last Infusion: 01/27/24 14:50 Dose: Infused Documented By: Admin: 01/27/24 13:40 Dose: 999 mls/hr Documented By: ABNER Methylprednisolone 100 mg/ (Syringe) 1.6 mls @ 0.533 mls/min IV NOW ONE Stop: 01/27/24 15:02 Last Admin: 01/27/24 15:34 Dose: 0.533 mls/min Documented By: ABNER Ketorolac Tromethamine (Ketorolac Tromethamine 15 Mg/Ml Vial) 10 mg IV NOW ONE Stop: 01/27/24 11:18 Last Admin: 01/27/24 11:26 Dose: 10 mg Documented By: ABNER Midazolam HCl (Midazolam Hcl 1 Mg/Ml 2ml Vial) Confirm Administered Dose 2 mg .ROUTE .STK-MED ONE Stop: 01/27/24 16:16 Last Admin: 01/27/24 17:09 Dose: 2 mg Documented By: VERONICA Imaging Data Attestation: I personally reviewed and interpreted this imaging study as follows: My Impression: Chest x-ray was obtained in the emergency department. My interpretation is cardiomegaly, final report below. Radiologist's Impression: Chest X-Ray 01/27/24 10:55 XR chest 1V portable CLINICAL HISTORY: Chest pain, nonspecific COMPARISON STUDY: Chest radiograph and chest CT January 07, 2024. FINDINGS: There is no pneumothorax. Trace bilateral pleural effusions are present. There is no consolidation or evidence for pulmonary edema. Mild enlargement of the cardiac silhouette has increased since prior exam. IMPRESSION: 1. Mild enlargement of the cardiac silhouette. A pericardial effusion cannot be excluded. 2. Trace bilateral pleural effusions. ACT 112: Negative or not required by law. Electronically signed by: Robert Chavez M.D. 01/27/2024 11:21 AM Discharge Plan Visit Data Chief Complaint: Chest Pain Stated Complaint: CHEST PAIN ED Provider: Orion Patiño Discharge Problem: Pericarditis, Effusion, pericardium Patient Disposition: Admitted As Inpatient Discharge Instructions Interventions: ED Discharge Assessment Last Done: 01/27/24 15:19 Discharge Problem: Pericarditis Qualifiers: Pericarditis type: unspecified type Chronicity: unspecified Qualified Code(s): I31.9 - Disease of pericardium, unspecified
--- NOTE | 2024-01-27 11:22 | XRay Report ---
XR chest 1V portable CLINICAL HISTORY: Chest pain, nonspecific COMPARISON STUDY: Chest radiograph and chest CT January 07, 2024. FINDINGS: There is no pneumothorax. Trace bilateral pleural effusions are present. There is no consol idation or evidence for pulmonary edema. Mild enlargement of the cardiac silhouette has increased sin ce prior exam. IMPRESSION: 1. Mild enlargement of the cardiac silhouette. A pericardial effusion cannot be excluded. 2. Trace bilateral pleural effusions. ACT 112: Negative or not required by law. Electronically signed by: Ankit Chavez M.D. 01/27/2024 11:21 AM
[2024-01-27] MEDS: KETOROLAC TROMETHAMINE 15 MG/ML VIAL IV ONE (11:26)
[2024-01-27] MEDS: SODIUM CHLORIDE 0.9% 500 ML IV ONE (11:26)
[2024-01-27] MEDS: COLCHICINE 0.6 MG TAB PO ONE ×2 (11:28→22:03)
[2024-01-27 11:29] LABS: Anion Gap 7 (3-11); BUN Creatinine Ratio 10.9 (10-20); Blood Urea Nitrogen 6 mg/dl (6-23); C Reactive Protein 17.51 mg/dl (0-0.5); Calcium 8.4 mg/dl (8.6-10.3); Carbon Dioxide 26 mmol/L (21-32); Chloride 102 mmol/L (98-107); Creatinine Clr Calc Pharmacy 150.3 ml/min; Est GFR (African American) > 150.0 ml/min; Est GFR (Non-African American) 138.9 ml/min; Glucose 111 mg/dl (70-99(Fasting)); Potassium 4.1 mmol/L (3.5-5.1); Sodium 135 mmol/L (136-145)
[2024-01-27 11:35] LABS: Troponin I High Sensitivity < 2.3 pg/ml (0-20)
[2024-01-27 12:00] LABS: Alanine Aminotransferase 11 U/L (7-52); Albumin Globulin Ratio 1.2 (0.9-2); Albumin Level 3.8 gm/dl (3.4-5.0); Alkaline Phosphatase 82 U/L (34-104); Aspartate Aminotransferase 15 U/L (13-39); Bilirubin,Total 1.1 mg/dl (0.2-1.0); Globulin 3.2 gm/dl (2.5-4.0); Lipase < 3 U/L (11-82)
[2024-01-27] MEDS: SODIUM CHLORIDE 0.9% 1,000 ML IV ONE (13:40)
--- OUTSIDE RECORDS SUMMARY | 2024-01-27 14:11 | External Medical Summary | Summary of Care ---
Author Name Unknown Organization [facility] Address [address] [place] [address] Phone [phone] Care Team Providers Care Hand Straightener Name Role Phone Mariann Vizcarra MD Primary Care Provider Encounter Details Date Type Department Care Team (Late st Contact Info) Description 01/10/2024 Population Health External Data Unspecified Department Allergies Active Allergy Reactions Criticality Noted Date Comments Cefaclor Hives 03/29/2016 Cephalosporins 01/06/2001 Diclofenac Itching 12/24/2016 documented as of this encounter (statuses as of 01/10/2024) Medications Medication Sig Dispensed Refills Start Date [...] 12/09/2023 Active Colchicine 0.6 MG Oral TabletIndications:Ac [place] pericarditis, unspecified type Take 1 Tablet by mouth in the morning. With food.. 90 Tablet 12/12/2023 Active documented as of this encounter (statuses as of 01/10/2024) Active Problems Problem Noted Date Diagnosed Date Pericarditis 12/08/2023 Lumbar degenerative disc disease 12/01/2020 Overview: MRI from 2011 showed mild disease Gastroesophageal reflux disease without esophagi tis 11/19/2020 Opioid abuse, in remission 11/19/2020 Overview: On suboxone Moderate persistent asthma without complication 01/15/2010 Overview: Per Asthma Taxonomy ICD-10 update of inactive term documented as of this encounter (statuses as of 01/10/2024) Resolved Problems Problem Noted Date Diagnosed Date Resolved Date Left lumbar radiculopathy 02/20/2021 Low back pain 12/24/2016 07/28/2018 Overview: Avoid narcotics Chronic pain of left knee 10/04/2016 Routine child health exam 01/22/2003 Asthma, allergic 01/22/2003 01/15/2010 documented as of this encounter (statuses as of 01/10/2024) Immunizations Name Administration Dates Next Due Seasonal [...] Care Team (Late st Contact Info) Description 01/12/2024 11:20 AM EDT Office Visit Family Practice [facility] [address] [id number] Mariann Vizcarra MD [address] [id number] 03/13/2024 8:00 AM EDT Office Visit Cardiology, [facility] [address] [address] Christina Herring CRNP [address] [address] Health Maintenance Due Date Last Done Comments DISCUSS TOBACCO CESSATION (REFER TO SMARTSET #[id number]) 1990 Pneumococcal Vaccine: Pediatrics (0 to 5 [...] filedocumented as of this encounter Care Teams Hand Straightener Relationship Specialty Start Date End Date Mariann Vizcarra MD [address] [address] PCP - General Internal Medicine 06/22/21 documented as of this encounter
--- OUTSIDE RECORDS SUMMARY | 2024-01-27 14:11 | External Medical Summary | Summary of Care ---
Author Name Unknown Organization [facility] Address [address] [place] [facility] [place] [address] Phone [phone] Care Team Providers Care [employer] Workflow Consultant Name Role Phone Mariann Vizcarra MD Primary Care Provider Reason for Visit * Reason Onset Date Comments Appointment 01/18/2024 Encounter Details Date Type Department Care Team (Late st Contact Info) Description 01/18/2024 Telephone Cardiology, [facility] [address] [place] [address] Christina Herring CRNP [address] [facility] [place] [address] Appointment Allergies Active Allergy Reactions Criticality Noted Date Comments Cefaclor Hives 03/29/2016 Cephalosporins 01/06/2001 Diclofenac Itching 12/24/2016 documented as of this encounter (statuses as of 01/20/2024) Medications Medication Sig Dispensed Refills Start Date [...] 12/09/2023 Active Colchicine 0.6 MG Oral TabletIndications:Ac [place] pericarditis, unspecified type Take 1 Tablet by mouth in the morning. With food.. 90 Tablet 12/12/2023 Active documented as of this encounter (statuses as of 01/20/2024) Active Problems Problem Noted Date Diagnosed Date Pericarditis 12/08/2023 Lumbar degenerative disc disease 12/01/2020 Overview: MRI from 2011 showed mild disease Gastroesophageal reflux disease without esophagi tis 11/19/2020 Opioid abuse, in remission 11/19/2020 Overview: On suboxone Moderate persistent asthma without complication 01/15/2010 Overview: Per Asthma Taxonomy ICD-10 update of inactive term documented as of this encounter (statuses as of 01/20/2024) Resolved Problems Problem Noted Date Diagnosed Date Resolved Date Left lumbar radiculopathy 02/20/2021 Low back pain 12/24/2016 07/28/2018 Overview: Avoid narcotics Chronic pain of left knee 10/04/2016 Routine child health exam 01/22/2003 Asthma, allergic 01/22/2003 01/15/2010 documented as of this encounter (statuses as of 01/20/2024) Immunizations Name Administration Dates Next Due Seasonal [...] the Last Year Not on file 12/01/2020 Utilities Answer Date Recorded Do you have trouble paying y our heating, water, or electric bill? (Adult - for ages 18 years and over) Not on file 01/10/2024 Is your family able to pay t he heat, water, or electric bill? (Household - for ages 0-17 years) Not on file 01/10/2024 Does your family have access to good internet? (Household - for ages 0-17 years) Not on file 01/10/2024 Social Connections Answer Date Recorded How often do you feel lonely or isolated from those around you? (Adult - for ages 18 years and over) Not on file 01/10/2024 Sex and Gender Information Value Date Recorded Sex Assigned at Not on file Gender Identity Not on file Sexual Orientation Not on file Job Start Date Occupation Industry Not on file Not on file Not on file documented as of this encounter Miscellaneous Notes * Telephone Encounter - Luke Hastings OSA - 01/20/2024 9:06 AM EDT Called Breanna, She stated this time and date will work. * Telephone Encounter - Luke Hastings OSA - 01/19/2024 10:46 AM EDT Patient has been scheduled with Christina Herring. Will FU Tuesday Arrive by 2:15 PM Appt at 2:30 PM (30 min) * Telephone Encounter - Nay Garsia OSA - 01/18/2024 7:46 AM EDT Person calling: breanna Relationship to patient: Number to return call: [phone] Reason for call(brief): hospital fu/ Pharmacy: na Provider Name:Amol Detailed message to office: pt was discharged on 01-11-2022/ [facility]/ chest pains/ documented in this encounter Plan of Treatment Upcoming Encounters Date Type Department Care Team (Late st Contact Info) Description 02/21/2024 2:30 PM EDT Office Visit Cardiology, [facility] [address] [id number] Christina Herring CRNP [address] [address] Health Maintenance Due Date Last Done Comments DISCUSS TOBACCO CESSATION (REFER TO SMARTSET #[id number]) 1990 Pneumococcal Vaccine: Pediatrics (0 to 5 Years) and At-Risk Patients (6 to 64 Years) (1 of 2 - PCV) 1998 HIV Screening 2007 Hepatitis C Screening 2010 *SPIROMETRY ONCE FOR ASTHMA-ADULT 10/06/2016 Depression Screening 12/01/2021 12/01/2020 DTaP,Tdap,and Td Vaccines (7 - Td or Tdap) 01/23/2023 01/23/2013, 08/23/2003, 10/15/1996, Additional history exists COVID-19 Vaccine ( - 2022- season) 2023 Influenza Vaccine (FLU shot) (Season [...] filedocumented as of this encounter Care Teams Senior Solutions Workflow Consultant Relationship Specialty Start Date End Date Mariann Vizcarra MD [address] [address] PCP - General Internal Medicine 06/22/21 documented as of this encounter
--- NOTE | 2024-01-27 14:46 | Cardiology Consultation ---
Date of Consultation January 27, 2024 Assessment & Plan (1) Pericarditis: (2) Effusion, pericardium: (3) Sinus tachycardia: Plan 1. 100 mg IV Solumedrol now. 2. Ibuprofen 800 mg TID 3. Colchicine 0.6 mg BID today then 0.6 mg daily as weight is < 70 kg, duration will need to be 6 months due to recurrence. 4. Pantoprazole 40 mg twice a day for GI protection 5. Rule out bacterial cause, TB, cancer 6. Check blood cultures and SHAW I spent a total of 58 minutes on the date of service in preparation, delivery, and documentation of the care provided to this patient excluding any time spent in the performance of separately billed services. This visit was a split-shared visit with the substantive portion of the medical decision making performed by the supervising sign language teacher/billing provider. Supervising Physician Co-Signing Physician Notes I have personally performed a history and physical examination on the patient. I have reviewed the advance practitioner's documentation, and I agree with, and take responsibility for the plan of care. History of recurrent pericarditis. Initially diagnosed 11/2023. Developed worsening chest pain over the past 48 hours. Currently describes pain as 10/10. Bedside echocardiogram with large circumferential pericardial effusion, majority of fluid adjacent to the apical, and anterior lateral rivera. Reduced inspiratory variation of the IVC suggestive of elevated right atrial pressure. No hypotension. He remains tachycardic, although this appears to be a chronic issue per review of the medical record and discussion with patient and his family members. Denies lightheadedness, dizziness, syncope, or near syncope. Echocardiographic images and case reviewed with interventional cardiology. Due to failed medical therapy and enlarging pericardial effusion with indirect evidence of elevated right atrial pressure, pericardiocentesis recommended. Risk versus benefit of procedure discussed with the patient. He is agreeable to proceed. Continue medical therapy with NSAIDs and colchicine. Fluid analysis post pericardiocentesis. Lab studies as detailed above. I spent a total of 35 minutes on the date of service in preparation, delivery, and documentation of the care provided to this patient, excluding any time spent in the performance of separately billed services. Segundo Beltran DO, [facility] History of Present Illness Reason for Consultation: Pericardial effusion Requesting Physician: Sana Aguilar Attending Physician: Sana Aguilar History of Present Illness Mr. Ankit Cabrera is a 33-year-old male who returned to the [facility] ER on January 27, 2024, via ambulance, with complaints of sharp stabbing chest discomfort, worse with inspiration, worse when lying back, improv ed with sitting up and staying still starting three days ago. Patient with multiple recent hospitalizations for recurrent acute pericarditis, history of noncompliance, leaving against medical advice in December 2023. Patient does report compliance with tapering dose of ibuprofen and colchicine at home following the December 2023 hospitalization. In the ER, patient received IV fluid resuscitation, Toradol, and a dose of colchicine. EKG on presentation today revealed sinus tachycardia with a ventricular rate of 116 bpm, with minor diffuse ST segment elevation worse in the inferolateral leads. Resting echocardiography reveals a moderate to large circumferential pericardial effusion with a large volume of fluid adjacent to the anterior lateral and apical rivera, with elevated right atrial pressure, without echocardiographic indications of cardiac tamponade. When compared to the prior study from January 09, 2024, the effusion has increased in size. Ongoing chest pain reported. and sister at bedside. Past Medical and Surgical History: Acute pericarditis, initially in September 2023, recurrent Alcohol and polysubstance abuse, chronic Suboxone Chronic tobacco abuse Chronic marijuana use. Asthma GERD Nephrolithiasis Bipolar depression Lumbar disc disease Family History: Father with Covid. Mother is alive without cardiac issues. Social History: Smoker, cigarettes and marijuana. Daily alcohol. No IV drug use. . 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 Allergies Allergy/AdvReac Type Severity Reaction Status Date / Time capsaicin Allergy Intermediate Rash Verified 01/07/24 10:58 cefaclor Allergy Intermediate Rash Verified 01/07/24 10:58 Home Medications Medication Instructions Recorded Confirmed Type buprenorphine 8 mg-naloxone 2 mg 1 tab sublingual BID 10/23/23 01/27/24 History sublingual tablet colchicine 0.6 mg tablet 0.6 mg PO DAILY 01/07/24 01/27/24 History metoprolol succinate 25 mg 25 mg PO QAM 30 days #30 tabs 01/09/24 01/27/24 Rx tablet,extended release 24 hr pantoprazole 40 mg tablet,delayed 40 mg PO DAILY 30 days #30 tabs 01/09/24 01/27/24 Rx release bupropion HCl 200 mg tablet,12 hr 200 mg PO DAILY 01/27/24 01/27/24 History sustained-release folic acid 1 mg tablet 1 mg PO DAILY 01/27/24 01/27/24 History ibuprofen 400 mg tablet 400 mg PO UD PRN Pain 01/27/24 01/27/24 History omeprazole 40 mg capsule,delayed 40 mg PO UD 01/27/24 01/27/24 History release Patient History Medical History Polysubstance abuse on Suboxone Surgical History No pertinent past surgical history Social History Smoking Status: Current every day smoker Tobacco Type: Cigarettes Cigarettes Per Day: 10; Hx Alcohol Use: Yes Alcohol type: beer Hx Substance Use: Yes Last Used Substance: Just Prior to Arrival Last Used Substance Other:: last month Preferred Language: Kyrgyz Communication Ability: Effective Lasting Floorworker Required: No Beliefs That Will Affect Care: None Current Living Situation: Spouse Current Living Situation Comment: lives with Feels Safe at Home: Yes Gender Identity: Male Assistive Devices: None Review of Systems Review of Systems: Complete Review of Systems: Constitutional: No fevers. No chills. No rash. HEENT: Glasses. No history of amaurosis fugax. Pulmonary: + Asthma. Cardiac: See above. GI/Abd: + GERD. No melana or hematochezia. No kidney problems. No liver problems. No history of pancreatic issues. Vascular: Negative vascular history. Hematologic: No coagulation disorder or anemia Musculoskeletal: Back pain. Neurologic: No history of seizure disorder. Endocrine: No thyroid issues. No history of diabetes mellitus. Complete Review of Systems is as stated above, negative, or noncontributory Physical Exam Physical Exam: General: A&Ox3. HENT: Normocephalic. Atraumatic. Eyes: PER. Conjunctiva pink, sclera clear. Neck: No JVD. Heart: Regular at 120 bpm. No rub. No murmur. Lungs: Clear to auscultation. Abdomen: +BS. Soft. Nontender. No organomegaly. Extremities: No clubbing, cyanosis, or edema. Limited neurological examination is without focal deficits. Pulses: Posterior tibial=2/4. Results & Data Vital Signs (Past 12 Hours) Vital Signs Temp Pulse Pulse Resp BP BP Pulse Ox 01/27/24 13:43 116 H 19 115/81 98 01/27/24 12:11 123 H 01/27/24 12:10 117 H 19 121/94 99 01/27/24 10:57 117 H 19 125/90 99 01/27/24 10:56 99 01/27/24 10:47 36.9 C 115 H 19 121/85 99 O2 Del Method 01/27/24 13:43 Room Air 01/27/24 12:11 01/27/24 12:10 Room Air 01/27/24 10:57 Room Air 01/27/24 10:56 Room Air 01/27/24 10:47 Room Air Laboratory Results Cardiac Enzymes 01/27/24 Range/Units 10:51 AST 15 (13-39) U/L Troponin I High Sens < 2.3 (0-20) pg/ml CBC 01/27/24 Range/Units 10:51 WBC 15.58 H (4.8-10.8) K/ul RBC 4.03 L (4.70-6.10) M/uL Hgb 12.5 L (14.0-18.0) g/dl Hct 37.3 L (42.0-52.0) % Plt Count 377 (130-400) K/uL Neut # (Auto) 11.92 H (1.40-6.50) K/uL Lymph # (Auto) 1.51 (1.20-3.40) K/uL [place] # (Auto) 1.88 H (0.11-0.59) K/uL Eos # (Auto) 0.15 (0.00-0.50) K/uL Baso # (Auto) 0.04 (0.00-0.20) K/uL Comprehensive Metabolic Panel 01/27/24 Range/Units 10:51 Sodium 135 L (136-145) mmol/L Potassium 4.1 (3.5-5.1) mmol/L Chloride 102 (98-107) mmol/L Carbon Dioxide 26 (21-32) mmol/L BUN 6 (6-23) mg/dl Creatinine 0.55 L (0.6-1.4) mg/dl Glucose 111 H (70-99(Fasting)) mg/dl Calcium 8.4 L (8.6-10.3) mg/dl AST 15 (13-39) U/L ALT 11 (7-52) U/L Alkaline Phosphatase 82 (34-104) U/L Total Protein 7.0 (6.0-8.3) gm/dl Albumin 3.8 (3.4-5.0) gm/dl Intake and Output 01/27/24 01/27/24 01/27/24 06:59 14:59 22:59 Intake Total 1999 Balance 1999 Intake: IV 1999 Sodium Chloride 0.9% 1,000 ml @ 1500 / 1500 999 mls/hr IV .Q1H1M ONE Rx#: [id number] Left Antecubital 500 / 500 Other: Weight 54.8 kg Weight Measurement Method Built in [facility] Patient Weight 01/28/24 06:59 Weight 54.8 kg Diagnostic Findings CXR: Mild enlargement of the cardiac silhouette. A pericardial effusion cannot be excluded. Trace bilateral pleural effusions. ER Telemetry: Sinus tachycardia. No arrhythmias. (1) Pericarditis Chronicity: unspecified Pericarditis type: unspecified type Qualified Code(s): I31.9 - Disease of pericardium, unspecified
--- NOTE | 2024-01-27 15:02 | History & Physical Report ---
Date of Service January 27, 2024 Assessment & Plan (1) Acute pericarditis: Plan: Presented with chest pain and palpitation for the last 2 to 3 days duration History of recurrent pericarditis White count and inflammatory markers are high, Lyme titer has been negative Echo of the heart showed increasing effusion without any signs of tamponade Will continue with ibuprofen 800 mg 3 times daily and colchicine 0.6 mg twice daily with or without intravenous Solu-Medrol Cardiology evaluation for possible pericardiocentesis Patient has been very noncompliant but tells me that he has been taking his medications regularly Signed out AMA during his recent admission to the hospital (2) Polysubstance abuse: Plan: Ongoing abuse Mentioned that he has been using marijuana now with continuing smoking (3) Patient's noncompliance with other medical treatment and regimen due to unspecified reason: (4) Depression: Plan DVT prophylaxis SCDs No pharmacologic anticoagulation due to pericarditis CODE STATUS Full History of Present Illness Chief Complaint: Chest pain with palpitation for the last 2 to 3 days. Primary Care Provider: Mariann Vizcarra MD 33-year-old man with a significant past medical history of polysubstance abuse with continued use of marijuana, on Suboxone, history of depression, and multiple recent admissions for pericarditis who presents to ER with palpitation and chest pain for the last 2 to 3 days. Denies any fever and or chills. Has nausea but no vomiting. No dizziness and does not have any swelling of the legs. Apparently he mentioned that he has been taking the medications as prescribed during discharge from the hospital recently. Also he signed out AMA from the hospital. His chest x-ray did show cardiomegaly with a white count elevated at 16,000, CRP elevated at 17.51, EKG did not show any low voltage and echocardiogram showed increasing effusion but no tamponade. He will be admitted to the telemetry unit and cardiology will be consulted. He may need pericardiocentesis Allergies Allergy/AdvReac Type Severity Reaction Status Date / Time capsaicin Allergy Intermediate Rash Verified 01/07/24 10:58 cefaclor Allergy Intermediate Rash Verified 01/07/24 10:58 Home Medications Medication Instructions Recorded Confirmed Type buprenorphine 8 mg-naloxone 2 mg 1 tab sublingual BID 10/23/23 01/27/24 History sublingual tablet colchicine 0.6 mg tablet 0.6 mg PO DAILY 01/07/24 01/27/24 History metoprolol succinate 25 mg 25 mg PO QAM 30 days #30 tabs 01/09/24 01/27/24 Rx tablet,extended release 24 hr pantoprazole 40 mg tablet,delayed 40 mg PO DAILY 30 days #30 tabs 01/09/24 01/27/24 Rx release bupropion HCl 200 mg tablet,12 hr 200 mg PO DAILY 01/27/24 01/27/24 History sustained-release folic acid 1 mg tablet 1 mg PO DAILY 01/27/24 01/27/24 History ibuprofen 400 mg tablet 400 mg PO UD PRN Pain 01/27/24 01/27/24 History omeprazole 40 mg capsule,delayed 40 mg PO UD 01/27/24 01/27/24 History release Past Med/Surg History Problem List Effusion, pericardium (Acute) Pericarditis (Acute) Patient's noncompliance with other medical treatment and regimen due to unspecified reason Depression Sinus tachycardia Pericardial effusion Polysubstance abuse (Acute) Acute pericarditis (Acute) Leukocytosis (Acute) Pericarditis (Acute) Polysubstance abuse (Acute) Depression with suicidal ideation (Acute) Medical History Polysubstance abuse on Suboxone Surgical History No pertinent past surgical history Social History Smoking Status: Current every day smoker Tobacco Type: Cigarettes Cigarettes Per Day: 10; Hx Alcohol Use: Yes Alcohol type: beer Hx Substance Use: Yes Last Used Substance: Just Prior to Arrival Last Used Substance Other:: last month Preferred Language: Uzbek Communication Ability: Effective Cryptologic Technician Technical Required: No Beliefs That Will Affect Care: None Current Living Situation: Spouse Current Living Situation Comment: lives with Feels Safe at Home: Yes Gender Identity: Male Assistive Devices: None Review of Systems Review of Systems: All systems reviewed and are unremarkable except as noted below Physical Exam Physical Exam: Lying in bed with minimal distress with chest pain and palpitation Constitutional: + ill appearing and average body habitus Eyes: PERRL, conjunctivae normal, anicteric sclerae ENMT: external ear and nose normal, oropharynx normal Neck: trachea midline, no thyromegaly Respiratory: no respiratory distress Auscultation: lungs clear to auscultation bilaterally Cardiovascular: Rate/Rhythm: regular rate, regular rhythm and + tachycardic Heart Sounds: normal S1 and normal S2; no murmur Extremities: no edema Gastrointestinal (Abdomen): Inspection/Auscultation: normal bowel sounds; abdomen not distended Percussion/Palpation: abdomen soft; abdomen nontender Musculoskeletal: No acute arthritis involving any of the joint Neurologic: normal touch/pain/proprioception and moves all extremities; no focal motor deficits Lymphatic: no cervical or axillary lymphadenopathy Results & Data Results & Data Vital Signs (Past 12 Hours) Vital Signs Temp Pulse Pulse Resp BP BP Pulse Ox 01/27/24 13:43 116 H 19 115/81 98 01/27/24 12:11 123 H 01/27/24 12:10 117 H 19 121/94 99 01/27/24 10:57 117 H 19 125/90 99 01/27/24 10:56 99 01/27/24 10:47 36.9 C 115 H 19 121/85 99 O2 Del Method 01/27/24 13:43 Room Air 01/27/24 12:11 01/27/24 12:10 Room Air 01/27/24 10:57 Room Air 01/27/24 10:56 Room Air 01/27/24 10:47 Room Air Laboratory Results Short CBC 01/27/24 Range/Units 10:51 WBC 15.58 H (4.8-10.8) K/ul Hgb 12.5 L (14.0-18.0) g/dl Hct 37.3 L (42.0-52.0) % Plt Count 377 (130-400) K/uL BMP 01/27/24 10:51 Sodium 135 L Potassium 4.1 Chloride 102 Carbon Dioxide 26 BUN 6 Creatinine 0.55 L Glucose 111 H Calcium 8.4 L Liver Function 01/27/24 Range/Units 10:51 Total Bilirubin 1.1 H (0.2-1.0) mg/dl AST 15 (13-39) U/L ALT 11 (7-52) U/L Alkaline Phosphatase 82 (34-104) U/L Albumin 3.8 (3.4-5.0) gm/dl Diagnostic Findings Laboratory Results WBC 15.58 K/ul (4.8-10.8) H 01/27/24 10:51 RBC 4.03 M/uL (4.70-6.10) L 01/27/24 10:51 Hgb 12.5 g/dl (14.0-18.0) L 01/27/24 10:51 Hct 37.3 % (42.0-52.0) L 01/27/24 10:51 MCV 92.6 fL (80.0-100.0) 01/27/24 10:51 MCH 31.0 pg (25.0-34.0) 01/27/24 10:51 MCHC 33.5 g/dL (32.0-36.0) 01/27/24 10:51 RDW Std Deviation 41.5 fL (36.4-46.3) 01/27/24 10:51 RDW Coeff of [place] 12.2 % (11.5-14.5) 01/27/24 10:51 Plt Count 377 K/uL (130-400) 01/27/24 10:51 MPV 9.7 fL (9.4-12.4) 01/27/24 10:51 Immature Gran % (Auto) 0.5 % 01/27/24 10:51 Neut % (Auto) 76.4 % 01/27/24 10:51 Lymph % (Auto) 9.7 % 01/27/24 10:51 [place] % (Auto) 12.1 % 01/27/24 10:51 Eos % (Auto) 1.0 % 01/27/24 10:51 Baso % (Auto) 0.3 % 01/27/24 10:51 Neut # (Auto) 11.92 K/uL (1.40-6.50) H 01/27/24 10:51 Lymph # (Auto) 1.51 K/uL (1.20-3.40) 01/27/24 10:51 [place] # (Auto) 1.88 K/uL (0.11-0.59) H 01/27/24 10:51 Eos # (Auto) 0.15 K/uL (0.00-0.50) 01/27/24 10:51 Baso # (Auto) 0.04 K/uL (0.00-0.20) 01/27/24 10:51 Immature Gran # (Auto) 0.08 K/uL (0.01-0.20) 01/27/24 10:51 ESR 46 mm/hr (0-15) H 01/27/24 10:51 Sodium 135 mmol/L (136-145) L 01/27/24 10:51 Potassium 4.1 mmol/L (3.5-5.1) 01/27/24 10:51 Chloride 102 mmol/L (98-107) 01/27/24 10:51 Carbon Dioxide 26 mmol/L (21-32) 01/27/24 10:51 Anion Gap 7 (3-11) 01/27/24 10:51 BUN 6 mg/dl (6-23) 01/27/24 10:51 Creatinine 0.55 mg/dl (0.6-1.4) L 01/27/24 10:51 Est Cr Clr Drug Dosing 150.3 ml/min 01/27/24 10:51 Est GFR ( Amer) > 150.0 ml/min 01/27/24 10:51 Est GFR (Non-Af Amer) 138.9 ml/min 01/27/24 10:51 BUN/Creatinine Ratio 10.9 (10-20) 01/27/24 10:51 Glucose 111 mg/dl (70-99(Fasting)) H 01/27/24 10:51 Calcium 8.4 mg/dl (8.6-10.3) L 01/27/24 10:51 Total Bilirubin 1.1 mg/dl (0.2-1.0) H 01/27/24 10:51 AST 15 U/L (13-39) 01/27/24 10:51 ALT 11 U/L (7-52) 01/27/24 10:51 Alkaline Phosphatase 82 U/L (34-104) 01/27/24 10:51 Troponin I High Sens < 2.3 pg/ml (0-20) 01/27/24 10:51 C-Reactive Protein 17.51 mg/dl (0-0.5) H 01/27/24 10:51 Total Protein 7.0 gm/dl (6.0-8.3) 01/27/24 10:51 Albumin 3.8 gm/dl (3.4-5.0) 01/27/24 10:51 Globulin 3.2 gm/dl (2.5-4.0) 01/27/24 10:51 Albumin/Globulin Ratio 1.2 (0.9-2) 01/27/24 10:51 Lipase < 3 U/L (11-82) L 01/27/24 10:51 Impressions Chest X-Ray 01/27/24 10:55 XR chest 1V portable CLINICAL HISTORY: Chest pain, nonspecific COMPARISON STUDY: Chest radiograph and chest CT January 07, 2024. FINDINGS: There is no pneumothorax. Trace bilateral pleural effusions are present. There is no consolidation or evidence for pulmonary edema. Mild enlargement of the cardiac silhouette has increased since prior exam. IMPRESSION: 1. Mild enlargement of the cardiac silhouette. A pericardial effusion cannot be excluded. 2. Trace bilateral pleural effusions. ACT 112: Negative or not required by law. Electronically signed by: Ankit Chavez M.D. 01/27/2024 11:21 AM Code Status & VTE Plan VTE Prophylaxis Plan VTE Prophylaxis will be ordered: Yes (1) Acute pericarditis Pericarditis type: idiopathic Qualified Code(s): I30.0 - Acute nonspecific idiopathic pericarditis
[2024-01-27] MEDS: methylPREDNISolone 100 MG in SYRINGE 0 ML IV ONE (15:34)
--- NOTE | 2024-01-27 16:27 | Pre Anesthesia Assessment ---
Date of Service January 27, 2024 Pre Sedation Assessment Vital Signs Temp Pulse Pulse Resp BP BP Pulse Ox 01/27/24 16:19 122 H 14 129/90 96 01/27/24 15:22 119 H 20 132/91 98 01/27/24 13:43 116 H 19 115/81 98 01/27/24 12:11 123 H 01/27/24 12:10 117 H 19 121/94 99 01/27/24 10:57 117 H 19 125/90 99 01/27/24 10:56 99 01/27/24 10:47 98.4 F 115 H 19 121/85 99 O2 Del Method 01/27/24 16:19 Room Air 01/27/24 15:22 Room Air 01/27/24 13:43 Room Air 01/27/24 12:11 01/27/24 12:10 Room Air 01/27/24 10:57 Room Air 01/27/24 10:56 Room Air 01/27/24 10:47 Room Air Cardiovascular + regular rate Respiratory + respiratory effort normal Pre-Sedation Airway Assessment Smoking Status: Current every day smoker Hx Sleep Apnea: No Short, Thick Neck: No Thyromental Distance: > or= 3.5 Finger Breadths Oral Cavity: + WNL Mallampati Class: II ASA: ASA3 NPO Status Date of Last Intake of Fluids: 01/27/24 Time of Last Intake of Fluids: 16:00 Date of Last Intake of Solid Food: 01/26/24 Procedure Planning Contraindications for Sedation: none Current Medications Reviewed: Yes Notes The planned sedation has been discussed with the patient. Informed Consent was obtained. I have identified the patient, determined the appropriateness of sedation and have assessed the patient immediately prior to the procedure. All medicine(s) and interventions are by my order.
[2024-01-27] MEDS ORDERED: NON-FORMULARY MEDICATION (Omeprazole 40 mg capsule,delayed release(DR/EC)) PO SCH (16:46)
[2024-01-27] MEDS: fentaNYL citrate PF 100 MCG/2 ML VIAL ONE (17:09)
[2024-01-27] MEDS: MIDAZOLAM HCL 1 MG/ML 2ML VIAL ONE (17:09)
--- NOTE | 2024-01-27 17:23 | Post Anesthesia Assessment ---
Date of Service January 27, 2024 Post Sedation Assessment Vital Signs Temp Pulse Pulse Resp BP BP Pulse Ox 01/27/24 16:19 122 H 14 129/90 96 01/27/24 16:00 98.4 F 132 H 16 133/78 99 01/27/24 15:22 119 H 20 132/91 98 01/27/24 13:43 116 H 19 115/81 98 01/27/24 12:11 123 H 01/27/24 12:10 117 H 19 121/94 99 01/27/24 10:57 117 H 19 125/90 99 01/27/24 10:56 99 01/27/24 10:47 98.4 F 115 H 19 121/85 99 O2 Del Method 01/27/24 16:19 Room Air 01/27/24 16:00 Room Air 01/27/24 15:22 Room Air 01/27/24 13:43 Room Air 01/27/24 12:11 01/27/24 12:10 Room Air 01/27/24 10:57 Room Air 01/27/24 10:56 Room Air 01/27/24 10:47 Room Air Recovery Score Activity: Moves 4 extremities Respiration: Deep Breath/Cough Circulation: +/-20% PreAnes Value Consciousness: Fully Awake Oxygen Saturation: O2 needed for >90% Discharge Sedation Level of Care: Fast Track Phase II Post Sedation Plan On clinical assessment, the patient appears to have tolerated the sedation without complications. Patient is recovering as anticipated. Patient will continue to be monitored by nursing and may be discharged when sedation discharge criteria are met per below protocol. Upon Completions of procedure up to 15 minutes continue every 5 minute vital signs and the P.A.R. score; then discharge to a Phase I or Fast Track to Phase II per the following guidelines: * Discharge Patient to appropriate Phase II area if PAR is 8 or greater or return to pre- procedure baseline. The post - procedure orders will be as directed. * If PAR score is less than 8 or not return to pre-procedure baseline then patient will follow Phase I monitoring till PAR is reached for Phase II. The Phase I may be done in procedure room or may call to secure a Phase I area. * If naloxone or flumazenil are used for reversal, hold in Phase I for continued monitoring from when last reversal dose was given for a minimum of 60 minutes or longer pending the nurse and/or physician discretion of patient condition before discharge to Phase II. Please call the Sedation Physician to re-evaluate and complete post-note for discharge to Phase II area. Do NOT discharge from procedure sedation or Phase 1 until post- sedation evaluation note is complete by procedure /sedation MD Sedation Discharge Instructions to be given to the patient at discharge to home.
--- NOTE | 2024-01-27 17:37 | Cardiac Catheterization ---
[facility] Data: Pill Coater Cardiac Status Clinical evaluation leading to the procedure CAD Presenation: Sx unlikely to be ischemic Diagnostic Physicians Name: Carlos Worrell MD Closure Device Recommendations: Medical Therapy and/or Counseling Cardiac Cath Procedure Full Procedure Date January 27, 2024 Pre-Procedure Diagnosis Pre-Procedure Diagnosis: Cardiothoracic Symptom AUC Score AUC Score: 7 Post-Procedure Diagnosis Post-Procedure Diagnosis: Cardiothoracic Finding (pericardial effusion) Procedure(s) Performed Procedure(s) Performed: Pericardiocentesis Acoustic Engineer Carlos Worrell MD Workers' Compensation Hearings Officer(s) [employer] Estimated Blood Loss Estimated Blood Loss: fluid Medication(s) Medication(s): Fentanyl, Lidocaine 1% and Versed Summary of Findings PERICARDIOCENTESIS Indication: Large pericardial effusion, early echocardiographic signs of tamponade Procedure: Moderate sedation and local anesthesia with 1% lidocaine Pericardial effusion located from apical approach Pericardial space accessed with micropuncture needle, appropriate position confirmed via saline contrast/bubble study 6 Fr slender sheath placed to pericardial space 6 Fr pigtail catheter placed through the sheath into pericardial space Drained 340 mL of light straw-colored fluid Post procedure echo showed trivial residual fluid, RV expansion improved Patient had significant pain with pericardial drain after fluid removed and decision to pull drain Drain removed and dressing placed. Opening pericardial pressure 15, closing pericardial pressure 5 Summary: 1. Successful ultrasound-guided pericardiocentesis with removal of 340 mL of light straw-colored fluid Recommendations: Follow-up cell counts, cultures, cytology Colchicine, steroids per Dr. Beltran Follow-up echo in next 1 to 2 days Hemodynamics Rest Ao:: -- Final Ao: -- LV: -- Recommendations Recommendations: Medical Therapy and/or Counseling Specimens Specimens: None Radiation Exposure (mGy) 20 Contrast (mls) -- Anesthesia Moderate [id number] Procedural Complication(s) None Disposition PCU I attest to the content of the Intraoperative Record and any orders documented therein. Any exceptions are noted below. [facility] Card Cath Procedure Codes Therapeutic Services & Ancillary Procedure 1: Cardiovascular Tx and Anc Procedures: 04033 Ultrasonic Guidance Perica rdiocentesis Moderate Sedation Procedure 1: Sedation/Anesthesia: 41918 Mod Sedation by the same physician;Init15 Min Child Age 5 & Up PG Care Time/CCT Total # of Minutes Spent Total Time Spent with Patient: Total time spent is greater than 50% in coordination of care (as documented) at patient's floor/unit and/or counseling patient:
[2024-01-27] MEDS: FOLIC ACID 1 MG TAB PO SCH (18:26)
[2024-01-27] MEDS: IBUPROFEN 800 MG TAB PO SCH (18:26)
[2024-01-27] MEDS ORDERED: ACETAMINOPHEN 325 MG TAB PO PRN (19:55)
[2024-01-27] MEDS: PANTOprazole 40 MG TAB PO SCH (20:35)
[2024-01-27] MEDS: BUPRENORPHINE/NALOXONE 8/2 MG TAB SL SCH (20:35)
--- NOTE | 2024-01-27 23:15 | Electrocardiogram Report ---
Test Reason : Blood Pressure : / mmHG Vent. Rate : 116 BPM Atrial Rate : 116 BPM P-R Int : 128 ms QRS Dur : 076 ms QT Int : 336 ms P-R-T Axes : 060 040 050 degrees QTc Int : 467 ms Sinus tachycardia Nonspecific ST abnormality Abnormal ECG When compared with ECG of 09-JAN-2024 00:08, ST less elevated in Lateral leads Confirmed by Scott Patino ([id number]) on 01/27/2024 11:14:56 PM Referred By: Confirmed By:Scott Patino
[2024-01-28 04:29] LABS: Basophils # (auto) 0.01 K/uL (0.00-0.20); Basophils % (auto) 0.1 %; Hematocrit (blood only) 32.4 % (42.0-52.0); Immature Granulocytes # (auto) 0.08 K/uL (0.01-0.20); Immature Granulocytes % (auto) 0.5 %; Lymphocytes # (auto) 0.69 K/uL (1.20-3.40); Lymphocytes % (auto) 4.1 %; Mean Corpuscular Volume 91.3 fL (80.0-100.0); Mean Platelet Volume 9.6 fL (9.4-12.4); Monocytes # (auto) 1.24 K/uL (0.11-0.59); Monocytes % (auto) 7.4 %; Neutrophils # (auto) 14.66 K/uL (1.40-6.50); Neutrophils % (auto) 87.9 %; Platelet Count 401 K/uL (130-400); RDW Standard Deviation 40.4 fL (36.4-46.3); Red Blood Count 3.55 M/uL (4.70-6.10); White Blood Count 16.68 K/ul (4.8-10.8)
[2024-01-28 04:42] LABS: Anion Gap 6 (3-11); BUN Creatinine Ratio 12.2 (10-20); Blood Urea Nitrogen 6 mg/dl (6-23); Calcium 8.8 mg/dl (8.6-10.3); Carbon Dioxide 25 mmol/L (21-32); Chloride 105 mmol/L (98-107); Creatinine Clr Calc Pharmacy 166.5 ml/min; Est GFR (African American) > 150.0 ml/min; Est GFR (Non-African American) 145.6 ml/min; Glucose 156 mg/dl (70-99(Fasting)); Magnesium 1.7 mg/dl (1.7-2.4); Phosphorus 2.3 mg/dl (2.5-4.9); Potassium 3.9 mmol/L (3.5-5.1); Sodium 136 mmol/L (136-145)
[2024-01-28] MEDS: COLCHICINE 0.6 MG TAB PO SCH (07:58)
[2024-01-28] MEDS: POT PHOSPHATE MONOBASIC W/ SOD TAB PO SCH (07:58)
[2024-01-28] MEDS: METOPROLOL SUCC 25MG EXT REL TAB PO SCH (07:58)
--- NOTE | 2024-01-28 08:01 | Cardiology Progress Note ---
<Statement entered by Mckenzie Caballero, - 01/28/24 12:32> I have reviewed the advanced practitioner's documentation and agree with the plan of care. I accept the responsibility for the associated risk. Pt is seen in cardiology f/u due to pericardial effusion from pericarditis s/p pericardialcentesis day 1 pt is feeling much better; eager to go home he is no longer having any chest pain breathing is better still slightly tachy Sinus on telemetry emphasized importance of taking medication including the high doses of NSAID with protonix and colchicine most likely we can discharge home tomorrow but i would watch for one more day in the hospital if he has recurrent symptoms would have a low threshold to start a low dose course of prednisone Dr. Caballero Date of Service January 28, 2024 Assessment & Plan (1) Pericarditis: (2) Effusion, pericardium: (3) Sinus tachycardia: Plan 1. Continue Ibuprofen 800 mg TID. May consider starting a slow gradual weekly taper in the next 1-2 days if patient remains asymptomatic. 2. Continue Colchicine 0.6 mg daily (weight is <70 kg); duration 6 months due to recurrence. 3. Pantoprazole 40 mg twice a day for GI protection 4. Supplement magnesium 5. Limited resting echocardiography Tuesday I spent a total of 27 minutes on the date of service in preparation, delivery, and documentation of the care provided to this patient excluding any time spent in the performance of separately billed services. This visit was a split-shared visit with the substantive portion of the medical decision making performed by the supervising wire wrapping machine operator/billing provider. Admission and Anticipated Discharge Date Admission Date: January 27, 2024 Subjective Patient seen and examined. Chart, medications, and telemetry reviewed. Status post successful ultrasound-guided pericardiocentesis with removal of 340 mL of light straw-colored fluid by Dr. Worrell on 01/27/2024. Drain pulled after fl uid removal due to significant pain. "I woke at 4 feeling great. I feel great. I could run a marathon." + Nonproductive cough. Able to lay supine. No chest pain, palpitations, shortness of breath, orthopnea, PND, peripheral edema, fevers, or chills. Telemetry: Sinus/sinus tachycardia, currently 94 bpm. Review of Systems Review of Systems: Complete Review of Systems is as stated above, negative, or noncontributory Physical Exam Physical Exam: General: A&Ox3. HENT: Normocephalic. Atraumatic. Eyes: PER. Conjunctiva pink, sclera clear. Neck: No JVD. Heart: Regular at 100 bpm. No rub. No murmur. Lungs: Clear to auscultation. Abdomen: +BS. Soft. Nontender. No organomegaly. Extremities: No clubbing, cyanosis, or edema. Limited neurological examination is without focal deficits. Pulses: Posterior tibial=2/4. Results & Data Vital Signs (Past 12 Hours) Vital Signs Temp Pulse Pulse Resp BP BP Pulse Ox 01/28/24 06:00 94 H 14 102/54 L 94 01/28/24 05:00 92 H 14 114/65 96 01/28/24 04:19 37.0 C 01/28/24 04:00 103 H 22 109/59 L 95 01/28/24 03:00 99 H 14 115/67 95 01/28/24 02:00 101 H 14 119/58 L 95 01/28/24 01:00 103 H 14 113/62 94 01/28/24 00:00 103 H 01/28/24 00:00 37.7 C H 103 H 14 112/58 L 94 01/27/24 23:00 106 H 16 120/62 94 01/27/24 21:45 131/72 01/27/24 21:45 131/72 01/27/24 21:36 110 H 17 96 01/27/24 21:30 130/70 01/27/24 21:30 130/70 01/27/24 21:30 130/70 01/27/24 21:30 130/70 01/27/24 21:27 112 H 16 95 01/27/24 21:15 109 H 14 96 01/27/24 21:15 118/74 01/27/24 21:15 118/74 01/27/24 21:15 118/74 01/27/24 21:15 118/74 01/27/24 21:00 124/65 01/27/24 20:45 115 H 14 97 01/27/24 20:03 123 H 25 H 01/27/24 20:00 128/92 01/27/24 20:00 37.7 C H 116 H 23 128/92 98 01/27/24 19:57 108 H 18 96 O2 Del Method 01/28/24 06:00 Room Air 01/28/24 05:00 Room Air 01/28/24 04:19 01/28/24 04:00 Room Air 01/28/24 03:00 Room Air 01/28/24 02:00 Room Air 01/28/24 01:00 Room Air 01/28/24 00:00 01/28/24 00:00 Room Air 01/27/24 23:00 Room Air 01/27/24 21:45 01/27/24 21:45 01/27/24 21:36 01/27/24 21:30 01/27/24 21:30 01/27/24 21:30 01/27/24 21:30 01/27/24 21:27 01/27/24 21:15 01/27/24 21:15 01/27/24 21:15 01/27/24 21:15 01/27/24 21:15 01/27/24 21:00 01/27/24 20:45 01/27/24 20:03 01/27/24 20:00 01/27/24 20:00 Room Air 01/27/24 19:57 Laboratory Results Cardiac Enzymes 01/27/24 Range/Units 10:51 AST 15 (13-39) U/L Troponin I High Sens < 2.3 (0-20) pg/ml CBC 01/27/24 01/28/24 Range/Units 10:51 04:10 WBC 15.58 H 16.68 H (4.8-10.8) K/ul RBC 4.03 L 3.55 L (4.70-6.10) M/uL Hgb 12.5 L 11.0 L (14.0-18.0) g/dl Hct 37.3 L 32.4 L (42.0-52.0) % Plt Count 377 401 H (130-400) K/uL Neut # (Auto) 11.92 H 14.66 H (1.40-6.50) K/uL Lymph # (Auto) 1.51 0.69 L (1.20-3.40) K/uL [place] # (Auto) 1.88 H 1.24 H (0.11-0.59) K/uL Eos # (Auto) 0.15 0.00 (0.00-0.50) K/uL Baso # (Auto) 0.04 0.01 (0.00-0.20) K/uL Comprehensive Metabolic Panel 01/27/24 01/28/24 Range/Units 10:51 04:10 Sodium 135 L 136 (136-145) mmol/L Potassium 4.1 3.9 (3.5-5.1) mmol/L Chloride 102 105 (98-107) mmol/L Carbon Dioxide 26 25 (21-32) mmol/L BUN 6 6 (6-23) mg/dl Creatinine 0.55 L 0.49 L (0.6-1.4) mg/dl Glucose 111 H 156 H (70-99(Fasting)) mg/dl Calcium 8.4 L 8.8 (8.6-10.3) mg/dl AST 15 (13-39) U/L ALT 11 (7-52) U/L Alkaline Phosphatase 82 (34-104) U/L Total Protein 7.0 (6.0-8.3) gm/dl Albumin 3.8 (3.4-5.0) gm/dl Intake and Output 01/27/24 01/28/24 01/28/24 22:59 06:59 14:59 Intake Total 360 / 2360 0 / 2360 Balance 360 / 2360 0 / 2360 Intake: Oral 360 / 360 0 / 360 Other: # Unmeasured Voids 1 Weight 53.9 kg Weight Measurement Method Built in [facility] (1) Pericarditis Chronicity: unspecified Pericarditis type: unspecified type Qualified Code(s): I31.9 - Disease of pericardium, unspecified
[2024-01-28] MEDS: MAGNESIUM SULFATE / D5W 1 GM/100 ML BAG IV ONE (08:43)
[2024-01-28] MEDS ORDERED: PANTOprazole 40 MG TAB PO SCH (09:00)
--- NOTE | 2024-01-28 11:05 | Hospitalist Progress Note ---
Date of Service January 28, 2024 Assessment & Plan (1) Acute pericarditis: Plan: Presented with chest pain and palpitation for the last 2 to 3 days duration Recurrent pericarditis Pericardial effusion S/P Successful ultrasound-guided pericardiocentesis with removal of 340 mL of light straw-colored fluid --ECHO: Moderate to large circumferential pericardial fusion with large volume of fluid adjacent to the anterior lateral, and apical rivera. No echogenic indications of cardiac tamponade. Normal inferior vena cava diameter with reduced inspiratory variation suggestive of right atrial pressure of 8 mmHg. Pericardial fluid studies pending Continue colchicine, ibuprofen On Protonix for GI prophylaxis Appreciate Cardiology input Plan for repeat echo on Tuesday (2) Polysubstance abuse: Plan: Ongoing abuse Counseled to quit marijuana, tobacco use (3) Patient's noncompliance with other medical treatment and regimen due to unspecified reason: (4) Depression: Plan: Continue home medication Plan DVT prophylaxis SCDs CODE STATUS Full Admission and Anticipated Discharge Date Admission Date: January 27, 2024 Subjective Patient is seen and examined at bedside Had pericardiocentesis yesterday Offers no new complaints today Denies any chest pain, dyspnea, nausea, vomiting, abdominal pain Family at bedside Review of Systems Review of Systems: All systems reviewed & are unremarkable except as noted in Subjective Physical Exam Physical Exam: Physical Exam: Vitals signs as noted above General Appearance:Thin, no apparent distress Head: normocephalic, Atraumatic Eyes: normal inspection, EOMI Neck: supple, Trachea midline Respiratory/Chest: Normal breath sounds, CTA, No accessory muscle use Cardiovascular: S1, S2, No murmur Abdomen/GI:Soft, Non tender, Bowel sounds present Extremities/Musculoskeletal:normal inspection, no edema Neurologic/Psych:AAOX3, grossly no focal neurological deficits Skin: normal color, warm Results & Data Results & Data Vital Signs (Past 12 Hours) Vital Signs Temp Pulse Pulse Resp BP BP Pulse Ox 01/28/24 09:12 89 14 01/28/24 08:09 95 H 17 01/28/24 08:00 36.8 C 01/28/24 07:00 110/60 01/28/24 07:00 110/60 01/28/24 07:00 110/60 01/28/24 07:00 110/60 01/28/24 07:00 97 H 13 96 01/28/24 06:00 94 H 14 102/54 L 94 01/28/24 05:00 92 H 14 114/65 96 01/28/24 04:19 37.0 C 01/28/24 04:00 103 H 22 109/59 L 95 01/28/24 03:00 99 H 14 115/67 95 01/28/24 02:00 101 H 14 119/58 L 95 01/28/24 01:00 103 H 14 113/62 94 01/28/24 00:00 103 H 01/28/24 00:00 37.7 C H 103 H 14 112/58 L 94 01/27/24 23:00 106 H 16 120/62 94 O2 Del Method 01/28/24 09:12 01/28/24 08:09 01/28/24 08:00 01/28/24 07:00 01/28/24 07:00 01/28/24 07:00 01/28/24 07:00 01/28/24 07:00 Room Air 01/28/24 06:00 Room Air 01/28/24 05:00 Room Air 01/28/24 04:19 01/28/24 04:00 Room Air 01/28/24 03:00 Room Air 01/28/24 02:00 Room Air 01/28/24 01:00 Room Air 01/28/24 00:00 01/28/24 00:00 Room Air 01/27/24 23:00 Room Air Laboratory Results Short CBC 01/27/24 01/28/24 Range/Units 10:51 04:10 WBC 15.58 H 16.68 H (4.8-10.8) K/ul Hgb 12.5 L 11.0 L (14.0-18.0) g/dl Hct 37.3 L 32.4 L (42.0-52.0) % Plt Count 377 401 H (130-400) K/uL BMP 01/27/24 01/28/24 10:51 04:10 Sodium 135 L 136 Potassium 4.1 3.9 Chloride 102 105 Carbon Dioxide 26 25 BUN 6 6 Creatinine 0.55 L 0.49 L Glucose 111 H 156 H Calcium 8.4 L 8.8 Liver Function 01/27/24 Range/Units 10:51 Total Bilirubin 1.1 H (0.2-1.0) mg/dl AST 15 (13-39) U/L ALT 11 (7-52) U/L Alkaline Phosphatase 82 (34-104) U/L Albumin 3.8 (3.4-5.0) gm/dl (1) Acute pericarditis Pericarditis type: idiopathic Qualified Code(s): I30.0 - Acute nonspecific idiopathic pericarditis
[2024-01-29 05:18] LABS: Hematocrit (blood only) 33.1 % (42.0-52.0); Hemoglobin 11.2 g/dl (14.0-18.0); Mean Corpuscular Hemoglobin 31.4 pg (25.0-34.0); Mean Corpuscular Hgb Conc 33.8 g/dL (32.0-36.0); Mean Corpuscular Volume 92.7 fL (80.0-100.0); Mean Platelet Volume 9.4 fL (9.4-12.4); Platelet Count 402 K/uL (130-400); RDW Standard Deviation 41.5 fL (36.4-46.3); Red Blood Count 3.57 M/uL (4.70-6.10)
[2024-01-29 05:47] LABS: Anion Gap 6 (3-11); BUN Creatinine Ratio 26.5 (10-20); Blood Urea Nitrogen 13 mg/dl (6-23); Calcium 8.4 mg/dl (8.6-10.3); Carbon Dioxide 29 mmol/L (21-32); Chloride 106 mmol/L (98-107); Creatinine Clr Calc Pharmacy 166.5 ml/min; Est GFR (African American) > 150.0 ml/min; Est GFR (Non-African American) 145.6 ml/min; Glucose 97 mg/dl (70-99(Fasting)); Magnesium 1.8 mg/dl (1.7-2.4); Phosphorus 3.9 mg/dl (2.5-4.9); Potassium 4.1 mmol/L (3.5-5.1); Sodium 141 mmol/L (136-145)
[2024-01-29] MEDS: buPROPion SR 100 MG TABCR PO SCH (08:21)
--- NOTE | 2024-01-29 08:51 | Cardiology Progress Note ---
<Statement entered by Mckenzie Caballero, - 01/29/24 13:53> I have reviewed the advanced practitioner's documentation and agree with the plan of care. I accept the responsibility for the associated risk. pt seen in cardiology f/u due to pericardial effusion and pericarditis-POD 2 from pericardialcentesis pt continues to be feeling better his HR are better now in the 70s ok to discharge home with the ibuprofen, protonix and cholchicine emphasized the importance of medication compliance limited echo as an out pt in 2 weeks to reassess for a possible effusion i discussed my recommendations with the hospitalist and they agreed with my plan Dr. Caballero Date of Service January 29, 2024 Assessment & Plan (1) Pericarditis: (2) Effusion, pericardium: (3) Sinus tachycardia: Plan 1. Decrease Ibuprofen to 600 mg TID, gradually tapering dose by 200 mg/week over the next four weeks 2. Continue Colchicine 0.6 mg daily x 6 months 3. Continue Pantoprazole for GI protection 4. Limited resting echocardiography at [facility] this upcoming week. I spent a total of 24 minutes on the date of service in preparation, delivery, and documentation of the care provided to this patient excluding any time spent in the performance of separately billed services. This visit was a split-shared visit with the substantive portion of the medical decision making performed by the supervising sales account representative/billing provider. Admission and Anticipated Discharge Date Admission Date: January 27, 2024 Subjective Patient seen and examined. Chart, medications, and telemetry reviewed. Status post ultrasound-guided pericardiocentesis with removal of 340 mL of light straw-colored fluid by Dr. Worrell on 01/27/2024. Drain pulled after fluid removal due to significant pain. Patient remains asymptomatic following pericardiocentesis on 01/27/2024 "I feel great. I'm ready to go home." Telemetry: Sinus, currently 74 bpm. No arrhythmias. Review of Systems Review of Systems: Complete Review of Systems is as stated above, negative, or noncontributory Physical Exam Physical Exam: General: A&Ox3. HENT: Normocephalic. Atraumatic. Eyes: PER. Conjunctiva pink, sclera clear. Neck: No JVD. Heart: Regular at 80 bpm. No rub. No murmur. Lungs: Clear to auscultation. Abdomen: +BS. Soft. Nontender. No organomegaly. Extremities: No clubbing, cyanosis, or edema. Limited neurological examination is without focal deficits. Pulses: Posterior tibial=2/4. Results & Data Vital Signs (Past 12 Hours) Vital Signs Temp Pulse Pulse Resp BP BP Pulse Ox 01/29/24 08:00 36.0 C L 72 12 103/66 96 01/29/24 08:00 77 01/29/24 04:06 81 17 121/72 94 01/29/24 04:00 37.1 C 01/29/24 02:00 84 19 01/29/24 00:00 87 15 127/70 93 01/29/24 00:00 37.0 C 01/28/24 23:57 83 01/28/24 22:05 81 11 L O2 Del Method 01/29/24 08:00 Room Air 01/29/24 08:00 01/29/24 04:06 01/29/24 04:00 01/29/24 02:00 01/29/24 00:00 01/29/24 00:00 01/28/24 23:57 01/28/24 22:05 Laboratory Results CBC 01/29/24 Range/Units 04:48 WBC 9.00 (4.8-10.8) K/ul RBC 3.57 L (4.70-6.10) M/uL Hgb 11.2 L (14.0-18.0) g/dl Hct 33.1 L (42.0-52.0) % Plt Count 402 H (130-400) K/uL Comprehensive Metabolic Panel 01/29/24 Range/Units 04:48 Sodium 141 (136-145) mmol/L Potassium 4.1 (3.5-5.1) mmol/L Chloride 106 (98-107) mmol/L Carbon Dioxide 29 (21-32) mmol/L BUN 13 (6-23) mg/dl Creatinine 0.49 L (0.6-1.4) mg/dl Glucose 97 (70-99(Fasting)) mg/dl Calcium 8.4 L (8.6-10.3) mg/dl Intake and Output 01/28/24 01/29/24 01/29/24 22:59 06:59 14:59 Intake Total 350 / 1410 Balance 350 / 810 Intake: Oral 350 / 1310 Other: # Unmeasured Voids 1 2 Weight 54.3 kg Weight Measurement Method Built in [facility] (1) Pericarditis Chronicity: unspecified Pericarditis type: unspecified type Qualified Code(s): I31.9 - Disease of pericardium, unspecified
--- NOTE | 2024-01-29 11:25 | Hospitalist Progress Note ---
Date of Service January 29, 2024 Assessment & Plan (1) Acute pericarditis: Plan: Presented with chest pain and palpitation for the last 2 to 3 days duration Recurrent pericarditis Pericardial effusion S/P Successful ultrasound-guided pericardiocentesis with removal of 340 mL of light straw-colored fluid --ECHO: Moderate to large circumferential pericardial fusion with large volume of fluid adjacent to the anterior lateral, and apical rivera. No echogenic indications of cardiac tamponade. Normal inferior vena cava diameter with reduced inspiratory variation suggestive of right atrial pressure of 8 mmHg. Pericardial fluid studies pending Continue colchicine, ibuprofen On Protonix for GI prophylaxis Appreciate Cardiology input Ibuprofen decreased to 600 mg 3 times daily. Needs follow-up with cardiology with repeat echo next week Patient understands and agrees with the plan (2) Polysubstance abuse: Plan: Ongoing abuse Counseled to quit marijuana, tobacco use (3) Patient's noncompliance with other medical treatment and regimen due to unspecified reason: (4) Depression: Plan: Continue home medication Plan DVT prophylaxis SCDs CODE STATUS Full Admission and Anticipated Discharge Date Admission Date: January 27, 2024 Subjective Patient is seen and examined at bedside Offers no new complaints Eager to get discharged Discussed with Cardiology today Denies any chest pain, dyspnea, nausea, vomiting, abdominal pain Plan to discharge home today Review of Systems Review of Systems: All systems reviewed & are unremarkable except as noted in Subjective Physical Exam Physical Exam: Physical Exam: Vitals signs as noted above General Appearance:Thin, no apparent distress Head: normocephalic, Atraumatic Eyes: normal inspection, EOMI Neck: supple, Trachea midline Respiratory/Chest: Normal breath sounds, CTA, No accessory muscle use Cardiovascular: S1, S2, No murmur Abdomen/GI:Soft, Non tender, Bowel sounds present Extremities/Musculoskeletal:normal inspection, no edema Neurologic/Psych:AAOX3, grossly no focal neurological deficits Skin: normal color, warm Results & Data Results & Data Vital Signs (Past 12 Hours) Vital Signs Temp Pulse Pulse Resp BP BP Pulse Ox 01/29/24 08:00 36.0 C L 72 12 103/66 96 01/29/24 08:00 77 01/29/24 04:06 81 17 121/72 94 01/29/24 04:00 37.1 C 01/29/24 02:00 84 19 01/29/24 00:00 87 15 127/70 93 01/29/24 00:00 37.0 C 01/28/24 23:57 83 O2 Del Method 01/29/24 08:00 Room Air 01/29/24 08:00 01/29/24 04:06 01/29/24 04:00 01/29/24 02:00 01/29/24 00:00 01/29/24 00:00 01/28/24 23:57 Laboratory Results Short CBC 01/29/24 Range/Units 04:48 WBC 9.00 (4.8-10.8) K/ul Hgb 11.2 L (14.0-18.0) g/dl Hct 33.1 L (42.0-52.0) % Plt Count 402 H (130-400) K/uL BMP 01/29/24 04:48 Sodium 141 Potassium 4.1 Chloride 106 Carbon Dioxide 29 BUN 13 Creatinine 0.49 L Glucose 97 Calcium 8.4 L (1) Acute pericarditis Pericarditis type: idiopathic Qualified Code(s): I30.0 - Acute nonspecific idiopathic pericarditis
--- NOTE | 2024-01-29 11:42 | Discharge Summary ---
Date of Service January 29, 2024 Admission HPI Per Admitting Provider 33-year-old man with a significant past medical history of polysubstance abuse with continued use of marijuana, on Suboxone, history of depression, and multiple recent admissions for pericarditis who presents to ER with palpitation and chest pain for the last 2 to 3 days. Denies any fever and or chills. Has nausea but no vomiting. No dizziness and does not have any swelling of the legs. Apparently he mentioned that he has been taking the medications as prescribed during discharge from the hospital recently. Also he signed out AMA from the hospital. His chest x-ray did show cardiomegaly with a white count elevated at 16,000, CRP elevated at 17.51, EKG did not show any low voltage and echocardiogram showed increasing effusion but no tamponade. He will be admitted to the telemetry unit and cardiology will be consulted. He may need pericardiocentesis Admission Exam Per Admitting Provider Physical Exam: Lying in bed with minimal distress with chest pain and palpitation Constitutional: + ill appearing and average body habitus Eyes: PERRL, conjunctivae normal, anicteric sclerae ENMT: external ear and nose normal, oropharynx normal Neck: trachea midline, no thyromegaly Respiratory: no respiratory distress Auscultation: lungs clear to auscultation bilaterally Cardiovascular: Rate/Rhythm: regular rate, regular rhythm and + tachycardic Heart Sounds: normal S1 and normal S2; no murmur Extremities: no edema Gastrointestinal (Abdomen): Inspection/Auscultation: normal bowel sounds; abdomen not distended Percussion/Palpation: abdomen soft; abdomen nontender Musculoskeletal: No acute arthritis involving any of the joint Neurologic: normal touch/pain/proprioception and moves all extremities; no focal motor deficits Lymphatic: no cervical or axillary lymphadenopathy Principal Diagnosis Recurrent pericarditis Pericardial effusion Discharge Data Allergies Allergy/AdvReac Type Severity Reaction Status Date / Time capsaicin Allergy Intermediate Rash Verified 01/07/24 10:58 cefaclor Allergy Intermediate Rash Verified 01/07/24 10:58 Consultations 01/27/24 13:56 ED Decision to Admit Stat 01/27/24 14:52 Consult Cardiology Routine Procedures Performed Operation Date: 01/27/24 16:00 Actual Procedures p Pericardiocentesis Initial - Carlos Wrorell MD s Fluoroscopy Up To 1 Hour - Carlos Worrell MD Ordered Studies 01/27/24 15:06 CL Cath Imgs for PACS use only Stat Hospital Course (1) Acute pericarditis: Presented with chest pain and palpitation for the last 2 to 3 days duration Recurrent pericarditis Pericardial effusion S/P Successful ultrasound-guided pericardiocentesis with removal of 340 mL of light straw-colored fluid --ECHO: Moderate to large circumferential pericardial fusion with large volume of fluid adjacent to the anterior lateral, and apical rivera. No echogenic indications of cardiac tamponade. Normal inferior vena cava diameter with reduced inspiratory variation suggestive of right atrial pressure of 8 mmHg. Pericardial fluid studies pending Continue colchicine, ibuprofen On Protonix for GI prophylaxis Appreciate Cardiology input Ibuprofen decreased to 600 mg 3 times daily. Needs follow-up with cardiology with repeat echo next week Patient understands and agrees with the plan (2) Polysubstance abuse: Ongoing abuse Counseled to quit marijuana, tobacco use (3) Patient's noncompliance with other medical treatment and regimen due to unspecified reason: (4) Depression: Continue home medication Plan DVT prophylaxis SCDs CODE STATUS Full Total Time Total Time Spent Total Time Spent (In Minutes): 48 minutes Discharge Plan Discharge Items Patient Disposition: Home - Self-Care Reason For Visit: PERICARDITIS Discharge Diagnosis: Recurrent pericarditis Pericardial effusion Activity: Per Instructions section Exercise/Sports: Wait until after follow-up appointment Non-emergency contact: Primary Care Provider and Spinning Bath Person Call non-emergency contact if: you have any medication questions, your symptoms worsen, your pain is concerning for you and you have a fever Follow-up/Referrals: Mariann Vizcarra MD [Primary Care Provider] - Diet: Heart Healthy Addtl Attending Provider Instructions: Follow-up with your primary care physician Dr. Vizcarra in 1 week Follow-up with your production broaching machine operator next week with repeat ECHO -- Your pericardial fluid studies are pending at the time of discharge. Follow- up with your physician for results. --Continue ibuprofen 600 mg 3 times a day until follow-up with your production broaching machine operator next week. Further recommendations as per your production broaching machine operator. --Continue colchicine 0.6 mg daily as per your Spinning Bath Person Seek immediate medical attention if your symptoms reoccur or worsen Please take all medications as instructed on discharge list below. Please call if you have any questions or problems. You can reach a [facility] hospitalist on duty at [facility] 24 hours a day by calling [phone] Pending Studies at Discharge: Yes Studies:: Pericardial fluid studies Stand-Alone Forms: My [facility], Smoking Cessation Medications and DC Order Prescriptions: New ibuprofen 600 mg Tablet 600 mg PO UD Qty: 60 0RF Rx Instructions: Take 600 mg 3 times a day for 1 week. Further dosage to be determined by your production broaching machine operator. pantoprazole 40 mg Tablet,Delayed Release (Dr/Ec) 40 mg PO BID Qty: 60 0RF Continued buprenorphine-naloxone 8-2 mg tablet, sublingual 1 tab SUBLINGUAL BID folic acid 1 mg tablet 1 mg PO DAILY bupropion HCl 200 mg tablet sustained-release 12 hr 200 mg PO DAILY colchicine 0.6 mg tablet 0.6 mg PO DAILY Qty: 30 2RF metoprolol succinate 25 mg Tablet Extended Release 24 Hr 25 mg PO QAM 30 Days Qty: 30 0RF Discontinued omeprazole 40 mg capsule,delayed release(DR/EC) 40 mg PO UD ibuprofen 400 mg tablet 400 mg PO UD PRN (Reason: Pain) pantoprazole 40 mg Tablet,Delayed Release (Dr/Ec) 40 mg PO DAILY 30 Days Qty: 30 0RF Discharge Orders: Discharge Order (Routine); Ordered 01/29/24 Ordered By: Alessandro Faulkner Admission Data Admit Date/Time: 01/27/24 14:52 Attending Provider: Alessandro Faulkner Admit Provider: Destiney Begum Primary Care Provider: Mariann Vizcarra Other Providers: Destiney Begum; Segundo Beltran
[2024-01-29] MEDS: IBUPROFEN 600 MG TAB PO SCH (12:18)
[2024-01-30 10:47] LABS: Fluid Appearance CLEAR; Fluid Basophil % 0 %; Fluid Color YELLOW; Fluid Comment DNR; Fluid Eosinophil % 0 %; Fluid Lymphocytes % 4 %; Fluid Mesothelial % 0 %; Fluid Monocyte/Macrophage % 16 %; Fluid Neutrophil % 80 %; Fluid Total Nucleated Cell Ct 7950 cells/uL; Fluid Type NOT GIVEN
[2024-01-30 15:27] LABS: Anti Nuclear Antibody Screen POSITIVE (NEGATIVE)
[2024-01-31 12:27] LABS: Quantiferon Mitogen-NIL 8.16 IU/mL; Quantiferon NIL 0.01 IU/mL; Quantiferon TB Gold Plus NEGATIVE (NEGATIVE)
[2024-01-31 17:02] LABS: HIV 1 RNA PCR Copies/ML Not Detected Copies/mL; HIV-1 RNA Log Copies/mL Not Detected Log cps/mL
== END 2024-01-29 12:17 | disposition home or self-care (01) | DRG 315 ==
LOC: ED 10:42 → SUATTDRO 14:52 → 2S 14:52 → 1E 17:33
DX: F11.20 Opioid dependence, uncomplicated; T50.996A Underdosing of other drugs, medicaments and biological substances, initial encounter; Z88.8 Allergy status to other drugs, medicaments and biological substances; F17.210 Nicotine dependence, cigarettes, uncomplicated; F32.A Depression, unspecified; Z91.128 Patient's intentional underdosing of medication regimen for other reason; I30.9 Acute pericarditis, unspecified; R00.0 Tachycardia, unspecified; Z79.899 Other long term (current) drug therapy

== ENCOUNTER 2024-02-19 15:07 | Inpatient (IN) ==
--- OUTSIDE RECORDS SUMMARY | 2024-02-19 15:11 | External Medical Summary | Summary of Care ---
Author Name Unknown Organization [facility] Address [address] [place] [address] Phone [phone] Care Team Providers Care Coordinator Integrated Marketing Name Role Phone Mariann Vizcarra MD Primary Care Provider Encounter Details Date Type Department Care Team (Late st Contact Info) Description 02/02/2024 Population Health External Data Unspecified Department Allergies Active Allergy Reactions Criticality Noted Date Comments Cefaclor Hives 03/29/2016 Cephalosporins 01/06/2001 Diclofenac Itching 12/24/2016 documented as of this encounter (statuses as of 02/02/2024) Medications Medication Sig Dispensed Refills Start Date [...] 12/09/2023 Active Colchicine 0.6 MG Oral TabletIndications:Ac [place] pericarditis, unspecified type Take 1 Tablet by mouth in the morning. With food.. 90 Tablet 12/12/2023 Active documented as of this encounter (statuses as of 02/02/2024) Active Problems Problem Noted Date Diagnosed Date Pericarditis 12/08/2023 Lumbar degenerative disc disease 12/01/2020 Overview: MRI from 2011 showed mild disease Gastroesophageal reflux disease without esophagi tis 11/19/2020 Opioid abuse, in remission 11/19/2020 Overview: On suboxone Moderate persistent asthma without complication 01/15/2010 Overview: Per Asthma Taxonomy ICD-10 update of inactive term documented as of this encounter (statuses as of 02/02/2024) Resolved Problems Problem Noted Date Diagnosed Date Resolved Date Left lumbar radiculopathy 02/20/2021 Low back pain 12/24/2016 07/28/2018 Overview: Avoid narcotics Chronic pain of left knee 10/04/2016 Routine child health exam 01/22/2003 Asthma, allergic 01/22/2003 01/15/2010 documented as of this encounter (statuses as of 02/02/2024) Immunizations Name Administration Dates Next Due Seasonal [...] 02/21/2024 2:30 PM EDT Office Visit Cardiology, [facility] [address] [address] NevaehChristina elmore CRNP [address] [place] [address] Health Maintenance Due Date Last Done Comments DISCUSS TOBACCO CESSATION (REFER TO SMARTSET #7895) 1992 Pneumococcal Vaccine: Pediatrics (0 to 5 Years) and At-Risk Patients (6 to 64 Years) (1 of 2 - PCV) 1998 HIV Screening 2007 Hepatitis C Screening 2010 *SPIROMETRY ONCE FOR ASTHMA-ADULT 10/06/2016 Depression Screening 12/01/2021 12/01/2020 DTaP,Tdap,and Td Vaccines (7 - Td or Tdap) 01/23/2023 01/23/2013, 08/23/2003, 10/15/1996, Additional history exists COVID-19 Vaccine ( - 2022- season) 2023 Influenza Vaccine (FLU shot) (#1) 2024 05/10/2020, 05/30/2018, 04/29/2004 Hepatitis B Vaccine Completed 1992, 1992, 1992 HPV (Gardasil) Vaccine Aged Out No lo nger eligible based on patient's age to complete this topic MENINGOCOCCAL (MENACTRA/MENVEO) Aged Out No longer eligible based on patient's age to complete this topic documented as of this encounter Medical Devices Not on filedocumented as of this encounter Care Teams Coordinator Integrated Marketing Relationship Specialty Start Date End Date Mariann Vizcarra MD [address] [id number] PCP - General Internal Medicine 06/22/21 documented as of this encounter
--- OUTSIDE RECORDS SUMMARY | 2024-02-19 15:11 | External Medical Summary | Summary of Care ---
Author Name Unknown Organization [facility] Address [address] [place] [address] Phone [phone] Care Team Providers Care Protective Signal Repairer Name Role Phone Mariann Vizcarra MD Primary Care Provider Encounter Details Date Type Department Care Team (Late st Contact Info) Description 01/27/2024 Result Scan Unspecified Department <No scans attached> Allergies Active Allergy Reactions Criticality Noted Date Comments Cefaclor Hives 03/29/2016 Cephalosporins 01/06/2001 Diclofenac Itching 12/24/2016 documented as of this encounter (statuses as of 01/30/2024) Medications Medication Sig Dispensed Refills Start Date [...] 12/09/2023 Active Colchicine 0.6 MG Oral TabletIndications:Ac [place] pericarditis, unspecified type Take 1 Tablet by mouth in the morning. With food.. 90 Tablet 12/12/2023 Active documented as of this encounter (statuses as of 01/30/2024) Active Problems Problem Noted Date Diagnosed Date Pericarditis 12/08/2023 Lumbar degenerative disc disease 12/01/2020 Overview: MRI from 2011 showed mild disease Gastroesophageal reflux disease without esophagi tis 11/19/2020 Opioid abuse, in remission 11/19/2020 Overview: On suboxone Moderate persistent asthma without complication 01/15/2010 Overview: Per Asthma Taxonomy ICD-10 update of inactive term documented as of this encounter (statuses as of 01/30/2024) Resolved Problems Problem Noted Date Diagnosed Date Resolved Date Left lumbar radiculopathy 02/20/2021 Low back pain 12/24/2016 07/28/2018 Overview: Avoid narcotics Chronic pain of left knee 10/04/2016 Routine child health exam 01/22/2003 Asthma, allergic 01/22/2003 01/15/2010 documented as of this encounter (statuses as of 01/30/2024) Immunizations Name Administration Dates Next Due Seasonal [...] 02/21/2024 2:30 PM EDT Office Visit Cardiology, [facility] [address] [id number] Christina Herring CRNP [address] [place] [address] Health Maintenance Due Date Last Done Comments DISCUSS TOBACCO CESSATION (REFER TO SMARTSET #[id number]) 1992 Pneumococcal Vaccine: Pediatrics (0 to 5 Years) and At-Risk Patients (6 to 64 Years) (1 of 2 - PCV) 1998 HIV Screening 2007 Hepatitis C Screening 2010 *SPIROMETRY ONCE FOR ASTHMA-ADULT 10/06/2016 Depression Screening 12/01/2021 12/01/2020 DTaP,Tdap,and Td Vaccines (7 - Td or Tdap) 01/23/2023 01/23/2013, 08/23/2003, 10/15/1996, Additional history exists COVID-19 Vaccine (2022- season) 2023 Influenza Vaccine (FLU shot) (#1) [...] Procedure Name Priority Date/Time Associated Diagnosis Comments CARDIAC CATH SCANNED RESULT 01/27/2024 documented in this encounter Results * CARDIAC CATH SCANNED RESULT (01/27/2024) 01/27/2024 No Physician Data Unknown CARD CATH documented in this encounter Care Teams Protective Signal Repairer Relationship Specialty Start Date End Date Mariann Vizcarra MD [address] [id number] PCP - General Internal Medicine 06/22/21 documented as of this encounter
--- OUTSIDE RECORDS SUMMARY | 2024-02-19 15:11 | External Medical Summary | Summary of Care ---
Author Name Unknown Organization [facility] Address [address] [place] [address] Phone [phone] Care Team Providers Care Clamshell Operator Name Role Phone Mariann Vizcarra MD Primary Care Provider Encounter Details Date Type Department Care Team (Late st Contact Info) Description 01/30/2024 Population Health External Data Unspecified Department Allergies [...] 12/09/2023 Active Colchicine 0.6 MG Oral TabletIndications:Ac [place] pericarditis, unspecified type Take 1 Tablet by [...] 02/21/2024 2:30 PM EDT Office Visit Cardiology, [facility] [address] [address] NevaehChristina elmore CRNP [address] [place] [address] Health Maintenance Due Date Last Done Comments DISCUSS TOBACCO CESSATION (REFER TO SMARTSET #[id number]) 1992 Pneumococcal Vaccine: Pediatrics (0 to 5 [...] filedocumented as of this encounter Care Teams Clamshell Operator Relationship Specialty Start Date End Date Mariann Vizcarra MD [address] [id number] PCP - General Internal Medicine 06/22/21 documented as of this encounter
--- OUTSIDE RECORDS SUMMARY | 2024-02-19 15:11 | External Medical Summary | Summary of Care ---
Author Name Unknown Organization [facility] Address [address] [facility] [place] [address] Phone [phone] Care Team Providers Care Publication Director Name Role Phone Mariann Vizcarra MD Primary Care Provider Reason for Visit * Reason Onset Date Comments Advice 01/24/2024 Encounter Details Date Type Department Care Team (Late st Contact Info) Description 01/24/2024 Telephone Cardiology, [facility] [address] [place] [address] Christina Herring CRNP [address] [place] [phone] Advice Allergies Active Allergy Reactions Criticality Noted [...] 12/09/2023 Active Colchicine 0.6 MG Oral TabletIndications:Ac native pericarditis, unspecified type Take 1 Tablet by [...] encounter Miscellaneous Notes * Telephone Encounter - Maki De León RN - 01/25/2024 1:45 PM EDT Called, left message for patient to return call. See response below/investigate upon patient return call. . SANCHEZ Kaiser- Reviewed chart, patient rehospitalized at [facility] 01/06-01/09/24-left AMA; hospitalization noted non-compliance with ibuprofen and colchicine regimen. * Telephone Encounter - Awilda Guillaume CRNP - 01/25/2024 10:10 AM EDT Covering for AMY Guallpa Per chart review: Treating acute pericarditis. Last office visit 12/12/2023. "Continue high dose ibuprofen taper-- patient to take 600 mg three times daily x7 days, 400 mg three times daily x7 days, 200 mg three times daily x7 days then discontinue" He shouldn't be on 600 mg daily any longer. Can someone please clarify what's going on? * Telephone Encounter - Stella Garcia PHARM Tech - 01/24/2024 1:33 PM EDT Incoming call from patient's spouse requesting a new prescription for ibuprofen 600mg to be sent [id number]. Clarified dosage with caller as last prescription was for 200mg, however caller states he was only ever on 600mg. Caller can be reached at [phone]. Please review and send a new prescription if appropriate. Thank you, Stella Garcia Lead Custodian [facility] 01/24/2024,1:35 PM documented in this encounter Plan of Treatment Upcoming Encounters Date Type Department Care Team (Late st Contact Info) Description 02/21/2024 2:30 PM EDT Office Visit Cardiology, [facility] [address] [address] Christina Herring CRNP [address] [address] Health Maintenance Due Date Last Done Comments DISCUSS TOBACCO CESSATION (REFER TO SMARTSET #[id number]) 1992 Pneumococcal Vaccine: Pediatrics (0 to 5 Years) and At-Risk Patients (6 to 64 Years) (1 of 2 - PCV) 1998 HIV Screening 2007 Hepatitis C Screening 2010 *SPIROMETRY ONCE FOR ASTHMA-ADULT 10/06/2016 Depression Screening 12/01/2021 12/01/2020 DTaP,Tdap,and Td Vaccines (7 - Td or Tdap) 01/23/2023 01/23/2013, 08/23/2003, 10/15/1996, Additional history exists COVID-19 Vaccine ( - season) 2023 Influenza Vaccine (FLU shot) (#1) [...] filedocumented as of this encounter Care Teams Publication Director Relationship Specialty Start Date End Date Mariann Vizcarra MD [address] [id number] PCP - General Internal Medicine 06/22/21 documented as of this encounter
[2024-02-19 16:04] LABS: Alanine Aminotransferase 7 U/L (7-52); Albumin Globulin Ratio 1.2 (0.9-2); Albumin Level 3.9 gm/dl (3.4-5.0); Alkaline Phosphatase 82 U/L (34-104); Anion Gap 7 (3-11); Aspartate Aminotransferase 9 U/L (13-39); BUN Creatinine Ratio 11.3 (10-20); Bilirubin,Total 1.4 mg/dl (0.2-1.0); Blood Urea Nitrogen 7 mg/dl (6-23); Calcium 8.9 mg/dl (8.6-10.3); Carbon Dioxide 28 mmol/L (21-32); Chloride 100 mmol/L (98-107); Creatinine Clr Calc Pharmacy 126.5 ml/min; Est GFR (African American) > 150.0 ml/min; Est GFR (Non-African American) 132.2 ml/min; Globulin 3.2 gm/dl (2.5-4.0); Glucose 161 mg/dl (70-99(Fasting)); Magnesium 1.8 mg/dl (1.7-2.4); Potassium 3.7 mmol/L (3.5-5.1); Sodium 135 mmol/L (136-145); Total Protein 7.1 gm/dl (6.0-8.3)
[2024-02-19 16:05] LABS: Basophils # (auto) 0.06 K/uL (0.00-0.20); Basophils % (auto) 0.4 %; Eosinophils # (auto) 0.11 K/uL (0.00-0.50); Eosinophils % (auto) 0.7 %; Hematocrit (blood only) 39.7 % (42.0-52.0); Hemoglobin 13.1 g/dl (14.0-18.0); Immature Granulocytes # (auto) 0.08 K/uL (0.01-0.20); Immature Granulocytes % (auto) 0.5 %; Lymphocytes # (auto) 0.96 K/uL (1.20-3.40); Lymphocytes % (auto) 5.8 %; Mean Corpuscular Hemoglobin 30.8 pg (25.0-34.0); Mean Corpuscular Volume 93.4 fL (80.0-100.0); Mean Platelet Volume 9.9 fL (9.4-12.4); Monocytes # (auto) 1.67 K/uL (0.11-0.59); Monocytes % (auto) 10.1 %; Neutrophils # (auto) 13.63 K/uL (1.40-6.50); Neutrophils % (auto) 82.5 %; Platelet Count 322 K/uL (130-400); RDW Coefficient of Variation 12.8 % (11.5-14.5); RDW Standard Deviation 44.1 fL (36.4-46.3); Red Blood Count 4.25 M/uL (4.70-6.10); White Blood Count 16.51 K/ul (4.8-10.8)
[2024-02-19 16:11] LABS: Troponin I High Sensitivity 2.7 pg/ml (0-20)
[2024-02-19 16:24] LABS: Partial Thromboplastin Ratio 1.1; Partial Thromboplastin Time 29 Seconds (21-31); Prothrombin Time 11.3 Seconds (9.0-12.0)
[2024-02-19] MEDS: SODIUM CHLORIDE 0.9% 500 ML IV ONE (16:37)
[2024-02-19] MEDS: KETOROLAC TROMETHAMINE 15 MG/ML VIAL IV ONE (16:37)
[2024-02-19] MEDS: ONDANSETRON INJ 2 MG/ML 2 ML VIAL IV STA (16:38)
[2024-02-19] MEDS: HYDROmorphone INJ 0.5 MG/0.5 ML SYR IV STA (16:39)
--- NOTE | 2024-02-19 16:51 | XRay Report ---
XR chest 1V portable HISTORY: 33 years-old Male Dyspnea acute shortness of breath COMPARISON: Chest CT 01/27/2024 TECHNIQUE: AP view of the chest FINDINGS: Moderate enlargement of the cardiac silhouette redemonstrated. Trace pleural effusions again noted. N o pneumothorax or overt pulmonary edema. Bones appear intact. IMPRESSION: Unchanged enlargement of the cardiac silhouette with probable trace pleural effusions. ACT 112: Negative or not required by law. The above report was generated using voice recognition software. It may contain grammatical, syntax o r spelling errors. Electronically signed by: Pilo De Jesus M.D. 02/19/2024 4:50 PM
[2024-02-19] MEDS: SODIUM CHLORIDE 0.9% 1,000 ML IV STA (17:19)
[2024-02-19] MEDS: OPTIRAY 320 100ml IV ONE (17:41)
--- NOTE | 2024-02-19 18:24 | CT Scan Report ---
CHEST CT WITH CONTRAST CT DOSE: 442.94 mGy.cm HISTORY: Acute tachycardia with chest pain tachycardia, h/o pericarditis TECHNIQUE: Multiaxial CT images of the chest were performed following the IV administration of 93 cc of Optiray. A dose lowering technique was utilized adhering to the principles of ALARA. COMPARISON: 01/07/2024 FINDINGS: Heart is upper limits of normal in size. There is a pericardial effusion measuring up to 9 mm posteri melissa, previously 7 mm. There is thickening and enhancement of the pericardium. No thoracic aortic ane urysm. Unremarkable pulmonary artery. Subcentimeter hyperdense right-sided thyroid nodule. Borderline enlarged mediastinal, hilar and axill jessy chain lymph nodes measuring up to 10 mm redemonstrated and similar to prior. Moderate left and sm all right pleural effusions. No pneumothorax. Mild pulmonary emphysema. Mild intralobular septal thic kening of the mid to lower lung zones. Dependent consolidation of the lung bases, likely atelectasis. There is mild tracheobronchial secretions. Unremarkable soft tissues. Mild gynecomastia. No acute fracture. IMPRESSION: 1. Increased size of the pericardial effusion with pericardial thickening and enhancement suggestive of pericarditis. Cardiology consultation with echocardiogram may be considered. 2. Nonspecific stable borderline enlarged thoracic lymphadenopathy. 3. Moderate left with small right pleural effusions and dependent bibasilar atelectasis. 4. Equivocal mild pulmonary edema. 5. Pulmonary emphysema. ACT 112: Negative or not required by law. Electronically signed by: Pilo De Jesus M.D. 02/19/2024 6:22 PM
[2024-02-19] MEDS: BUPRENORPHINE/NALOXONE 8/2 MG TAB SL STA (18:26)
[2024-02-19] MEDS ORDERED: ONDANSETRON INJ 2 MG/ML 2 ML VIAL IV PRN (18:37)
[2024-02-19] MEDS ORDERED: MAGNESIUM HYDROXIDE SUSP 30 ML UDC PO PRN (18:37)
[2024-02-19] MEDS ORDERED: ACETAMINOPHEN 325 MG TAB PO PRN (18:37)
[2024-02-19] MEDS ORDERED: ALUMINUM/MAGNESIUM SUSP 30 ML UDC PO PRN (18:37)
[2024-02-19] MEDS ORDERED: POLYETHYLENE (MIRALAX) 17 GM PACK PO PRN (18:37)
[2024-02-19] MEDS ORDERED: VANCOMYCIN CONSULT ACTIVE PRN (18:43)
[2024-02-19] MEDS ORDERED: VANCOMYCIN HCL 1,000 MG in SODIUM CHLORIDE 0.9% 500 ML IV ONE (18:43)
--- NOTE | 2024-02-19 18:49 | History & Physical Report ---
Date of Service February 19, 2024 Assessment & Plan (1) Pericarditis: (2) Sinus tachycardia: (3) Pericardial effusion: (4) Polysubstance abuse: (5) Depression: (6) Patient's noncompliance with other medical treatment and regimen due to unspecified reason: Plan Mr. Cabrera is a 33 year old male that presents to the ED with increased chest pressure. This individual has a history of recurrent pericarditis which was initially diagnosed in November 2023. Most recent admission 01/26-01/28. Currently describes anterior chest pain as 10/10 without radiation. He has sinus tachycardia on arrival 122. He advises that his chest pressure is worse than usual. He reports that he is taking his Colchicine and NSAIDs as prescribed. He reports that the pain is centralized to his anterior chest without radiation. He reports that is has been worsening since . His most recent cardiac paracentesis was on February 15. Chest CT was performed in the ED revealing an increased in size of the pericardial effusion with pericardial thickening and enhancement suggestive of pericarditis. Nonspecific stable borderline enlarged thoracic lymphadenopathy. Moderate left with small right pleural effusions and dependent bibasilar atelectasis. Equivocal mild pulmonary edema. Pulmonary emphysema. Comparitively, the fluid is increasing from previous imaging 7mm--> 9mm. He smokes approximately 1 ppd, he drinks a pproximately 1 6 pack per day, he takes Saboxone at home. I talked to chemical detection expert cardiology who stated that we could proceed with a stat echocardiogram. Blood cultures were drawn in the ED and he was started on Zosyn and Vanco empirically. Would adjust based on culture results. Suspect that tachycardia and leukocytosis is reactive rather than from infectious source. For now we will k eep patient n.p.o. with gentle fluids until echo completed and cardiology has seen patient to determine next steps if pericardiocentesis is indicated. Pericarditis: Pericardial effusion: tachycardia: Acute Most recent cardiac pericardiocentesis during last admission 01/[address] today: Increased size of the pericardial effusion with pericardial thickening and enhancement suggestive of pericarditis. Increase in size from 7mm-->9mm. Was seen by cardiology last admission and started on the following medications which we will continue here * 100 mg IV Solumedrol ONCE * Ibuprofen 800 mg TID * Colchicine 0.6 mg BID today then 0.6 mg daily as weight is < 70 kg, duration will need to be 6 months due to recurrence. * Pantoprazole 40 mg twice a day for GI protection Discussed with pt; he states he is taking these routinely but does have h/o non- compliance Chest CT with worsening pericardial effusion from 7 mm to 9 mm In the ED was given 1.5 LNS and started on Zosyn IV Given ketorolac and Dilaudid Discussed with cardiology on-call Dr. Morin, who gave go-ahead for Stat ECHO; discussed with senior data warehouse architect suspect tachycardia and leukocytosis 16.51 is reactive Blood cultures drawn in ED; Started on Zosyn; will continue and add Vanco empirically; adjust based on culture results keep NPO for now; gentle fluids while NPO Polysubstance abuse: Non-compliance: chronic Takes saboxone;continue Known non-compliance; states today he has been taking his medications but maybe has missed a few days. Depression: Chronic Takes hydroxyzine QHS for insomnia Takes buproprion;continue Disposition: PCP: Dr. Morales Code Status: Full Code VTE Prophylaxis: Teds SCDs for now I spent a total of 82 minutes coordinating, documenting, and providing care for this patient excluding time spent in the performance of separately billed services. All of the aforementioned completed while collaborating with the assigned attending physician for a full treatment plan. Please see their addendum for further details. History of Present Illness Chief Complaint: chest pain pericarditis Primary Care Provider: Mariann Vizcarra MD Mr. Cabrera is a 33 year old male that presents to the ED with increased chest pressure. This individual has a history of recurrent pericarditis which was initially diagnosedin November 2023. Currently describes anterior chest pain as 10/10 without radiation. He has sinus tachycardia on arrival 122. Denies lightheadedness, dizziness, syncope, or near syncope. He advises that his chest pressure is worse than usual. He reports that he is taking his Colchicine and NSAIDs as prescribed. He reports that the pain is centralized to his anterior chest without radiation. He reports that is has been worsening since . His most recent cardiac paracentesis was on February 15. Chest CT was performed in the ED revealing an increased in size of the pericardial effusion with pericardial thickening and enhancement suggestive of pericarditis. Nonspecific stable borderline enlarged thoracic lymphadenopathy. Moderate left with small right pleural effusions and dependent bibasilar atelectasis. Equivocal mild pulmonary edema. Pulmonary emphysema. Comparitively, the fluid is increasing from previous imaging 7mm--> 9mm. He denies KING, dizziness, SOB, palpitations, N/V/D, lightheadedness, dizziness, syncope, or near syncope. He smokes approximately 1 ppd, he drinks approximately 1 6 pack per day, he takes Saboxone at home. I talked to chemical detection expert cardiology who stated that we could proceed with a stat echocardiogram. Blood cultures were drawn in the ED and he was started on Zosyn and Vanco empirically. Would adjust based on culture results. Suspect that tachycardia and leukocytosis is reactive rather than from infectious source. For now we will keep patient n.p.o. with gentle fluids until echo completed and cardiology has seen patient to determine next steps if pericardiocentesis is indicated.Patient will be admitted to PCU for closer monitoring. Please see A/P for further details. Allergies Allergy/AdvReac Type Severity Reaction Status Date / Time capsaicin Allergy Intermediate Rash Verified 02/19/24 18:03 cefaclor Allergy Intermediate Rash Verified 02/19/24 18:03 Home Medications Medication Instructions Recorded Confirmed Type buprenorphine 8 mg-naloxone 2 mg 1 tab sublingual BID 10/23/23 02/19/24 History sublingual tablet bupropion HCl 200 mg tablet,12 hr 200 mg PO DAILY 01/27/24 02/19/24 History sustained-release colchicine 0.6 mg tablet 0.6 mg PO DAILY #30 tabs 01/29/24 02/19/24 Rx hydroxyzine HCl 25 mg tablet 25 - 50 mg PO HS 02/19/24 02/19/24 History ibuprofen 200 mg tablet 200 mg PO Q6H PRN Pain 02/19/24 02/19/24 History omeprazole 40 mg capsule,delayed 40 mg PO DAILY 02/19/24 02/19/24 History release Past Med/Surg History Problem List Effusion, pericardium (Acute) Pericarditis (Acute) Patient's noncompliance with other medical treatment and regimen due to unspecified reason Depression Sinus tachycardia Pericardial effusion Polysubstance abuse (Acute) Acute pericarditis (Acute) Leukocytosis (Acute) Pericarditis (Acute) Polysubstance abuse (Acute) Depression with suicidal ideation (Acute) Medical History Polysubstance abuse on Suboxone Surgical History No pertinent past surgical history Social History Smoking Status: Current every day smoker Tobacco Type: Cigarettes Cigarettes Per Day: 1/2PPD; Second Hand Exposure: No; Do You Dip or Chew Tobacco: No; Hx Alcohol Use: Yes Alcohol type: beer Hx Substance Use: Yes Last Used Substance: Days (ago) Last Used Substance Other:: last month Preferred Language: Malian Communication Ability: Effective Cocktail Server Required: Yes and No Beliefs That Will Affect Care: None Current Living Situation: Spouse Current Living Situation Comment: lives with Feels Safe at Home: Yes Safety Concerns: Feels Safe At This Time Gender Identity: Male Assistive Devices: None Review of Systems Review of Systems: Neuro: (-) Falls, trauma, slurred speech HEENT: (-) KING, dizziness, dysphagia, visual or auditory changes CV: (-) CP, palpitations, swelling Resp: (-) SOB GI: (-) appetite changes, N/V/D, bowel changes : (-) urinary changes Skin: (-) rashes Psych: (-) anxiety, depression Physical Exam Physical Exam: See Dr. jimenes's addendum for physical examination findings Results & Data Results & Data Vital Signs (Past 12 Hours) Vital Signs Temp Pulse Resp BP BP Pulse Ox O2 Del Method 02/19/24 18:00 126/83 02/19/24 18:00 118 H 22 98 Room Air 02/19/24 17:30 133/82 02/19/24 17:30 116 H 24 98 02/19/24 17:23 133/89 02/19/24 17:23 133/89 02/19/24 17:23 133/89 02/19/24 17:18 115 H 20 99 02/19/24 17:00 115 H 22 99 Room Air 02/19/24 16:36 122 H 21 02/19/24 16:09 120 H 23 98 02/19/24 15:45 123 H 20 97 02/19/24 15:45 97 Room Air 02/19/24 15:42 119 H 02/19/24 15:23 99 Room Air 02/19/24 15:23 36.3 C L 120 H 24 109/86 99 Room Air 02/19/24 15:23 Room Air O2 Flow Rate 02/19/24 18:00 02/19/24 18:00 02/19/24 17:30 02/19/24 17:30 02/19/24 17:23 02/19/24 17:23 02/19/24 17:23 02/19/24 17:18 02/19/24 17:00 02/19/24 16:36 02/19/24 16:09 02/19/24 15:45 02/19/24 15:45 02/19/24 15:42 02/19/24 15:23 0 02/19/24 15:23 02/19/24 15:23 Laboratory Results Short CBC 02/19/24 Range/Units 15:21 WBC 16.51 H (4.8-10.8) K/ul Hgb 13.1 L (14.0-18.0) g/dl Hct 39.7 L (42.0-52.0) % Plt Count 322 (130-400) K/uL BMP 02/19/24 15:21 Sodium 135 L Potassium 3.7 Chloride 100 Carbon Dioxide 28 BUN 7 Creatinine 0.62 Glucose 161 H Calcium 8.9 Liver Function 02/19/24 Range/Units 15:21 Total Bilirubin 1.4 H (0.2-1.0) mg/dl AST 9 L (13-39) U/L ALT 7 (7-52) U/L Alkaline Phosphatase 82 (34-104) U/L Albumin 3.9 (3.4-5.0) gm/dl Diagnostic Findings Chest X-Ray 02/19/24 15:45 XR chest 1V portable HISTORY: 33 years-old Male Dyspnea acute shortness of breath COMPARISON: Chest CT 01/27/2024 TECHNIQUE: AP view of the chest FINDINGS: Moderate enlargement of the cardiac silhouette redemonstrated. Trace pleural effusions again noted. No pneumothorax or overt pulmonary edema. Bones appear intact. IMPRESSION: Unchanged enlargement of the cardiac silhouette with probable trace pleural effusions. ACT 112: Negative or not required by law. The above report was generated using voice recognition software. It may contain grammatical, syntax or spelling errors. Electronically signed by: Pilo De Jesus M.D. 02/19/2024 4:[address] 02/19/24 16:[address] WITH CONTRAST CT DOSE: 442.94 mGy.cm HISTORY: Acute tachycardia with chest pain tachycardia, h/o pericarditis TECHNIQUE: Multiaxial CT images of the chest were performed following the IV administration of 93 cc of Optiray. A dose lowering technique was utilized adhering to the principles of ALARA. COMPARISON: 01/07/2024 FINDINGS: Heart is upper limits of normal in size. There is a pericardial effusion measuring up to 9 mm posteriorly, previously 7 mm. There is thickening and enhancement of the pericardium. No thoracic aortic aneurysm. Unremarkable pulmonary artery. Subcentimeter hyperdense right-sided thyroid nodule. Borderline enlarged mediastinal, hilar and axillary chain lymph nodes measuring up to 10 mm redemonstrated and similar to prior. Moderate left and small right pleural effusions. No pneumothorax. Mild pulmonary emphysema. Mild intralobular septal thickening of the mid to lower lung zones. Dependent consolidation of the lung bases, likely atelectasis. There is mild tracheobronchial secretions. Unremarkable soft tissues. Mild gynecomastia. No acute fracture. IMPRESSION: 1. Increased size of the pericardial effusion with pericardial thickening and enhancement suggestive of pericarditis. Cardiology consultation with echocardiogram may be considered. 2. Nonspecific stable borderline enlarged thoracic lymphadenopathy. 3. Moderate left with small right pleural effusions and dependent bibasilar atelectasis. 4. Equivocal mild pulmonary edema. 5. Pulmonary emphysema. ACT 112: Negative or not required by law. Electronically signed by: Pilo De Jesus M.D. 02/19/2024 6:22 PM Code Status & VTE Plan Code Status Full Code in the event of cardiac arrest VTE Prophylaxis Plan VTE Prophylaxis will be ordered: Yes Supervising Physician Co-Signing Physician Notes Patient was seen and examined with Yissel REYES at bedside. Chart reviewed. Case discussed with Yissel and agree with the documentation above. In summary, this is a 33 year old male with h/o recurrent pericarditis with recent admission for same and s/p pericardiocentesis and discharged on motrin/colchicine who presented to the ED with worsening CP typical of his pericarditis due to medication non-compliance. In the ED, CT showed pericarditis with increased pericardial effusion from before. Spoke with cardio and will get stat echo. Depending on echo, might need urgent pericardiocentesis- overnight hospitalist will follow on that. Reviewed recent cardio note. Recent pericardial clx negative. Will give iv steroids, colchicine and motrin along with PPI for GI prophylaxis. Does have some leucocytosis which could be reactive but will cover with empiric antibiotics for now. Rest as per the note above On exam- General: Lying in bed, in some discomfort due to pain, on room air HEENT: LEXY, MMM Chest: Clear breath sounds bilaterally, no wheezes or crackles CVS: Tachycardic, normal heart sounds Abdomen: Soft, non tender, not distended, normal bowel sounds Neuro: Awake, alert, oriented, conversing well, non focal Extremities: No cyanosis, clubbing or edema (1) Pericarditis Chronicity: unspecified Pericarditis type: unspecified type Qualified Code(s): I31.9 - Disease of pericardium, unspecified
[2024-02-19] MEDS: IBUPROFEN 800 MG TAB PO ONE (19:10)
[2024-02-19] MEDS: COLCHICINE 0.6 MG TAB PO ONE (19:10)
[2024-02-19] MEDS: PIPERACILLIN/TAZOBACTAM 4.5 GM in DEXTROSE 5% MINI-B 100 ML IV ONE (19:11)
[2024-02-19] MEDS: VANCOMYCIN HCL 1,250 MG in SODIUM CHLORIDE 0.9% 250 ML IV ONE (19:40)
[2024-02-19] MEDS: methylPREDNISolone 100 MG in SYRINGE 0 ML IV ONE (19:40)
[2024-02-19] MEDS: SODIUM CHLORIDE 0.9% 1,000 ML IV SCH (21:11)
[2024-02-19] MEDS: PANTOprazole 40 MG in SYRINGE 0 ML IV SCH (21:11)
[2024-02-19] MEDS: hydrOXYzine HCl 25 MG TAB PO SCH (21:11)
--- NOTE | 2024-02-19 21:11 | Communication Note ---
Date of Service: February 19, 2024 Message received
[2024-02-19] MEDS: IBUPROFEN 800 MG TAB PO SCH (23:45)
[2024-02-20] MEDS: PIPERACILLIN/TAZOBACTAM 4.5 GM in DEXTROSE 5% MINI-B 100 ML IV SCH (00:01)
[2024-02-20] MEDS ORDERED: Nursing to Pharmacy Communication SCH (02:00)
[2024-02-20] MEDS: VANCOMYCIN HCL 1,000 MG in SODIUM CHLORIDE 0.9% 250 ML IV SCH (02:47)
[2024-02-20 06:32] LABS: Hematocrit (blood only) 30.6 % (42.0-52.0); Hemoglobin 10.5 g/dl (14.0-18.0); Mean Corpuscular Hemoglobin 31.3 pg (25.0-34.0); Mean Corpuscular Hgb Conc 34.3 g/dL (32.0-36.0); Mean Corpuscular Volume 91.1 fL (80.0-100.0); Mean Platelet Volume 9.9 fL (9.4-12.4); Platelet Count 311 K/uL (130-400); RDW Coefficient of Variation 12.6 % (11.5-14.5); RDW Standard Deviation 41.8 fL (36.4-46.3); Red Blood Count 3.36 M/uL (4.70-6.10); White Blood Count 14.68 K/ul (4.8-10.8)
[2024-02-20 06:51] LABS: Anion Gap 5 (3-11); BUN Creatinine Ratio 13.3 (10-20); Blood Urea Nitrogen 6 mg/dl (6-23); Calcium 8.8 mg/dl (8.6-10.3); Carbon Dioxide 25 mmol/L (21-32); Chloride 107 mmol/L (98-107); Est GFR (African American) > 150.0 ml/min; Est GFR (Non-African American) > 150.0 ml/min; Glucose 180 mg/dl (70-99(Fasting)); Magnesium 1.8 mg/dl (1.7-2.4); Phosphorus 2.2 mg/dl (2.5-4.9); Potassium 4.2 mmol/L (3.5-5.1); Sodium 137 mmol/L (136-145)
--- NOTE | 2024-02-20 07:54 | Emergency Department Note ---
Impression & Plan Pericardial effusion, Acute pericarditis ED Provider Note CHIEF COMPLAINT: Chest pain HISTORY OF PRESENT ILLNESS: This 33 year-old male Patient with past medical history of recurrent pericarditis with pericardial effusion present an emergency department, stating you believes he has fluid around his heart. Patient stated his difficult to lie flat due to pain. Symptoms have been progressive over the last two days. January 26 he reports he had a paracardiocentesis with approximately 340 mL drained. He had a follow up echocardiogram this week that revealed trace fluid. Patient denies any fevers,, significant shortness of breath. REVIEW OF SYSTEMS: A review of systems was performed with positives and pertinent negatives listed in the history of present illness. 10 systems were reviewed and are otherwise negative. ALLERGIES: see below MEDICATIONS: see below PMH: see below SOCIAL HISTORY: see below DDx: Pericarditis, Endocarditis, pericardial effusion, pneumonia, pneumothorax, pneumomediastinum, PE among others. PHYSICAL EXAM: Vital signs reviewed. General: Chronically ill appearing 33 year-old male, in no significant distress. HEENT: No scleral icterus, PERRLA, neck supple. MMM Cardiovascular: Tachycardic, regular, no extra sounds. Pulmonary: Clear to auscultation bilaterally, normal work of breathing. Abdomen: Soft, nontender, nondistended, positive bowel sounds. Musculoskeletal: Atraumatic, no peripheral edema. Neurologic: Patient awake alert and oriented x 3, speech is clear Skin: Warm, dry, no rash EMERGENCY DEPARTMENT COURSE/MDM: This patient was evaluated and appeared to be in no significant distress. IV access was obtained and laboratory work was drawn. Patient was placed on hat cleaner noted to a sinus Tachycardia. A bedside Limited echo was performed by myself and only minimal pericardial fluid was appreciated. Patient blood pressure has remain stable. Gentle IV hydration was ordered. Patient was medicated with IV Toradol and given his Suboxone as requested. Laboratory work reveals a leukocytosis of 16, lactate 1.5 and pro calcitonin 0.16. HS Troponin is 2.7. CT imaging of the chest was performed with PE protocol and reveals a pericardial fusion that appears to be increased with pericardial thickening. This is a recurrent issue with history of noncompliance. Cardiology was consulted, Dr. Mroin. We agreed no urgent intervention is indicated. Patient was medicated with IV and due to Cephalosporin allergy and history of substance abuse. She has [facility] AMY Wong was consulted. Patient and were made aware of the plan and agreed. MONITORING: An order for cardiac monitoring was placed and the patient is noted to be in a Sinus tachycardia 124 beats per minute. RADIOLOGY: chest x-ray to my interpretation reveals no focal lung consolidation or failure. Enlarged cardiac silhouette. CT chest with IV contrast: IMPRESSION: 1. Increased size of the pericardial effusion with pericardial thickening and enhancement suggestive of pericarditis. Cardiology consultation with echocardiogram may be considered. 2. Nonspecific stable borderline enlarged thoracic lymphadenopathy. 3. Moderate left with small right pleural effusions and dependent bibasilar atelectasis. 4. Equivocal mild pulmonary edema. 5. Pulmonary emphysema. EKG: to my interpretation reveals a sinus tachycardia at 121 beats per minute. No specific ST change diffusely, QTC is 454. No PVC, PAC. When compared to previous dated 01/27/24, ST changes laterally are more prominent. DISPOSITION: admission Past Med/Surg History Problem List (Updated 02/20/24 @ 08:07 by Arlene Martinez MD) Effusion, pericardium (Acute) Pericarditis (Acute) Patient's noncompliance with other medical treatment and regimen due to unspecified reason Depression Sinus tachycardia Pericardial effusion Polysubstance abuse (Acute) Acute pericarditis (Acute) Leukocytosis (Acute) Pericarditis (Acute) Polysubstance abuse (Acute) Depression with suicidal ideation (Acute) Medical History Polysubstance abuse on Suboxone Surgical History No pertinent past surgical history Social History Smoking Status: Current every day smoker Tobacco Type: Cigarettes Cigarettes Per Day: 1/2PPD; Second Hand Exposure: No; Do You Dip or Chew Tobacco: No; Hx Alcohol Use: Yes Alcohol type: beer Hx Substance Use: Yes Last Used Substance: Days (ago) Last Used Substance Other:: last month Preferred Language: Georgian Communication Ability: Effective Waste Elimination Required: Yes and No Beliefs That Will Affect Care: None Current Living Situation: Spouse Current Living Situation Comment: lives with Feels Safe at Home: Yes Safety Concerns: Feels Safe At This Time Gender Identity: Male Assistive Devices: None Allergies Allergies Allergy/AdvReac Type Severity Reaction Status Date / Time capsaicin Allergy Intermediate Rash Verified 02/19/24 18:03 cefaclor Allergy Intermediate Rash Verified 02/19/24 18:03 Home Meds Home Medications Medication Instructions Recorded Confirmed buprenorphine 8 mg-naloxone 2 mg 1 tab sublingual BID 10/23/23 02/19/24 sublingual tablet bupropion HCl 200 mg tablet,12 hr 200 mg PO DAILY 01/27/24 02/19/24 sustained-release hydroxyzine HCl 25 mg tablet 25 - 50 mg PO HS 02/19/24 02/19/24 ibuprofen 200 mg tablet 200 mg PO Q6H PRN Pain 02/19/24 02/19/24 omeprazole 40 mg capsule,delayed 40 mg PO DAILY 02/19/24 02/19/24 release Previous Rx's Medication Instructions Recorded colchicine 0.6 mg tablet 0.6 mg PO DAILY #30 tabs 01/29/24 Results & Data (ED) Vital Signs Vital Signs - 24 hr 02/19/24 15:23 02/19/24 15:23 02/19/24 15:23 Temperature 36.3 C L Temperature Source Oral Pulse Rate 120 H Pulse Rate from SpO2 Sensor Respiratory Rate 24 Respiratory Effort / Characteristics Non-Labored Spontaneous Non-Labored Spontaneous Respiratory Depth Normal Normal Respiratory Pattern Regular Blood Pressure 109/86 Blood Pressure [Right Arm] Blood Pressure Mean 93 Blood Pressure Mean [Right Arm] Pulse Oximetry 99 99 Oxygen Delivery Method Room Air Room Air Room Air Oxygen Flow Rate 0 Sepsis Recent Fever Within 48 Hours No Sepsis New/Unexplained Change in Mental Status N/A Sepsis Action Taken by Nursing No Action Required 02/19/24 15:42 02/19/24 15:45 02/19/24 15:45 Temperature Temperature Source Pulse Rate 119 H 123 H Pulse Rate from SpO2 Sensor 124 H Respiratory Rate 20 Respiratory Effort / Characteristics Respiratory Depth Respiratory Pattern Blood Pressure Blood Pressure [Right Arm] Blood Pressure Mean Blood Pressure Mean [Right Arm] Pulse Oximetry 97 97 Oxygen Delivery Method Room Air Oxygen Flow Rate Sepsis Recent Fever Within 48 Hours Sepsis New/Unexplained Change in Mental Status Sepsis Action Taken by Nursing 02/19/24 16:09 02/19/24 16:36 02/19/24 17:00 Temperature Temperature Source Pulse Rate 120 H 122 H 115 H Pulse Rate from SpO2 Sensor 120 H 115 H Respiratory Rate 23 21 22 Respiratory Effort / Characteristics Respiratory Depth Respiratory Pattern Blood Pressure Blood Pressure [Right Arm] Blood Pressure Mean Blood Pressure Mean [Right Arm] Pulse Oximetry 98 99 Oxygen Delivery Method Room Air Oxygen Flow Rate Sepsis Recent Fever Within 48 Hours Sepsis New/Unexplained Change in Mental Status Sepsis Action Taken by Nursing 02/19/24 17:18 02/19/24 17:23 02/19/24 17:23 Temperature Temperature Source Pulse Rate 115 H Pulse Rate from SpO2 Sensor 116 H Respiratory Rate 20 Respiratory Effort / Characteristics Respiratory Depth Respiratory Pattern Blood Pressure 133/89 Blood Pressure [Right Arm] 133/89 Blood Pressure Mean 111 Blood Pressure Mean [Right Arm] 103 Pulse Oximetry 99 Oxygen Delivery Method Oxygen Flow Rate Sepsis Recent Fever Within 48 Hours Sepsis New/Unexplained Change in Mental Status Sepsis Action Taken by Nursing 02/19/24 17:23 02/19/24 17:30 02/19/24 17:30 Temperature Temperature Source Pulse Rate 116 H Pulse Rate from SpO2 Sensor 116 H Respiratory Rate 24 Respiratory Effort / Characteristics Respiratory Depth Respiratory Pattern Blood Pressure 133/89 133/82 Blood Pressure [Right Arm] Blood Pressure Mean 111 98 Blood Pressure Mean [Right Arm] Pulse Oximetry 98 Oxygen Delivery Method Oxygen Flow Rate Sepsis Recent Fever Within 48 Hours Sepsis New/Unexplained Change in Mental Status Sepsis Action Taken by Nursing 02/19/24 18:00 02/19/24 18:00 02/19/24 18:00 Temperature Temperature Source Pulse Rate 118 H Pulse Rate from SpO2 Sensor 119 H Respiratory Rate 22 Respiratory Effort / Characteristics Respiratory Depth Respiratory Pattern Blood Pressure 126/83 126/83 Blood Pressure [Right Arm] Blood Pressure Mean 101 101 Blood Pressure Mean [Right Arm] Pulse Oximetry 98 Oxygen Delivery Method Room Air Oxygen Flow Rate Sepsis Recent Fever Within 48 Hours Sepsis New/Unexplained Change in Mental Status Sepsis Action Taken by Nursing 02/19/24 18:09 02/19/24 18:30 02/19/24 18:30 Temperature Temperature Source Pulse Rate 119 H Pulse Rate from SpO2 Sensor 119 H Respiratory Rate 20 Respiratory Effort / Characteristics Respiratory Depth Respiratory Pattern Blood Pressure 130/86 130/86 Blood Pressure [Right Arm] Blood Pressure Mean 109 109 Blood Pressure Mean [Right Arm] Pulse Oximetry 98 Oxygen Delivery Method Room Air Oxygen Flow Rate Sepsis Recent Fever Within 48 Hours Sepsis New/Unexplained Change in Mental Status Sepsis Action Taken by Shelter Medications Current Medication List: was personally reviewed by nm Laboratory Data Attestation: I reviewed the patient's lab results. 02/20/24 06:05 02/20/24 06:05 Lab Results 02/19/24 02/19/24 02/19/24 Range/Units 15:21 16:25 16:39 WBC 16.51 H (4.8-10.8) K/ul RBC 4.25 L (4.70-6.10) M/uL Hgb 13.1 L (14.0-18.0) g/dl Hct 39.7 L (42.0-52.0) % MCV 93.4 (80.0-100.0) fL MCH 30.8 (25.0-34.0) pg MCHC 33.0 (32.0-36.0) g/dL RDW Std Deviation 44.1 (36.4-46.3) fL RDW Coeff of Mc[place]nley 12.8 (11.5-14.5) % Plt Count 322 (130-400) K/uL MPV 9.9 (9.4-12.4) fL Immature Gran % (Auto) 0.5 % Neut % (Auto) 82.5 % Lymph % (Auto) 5.8 % Harnett % (Auto) 10.1 % Eos % (Auto) 0.7 % Baso % (Auto) 0.4 % Neut # (Auto) 13.63 H (1.40-6.50) K/uL Lymph # (Auto) 0.96 L (1.20-3.40) K/uL H[place]ett # (Auto) 1.67 H (0.11-0.59) K/uL Eos # (Auto) 0.11 (0.00-0.50) K/uL Baso # (Auto) 0.06 (0.00-0.20) K/uL Immature Gran # (Auto) 0.08 (0.01-0.20) K/uL PT 11.3 (9.0-12.0) Seconds INR 1.0 (0.9-1.1) APTT 29 (21-31) Seconds PTT Ratio 1.1 Sodium 135 L (136-145) mmol/L Potassium 3.7 (3.5-5.1) mmol/L Chloride 100 (98-107) mmol/L Carbon Dioxide 28 (21-32) mmol/L Anion Gap 7 (3-11) BUN 7 (6-23) mg/dl Creatinine 0.62 (0.6-1.4) mg/dl Est Cr Clr Drug Dosing 126.5 ml/min Est GFR ( Amer) > 150.0 ml/min Est GFR (Non-Af Amer) 132.2 ml/min BUN/Creatinine Ratio 11.3 (10-20) Glucose 161 H (70-99(Fasting)) mg/dl Lactate 1.5 (0.4-2.0) mmol/L Calcium 8.9 (8.6-10.3) mg/dl Magnesium 1.8 (1.7-2.4) mg/dl Total Bilirubin 1.4 H (0.2-1.0) mg/dl AST 9 L (13-39) U/L ALT 7 (7-52) U/L Alkaline Phosphatase 82 (34-104) U/L Troponin I High Sens 2.7 (0-20) pg/ml Total Protein 7.1 (6.0-8.3) gm/dl Albumin 3.9 (3.4-5.0) gm/dl Globulin 3.2 (2.5-4.0) gm/dl Albumin/Globulin Ratio 1.2 (0.9-2) Procalcitonin 0.16 (0-0.5) ng/ml Administered Medications Hydroxyzine HCl (Hydroxyzine Hcl 25 Mg Tab) 25 mg PO HS IESHA Stop: 03/20/24 20:59 Last Admin: 02/19/24 21:11 Dose: 25 mg Documented By: Piperacillin Sod/Tazobactam (Sod 4.5 gm/ Dextrose) 100 mls @ 25 mls/hr IV Q8H [facility]; Protocol Stop: 04/02/24 00:00 Last Infusion: 02/20/24 04:03 Dose: Infused Documented By: Admin: 02/20/24 00:01 Dose: 25 mls/hr Documented By: Pantoprazole Sodium 40 mg/ (Syringe) 10 mls @ 5 mls/min IV BID IESHA Stop: 03/20/24 18:59 Last Admin: 02/19/24 21:11 Dose: 5 mls/min Documented By: Sodium Chloride (Nss) 1,000 mls @ 50 mls/hr IV .Q20H IESHA Stop: 02/21/24 11:59 Last Admin: 02/19/24 21:11 Dose: 50 mls/hr Documented By: Vancomycin HCl 1,000 mg/ (Sodium Chloride) 270 mls @ 200 mls/hr IV Q8H IESHA Stop: 02/22/24 01:59 Last Infusion: 02/20/24 04:12 Dose: Infused Documented By: Admin: 02/20/24 02:47 Dose: 200 mls/hr Documented By: Ibuprofen (Ibuprofen 800 Mg Tab) 800 mg PO TIDM IESHA Stop: 03/20/24 22:59 Last Admin: 02/19/24 23:45 Dose: 800 mg Documented By: Discontinued Medications Buprenorphine/Naloxone (Buprenorphine/Naloxone 8/2 Mg Tab) 1 tab SL NOW STA Stop: 02/19/24 18:19 Last Admin: 02/19/24 18:26 Dose: 1 tab Documented By: SAMMY Colchicine (Colchicine 0.6 Mg Tab) 0.6 mg PO NOW ONE Stop: 02/19/24 18:46 Last Admin: 02/19/24 19:10 Dose: 0.6 mg Documented By: ADONAY Hydromorphone HCl (Hydromorphone Inj 0.5 Mg/0.5 Ml Syr) 0.5 mg IV NOW STA Stop: 02/19/24 15:47 Last Admin: 02/19/24 16:39 Dose: Not Given Documented By: SAMMY Sodium Chloride (Nss) 500 mls @ 999 mls/hr IV .Q31M ONE Stop: 02/19/24 17:03 Last Infusion: 02/19/24 17:19 Dose: Infused Documented By: Admin: 02/19/24 16:37 Dose: 999 mls/hr Documented By: SAMMY Sodium Chloride (Nss) 1,000 mls @ 125 mls/hr IV .Q8H STA Stop: 02/20/24 00:32 Last Infusion: 02/19/24 20:22 Dose: Infused Documented By: Admin: 02/19/24 17:19 Dose: 125 mls/hr Documented By: SAMMY Piperacillin Sod/Tazobactam (Sod 4.5 gm/ Dextrose) 100 mls @ 200 mls/hr IV NOW ONE; Protocol Stop: 02/19/24 18:43 Last Infusion: 02/19/24 20:21 Dose: Infused Documented By: Admin: 02/19/24 19:11 Dose: 200 mls/hr Documented By: ADONAY Methylprednisolone 100 mg/ (Syringe) 1.6 mls @ 0.533 mls/min IV NOW ONE Stop: 02/19/24 18:52 Last Admin: 02/19/24 19:40 Dose: 0.533 mls/min Documented By: ADONAY Vancomycin HCl 1,250 mg/ (Sodium Chloride) 275 mls @ 200 mls/hr IV NOW ONE Stop: 02/19/24 20:22 Last Infusion: 02/19/24 21:05 Dose: Infused Documented By: Admin: 02/19/24 19:40 Dose: 200 mls/hr Documented By: ADONAY Ibuprofen (Ibuprofen 800 Mg Tab) Confirm Administered Dose 800 mg PO .STK-MED ONE Stop: 02/19/24 19:06 Last Admin: 02/19/24 19:10 Dose: 800 mg Documented By: ADONAY Ioversol (Optiray 320 100ml) 93 ml IV ONCE ONE Stop: 02/19/24 17:41 Last Admin: 02/19/24 17:41 Dose: 93 ml Documented By: TERRANCE Ketorolac Tromethamine (Ketorolac Tromethamine 15 Mg/Ml Vial) 10 mg IV NOW ONE Stop: 02/19/24 16:29 Last Admin: 02/19/24 16:37 Dose: 10 mg Documented By: SAMMY Ondansetron HCl (Ondansetron Inj 2 Mg/Ml 2 Ml Vial) 4 mg IV NOW STA Stop: 02/19/24 15:47 Last Admin: 02/19/24 16:38 Dose: Not Given Documented By: SAMMY Imaging Data Radiologist's Impression: Chest X-Ray 02/19/24 15:45 XR chest 1V portable HISTORY: 33 years-old Male Dyspnea acute shortness of breath COMPARISON: Chest CT 01/27/2024 TECHNIQUE: AP view of the chest FINDINGS: Moderate enlargement of the cardiac silhouette redemonstrated. Trace pleural effusions again noted. No pneumothorax or overt pulmonary edema. Bones appear intact. IMPRESSION: Unchanged enlargement of the cardiac silhouette with probable trace pleural effusions. ACT 112: Negative or not required by law. The above report was generated using voice recognition software. It may contain grammatical, syntax or spelling errors. Electronically signed by: Pilo De Jesus M.D. 02/19/2024 4:[address] 02/19/24 16:[address] WITH CONTRAST CT DOSE: 442.94 mGy.cm HISTORY: Acute tachycardia with chest pain tachycardia, h/o pericarditis TECHNIQUE: Multiaxial CT images of the chest were performed following the IV administration of 93 cc of Optiray. A dose lowering technique was utilized adhering to the principles of ALARA. COMPARISON: 01/07/2024 FINDINGS: Heart is upper limits of normal in size. There is a pericardial effusion measuring up to 9 mm posteriorly, previously 7 mm. There is thickening and enhancement of the pericardium. No thoracic aortic aneurysm. Unremarkable pulmonary artery. Subcentimeter hyperdense right-sided thyroid nodule. Borderline enlarged mediastinal, hilar and axillary chain lymph nodes measuring up to 10 mm redemonstrated and similar to prior. Moderate left and small right pleural effusions. No pneumothorax. Mild pulmonary emphysema. Mild intralobular septal thickening of the mid to lower lung zones. Dependent consolidation of the lung bases, likely atelectasis. There is mild tracheobronchial secretions. Unremarkable soft tissues. Mild gynecomastia. No acute fracture. IMPRESSION: 1. Increased size of the pericardial effusion with pericardial thickening and enhancement suggestive of pericarditis. Cardiology consultation with echocardiogram may be considered. 2. Nonspecific stable borderline enlarged thoracic lymphadenopathy. 3. Moderate left with small right pleural effusions and dependent bibasilar atelectasis. 4. Equivocal mild pulmonary edema. 5. Pulmonary emphysema. ACT 112: Negative or not required by law. Electronically signed by: Pilo De Jesus M.D. 02/19/2024 6:22 PM Discharge Plan Visit Data Chief Complaint: Cardiac Assessment ED Provider: Arlene Martinez Discharge Problem: Pericardial effusion, Acute pericarditis Patient Disposition: Admitted As Inpatient Discharge Instructions Interventions: ED Discharge Assessment Last Done: 02/19/24 19:59 Discharge Problem: Acute pericarditis Qualifiers: Pericarditis type: idiopathic Qualified Code(s): I30.0 - Acute nonspecific idiopathic pericarditis
[2024-02-20] MEDS: BUPRENORPHINE/NALOXONE 8/2 MG TAB SL SCH (08:45)
[2024-02-20] MEDS: buPROPion SR 100 MG TABCR PO SCH (08:46)
[2024-02-20] MEDS: POT PHOSPHATE MONOBASIC W/ SOD TAB PO SCH (10:35)
[2024-02-20] MEDS: COLCHICINE 0.6 MG TAB PO SCH (10:35)
--- NOTE | 2024-02-20 10:42 | Cardiology Consultation ---
Date of Consultation February 20, 2024 Assessment & Plan (1) Recurrent idiopathic pericarditis: (2) Sinus tachycardia: (3) Anemia: (4) Leukocytosis: Plan Recommendations: 1. Slow gradual Prednisone taper over the next 5 weeks (40 mg/day x 1 week then 30 mg/day x 1 week then 20 mg/day x 1 week then 10 mg/day x 1 week then 5 mg/day x 1 week) 2. Continue colchicine 0.6 mg/day x 6 months 3. Add Ibuprofen at the end of the Prednisone taper in an attempt to prevent another reoccurrance, instead of increasing Prednisone 4. Continue Pantoprazole for GI protection 5. Anemia workup via hospitalist service I spent a total of 42 minutes on the date of service in preparation, delivery, and documentation of the care provided to this patient excluding any time spent in the performance of separately billed services. This visit was a split-shared visit with the substantive portion of the medical decision making performed by the supervising intermodal truck driver/billing provider. Supervising Physician Co-Signing Physician Notes Patient was seen and personally examined. 33-year-old male with recurrent pleuropericarditis, symptomatic. Responded to IV Toradol plus Solu-Medrol in ER No evidence of tamponade Plan as above slow prednisone taper. Patient has previously used prednisone for asthmatic lung disease and aware of its use Stable for discharge from cardiac standpoint History of Present Illness Reason for Consultation: Pericardial effusion Requesting Physician: Coby Attending Physician: Gene History of Present Illness Mr. Ankit Cabrera is a 33-year-old male who was hospitalized earlier this month with recurrent pericarditis with associated pleural effusion. During that admission he underwent ultrasound-guided pericardiocentesis with removal of 340 mL of light straw-colored fluid by Dr. Worrell on January 27, 2024. He was treated with IV steroids in the hospital and was discharged on a course of ibuprofen as well as colchicine with pantoprazole for GI protection. The patient was feeling relatively well until January at which time he developed recurrent pleuritic type chest pain despite taking colchicine daily and tapering down on the ibuprofen to 400 mg twice per day. He notes toughing out the discomfort because he wanted to go to the [address] on Tuesday, eventually presenting to the ER on Monday, February 19, 2024 with 10 out of 10 chest discomfort. EKG on presentation revealed sinus tachycardia with diffuse minor ST segment elevation. High-sensitivity troponin negative. Limited resting echocardiography revealed grossly normal LV systolic function with a small circumferential pericardial effusion without evidence of tamponade. When compared to prior studies from January 09, 2024 in January 27, 2024, the effusion was noted to be significantly smaller. In the ER patient notably received Toradol as well as 100 mg of methylprednisolone. At the time of my evaluation the patient notes that he is ready to go home. His discomfort has significantly improved. He now rates his discomfort a 1 out of 10. He is able to lay flat. He is able to get a deep breath. No palpitations. No orthopnea, PND, or peripheral edema. No GI upset. Past Medical and Surgical History: Acute pericarditis, initially in September 2023, multiple reoccurrances. Alcohol use History of polysubstance abuse, on chronic Suboxone Chronic tobacco abuse Chronic marijuana use. Asthma GERD Nephrolithiasis Bipolar depression Lumbar disc disease Family History: Father with Covid. Mother is alive without cardiac issues. Social History: Smoker, cigarettes and marijuana. Denies other illicit drug use. Daily alcohol. . 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 Allergies Allergy/AdvReac Type Severity Reaction Status Date / Time capsaicin Allergy Intermediate Rash Verified 02/19/24 18:03 cefaclor Allergy Intermediate Rash Verified 02/19/24 18:03 Home Medications Medication Instructions Recorded Confirmed Type buprenorphine 8 mg-naloxone 2 mg 1 tab sublingual BID 10/23/23 02/19/24 History sublingual tablet bupropion HCl 200 mg tablet,12 hr 200 mg PO DAILY 01/27/24 02/19/24 History sustained-release colchicine 0.6 mg tablet 0.6 mg PO DAILY #30 tabs 01/29/24 02/19/24 Rx hydroxyzine HCl 25 mg tablet 25 - 50 mg PO HS 02/19/24 02/19/24 History ibuprofen 200 mg tablet 200 mg PO Q6H PRN Pain 02/19/24 02/19/24 History omeprazole 40 mg capsule,delayed 40 mg PO DAILY 02/19/24 02/19/24 History release Patient History Medical History Polysubstance abuse on Suboxone Surgical History No pertinent past surgical history Social History Smoking Status: Current every day smoker Tobacco Type: Cigarettes Cigarettes Per Day: 1/2PPD; Second Hand Exposure: No; Do You Dip or Chew Tobacco: No; Hx Alcohol Use: Yes Alcohol type: beer Hx Substance Use: Yes Last Used Substance: Days (ago) Last Used Substance Other:: last month Preferred Language: Setswana Communication Ability: Effective Telemarketing Sales Representative Required: Yes and No Beliefs That Will Affect Care: None Current Living Situation: Spouse Current Living Situation Comment: lives with Feels Safe at Home: Yes Safety Concerns: Feels Safe At This Time Gender Identity: Male Assistive Devices: None Review of Systems Review of Systems: Complete Review of Systems: Constitutional: No fevers. No chills. No rash. HEENT: Glasses. No history of amaurosis fugax. Pulmonary: + Asthma. Cardiac: See above. GI/Abd: + GERD. No melena or hematochezia. No kidney problems. No liver problems. No history of pancreatic issues. Vascular: Negative vascular history. Hematologic: No coagulation disorder or anemia Musculoskeletal: Back pain. Neurologic: No history of seizure disorder. Endocrine: No thyroid issues. No history of diabetes mellitus. Complete Review of Systems is as stated above, negative, or noncontributory Physical Exam Physical Exam: General: A&Ox3. HENT: Normocephalic. Atraumatic. Eyes: PER. Conjunctiva pink, sclera clear. Neck: No JVD. Heart: Regular at 100 bpm. No rub. No murmur. Lungs: Clear to auscultation. Abdomen: +BS. Soft. Nontender. No organomegaly. Extremities: No clubbing, cyanosis, or edema. Limited neurological examination is without focal deficits. Pulses: Posterior tibial=2/4. Results & Data Vital Signs (Past 12 Hours) Vital Signs Temp Pulse Pulse Resp BP Pulse Ox O2 Del Method 02/20/24 07:41 98 H 02/20/24 07:24 36.6 C 101 H 22 101/57 L 98 Room Air 02/20/24 03:49 36.8 C 104 H 16 106/62 96 Room Air 02/19/24 23:00 36.8 C 117 H 18 110/64 94 Room Air Laboratory Results Cardiac Enzymes 02/19/24 Range/Units 15:21 AST 9 L (13-39) U/L Troponin I High Sens 2.7 (0-20) pg/ml Coagulation 02/19/24 Range/Units 15:21 PT 11.3 (9.0-12.0) Seconds APTT 29 (21-31) Seconds CBC 02/19/24 02/20/24 Range/Units 15:21 06:05 WBC 16.51 H 14.68 H (4.8-10.8) K/ul RBC 4.25 L 3.36 L (4.70-6.10) M/uL Hgb 13.1 L 10.5 L (14.0-18.0) g/dl Hct 39.7 L 30.6 L (42.0-52.0) % Plt Count 322 311 (130-400) K/uL Neut # (Auto) 13.63 H (1.40-6.50) K/uL Lymph # (Auto) 0.96 L (1.20-3.40) K/uL [place] # (Auto) 1.67 H (0.11-0.59) K/uL Eos # (Auto) 0.11 (0.00-0.50) K/uL Baso # (Auto) 0.06 (0.00-0.20) K/uL Comprehensive Metabolic Panel 02/19/24 02/20/24 Range/Units 15:21 06:05 Sodium 135 L 137 (136-145) mmol/L Potassium 3.7 4.2 (3.5-5.1) mmol/L Chloride 100 107 (98-107) mmol/L Carbon Dioxide 28 25 (21-32) mmol/L BUN 7 6 (6-23) mg/dl Creatinine 0.62 0.45 L (0.6-1.4) mg/dl Glucose 161 H 180 H (70-99(Fasting)) mg/dl Calcium 8.9 8.8 (8.6-10.3) mg/dl AST 9 L (13-39) U/L ALT 7 (7-52) U/L Alkaline Phosphatase 82 (34-104) U/L Total Protein 7.1 (6.0-8.3) gm/dl Albumin 3.9 (3.4-5.0) gm/dl Intake and Output 02/19/24 02/20/24 02/20/24 22:59 06:59 14:59 Intake Total 1556.25 / 2276.25 720 / 2276.25 663.333 / 663.333 Balance 1556.25 / 2276.25 720 / 2276.25 663.333 / 663.333 Intake: IV 1556.25 / 1926.25 370 / 1926.25 663.333 / 663.333 Piperacillin/Tazobactam 4.5 gm 100 / 200 100 / 200 In Dextrose 5% Mini-B 100 ml @ 25 mls/hr IV Q8H IESHA Rx#: [id number] Sodium Chloride 0.9% 1,000 ml @ 881.25 / 881.25 663.333 / 663.333 50 mls/hr IV .Q20H IESHA Rx#: [id number] Vancomycin HCl 1,000 mg In 275 / 545 270 / 545 Sodium Chloride 0.9% 250 ml @ 200 mls/hr IV Q8H IESHA Rx#: [id number] Right Antecubital 300 / 300 Oral 350 / 350 Other: Weight 53.5 kg 53.5 kg Weight Measurement Method Built in [facility] Standing Scale
--- NOTE | 2024-02-20 10:44 | Pharmacy Report ---
Pharmacy PK ABX Note - Date of Service February 20, 2024 - Assessment and Plan Assessment 33 year old M receiving vancomycin and zosyn empirically in setting of tachycardia and leukocytosis. History of recurrent pericarditis with recent pericardiocentesis. Blood cultures pending. Renal function stable. Day #2 of antimicrobial therapy. Plan Vancomycin * Loading dose: 1250 mg IV x 1 * Maintenance dose: 1000 mg IV every 8 hours * Regimen is predicted to achieve target AUC/ALMA of 400-600 mg/L.hr * Will obtain after 48h of therapy if vancomycin continued. Pharmacy will continue to follow and will adjust dose/frequency as necessary. Thank you. Pharmacy has transitioned to AUC monitoring for vancomycin. AUC/ALMA is the preferred PK/PD target and is associated with decreased risk of nephrotoxicity compared to traditional trough targets.
--- NOTE | 2024-02-20 13:40 | Hospitalist Progress Note ---
Date of Service February 20, 2024 Assessment & Plan (1) Pericarditis: (2) Sinus tachycardia: (3) Pericardial effusion: (4) Polysubstance abuse: (5) Depression: (6) Patient's noncompliance with other medical treatment and regimen due to unspecified reason: Plan 33 year old male that presents to the ED with increased chest pressure for 3 days ago [employer]UTRITION [employer]NER. This individual has a history of recurrent pericarditis which was initially diagnosed in November 2023. At presentation, reported chest pain as 10/10 without radiation. He was with sinus tachycardia at presentation. He reported compliance with colchicine, NSAIDs, Omeprazole. Most recent cardiac paracentesis was on February 15. He smokes approximately 1 PPD, drinks 1-6 to 6 pack/day and takes Suboxone. He reports last " speed" use about 3 weeks ago [employer]UTRITION [employer]NER. He denies any injection drugs. He is being managed for the following: Pericarditis: Pericardial effusion: Sinus tachycardia: Patient came in with chest pain for 3 days ago NUTRITION [employer]NER, see above. Admitting CT chest with increased size of pericardial effusion with pericardial thickening and enhancement suggestive of pericarditis. Chest CT with worsening pericardial effusion from 7 mm to 9 mm Patient denies febrile illness, reports compliance with his PPI/colchicine/NSAIDs. Echo with small circumferential pericardial effusion, the effusion is significantly smaller compared to prior echo. Cardiology evaluated, plan for medications as below: Prednisone taper over the next 5 weeks (40 mg/day x 1 week then 30 mg/day x 1 week then 20 mg/day x 1 week then 10 mg/day x 1 week then 5 mg/day x 1 week) Colchicine 0.6 Mg per day for 6 months Plan to add ibuprofen at the end of prednisone taper in an attempt to prevent another reoccurrence. Continue PPI for GI protection. Today reports improvement in his chest pain. Continue medications, telemetry monitoring. Monitor replete electrolytes Leukocytosis: Patient denies febrile illness or cough or pain or burning while passing urine. Admitting procalcitonin negative. Leukocytosis likely reactive, continue with empiric Zosyn 02/18 and vancomycin 02/18 until blood cultures negative for 48 hours. Anemia: Patient's hemoglobin around 14 prior to diagnosis of pericarditis, hemoglobin has been low and stable around 10-12 since he has been diagnosed with pericarditis. Likely anemia of chronic disease. MCV wnl. Will rule out iron deficiency anemia. Send iron panel and folate and vitamin B12. Send FOBT. Polysubstance abuse: Non-compliance: chronic Takes saboxone;continue Known non-compliance; states at admission he has been taking his medications but maybe has missed a few days. Depression: Chronic Takes hydroxyzine QHS for insomnia Takes buproprion;continue Disposition: PCP: Dr. Morales Code Status: Full Code VTE Prophylaxis: Teds SCDs for now, ambulation. Admission and Anticipated Discharge Date Admission Date: February 19, 2024 Subjective Patient was lying in bed, on room air, NAD, resting comfortably. Patient reports improvement in his chest pain, denies any recent febrile illness, reports eating okay and moving bowels okay, denies sore throat or cough. Patient denies any blood in the stool or black stool. Patient reports compliance with pantoprazole while being on NSAIDs. Physical Exam Physical Exam: General: Lying in bed, NAD, on room air HEENT: LEXY, MMM Chest: Clear breath sounds bilaterally, no wheezes or crackles CVS: Tachycardic, normal heart sounds Abdomen: Soft, non tender, not distended, normal bowel sounds Neuro: Awake, alert, oriented, conversing well, non focal Extremities: No cyanosis, clubbing or edema Results & Data Results & Data Vital Signs (Past 12 Hours) Vital Signs Temp Pulse Pulse Resp BP Pulse Ox O2 Del Method 02/20/24 11:01 36.5 C 98 H 21 107/70 96 Room Air 02/20/24 07:41 98 H 02/20/24 07:24 36.6 C 101 H 22 101/57 L 98 Room Air 02/20/24 03:49 36.8 C 104 H 16 106/62 96 Room Air (1) Pericarditis Chronicity: unspecified Pericarditis type: unspecified type Qualified Code(s): I31.9 - Disease of pericardium, unspecified
[2024-02-20] MEDS: predniSONE 20 MG TAB PO SCH (14:03)
[2024-02-20 14:15] LABS: Iron 13 mcg/dl (35-175); Total Iron Binding Cap Calc 188 mcg/dl (250-450); Transferrin (FE) Percent Satur 7 % (20-50); Unsaturated Iron Binding Cap 175 mcg/dl (155-355)
[2024-02-20 14:52] LABS: Folate (Folic Acid),Ser orPlas 6.03 ng/ml (>5.38)
[2024-02-20] MEDS: CYANOCOBALAMIN (B-12) 500 MCG TABLET PO SCH (18:28)
[2024-02-20] MEDS: FOLIC ACID 1 MG TAB PO SCH (18:28)
[2024-02-20] MEDS: FERROUS SULFATE 325 MG/7.4 ML UDP PO SCH (21:32)
--- NOTE | 2024-02-21 05:41 | Electrocardiogram Report ---
Test Reason : Blood Pressure : / mmHG Vent. Rate : 121 BPM Atrial Rate : 121 BPM P-R Int : 130 ms QRS Dur : 078 ms QT Int : 320 ms P-R-T Axes : 064 041 052 degrees QTc Int : 454 ms Sinus tachycardia Nonspecific ST and T wave abnormality Abnormal ECG When compared with ECG of 27-JAN-2024 10:45, No significant change Confirmed by Scott Patino ([id number]) on 02/21/2024 5:41:13 AM Referred By: REFERRED SELF Confirmed By:Scott Patino
[2024-02-21] MEDS: FERROUS SULFATE 325 MG TAB PO SCH (09:15)
[2024-02-21 09:54] LABS: Hemoglobin 9.9 g/dl (14.0-18.0); Mean Corpuscular Hemoglobin 30.5 pg (25.0-34.0); Mean Corpuscular Volume 92.3 fL (80.0-100.0); Mean Platelet Volume 9.8 fL (9.4-12.4); Platelet Count 332 K/uL (130-400); RDW Coefficient of Variation 12.9 % (11.5-14.5); RDW Standard Deviation 43.7 fL (36.4-46.3); Red Blood Count 3.25 M/uL (4.70-6.10); White Blood Count 17.68 K/ul (4.8-10.8)
[2024-02-21 10:11] LABS: Anion Gap 6 (3-11); BUN Creatinine Ratio 24.4 (10-20); Blood Urea Nitrogen 11 mg/dl (6-23); Calcium 8.7 mg/dl (8.6-10.3); Carbon Dioxide 28 mmol/L (21-32); Chloride 106 mmol/L (98-107); Creatinine Clr Calc Pharmacy 179.6 ml/min; Est GFR (African American) > 150.0 ml/min; Est GFR (Non-African American) > 150.0 ml/min; Glucose 168 mg/dl (70-99(Fasting)); Magnesium 1.6 mg/dl (1.7-2.4); Potassium 4.1 mmol/L (3.5-5.1); Sodium 140 mmol/L (136-145)
[2024-02-21 11:11] VITALS: BP 120/58; PULSE 99; RESP 20; TEMP 97.7; O2SAT 95
[2024-02-21] MEDS ORDERED: MAGNESIUM SULFATE / D5W 1 GM/100 ML BAG IV SCH (12:15)
--- NOTE | 2024-02-21 12:35 | Discharge Summary ---
Date of Service February 21, 2024 Admission HPI Per Admitting Provider Mr. Cabrera is a 33 year old male that presents to the ED with increased chest pressure. This individual has a history of recurrent pericarditis which was initially diagnosedin November 2023. Currently describes a nterior chest pain as 10/10 without radiation. He has sinus tachycardia on arrival 122. Denies lightheadedness, dizziness, syncope, or near syncope. He advises that his chest pressure is worse than usual. He reports that he is taking his Colchicine and NSAIDs as prescribed. He reports that the pain is centralized to his anterior chest without radiation. He reports that is has been worsening since . His most recent cardiac paracentesis was on February 15. Chest CT was performed in the ED revealing an increased in size of the pericardial effusion with pericardial thickening and enhancement suggestive of pericarditis. Nonspecific stable borderline enlarged thoracic lymphadenopathy. Moderate left with small right pleural effusions and dependent bibasilar atelectasis. Equivocal mild pulmonary edema. Pulmonary emphysema. Comparitively, the fluid is increasing from previous imaging 7mm--> 9mm. He denies KING, dizziness, SOB, palpitations, N/V/D, lightheadedness, dizziness, syncope, or near syncope. He smokes approximately 1 ppd, he drinks approximately 1 6 pack per day, he takes Saboxone at home. I talked to supervisor carbon electrodes cardiology who stated that we could proceed with a stat echocardiogram. Blood cultures were drawn in the ED and he was started on Zosyn and Vanco empirically. Would adjust based on culture results. Suspect that tachycardia and leukocytosis is reactive rather than from infectious source. For now we will keep patient n.p.o. with gentle fluids until echo completed and cardiology has seen patient to determine next steps if pericardiocentesis is indicated.Patient will be admitted to PCU for closer monitoring. Please see A/P for further details. Admission Exam Per Admitting Provider General: Lying in bed, in some discomfort due to pain, on room air HEENT: LEXY, MMM Chest: Clear breath sounds bilaterally, no wheezes or crackles CVS: Tachycardic, normal heart sounds Abdomen: Soft, non tender, not distended, normal bowel sounds Neuro: Awake, alert, oriented, conversing well, non focal Extremities: No cyanosis, clubbing or edema Principal Diagnosis Pericarditis Pericardial effusion Sinus tachycardia Leukocytosis Anemia Discharge Exam General: Lying in bed, NAD, on room air HEENT: LEXY, MMM Chest: Clear breath sounds bilaterally, no wheezes or crackles CVS: Tachycardic, normal heart sounds Abdomen: Soft, non tender, not distended, normal bowel sounds Neuro: Awake, alert, oriented, conversing well, non focal Extremities: No cyanosis, clubbing or edema Discharge Data Allergies Allergy/AdvReac Type Severity Reaction Status Date / Time capsaicin Allergy Intermediate Rash Verified 02/19/24 18:03 cefaclor Allergy Intermediate Rash Verified 02/19/24 18:03 Consultations 02/19/24 18:18 ED Decision to Admit Stat 02/19/24 18:37 Consult Cardiology Routine Ordered Studies 02/19/24 16:24 CT chest diagnostic w con Stat Hospital Course (1) Pericarditis: (2) Sinus tachycardia: (3) Pericardial effusion: (4) Polysubstance abuse: (5) Depression: (6) Patient's noncompliance with other medical treatment and regimen due to unspecified reason: Plan 33 year old male that presents to the ED with increased chest pressure for 3 days ago [employer]. This individual has a history of recurrent pericarditis which was initially diagnosed in November 2023. At presentation, reported chest pain as 10/10 without radiation. He was with sinus tachycardia at presentation. He reported compliance with colchicine, NSAIDs, Omeprazole. Most recent cardiac paracentesis was on February 15. He smokes approximately 1 PPD, drinks 1-6 to 6 pack/day and takes Suboxone. He reports last " speed" use about 3 weeks ago [employer]IREMENT [employer]. He denies any injection drugs. He was managed for the following: Pericarditis: Pericardial effusion: Sinus tachycardia: Patient came in with chest pain for 3 days ago [employer]IREMENT OFF[employer], see above. Admitting CT chest with increased size of pericardial effusion with pericardial thickening and enhancement suggestive of pericarditis. Chest CT with worsening pericardial effusion from 7 mm to 9 mm Patient denies febrile illness, reports compliance with his PP I/colchicine/NSAIDs. Echo with small circumferential pericardial effusion, the effusion is significantly smaller compared to prior echo. Cardiology evaluated, plan for medications as below: Prednisone taper over the next 5 weeks (40 mg/day x 1 week then 30 mg/day x 1 week then 20 mg/day x 1 week then 10 mg/day x 1 week then 5 mg/day x 1 week) Colchicine 0.6 Mg per day for 6 months Plan to add ibuprofen at the end of prednisone taper in an attempt to prevent another reoccurrence. Continue PPI for GI protection. Pt reports resolution of chest pain. Continue medications. Hemodynamically stable and would like to go home. Leukocytosis: Patient denies febrile illness or cough or pain or burning while passing urine. Admitting procalcitonin negative. Leukocytosis likely reactive, dc empiric Zosyn 02/18 and vancomycin 02/18, Bl Cx no growth so far. pt advised to f/u on final c/s result w/ pcp office within a week time. Anemia: Patient's hemoglobin around 14 prior to diagnosis of pericarditis, hemoglobin has been low and stable around 10-12 since he has been diagnosed with pericarditis. Likely anemia of chronic disease vs TOMAS vs both. MCV wnl. Iron profile reviewed, supplement started, pt to get repeat levels in 2-3 months time, pt is aware to coordinate c/ pcp office. pt denies heartburn or black/blood in stool. Polysubstance abuse: Non-compliance: chronic Takes saboxone;continue Known non-compliance; states at admission he has been taking his medications but maybe has missed a few days. Depression: Chronic Takes hydroxyzine QHS for insomnia Takes buproprion;continue Disposition: PCP: Dr. Morales Code Status: Full Code VTE Prophylaxis: Teds SCDs for now, ambulation. Pt is being discharged w/ following instructions at the point of dc. Follow-up with your primary care physician within a week time and likely you will need labs CBC/CMP/magnesium/phosphorus. You have been diagnosed with pericarditis, you will be discharged on medications plan as below: Prednisone taper over the next 5 weeks (40 mg/day x 1 week then 30 mg/day x 1 week then 20 mg/day x 1 week then 10 mg/day x 1 week then 5 mg/day x 1 week) Colchicine 0.6 Mg per day for 6 months. Plan to add ibuprofen at the end of prednisone taper in an attempt to prevent another reoccurrence. Continue Omeprazole for GI protection. You will be discharged on medications for 1 month worth, you need to follow-up with your primary care office or cardiology office for ongoing evaluation/further prescription. You are also noted to have anemia, you will be discharged on iron and vitamin supplements. Watch out for any blood in the stool or black stool since you are on steroid therapy. Maintain compliance with Omeprazole. You will need repeat iron profile/vitamin levels done in 2 to 3 months time, coordinate with your PCP office to set up the test. As discussed at the bedside, your blood culture has no growth so far. You will need to follow-up with your PCP office in 3 to 5 days time to follow-up on the final results of the blood culture for further assessment and related plan. Take your medications as prescribed. Please make sure that you are able to get your medications today by calling your pharmacy before you leave the hospital so that your treatment continuity is not broken. Home Health Attestation I certify that this patient is under my care and that I, or a physicians assistant sales center manager working with me, had a face to-face encounter that meets the home health [id number] encounter requirements with this patient. The encounter with the patient was in whole, or in part, for the following m edical condition, which is the primary reason for home health care (list medical condition): I certify that, based on my findings, the following services are medically nece ssary home health services: My clinical findings support the need for the above services because: Further, I certify that my clinical findings support that this patient is homebound (i.e. absences from home require considerable and taxing effort and are for medical reasons or orthodoxy services or infrequently or of short duration when for other reasons) because: Certification for Home Health Services: Based on the above findings, I certify that this patient is confined to the home and needs intermittent fpc care, physical therapy and/or speech therapy or continues to need occupational therapy. The patient is under my care, and I have initiated the establishment of the plan of care. This patient will be followed by a physician who will periodically review the plan of care. Total Time Total Time Spent Total Time Spent (In Minutes): 45 Discharge Plan Discharge Items Patient Disposition: Home - Self-Care Reason For Visit: CHEST PAIN Discharge Diagnosis: Pericarditis Pericardial effusion Sinus tachycardia Leukocytosis Anemia Activity: Resume your previous activity Non-emergency contact: Primary Care Provider Call non-emergency contact if: you have any medication questions, your symptoms worsen and your temperature is above 101 Follow-up/Referrals: Mariann Vizcarra MD [Primary Care Provider] - Diet: Regular Addtl Attending Provider Instructions: Follow-up with your primary care physician within a week time and likely you will need labs CBC/CMP/magnesium/phosphorus. You have been diagnosed with pericarditis, you will be discharged on medications plan as below: Prednisone taper over the next 5 weeks (40 mg/day x 1 week then 30 mg/day x 1 week then 20 mg/day x 1 week then 10 mg/day x 1 week then 5 mg/day x 1 week) Colchicine 0.6 Mg per day for 6 months. Plan to add ibuprofen at the end of prednisone taper in an attempt to prevent another reoccurrence. Continue Omeprazole for GI protection. You will be discharged on medications for 1 month worth, you need to follow-up with your primary care office or cardiology office for ongoing evaluation/further prescription. You are also noted to have anemia, you will be discharged on iron and vitamin supplements. Watch out for any blood in the stool or black stool since you are on steroid therapy. Maintain compliance with Omeprazole. You will need repeat iron profile/vitamin levels done in 2 to 3 months time, coordinate with your PCP office to set up the test. As discussed at the bedside, your blood culture has no growth so far. You will need to follow-up with your PCP office in 3 to 5 days time to follow-up on the final results of the blood culture for further assessment and related plan. Take your medications as prescribed. Please make sure that you are able to get your medications today by calling your pharmacy before you leave the hospital so that your treatment continuity is not broken. Pending Studies at Discharge: Yes Stand-Alone Forms: My [facility], Smoking Cessation Medications and DC Order Prescriptions: New ferrous sulfate 325 mg (65 mg iron) Tablet,Delayed Release (Dr/Ec) 325 mg PO QAM Qty: 30 0RF prednisone 10 mg tablet 10 mg PO UD Qty: 74 0RF Rx Instructions: 4 tabs daily x 1 week, then 3 tabs daily x 1 week, then 2 tabs daily x 1 week, 1 tabs daily x 1 week, then 1/2 tabs daily x 1 week. cyanocobalamin (vitamin B-12) 500 mcg Tablet 500 mcg PO QAM Qty: 30 0RF folic acid 1 mg Tablet 1 mg PO QAM Qty: 30 0RF Continued buprenorphine-naloxone 8-2 mg tablet, sublingual 1 tab SUBLINGUAL BID bupropion HCl 200 mg tablet sustained-release 12 hr 200 mg PO DAILY omeprazole 40 mg capsule,delayed release(DR/EC) 40 mg PO DAILY hydroxyzine HCl 25 mg tablet 25 - 50 mg PO HS colchicine 0.6 mg tablet 0.6 mg PO DAILY Qty: 30 0RF Discontinued ibuprofen 200 mg Tablet 200 mg PO Q6H PRN (Reason: Pain) Discharge Orders: Discharge Order (Routine); Ordered 02/21/24 Ordered By: Bren Milsl Admission Data Admit Date/Time: 02/19/24 18:37 Attending Provider: Bren Mills Admit Provider: Ant Spencer Primary Care Provider: Mariann Vizcarra Other Providers: Ant Spencer; Bina Morin
== END 2024-02-21 14:33 | disposition home or self-care (01) | DRG 315 ==
LOC: ED 15:07 → 4W 18:37 → SUATTDRO 18:37 → 4W 19:59